=== PATIENT | female | born 1980 | race Caucasian/White ===

== ENCOUNTER 2018-04-09 10:09 | Emergency (ER) | payer MEDICAID, SELFPAY ==
[2018-04-09 10:15] VITALS: BP 126/82; PULSE 68; RESP 16; TEMP 36.7; O2SAT 100
--- NOTE | 2018-04-09 10:49 | ED.GENADUL ---
Disposition Clinical Impression: Poison bri dermatitis Disposition: HOME Condition: Stable Instructions: Poison Bri (ED) Additional Instructions: Return immediately if you began having fever chills, significant spreading of the rash after being on steroids for 3 days, any new or worsening symptoms. Prescriptions: Prednisone 10 mg PO DAILY #27 tablet Referrals: Primary Care Provider [Outside] - 1 week (As needed for reassessment or if not improving) Medical Decision Making - Medical Decision Making Patient presenting to the emergency department with chief complaint of rash. Physical exam reveals erythematous papular rash that is blanchable noted mostly on the exposed areas of the skin in the upper extremities and slight to the right supraclavicular area. Patient does state some rash on her legs but is wearing jeans and states that is same as this was not fully examined at this time. 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 Patient has no systemic illness type symptoms and be on rest physical exam is otherwise unremarkable. Given diffuse spread of rash on both upper extremities, lower extremity status, and mild to the superior trunk I do feel that patient would benefit from steroid use. Patient was placed on a 2-week prednisone taper and fully informed patient not to stop this immediately and to take as prescribed. Patient also recommended mcvr-sgr-mucdthk poison bri medication. Patient states that she does not have a primary care provider to follow-up with in the next week and she was offered to have care management assist with this and she declined this at this time. She was given care management's phone number to call if she changes her mind. Patient otherwise states she will return to the emergency department if she has any new or worsening symptoms or feels appropriate. After discussion of diagnosis and plan of care with patient patient agreed and stated no further needs, questions, or concerns at this time. History of Present Illness - General Chief complaint: RashLesion Stated complaint: RASH Time Seen by Provider: 04/09/18 10:49 Source: patient, RN notes reviewed Mode of arrival: ambulatory Limitations: no limitations - History of Present Illness Initial comments: Patient reports 2 days ago she noticed a rash on her arms. She has been having a flea issue in her home but is not been in the house for the past 3 days when she started noticing the rash. 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 Patient denies any fever chills, swelling of lips tongue his mouth, difficulty breathing or swallowing. Onset/Timin -: days(s) Location: upper extremity Severity scale (1-10): 2 Quality: burning (Itchy) Consistency: constant Improves with: none Worsens with: none Associated Symptoms: denies other symptoms Treatments Prior to Arrival: other (Benadryl cream) - Related Data Levonorgestrel [Mirena] 1 unit IU DIRECTED 07/02/13 Clonazepam 1 mg PO 1/2-1/D PRN #30 tab MDD 1mg 03/05/18 Prednisone 10 mg PO DAILY #27 tablet 04/09/18 Allergies Allergy/AdvReac Type Severity Reaction Status Date / Time No Known Drug Allergies Allergy Unverified 04/09/18 10:18 Review of Systems Constitutional: no symptoms reported. denies: chills, fever, malaise ENT: denies: throat pain Respiratory: denies: cough, shortness of breath, SOB at rest Musculoskeletal: denies: joint swelling Skin: rash Neurological: denies: headache Comment: All other systems reviewed and negative Past Medical History - Past Medical History pseudotumor cerebri Surgical history: other (Laparoscopy, Breast augmentation and removal) Psychiatric history: anxiety - Social History Smoking status: current everyday smoker Alcohol use: occasionally, heavy Drug use: none Living Situation: lives with family General Exam - General Limitations: no limitations General appearance: alert, in no apparent distress - ENT ENT exam: Present: normal exam, normal orophraynx, mucous membranes moist - Neck Neck exam: Present: normal inspection - Respiratory Respiratory exam: Present: normal lung sounds bilaterally. Absent: respiratory distress - Neurological Exam Neurological exam: Present: alert, oriented X3. Absent: altered - Psychiatric Psychiatric exam: Present: normal affect, normal mood - Skin Skin exam: Present: warm, dry, erythema (Patient has a erythematous diffuse non-patterned rash that is papular on the upper extremities and the right supraclavicular soft tissue. There is some linear markings to the rash and excoriation noted.). Absent: rash, cyanosis, vesicles, petechiae, pallor Course Vital Signs - 24 hr 04/09/18 10:15 Temperature 36.7 C Pulse 68 Respiratory 16 Rate Blood Pressure 126/82 Pulse Oximetry 100
== END 2018-04-09 11:04 | disposition home or self-care (01) ==
PROVIDERS: Emergency Provider Emergency Medicine
DX: L23.7 Allergic contact dermatitis due to plants, except food (principal)
CPT/HCPCS: 99283

== ENCOUNTER 2018-05-19 09:07 | Emergency (ER) | payer MEDICAID, SELFPAY ==
[2018-05-19 09:13] VITALS: BP 117/80; PULSE 70; RESP 16; TEMP 36.5; O2SAT 117
--- NOTE | 2018-05-19 09:30 | ED.GENADUL_ITS ---
Discharge Plan Discharge Details Chief Complaint: EarProblem Primary Care Provider: NONE,NONE ED Provider: Jefry Jose Home Meds and New Rx's Prescriptions: No Action clonazepam 1 MG tablet 1 mg PO 1/2-1/D MDD 1mg PRNQty: 30 RF: 0 levonorgestrel [Mirena] 1 EACH intrauterine device 1 unit IU DIRECTED RF: 0 Medical Decision Making 37-year-old female presents with left ear foreign object sensation. Her exam is notable only for mild cerumen. Ear was irrigated and reexamined without any evidence of persistent material. She is reassured and stable for discharge to home HPI General Mode of arrival: ambulatory . Date/Time Provider Initiated Documentation: 05/19/18 09:22 . Limitations to Documentation: no limitations . Information obtained by: patient . History of Present Illness 37 year old F presents to the emergency department with the chief complaint of Left ear, described as mild, Quality is described as other (Scratching), Patient started experiencing this hour(s) and it has been intermittent. No relieving factors improve symptom(s), No exacerbating factors reported . HPI Narrative: Left ear discomfort: Patient states she felt left ear foreign object/question of insect in her ear 2 weeks ago. The sensation occurred 2 days ago and again this morning. Is not particularly of pain sensation it is a sensation of scratching. She did use a Q-tip with some improvement. She has otherwise been well. She has had no swelling, fever, discharge. Related Data Home Medications Medication Instructions Recorded Confirmed levonorgestrel [Mirena] 1 unit IU DIRECTED 07/02/13 05/19/18 clonazepam 1 mg PO 1/2-1/D PRN #30 tab MDD 1mg 03/05/18 05/19/18 Allergies Allergy/AdvReac Type Severity Reaction Status Date / Time No Known Drug Allergies Allergy Unverified 05/19/18 09:17 General Stated Complaint: EarProblem NICKI: 3 Review of Systems Review of Systems 6 systems reviewed and otherwise neg PFSH Family History Mother Depression Father Essential hypertension Depression Hyperlipidemia Neoplasm Sister Depression Brother Depression Brother Depression Cerebrovascular accident Grandfather Diabetes Heart disease Hyperlipidemia Cerebrovascular accident Grandfather Heart disease Hyperlipidemia Cerebrovascular accident Grandmother Diabetes Grandmother Diabetes Neoplasm Social History Smoking/Tobacco Use Status: Current every day Exam Narrative Exam Narrative: GEN: awake, alert, oriented 3. Pleasant, well groomed, interactive. HEAD: Normocephalic, atraumatic ENT: Mucous membranes moist, oropharynx unremarkable, External ear exam unremarkable, bilateral tympanic membranes visualized, trace cerumen in left ear. No foreign object or insect appreciated EYES: PERRL, EOMI NECK: Full ROM, no NUBIA, no menigismus Neuro: Grossly normal neurologic exam, conversant, interactive. Psych: Speech fluent, thoughts congruent, affect normal Course Vital Signs Temperature 36.5 C 05/19/18 09:13 Pulse 70 05/19/18 09:13 Respiratory Rate 16 05/19/18 09:13 Blood Pressure 117/80 05/19/18 09:13 Pulse Oximetry 117 H 05/19/18 09:13 Temperature 36.5 C 05/19/18 09:13 Temperature Source Skin 05/19/18 09:13 Pulse 70 05/19/18 09:13 Respiratory Rate 16 05/19/18 09:13 Respiratory Effort Non-Labored 05/19/18 09:13 Blood Pressure 117/80 05/19/18 09:13 Pulse Oximetry 117 H 05/19/18 09:13 Oxygen Delivery Method Room Air 05/19/18 09:13 Oxygen Flow Rate 0 05/19/18 09:13 Pain Level 0 05/19/18 09:13
== END 2018-05-19 09:45 | disposition home or self-care (01) ==
PROVIDERS: Emergency Provider Emergency Medicine
DX: H61.22 Impacted cerumen, left ear (principal)
CPT/HCPCS: 69209; 99281

== ENCOUNTER 2019-03-26 12:57 | Outpatient (CLI) | payer SELFPAY ==
[2019-03-26 13:31] LABS: HCT 39.7 % (36.0-46.0); HGB 14.2 g/dL (12.0-15.5); Mean Corp. HGB Concentration 35.8 g/dL (32.0-36.0); Mean Corpuscular Hemoglobin 34.1 pg (27.0-33.0); Mean Corpuscular Volume 95.2 fL (80-95); Mean Platelet Volume 8.7 fL (8.0-11.0); Platelet Count 272 x1000/uL (130-400); RBC 4.17 m/cumm (4.00-5.20); RBC Distribution Width 11.6 % (11.7-14.6); White Blood Cell Count 6.19 k/cumm (4.4-10.8)
[2019-03-26 14:24] LABS: ALT 29 U/L (12-78); AST 15 U/L (15-37); Alkaline Phosphatase 55 U/L (46-116); Anion Gap 10.9 mmol/L (3-11); BUN 12 mg/dL (7-18); Bilirubin, Total 0.2 mg/dL (0.2-1.0); CO2 24.1 mmol/L (21.0-32.0); CREATININE 0.81 mg/dL (0.55-1.02); Calcium 9.1 mg/dL (8.5-10.1); Chloride 105 mmol/L (98-107); Glucose 104 mg/dL (70-100); Sodium 140 mmol/L (136-145); TSH (W/Ref FT4) 1.68 uIU/mL (0.36-3.74); Total Protein 7.2 g/dL (6.4-8.2)
[2019-03-26 15:55] LABS: Bilirubin Negative (Negative); Blood Negative (Negative); Clarity Clear (Clear); Glucose Negative (Negative); Ketones Negative (Negative); Leukocyte Esterase Negative (Negative); Nitrite Negative (Negative); Specific Gravity 1.015 (1.005-1.025); Urobilinogen 0.2 EU/dL (Up TO 0.2); pH 6.5 (5-8)
== END 2019-03-26 13:17 ==
PROVIDERS: PCP General Practice; Visit Provider General Practice
DX: R53.83 Other fatigue (principal); R10.9 Unspecified abdominal pain
CPT/HCPCS: 36415; 80053; 85027; 81003; 84443

== ENCOUNTER 2019-09-30 02:20 | Outpatient (CLI) | payer OTHER, SELFPAY ==
--- NOTE | 2019-09-30 13:47 | DI.MRI_ITS ---
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 COMPARISON: HEAD AND NECK WO AND W CONTRAS from 08/13/2017 FINDINGS: There is normal signal in the brain parenchyma. The ventricles are intact. The basilar cisterns are patent. There is a normal flow void in the [place]. The diffusion-weighted images are u nremarkable. No intracranial hemorrhage is present. Note is made of a partially empty sella which i s unchanged. The infundibulum and optic chiasm are unremarkable. The optic nerves are symmetric and unremarkable. The orbits and retro-orbital soft tissues are unremarkable. The visualized paranasal sinuses are c lear. Following contrast administration, no enhancing masses are seen. IMPRESSION: No acute abnormality. Unremarkable optic nerves, orbits and retro-orbital soft tissues.
[2019-09-30] MEDS: Normal Saline Flush 10 ML SYR IVP (14:42)
[2019-09-30] MEDS: Gadoterate meglumine 20 ML VIAL 14 ML IVP (14:43)
== END 2019-09-30 02:40 ==
PROVIDERS: PCP Student in an Organized Health Care Education/Training Program; Visit Provider Nurse Practitioner Adult Health
DX: R42 Dizziness and giddiness (principal); H53.2 Diplopia; H47.10 Unspecified papilledema
CPT/HCPCS: 70553; 70543

== ENCOUNTER 2019-11-04 10:36 | Outpatient (CLI) | payer OTHER, SELFPAY ==
[2019-11-08 16:39] LABS: COVID-19 RT-PCR Result QNS (NotDetected)
== END 2019-11-04 10:56 ==
PROVIDERS: PCP Student in an Organized Health Care Education/Training Program; Visit Provider Student in an Organized Health Care Education/Training Program
DX: Z20.828 Contact with and (suspected) exposure to other viral communicable diseases (principal); Z11.59 Encounter for screening for other viral diseases; R05 Cough
CPT/HCPCS: 87449; U0003

== ENCOUNTER 2019-11-09 08:04 | Outpatient (CLI) | payer OTHER, SELFPAY ==
[2019-11-10 16:02] LABS: COVID-19 RT-PCR Result Not Detected (NotDetected)
== END 2019-11-09 08:24 ==
PROVIDERS: PCP Student in an Organized Health Care Education/Training Program; Visit Provider Student in an Organized Health Care Education/Training Program
DX: Z20.828 Contact with and (suspected) exposure to other viral communicable diseases (principal)
CPT/HCPCS: U0003

== ENCOUNTER 2020-01-30 13:39 | Emergency (ER) | payer OTHER, SELFPAY ==
[2020-01-30 13:42] VITALS: BP 138/73; PULSE 94; RESP 16; TEMP 36.6; O2SAT 100
--- NOTE | 2020-01-30 14:00 | ED.GENADUL_ITS ---
Discharge Plan Disposition Patient Disposition: HOME Condition: Good Discharge Details Chief Complaint: Nk/Back Pain Clinical Impression: Acute coccygeal pain, Muscle spasm Primary Care Provider: Lisa Martin ED Provider: Arlene Fontenot Home Meds and New Rx's Prescriptions: New methocarbamol 750 mg tablet 750 mg PO TID PRN (Reason: muscle spasm) Qty: 7 RF: 0 Continued clonazepam 0.5 mg tablet 0.5 mg PO DAILY PRN (Reason: anxiety) Qty: 28 RF: 2 topiramate 100 mg tablet 100 mg PO BID Qty: 60 RF: 5 artificial tear(arnfo-lal-wje) 0.1-0.3-0.2 % drops 1 drp OP 4-8XD PRN (Reason: dry eye(s)) Qty: 30 RF: 1 Mirena 1 EACH intrauterine device 1 unit IU DIRECTED RF: 0 Discharge Instructions Instructions: Coccyx Injury (ED), Muscle Spasm (ED) Additional Instructions: Encourage hydration. May continue with Tylenol and/or ibuprofen as needed for discomfort. Please augment this with methocarbamol as prescribed for muscle spasm. Please take this medication only as prescribed do not drive will take this medication. May perform gentle stretching and ambulation. You may use Lidoderm patches to help with discomfort. Heat or ice. If you develop sensation changes, change in urinary or bowel habits, fever/chills, weakness or other new/worsening symptoms please seek care urgently once again. Otherwise, please follow-up with primary care if not improving in 1-2 weeks. Stand Alone Forms: Work Release Referrals: Lisa Martin DO [Primary Care Provider] - Discharge Data Discharge Date/Time-TO BE ENTERED AT DEPARTURE: 01/30/20 15:03 Medical Decision Making Patient is a pleasant 39-year-old female presents today with chief complaint of coccyx and sacrum discomfort. She reports that yesterday she was in [employer] with her daughter attempting to stand on a skateboard and skateboard went out from underneath her and she landed directly on her buttock. She describes midline discomfort. She reports that she had he has some sensation change in her bilateral lower extremities which she associates with her Topamax. States that this is unchanged and a fall yesterday. She denies any weakness in the lower extremities. No fevers or chills. Pain does not radiate. States the pain is worse when changing positions or bending forward. Denies any incontinence. No change in bowel or bladder habits. Denies other injury at the time of the incident. On exam, patient appears uncomfortable with movement. Most difficulty going from a sitting to standing position. Exam of her back shows no midline tenderness of the thoracic or lumbar spine. She has full range of motion without discomfort. Patient is maximally tender over the coccyx. She does have some discomfort in the sacrum but this does not seem to be as well-defined. She also has discomfort and tightness noted lateral to this over the glutes. She has no saddle paresthesias, 5 out of 5 strength bilaterally. Reflexes are equal bilaterally. No evidence of cauda equina. Patient is not had anything as of yet for discomfort. Will give Tylenol, ibuprofen and apply Lidoderm patch. Plan for plain film x-rays to evaluate for potential fracture. FINDINGS: Intrauterine device projecting over the pelvis. The bony structures are in anatomic alignment. No fracture is present. No radiopaque foreign body is identified. IMPRESSION: No evidence of acute bony abnormality Discussed these findings with the patient. She does report slight improvement in her discomfort. Work note will be given. 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 I am concerned that this may be exacerbating her discomfort today. She is given strict return precautions, in particular signs of neurologic deficit. I encouraged she continue with the Tylenol and ibuprofen. As she was tight over the gluteus, I did offer muscle relaxer which she declined while here. However, she reported that she did have difficulty sleeping last night and feels that this may be of benefit. Will prescribe methocarbamol to be used as needed. She was given strict usage instructions. We discussed activities that she should be avoiding. Advised not to drive will take this medication as it may cause drowsiness. She will follow-up with her primary care in the next 1 to 2 weeks if not improving. She will continue with the Tylenol and ibuprofen to help with discomfort as well as topical patches. All of her questions and concerns were addressed and she is in agreement this plan. HPI General Mode of arrival: ambulatory . Date/Time Provider Initiated Documentation: 01/30/20 14:00 . Limitations to Documentation: no limitations . Information obtained by: patient and RN notes reviewed . History of Present Illness 39 year old F presents to the emergency department with the chief complaint of Sacral and coccyx pain, described as moderate, with intensity rated at 5. Quality is described as aching, and is localized to the back and buttocks. Patient reports no radiation. Patient started experiencing this day(s) (1) and it has been constant. Immobilization improves symptom(s), Movement worsens symptoms . Patient notes no other symptoms.. Patient did receive the following treatments prior to arrival, none Related Data Home Medications Medication Instructions Recorded Confirmed Mirena 1 unit IU DIRECTED 07/02/13 01/30/20 topiramate 100 mg tablet 100 mg PO BID #60 tab 11/04/19 01/30/20 artificial 1 drp OP 4-8XD PRN #30 ml 11/25/19 01/30/20 tears(fmtnmzy-goxasusg-hsgfidt) 0.1 %-0.3 %-0.2 % eye drops clonazepam 0.5 mg tablet 0.5 mg PO DAILY PRN #28 tab 12/29/19 01/30/20 methocarbamol 750 mg PO TID PRN #7 tab 01/30/20 Previous Rx's Medication Instructions Recorded topiramate 100 mg tablet 100 mg PO BID #60 tab 11/04/19 artificial 1 drp OP 4-8XD PRN #30 ml 11/25/19 tears(tzwmzzd-bszvdprd-sdioipn) 0.1 %-0.3 %-0.2 % eye drops clonazepam 0.5 mg tablet 0.5 mg PO DAILY PRN #28 tab 12/29/19 methocarbamol 750 mg PO TID PRN #7 tab 01/30/20 Allergies Allergy/AdvReac Type Severity Reaction Status Date / Time sertraline [From Zoloft] Allergy Dysorgasmia Verified 01/30/20 13:47 General Stated Complaint: Nk/Back Pain NICKI: 4 Review of Systems Constitutional Constitutional: Reports as per HPI, Denies chills, Denies fatigue, Denies fever(s), Denies frequent falls and Denies headache(s) Eyes Eyes: Denies change in vision ENT Ears, Nose, Mouth, and Throat: Denies headache(s) Cardiovascular Cardiovascular: Denies chest pain, Denies dyspnea and Denies dyspnea on exertion Respiratory Respiratory: Denies cough, Denies dyspnea and Denies dyspnea on exertion Gastrointestinal Gastrointestinal: Denies abdominal pain, Denies change in bowel habits and Denies fecal incontinence Genitourinary Genitourinary: Reports as per HPI, Denies urinary incontinence and Denies urinary hesitancy Musculoskeletal Musculoskeletal: Reports as per HPI, Reports back pain, Denies muscle weakness, Denies numbness, Denies radiating pain into limb, Reports stiffness and Denies tingling Integumentary/Breasts Skin/Breast: Reports as per HPI and Denies rash Neurologic Neurologic: Reports as per HPI, Denies frequent falls, Denies headache(s), Denies localized weakness, Denies numbness, Denies radicular pain, Denies sensory deficit, Denies tingling and Denies paresthesias Endocrine Endocrine: Denies fatigue [facility] Social History Smoking/Tobacco Use Status: Current every day Alcohol Intake: former Drug use: Never Substance use type: does not use Adopted: No Caregiver/Support person: No Foster care: No Household members: children Housing: house Number of Children: 2 Do you need help understanding health information?: Never 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, [employer] Sexually active: Yes Do you think of yourself as: straight/heterosexual Current gender identity: female Seatbelt use: always Do you feel safe at home: Yes Do you feel safe in your relationship?: Yes Exam Const General: cooperative, healthy appearing, comfortable, no acute distress, well developed and well groomed Nutritional Appearance: average body habitus and well nourished Orientation: alert and awake Eyes General: appearance normal, both eyes and all related structures Neck Neck: normal visual inspection, full ROM, no lymphadenopathy and no meningeal signs Resp Effort & Inspection: normal respiratory effort and able to speak in complete sentences Auscultation: clear to auscultation bilaterally, no rales, no rhonchi and no wheezes Cardio Rate: regular rate Rhythm: regular rhythm Heart Sounds: S1 normal and S2 normal GI Inspection: normal to inspection Palpation: soft and nontender Back/Spine/Pelvis Back: no CVA tenderness Cervical Spine: normal cervical lordosis Thoracic/Lumbar Spine: thoracic and lumbar spine normal to inspection, straight leg raise negative bilaterally, No pain with thoraco-lumbar ROM, No paraspinal tenderness, No thoraco-lumbar ROM limited, No thoracic spinal tenderness, No lumbar spinal tenderness and No straight leg raise positive Pelvis: no pain with anterior-posterior compression, no pain with lateral compression, no buttock ecchymosis, buttock tenderness ( tender at the top of buttock with tense muscles in this area) and no buttock swelling Sacroiliac joints: bilaterally nontender Sacrum: no ecchymosis, no erythema, no swelling and tenderness midline Coccyx: tenderness on direct palpation Skin General skin exam: no rashes or lesions noted Neuro General: patient alert and patient awake Cognition: normal cognition Speech: speech normal Gait: normal gait Motor: muscle tone normal throughout, strength 5/5 throughout, no movement abnormalities noted and no fasciculations Sensory Exam: no sensory deficits noted (no saddle paresthesias) DTR's: Rt Patellar: 2+, Lt Patellar: 2+, Rt Ankle: 2+ and Lt Ankle: 2+ Extrem General: normal to inspection, full ROM, capillary refill normal, no joint e nlargement, no pedal edema, no calf tenderness and normal gait Psych Appearance: grossly normal and well kempt Mental Status: mental status grossly normal Speech and Movement: speech and movement normal Course Vital Signs Vital signs: Vital Signs Temperature 36.6 C 01/30/20 13:42 Pulse 94 H 01/30/20 13:42 Respiratory Rate 16 01/30/20 13:42 Blood Pressure 138/73 01/30/20 13:42 Pulse Oximetry 100 01/30/20 13:42 Temperature 36.6 C 01/30/20 13:42 Temperature Source Temporal Artery Scan 01/30/20 13:42 Pulse 94 H 01/30/20 13:42 Respiratory Rate 16 01/30/20 13:42 Respiratory Effort Non-Labored 01/30/20 13:45 Blood Pressure 138/73 01/30/20 13:42 Blood Pressure Position Standing 01/30/20 13:42 Pulse Oximetry 100 01/30/20 13:42 Oxygen Delivery Method Room Air 01/30/20 13:42 Oxygen Flow Rate 0 01/30/20 13:42 Pain Level 5 01/30/20 13:42
--- NOTE | 2020-01-30 14:00 | DI.RAD_ITS ---
EXAM: XR SACRUM COCCYX CLINICAL HISTORY: fell on buttock yesterday. TECHNIQUE: 2D digital imaging was performed. COMPARISON: No exams were available for comparison FINDINGS: BONES: No acute fracture is present. No bony destructive lesion is seen. JOINTS: SI joints and pubic symphysis appear intact. SOFT TISSUE: An IUD is noted. IMPRESSION: Unremarkable radiographs of the sacrum and coccyx. DATA REPOSITORY: RADIATION DOSE DELIVERED:
[2020-01-30] MEDS: Ibuprofen 600 MG TAB PO (14:37)
[2020-01-30] MEDS: Acetaminophen 500 MG TAB 1000 MG PO (14:37)
--- NOTE | 2020-01-30 14:41 | DI.VRAD_ITS ---
PROCEDURE INFORMATION: Exam: XR Sacrum and Coccyx, 2 or More Views Exam date and time: 01/30/2020 2:20 PM Age: 39 years old Clinical indication: Other: Fell on buttock yesterday TECHNIQUE: Imaging protocol: XR of the sacrum and coccyx, 2 or more views. COMPARISON: No relevant prior studies available. FINDINGS: Intrauterine device projecting over the pelvis. The bony structures are in anatomic alignment. No fracture is present. No radiopaque foreign body is identified. IMPRESSION: No evidence of acute bony abnormality. Dictated and Authenticated by: Alex Parisi MD. Ordering:MAI Jacobs MD
[2020-01-30 15:02] VITALS: BP 138/73; PULSE 88; RESP 16; TEMP 36.6; O2SAT 100
== END 2020-01-30 15:03 | disposition home or self-care (01) ==
PROVIDERS: Emergency Provider Physician Assistant; PCP Student in an Organized Health Care Education/Training Program
DX: M62.830 Muscle spasm of back (principal); M53.3 Sacrococcygeal disorders, not elsewhere classified; V00.131A Fall from skateboard, initial encounter
CPT/HCPCS: 99283; 72220

== ENCOUNTER 2020-06-14 16:42 | Outpatient (REF) | payer OTHER, SELFPAY ==
--- NOTE | 2020-06-14 15:45 | PAPFT_PTH ---
PATIENT: Olga Grey LOC: [facility] U#:[id number] AGE/SX: 39/F ROOM: RE06/14/[address]: Noemi Dela Cruz : 1980 BED: DIS: 06/14/2020 SPEC #: [id number] RECD: 06/14/20 18:17 STATUS: [facility]IZABETH REQ #: [id number] VINAY: 06/14/20 15:[address]: Noemi Dela Cruz DEPT: [facility] Cytology RECD BY: Haylie Torres ENTERED: 06/14/20 18:18 SP TYPE: PAPFT OTHR DR: Lisa Martin DO Tissues: 1 - CX/ENDOCX FOR PAP SMEARS Procedures: PAP THIN PREP/[facility] Screening HPV DNA PROBE Comments: [id number]([facility])
[2020-06-19 12:06] LABS: Chlamydia Result Negative (Negative)
[2020-06-19 12:07] LABS: GC Result Negative (Negative)
== END 2020-06-14 17:02 ==
LOC: LBN 16:42
PROVIDERS: PCP Student in an Organized Health Care Education/Training Program; Visit Provider Obstetrics & Gynecology Gynecology
DX: Z97.5 Presence of (intrauterine) contraceptive device (principal); Z12.4 Encounter for screening for malignant neoplasm of cervix; R87.610 Atypical squamous cells of undetermined significance on cytologic smear of cervix (ASC-US); Z11.51 Encounter for screening for human papillomavirus (HPV); Z11.3 Encounter for screening for infections with a predominantly sexual mode of transmission
CPT/HCPCS: 87491; 87591; 88142; 87624

== ENCOUNTER 2020-10-17 20:12 | Outpatient (REF) | payer OTHER, SELFPAY ==
[2020-10-18 14:04] LABS: Chlamydia Result Negative (Negative); GC Result Negative (Negative)
== END 2020-10-17 20:13 | disposition home or self-care (01) ==
LOC: LBN 20:12
PROVIDERS: PCP Student in an Organized Health Care Education/Training Program; Visit Provider Nurse Practitioner Family
DX: Z11.3 Encounter for screening for infections with a predominantly sexual mode of transmission (principal)
CPT/HCPCS: 87491; 87591

== ENCOUNTER 2020-12-22 13:10 | Outpatient (RCR) | payer OTHER, SELFPAY | END 2021-01-15 23:59 | disposition home or self-care (01) | LOC: INF 13:10 | PROVIDERS: PCP Student in an Organized Health Care Education/Training Program; Visit Provider Nurse Practitioner Family | DX: Z77.21 Contact with and (suspected) exposure to potentially hazardous body fluids (principal); Z77.111 Contact with and (suspected) exposure to water pollution; Z57.8 Occupational exposure to other risk factors | CPT/HCPCS: 96372; J1571 ==

== ENCOUNTER 2021-01-30 02:36 | Outpatient (CLI) | payer OTHER, SELFPAY ==
[2021-01-31 11:04] LABS: Lyme Ab w Rflx to Lyme Confirm Negative (Negative)
[2021-02-01 07:37] LABS: Anaplasma phagocytophilum Negative (Negative); B. miyamotoi PCR Negative (Negative); Babesia divergens/MO-1 Negative (Negative); Babesia duncani Negative (Negative); Babesia microti Negative (Negative); Ehrlichia chaffeensis Negative (Negative); Ehrlichia ewingii/canis Negative (Negative); Ehrlichia muris eauclairensis Negative (Negative)
== END 2021-01-30 02:37 | disposition home or self-care (01) ==
LOC: LBO 02:36
PROVIDERS: PCP Student in an Organized Health Care Education/Training Program; Visit Provider Student in an Organized Health Care Education/Training Program
DX: W57.XXXA Bitten or stung by nonvenomous insect and other nonvenomous arthropods, initial encounter (principal); T14.8XXA Other injury of unspecified body region, initial encounter; R21 Rash and other nonspecific skin eruption; M25.59 Pain in other specified joint
CPT/HCPCS: 36415; 80053; 80061; 87798; 83735; 86618

== ENCOUNTER 2021-07-23 14:50 | Outpatient (CLI) | payer OTHER, SELFPAY ==
--- NOTE | 2021-07-23 12:45 | DI.RAD_ITS ---
Exam(s) XR CHEST 2V PA LATERAL EXAM: XR CHEST 2V PA LATERAL CLINICAL HISTORY: r/o acute process; cough worsening, R05.9. TECHNIQUE: 2D digital imaging was performed. COMPARISON: CR CHEST 2 VIEWS PA,LAT from 02/25/2016 FINDINGS: Heart size is normal. The mediastinum is not widened. Lungs are clear. No infiltrates nor pleural effusions. IMPRESSION: No acute pulmonary findings.No significant change compared to February 2016 DATA REPOSITORY: RADIATION DOSE DELIVERED:
== END 2021-07-23 15:10 ==
PROVIDERS: PCP Student in an Organized Health Care Education/Training Program; Visit Provider Nurse Practitioner Adult Health
DX: R05.9 Cough, unspecified (principal)
CPT/HCPCS: 71046

== ENCOUNTER 2021-10-17 00:45 | Outpatient (CLI) | payer OTHER, SELFPAY ==
--- NOTE | 2021-10-17 12:55 | DI.MRI_ITS ---
Exam(s) MR THORACIC SPINE WO EXAM: MR THORACIC SPINE WO CLINICAL HISTORY: eval T4,5,6. Hx midline muscle tear,NECK PAIN,S29.9XXA. TECHNIQUE: Multiplanar multisequence MRI was performed. COMPARISON: No exams were available for comparison FINDINGS: MR examination of thoracic spine was performed according to the usual protocol. No significant bony signal abnormality is seen. The neural foramina appear well maintained throughout and the bony spina l canal appears fairly well maintained throughout as well. Spinal cord shows normal diameter and nor mal signal throughout the thoracic region. There is a small right paracentral disc herniation at T8-T9 level. No other disc herniation identifi ed. IMPRESSION: Small right paracentral disc herniation at T8-T9, no evidence of neural impingement. No other signif icant findings DATA REPOSITORY:
--- NOTE | 2021-10-17 13:35 | DI.MRI_ITS ---
Exam(s) MR CERVICAL SPINE WO EXAM: MR CERVICAL SPINE WO CLINICAL HISTORY: re-evaluate C5-C6 cord compression,NEW WORSENING NECK PAIN,M54.2,M50.20. TECHNIQUE: Multiplanar multisequence MRI was performed. COMPARISON: MR MRI - CERVICAL SPINE WO CONT from 05/25/2014 FINDINGS: MR examination of the cervical spine was performed according to the usual protocol. The examination is compared with prior study of May 2014. Previous examination showed left-sided disc herniation s at C5-6 and C6-7 with significant cord deformity and possible cord edema at C6-7 on the left. On today's examination there is loss of the cervical lordosis. There is prominence of the disc osteo phyte complex noted at C4-5, C5-6, and C6-7. No significant bony signal abnormality seen. No significant findings at C2-3 or C3-4. At C4-5 there is prominence of the disc osteophyte complex without a focal disc herniation. No centr al canal spinal stenosis or neural foraminal stenosis. At C5-6 there is prominence of the disc osteophyte complex. No disc herniation. There is borderline central canal spinal stenosis, unchanged from prior examination.. There is mild neural foraminal st enosis on the right and moderate neural foraminal stenosis on left. At C6-7, there is prominence of the disc osteophyte complex to the left. Previously described disc h erniation is no longer visible. No definite cord compression. No central canal spinal stenosis. Th ere does appear to be mild bilateral neural foraminal stenosis. No significant findings at C7-T1. The spinal cord shows normal diameter and normal signal throughout with no evidence of cord compressi on. IMPRESSION: No evidence of spinal cord compression at this time. Prominence of disc osteophyte complex noted at multiple levels, multilevel neural foraminal stenosis. Please see above discussion for findings at i ndividual levels. DATA REPOSITORY:
== END 2021-10-17 01:05 ==
PROVIDERS: PCP Student in an Organized Health Care Education/Training Program; Visit Provider Student in an Organized Health Care Education/Training Program
DX: M50.20 Other cervical disc displacement, unspecified cervical region (principal); M54.2 Cervicalgia; S29.9XXA Unspecified injury of thorax, initial encounter; R42 Dizziness and giddiness; M25.78 Osteophyte, vertebrae; M48.02 Spinal stenosis, cervical region; M51.24 Other intervertebral disc displacement, thoracic region
CPT/HCPCS: 72141; 72146

== ENCOUNTER 2021-12-11 14:37 | Outpatient (REF) | payer OTHER, SELFPAY ==
--- NOTE | 2021-12-11 14:15 | PAPFT_PTH ---
PATIENT: Olga Grey LOC: [facility] U#:[id number] AGE/SX: 41/F ROOM: RE12/11/[address]: NADIA Gallardo : 1980 BED: DIS: 12/11/2021 SPEC #: [id number] RECD: 12/11/21 17:39 STATUS: ELIZABETH REQ #: [id number] VINAY: 12/11/21 14:[address]: Haleigh Amaro DEPT: [facility] Cytology RECD BY: Haylie Torres ENTERED: 12/11/21 17:39 SP TYPE: PAPFT OTHR DR: Lisa Martin, Tissues: 1 - CX/ENDOCX FOR PAP SMEARS Procedures: PAP THIN PREP/[facility] Screening HPV DNA PROBE Comments: [id number]
[2021-12-13 14:47] LABS: Chlamydia Result Negative (Negative); GC Result Negative (Negative)
== END 2021-12-11 14:38 | disposition home or self-care (01) ==
LOC: LBN 14:37
PROVIDERS: PCP Student in an Organized Health Care Education/Training Program; Visit Provider Nurse Practitioner Family
DX: Z11.3 Encounter for screening for infections with a predominantly sexual mode of transmission (principal); Z12.4 Encounter for screening for malignant neoplasm of cervix; Z11.51 Encounter for screening for human papillomavirus (HPV); Z87.42 Personal history of other diseases of the female genital tract
CPT/HCPCS: 87491; 87591; 88142; 87624

== ENCOUNTER 2022-01-30 12:40 | Outpatient (CLI) | payer OTHER, SELFPAY ==
[2022-01-30 12:53] LABS: Hemoglobin A1C 5.3 % (<5.7)
[2022-01-30 13:56] LABS: TSH 0.98 uIU/mL (0.36-3.74); Vitamin B12 348 pg/mL (193-986)
[2022-01-31 13:41] LABS: Albumin 62.6 % (55.8-66.1); Albumin g/dL 4.5 g/dL (3.6-5.2); Total Protein 7.2 g/dL (6.3-8.2)
== END 2022-01-30 12:41 | disposition home or self-care (01) ==
LOC: LBO 12:46
PROVIDERS: PCP Student in an Organized Health Care Education/Training Program; Visit Provider Psychiatry & Neurology Neurology
DX: R20.0 Anesthesia of skin; G62.9 Polyneuropathy, unspecified; F41.8 Other specified anxiety disorders
CPT/HCPCS: 36415; 82607; 83036; 84165; 84443

== ENCOUNTER → 2022-03-20 01:32 | Outpatient (CLI) | payer OTHER, SELFPAY ==
--- NOTE | 2022-03-20 07:00 | DI.MRI_ITS ---
Exam(s) MR BRAIN WO/W EXAM: MR BRAIN WO/W CLINICAL HISTORY: evaluate for lesion OR MS, DIPLOPIA,DIZZINESS,BILAT HAND NUMBNESS,PERIPHERA. TECHNIQUE: Multiplanar multisequence MRI of the brain was performed. CONTRAST MATERIAL: IV Contrast: 13 ML of Dotarem contrast administered. COMPARISON: MR MR BRAIN ORBIT FACE NECK WO/W from 09/30/2019 FINDINGS: VENTRICLES AND EXTRA AXIAL SPACES: Normal in size and morphology for the patient's age. HEMORRHAGE: None. CEREBRAL PARENCHYMA: No focus of restricted diffusion to suggest acute infarct. No space-occupying le favio identified. No abnormal high signal lesions in the white matter. MIDLINE SHIFT: None. BRAINSTEM/CEREBELLUM: Normal. CALVARIUM: Normal. ENHANCEMENT: No suspicious enhancement identified. VISUALIZED PARANASAL SINUSES/MASTOIDS: Minimal mucous retention floor of left maxillary sinus. OTHER FINDINGS: Partially empty sella, unchanged. The orbits are unremarkable. The extraocular musc les are normal in thickness and symmetric. Optic nerves show normal thickness and signal. IMPRESSION: Unremarkable MRI of the brain. DATA REPOSITORY:
[2022-03-20] MEDS: Normal Saline Flush 10 ML SYR IVP (08:06)
== END ==
PROVIDERS: PCP Student in an Organized Health Care Education/Training Program; Visit Provider Student in an Organized Health Care Education/Training Program
DX: G62.9 Polyneuropathy, unspecified (principal); H53.2 Diplopia; R20.0 Anesthesia of skin; R42 Dizziness and giddiness
CPT/HCPCS: 70553

== ENCOUNTER → 2022-07-17 08:40 | Outpatient (CLI) | payer OTHER, SELFPAY ==
--- NOTE | 2022-07-17 08:30 | DI.MRI_ITS ---
Exam(s) MR CERVICAL SPINE WO EXAM: MR CERVICAL SPINE WO CLINICAL HISTORY: evaluate disc herniation M54.2 CERVICALGIA TECHNIQUE: Multiplanar multisequence MRI of the cervical spine was performed without intravenous con trast. COMPARISON: MR MR CERVICAL SPINE WO from 10/17/2021 FINDINGS: CERVICOMEDULLARY JUNCTION: Intact with no evidence of cerebellar tonsillar ectopia. No obvious abnor mality of the odontoid process. No evidence of Chiari 1 malformation. CERVICAL SPINAL CORD: There is no abnormal signal in the cervical spinal cord and no evidence of foca l cord atrophy nor focal cord swelling. OSSEOUS:There are no cervical fractures evident. No significant osseous lesions in the cervical vert ebrae. Benign intraosseous hemangiomas again noted in the right-side of C6 cervical vertebra. Again noted is straightening of the cervical spine which is unchanged and most probably related to muscle spasm. INDIVIDUAL LEVELS: C2-3: No disc herniation nor central canal stenosis. No foraminal stenosis. No facet arthropathy. C3-4: No disc herniation nor central canal stenosis.No facet arthropathy. No foraminal stenosis. C4-5: No disc herniation nor central canal stenosis.No facet arthropathy. No foraminal stenosis C5-6: This level again exhibits 2 minimal disc space narrowing. There are bilateral Luschka joint os teophytes again evident at this level. These disc-osteophyte complexes appear unchanged and associat ed with mild bilateral foraminal stenosis but unchanged from the October 2021 study. There is no new d isc herniation at this level. No central canal stenosis. No abnormal cord signal.. No facet joint degenerative changes. No facet malalignment. C6-7: This level again exhibits mild disc space narrowing and left-sided osteophyte-Luschka joint com plex again noted there is, however, no new disc herniation at this level. Central canal dimensions a re lower normal. No foraminal stenosis on the right side and no facet arthropathy on the right side. Moderate facet joint degenerative changes evident on the left side and there is mild-moderate left- sided foraminal stenosis at this level again noted due to the disc-left Luschka joint osteophyte comp everton.. C7-T1: No disc herniation nor central canal stenosis. Moderate facet degenerative changes, and change .No significant foraminal stenosis. IMPRESSION: 1. Findings at C5-6 and C6-7 levels as described above but is centrally unchanged from the prior MRI scan of 10/17/2021. There Luschka joint osteophytes evident at these levels, most prominent on the l eft side at C6-7 level, but unchanged. 2. There are no new disc herniations. No central spinal canal stenosis. No abnormal fluid collectio ns. 3. Stable benign-appearing bone lesion in the right-side of C6 vertebral body which has signal charac teristics of a benign intraosseous hemangioma, unchanged from prior study. DATA REPOSITORY:
== END ==
PROVIDERS: PCP Student in an Organized Health Care Education/Training Program; Visit Provider Nurse Practitioner Family
DX: M54.2 Cervicalgia (principal); M50.322 Other cervical disc degeneration at C5-C6 level; M50.323 Other cervical disc degeneration at C6-C7 level; M85.88 Other specified disorders of bone density and structure, other site
CPT/HCPCS: 72141

== ENCOUNTER 2022-09-19 15:52 | Outpatient (CLI) | payer OTHER, SELFPAY ==
[2022-09-19 17:24] LABS: Folate 15.7 ng/mL (8.6-20.0)
[2022-09-19 17:51] LABS: Vitamin B12 357 pg/mL (193-986)
== END 2022-09-19 15:53 | disposition home or self-care (01) ==
LOC: LBO 15:52
PROVIDERS: Nurse Practitioner Adult Health; PCP Student in an Organized Health Care Education/Training Program; Visit Provider Student in an Organized Health Care Education/Training Program
DX: R42 Dizziness and giddiness (principal); R53.83 Other fatigue; G62.9 Polyneuropathy, unspecified
CPT/HCPCS: 36415; 82607; 82746

== ENCOUNTER 2023-01-13 12:04 | Emergency (ER) | payer OTHER, SELFPAY ==
[2023-01-13 12:10] VITALS: PULSE 93; RESP 19; TEMP 37.1; O2SAT 98
[2023-01-13 12:11] VITALS: BP 134/86
--- NOTE | 2023-01-13 13:15 | DI.RAD_ITS ---
Exam(s) XR CHEST 2V PA LATERAL EXAM: XR CHEST 2V PA LATERAL CLINICAL HISTORY: Right-sided chest pain status post fall. TECHNIQUE: 2D digital imaging was performed. COMPARISON: CR XR CHEST 2V PA LATERAL from 07/23/2021 FINDINGS: 2 views: Heart size is normal. The mediastinum is not widened. Lungs are clear. No infiltrates nor pleural effusions. IMPRESSION: No acute pulmonary findings. DATA REPOSITORY: RADIATION DOSE DELIVERED:
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
[2023-01-13] MEDS: Lidocaine 5% Patch 1 PATCH TP (13:44)
[2023-01-13] MEDS: Acetaminophen 500 MG TAB 1000 MG PO (13:44)
[2023-01-13] MEDS: oxyCODONE 5 MG TAB PO (13:44)
--- NOTE | 2023-01-13 15:03 | DI.VRAD_ITS ---
PROCEDURE INFORMATION: Exam: XR Chest Exam date and time: 01/13/2023 2:41 PM Age: 42 years old Clinical indication: Pain; Chest pressure TECHNIQUE: Imaging protocol: Radiologic exam of the chest. Views: 2 views. COMPARISON: CR XR CHEST 2V PA LATERAL 07/23/2021 2:59 PM FINDINGS: Lungs: Unremarkable. No consolidation. Pleural spaces: Unremarkable. No pleural effusion. No pneumothorax. Heart/Mediastinum: Unremarkable. No cardiomegaly. Bones/joints: Unremarkable. IMPRESSION: No evidence for acute abnormality in the chest. Dictated and Authenticated by: Damaris Tomlinson MD. Ordering:EDEL Swift MD
== END 2023-01-13 15:22 | disposition home or self-care (01) ==
PROVIDERS: Emergency Provider Emergency Medicine; PCP Student in an Organized Health Care Education/Training Program
DX: S30.1XXA Contusion of abdominal wall, initial encounter (principal); W10.9XXA Fall (on) (from) unspecified stairs and steps, initial encounter
CPT/HCPCS: 99283; 71046

== ENCOUNTER 2023-01-17 00:32 | Outpatient (CLI) | payer OTHER, SELFPAY ==
--- NOTE | 2023-01-17 08:00 | DI.RAD_ITS ---
Exam(s) XR RIBS RT W PA LAT CHEST CLINICAL HISTORY: worsening pain and new SOB,contusion of rib, acute dyspnea,r06.00,s20.211a. COMPARISON: No exams were available for comparison TECHNIQUE:: PA and lateral views of the chest and 3 views of the right ribs were performed. FINDINGS: LUNGS:Clear. No pleural abnormality seen. HEART: Normal. MEDIASTINUM: Normal. BONES: Nondisplaced fractures are noted of the lateral right 6th through 9th ribs. No bony destructi ve lesion is seen. IMPRESSION: 1. Nondisplaced fractures of the right 6th through 9th ribs. 2. No acute pulmonary findings.
== END 2023-01-17 00:52 ==
LOC: DI 00:32
PROVIDERS: PCP Student in an Organized Health Care Education/Training Program; Visit Provider Student in an Organized Health Care Education/Training Program
DX: R06.00 Dyspnea, unspecified (principal); S20.211A Contusion of right front wall of thorax, initial encounter; S22.31XA Fracture of one rib, right side, initial encounter for closed fracture; X58.XXXA Exposure to other specified factors, initial encounter
CPT/HCPCS: 71046; 71100

== ENCOUNTER 2023-02-07 13:15 | Outpatient (REF) | payer OTHER, SELFPAY | END 2023-02-07 13:16 | disposition home or self-care (01) | LOC: LBN 13:15 | PROVIDERS: PCP Student in an Organized Health Care Education/Training Program; Visit Provider Student in an Organized Health Care Education/Training Program | DX: R30.0 Dysuria (principal); R39.9 Unspecified symptoms and signs involving the genitourinary system | CPT/HCPCS: 87086 ==

== ENCOUNTER 2023-02-25 00:56 | Outpatient (CLI) | payer OTHER, SELFPAY ==
--- NOTE | 2023-02-25 07:45 | DI.RAD_ITS ---
Exam(s) XR RIBS RT W PA LAT CHEST EXAM: XR RIBS RT W PA LAT CHEST CLINICAL HISTORY: re-evaluate (note: CT ID some displacement),MULT RIB FRACTURES,S22.49XA TECHNIQUE: 2D digital imaging was performed. COMPARISON: No exams were available for comparison FINDINGS: RIBS FIVE VIEWS-RIGHT Fractures of the 6, 7th, 8th, 9th ribs are noted. Minimal callus formation. CXR- 2 VIEWS: No lung contusion or pneumothorax. There is no pleural effusion evident. Heart size is normal and there is no significant mediastinal widening. IMPRESSION: 1. Multiple left-sided rib fractures again noted. No obvious callus formation. 2. No ipsilateral lung nor pleural abnormality evident. No pneumothorax. DATA REPOSITORY: RADIATION DOSE DELIVERED:
== END 2023-02-25 01:16 ==
LOC: DI 00:57
PROVIDERS: PCP Student in an Organized Health Care Education/Training Program; Visit Provider Student in an Organized Health Care Education/Training Program
DX: R09.1 Pleurisy (principal); S22.41XD Multiple fractures of ribs, right side, subsequent encounter for fracture with routine healing; X58.XXXD Exposure to other specified factors, subsequent encounter
CPT/HCPCS: 71046; 71100

== ENCOUNTER 2023-05-26 15:00 | Outpatient (REF) | payer OTHER, SELFPAY ==
[2023-05-28 13:33] LABS: Chlamydia Result Negative (Negative); GC Result Negative (Negative)
== END 2023-05-26 15:01 | disposition home or self-care (01) ==
LOC: LBN 15:00
PROVIDERS: PCP Student in an Organized Health Care Education/Training Program; Visit Provider Advanced Practice Midwife
DX: Z01.419 Encounter for gynecological examination (general) (routine) without abnormal findings (principal); Z11.3 Encounter for screening for infections with a predominantly sexual mode of transmission
CPT/HCPCS: 87491; 87591

== ENCOUNTER 2023-06-09 13:51 | Outpatient (CLI) | payer OTHER, SELFPAY ==
[2023-06-09 10:59] LABS: Abs Immature Grans 0.01 10^3/uL (0.0-0.06); Absolute Basophil Count 0.03 10^3/uL (0.0-0.2); Absolute Eosinophil Count 0.21 10^3/uL (0.0-0.7); Absolute Lymphocyte Count 1.53 10^3/uL (1.2-3.4); Absolute Monocyte Count 0.45 10^3/uL (0.1-0.8); Absolute Neutrophil Count 3.46 10^3/uL (1.2-6.7); Basophils % 0.5; Eosinophils % 3.7; HCT 40.6 % (36.0-46.0); HGB 14.4 g/dL (11.2-15.7); Immature Grans % 0.2; Lymphocytes % 26.9; MCH 34.4 pg (27.0-33.0); MCHC 35.5 % (32.0-36.0); MCV 97 fL (80-95); MPV 8.3 fL (8.0-11.0); Monocytes % 7.9; Neutrophils % 60.8; Platelet Count 313 10^3/uL (130-400); RBC 4.18 10^6/uL (3.93-5.22); RDW 11.4 % (11.7-14.6); RDW-SD 40.6 fL; WBC 5.69 10^3/uL (4.4-10.8)
[2023-06-09 11:44] LABS: Anion Gap 9.8 mmol/L (3-11); BUN 14 mg/dL (7-18); CO2 26.2 mmol/L (21.0-32.0); CREATININE 0.9 mg/dL (0.55-1.02); Calcium 9.7 mg/dL (8.5-10.1); Chloride 103 mmol/L (98-107); Estimated GFR 81.86 (mL/min/1.73m2); Glucose 112 mg/dL (74-106); Magnesium 2.1 mg/dL (1.8-2.4); Potassium 4.3 mmol/L (3.5-5.1); Sodium 139 mmol/L (136-145); TSH (W/Ref FT4) 1.55 uIU/mL (0.36-3.74)
[2023-06-09 12:00] LABS: Vitamin D 25 Total 22.8 ng/mL (30-100)
== END 2023-06-09 13:52 | disposition home or self-care (01) ==
LOC: LBO 13:51
PROVIDERS: PCP Student in an Organized Health Care Education/Training Program; Visit Provider Student in an Organized Health Care Education/Training Program
DX: R19.7 Diarrhea, unspecified (principal); M54.9 Dorsalgia, unspecified; R06.00 Dyspnea, unspecified; R09.1 Pleurisy; E86.0 Dehydration; R79.89 Other specified abnormal findings of blood chemistry
CPT/HCPCS: 36415; 80048; 82306; 83735; 84443; 85025

== ENCOUNTER → 2023-06-11 00:52 | Outpatient (CLI) | payer OTHER, SELFPAY ==
--- NOTE | 2023-06-11 08:30 | DI.MAMMO_ITS ---
Exam(s) MAMMO SCREENING EXAM: MAMMO SCREENING CLINICAL HISTORY: screening.z12.39. TECHNIQUE: Bilateral full field digital CC and MLO mammographic images were obtained with 3D tomosyn thesis and utilizing computer aided detection (CAD). COMPARISON: Prior outside gram of April 2022 was reviewed FINDINGS: There has been no significant change in the appearance and distribution of the fibroglandular tissue. No CAD designations. There are no new spiculated masses nor malignant appearing microcalcification groups. Small asymmetric left breast density to slightly medial of center is unchanged from prior study. There is no significant architectural distortion nor skin thickening-retraction. IMPRESSION: No radiographic evidence of malignancy. BI-RADS Category 1 - Negative Breast Density - Category B - Scattered areas of fibroglandular density Breast density Category C or D implies that the patient has dense breast tissue. Dense breast tissue can make it harder to find cancer on a mammogram. Dense breast tissue is also associated with an incr eased risk of breast cancer. This information about the result of the mammogram report was provided to the patient to raise their awareness. Use this report when you speak with the patient about their risks for breast cancer, which includes their family history. At that time, you may recommend additional screening tests (Ultrasoun d or MRI) as these tests may add significant information. A negative radiographic report should not delay biopsy if a dominant or clinically suspicious mass is present. Up to ten percent of cancers are not identified on mammography. A negative report may reinforce clinical impression. Adenosis and dense breasts may obscure an underlying neoplasm. False positive reports average 6 to 10%. Patient will receive a letter notifying them of these results.
== END ==
PROVIDERS: PCP Student in an Organized Health Care Education/Training Program; Visit Provider Advanced Practice Midwife
DX: Z12.31 Encounter for screening mammogram for malignant neoplasm of breast (principal)
CPT/HCPCS: 77063; 77067

== ENCOUNTER 2023-10-24 14:18 | Outpatient (CLI) | payer OTHER, SELFPAY ==
[2023-10-24 17:30] LABS: Iron 100 ug/dL (50-170); Total Iron Binding Capacity 319 ug/dL (250-450); Transferrin Sat 31 % (15-50)
== END 2023-10-24 14:19 | disposition home or self-care (01) ==
LOC: LBO 14:18
PROVIDERS: PCP Student in an Organized Health Care Education/Training Program; Visit Provider Student in an Organized Health Care Education/Training Program
DX: D75.89 Other specified diseases of blood and blood-forming organs (principal); K52.9 Noninfective gastroenteritis and colitis, unspecified
CPT/HCPCS: 36415; 83540; 83550

== ENCOUNTER 2023-11-21 18:22 | Outpatient (REF) | payer OTHER, SELFPAY ==
[2023-11-21 19:27] LABS: Bacteria Few HPF (Negative); C & S Indicated? No; Casts Negative LPF (Negative); Crystals Many Amorphous HPF (Negative); Epithelial Cells Rare HPF (Negative); Mucus Negative (Negative); RBC Negative HPF (0-2); WBC 0-2 HPF (0-5)
== END 2023-11-21 18:23 | disposition home or self-care (01) ==
LOC: LBN 18:22
PROVIDERS: PCP Student in an Organized Health Care Education/Training Program; Visit Provider Student in an Organized Health Care Education/Training Program
DX: R30.0 Dysuria (principal); E86.0 Dehydration
CPT/HCPCS: 81015

== ENCOUNTER 2023-11-22 12:21 | Outpatient (REF) | payer OTHER, SELFPAY | END 2023-11-22 12:22 | disposition home or self-care (01) | LOC: LBO 12:21 | PROVIDERS: PCP Student in an Organized Health Care Education/Training Program; Visit Provider Student in an Organized Health Care Education/Training Program | DX: N94.9 Unspecified condition associated with female genital organs and menstrual cycle (principal); N76.0 Acute vaginitis; B96.89 Other specified bacterial agents as the cause of diseases classified elsewhere | CPT/HCPCS: 87480; 87510; 87660 ==

== ENCOUNTER 2023-12-31 09:18 | Emergency (ER) | payer OTHER, SELFPAY ==
[2023-12-31] VITALS (8 sets, daily range): BP systolic 116–153; BP diastolic 75–114; PULSE 63–90; RESP 15–16; TEMP 37.2; O2SAT 99–100
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
--- NOTE | 2023-12-31 09:30 | RT.EKG_ITS ---
APPROVED REPORT Exam: Resting ECG Reason for Exam: dizziness Patient Location: E HR:91 bpm ECG Measurements Heart Rate 91 AXIS IN 146 P 81 QRSd 99 QRS 28 QT 358 T 32 QTc 439 Conclusion Sinus rhythm...normal P axis, V-rate 60- 99 Nonspecific T abnormalities, anterior leads...T <-0.10mV, V2-V4 sinus rhtyhm, normal axis, normal intervals, consider partial RBBB
[2023-12-31] MEDS: LORazepam 2 MG/ML VIAL 1 MG IVP (10:01)
[2023-12-31 10:12] LABS: Abs Immature Grans 0.02 10^3/uL (0.0-0.06); Absolute Basophil Count 0.03 10^3/uL (0.0-0.2); Absolute Eosinophil Count 0.11 10^3/uL (0.0-0.7); Absolute Lymphocyte Count 0.97 10^3/uL (1.2-3.4); Absolute Monocyte Count 0.28 10^3/uL (0.1-0.8); Absolute Neutrophil Count 2.82 10^3/uL (1.2-6.7); Basophils % 0.7 %; Eosinophils % 2.6 %; HCT 41.6 % (36.0-46.0); HGB 14.3 g/dL (11.2-15.7); Immature Grans % 0.5 %; Lymphocytes % 22.9 %; MCH 34.8 pg (27.0-33.0); MCHC 34.4 % (32.0-36.0); MCV 101 fL (80-95); MPV 8.4 fL (8.0-11.0); Monocytes % 6.6 %; Neutrophils % 66.7 %; Platelet Count 269 10^3/uL (130-400); RBC 4.11 10^6/uL (3.93-5.22); RDW 11.6 % (11.7-14.6); RDW-SD 43.1 fL; WBC 4.23 10^3/uL (4.4-10.8)
[2023-12-31 10:33] LABS: ALT 39 U/L (14-59); AST 21 U/L (15-37); Albumin 4.1 g/dL (3.4-5.0); Alkaline Phosphatase 73 U/L (46-116); Anion Gap 9.2 mmol/L (3-11); BUN 12 mg/dL (7-18); Bilirubin, Total 0.3 mg/dL (0.2-1.0); CO2 26.8 mmol/L (21.0-32.0); CREATININE 0.8 mg/dL (0.55-1.02); Calcium 9.5 mg/dL (8.5-10.1); Chloride 105 mmol/L (98-107); Glucose 93 mg/dL (74-106); Magnesium 1.9 mg/dL (1.8-2.4); Sodium 141 mmol/L (136-145); TSH (W/Ref FT4) 1.55 uIU/mL (0.36-3.74); Total Protein 7.7 g/dL (6.4-8.2); Troponin I < 50 ng/L (< or =60)
[2023-12-31 10:34] LABS: HCG Qual (Serum) Negative
--- NOTE | 2023-12-31 13:18 | NUR.NOTE ---
Referral faxed to PCP for anxiety, panic attacks, in 1 week. Nursing Note:
--- NOTE | 2023-12-31 13:39 | PDOC.MHCN ---
Date of service: 12/31/23 Time of Service: 11:33 PHQ-9 Over the last 2 weeks, how often have you been bothered by any of the following problems? 1. Little interest or pleasure in doing things: not at all 2. Feeling down, depressed, or hopeless: several days 3. Trouble falling or staying asleep, or sleeping too much: several days 4. Feeling tired or having little energy: several days 5. Poor appetite or overeating: not at all 6. Feeling bad about yourself - or that you are a failure or have let yourself and your family down: not at all 7. Trouble concentrating on things, such as reading the newspaper or watching television: several days 8. Moving or speaking so slowly that other people could have noticed? - Or the opposite - being so fidgety or restless that you have been moving around a lot more than usual: not at all 9. Thoughts that you would be better off or of hurting yourself in some way: not at all Total score: 4 Source: Developed by Drs. Paras Soto, Ale Arguelles, Fabrice Guthrie and colleagues, with an educational jessie from [employer]. Suicide Severity Rate CSSRS Have you wished you were or wished you could go to sleep and not wake up?: No Have you actually had any thoughts of killing yourself?: No CSSRS2 Have you been thinking about how you might do this?: No Have you had these thoughts and had some intention of acting on them?: No Have you started to work out or worked out the details of how to kill yourself? Do you intend to carry out this plan?: No CSSRS3 Have you ever done anything, started to do anything or prepared to do anything to end your life?: No Screening Score Total Score: 0 Screening: Negative Mental Health Emergency Note Release [facility] release signed:: No Reason for Visit High Anxiety In the last 2 weeks has the pt presented for ES prior to today?: No Client Information Client is: New Well Housed: Yes Non Suicidal Self Injury Current: No History: No Safety Risk/Harm to Self or Others Current Ideation to Harm Self or Others: No Risk: Does risk to harm exist?: No Risk: N/A Duty to warn indicated: No Asssessment/Mental Status Appearance: Other Attitude: Cooperative Behavior: Unremarkable Speech: Normal Affect: Cogruent with mood Mood: Sad, Stressed and Anxious Thought process: Unremarkable Hallucinations: No Delusions: No Attention: Unremarkable Perception: Not impaired Orientation: Fully orientated Memory: Intact Insight: Fair Judgement: Fair Neurovegetative Symptoms Sleep: No change Appetitie: No change Interests: Decrease Energy: Decrease Libido: Not applicable Substance Use: ETOH dependence Drug Issues: Other Do you use nicotine?: Yes Have you used substances in the last 7 days?: yes, as soon as possible Additional Issues: Assaultive/Threatening Behavior: No Medical Concerns: No Client engaged in active self harm w/weapon: No Threatening to run away: No Child reported abuse/neglect: No Voluntarily presenting for services: Yes Domestic violence is a concern: No Extreme Psychosis or extreme behavior is present: No Impression Client will persue psychotropic medication from her current PCP for anxiety aswell as therapy through [facility] Internal medicine Resources Reosurces reviewed and given:: [id number] Plan/Disposition Recommended Disposition: PCP/Office visit and Therapy. Plan: Check in calls for next 4 days, pcp appointment, possible medication change, and therapy Reports/communication Outcome discussed with: ED/Personnel
== END 2023-12-31 13:17 | disposition home or self-care (01) ==
PROVIDERS: Emergency Provider Physician Assistant; PCP Student in an Organized Health Care Education/Training Program
DX: R20.2 Paresthesia of skin (principal); R00.2 Palpitations; R42 Dizziness and giddiness
CPT/HCPCS: 00123; 80053; 93005; 96127; 96374; 99284; 83735; 84443; 84484; 84703; 85025; 93010; 99283; J2060

== ENCOUNTER 2024-02-09 19:57 | Outpatient (CLI) | payer OTHER, SELFPAY ==
[2024-02-09 17:56] LABS: Vitamin D 25 Total 20.5 ng/mL (30-100)
== END 2024-02-09 19:58 | disposition home or self-care (01) ==
LOC: LBO 19:59
PROVIDERS: PCP Student in an Organized Health Care Education/Training Program; Visit Provider Student in an Organized Health Care Education/Training Program
DX: F32.9 Major depressive disorder, single episode, unspecified (principal); R10.9 Unspecified abdominal pain; D75.89 Other specified diseases of blood and blood-forming organs; E55.9 Vitamin D deficiency, unspecified
CPT/HCPCS: 36415; 82306

== ENCOUNTER 2024-03-29 09:35 | Emergency (ER) | payer OTHER, SELFPAY ==
[2024-03-29 09:37] VITALS: BP 146/94; PULSE 70; RESP 18; TEMP 36.2; O2SAT 100
--- OUTSIDE RECORDS SUMMARY | 2024-03-29 09:45 | XMS_ITS | Encounter Summary ---
[place] [address] Care Team Providers Care Facilities Supervisor Name Role Phone TerellCamilla yang Sheri DANIELS Primary Care Provider [phone] Reason for Visit * Auth/Cert Specialty Diagnoses / Procedures Referred By Jones nogueira Referred To Contact Diagnoses Capsular contracture of breast implant, initial encounter Bilateral capsular contracture Procedures PRO REMOVAL OF BREAST IMPLANT REMOVAL OF INTACT MAMMARY IMPLANT-SHERRY (WRVU 6.48) Referral ID Status Reason Start Date Expiration Date Visits Re quested Visits Authorized [id number] 1 1 Encounter Details Date Type Department Care Team (Latest Contact Info) Description 11/18/2016 7:13 AM EDT - 11/18/2016 10:37 AM EDT Hospital Encounter [facility] [place] [address] Nas Tabor MD [facility] [place] [address] Discharge Disposition: Home Social History Tobacco Use Types Packs/Day Years Used Date Smoking Tobacco: Every Day Cigarettes Alcohol Use Standard Drinks/Week Comments Yes 42 (1 standard drink = 0.6 oz pu re alcohol) 6 beers a day Sex and Gender Information Value Date Recorded Sex Assigned at Not on file Gender Identity Not on file Sexual Orientation Not on file documented as of this encounter Last Filed Vital Signs Vital Sign Reading Time Taken Comments Blood Pressure 124/90 11/18/2016 9:16 AM EDT Pulse 76 11/18/2016 9:16 AM EDT Temperature 36.2 ??C (97.2 ??F) 11/18/2016 9:16 AM ED T Respiratory Rate 18 11/18/2016 9:16 AM EDT Oxygen Saturation 99% 11/18/2016 9:23 AM EDT Inhaled Oxygen Concentration - - Weight 68 kg (150 lb) 11/18/2016 7:25 AM EDT Height 170.2 cm (5' 7) 11/18/2016 7:25 AM EDT Body Mass Index 23.49 11/18/2016 7:25 AM EDT documented in this encounter Discharge Instructions * Discharge Instructions* Rose Lora RN - 11/18/2016 9:48 AM EDT Images from the original note were not included. General Anesthesia Discharge Instructions Go home and rest. You may be sleepy for several hours. Take it easy as sudden position changes may cause nausea and/or dizziness. Use caution on stairs. Do not smoke if you are alone. Follow a light to regular diet as tolerated today. If nausea occurs, start with clear liquids, and progress slowly to a regular diet. Do not drive, operate machinery, drink alcoholic beverages or make any legal decisions after havinggeneral anesthesia. The medications given change your reaction time and alter your judgement. IV site -- slight redness is normal, you can use warm compresses. If tenderness and redness increases or foul drainage occurs, please contact your M.D. Patients who have had endotracheal tubes/LMA (tubes used by the anesthesia staff to ensure a safe airway during your operation) may have a sore throat. This is normal and cold liquids or soothing lozengers will help ease this discomfort. Narcotic pain medications can cause constipation, please ask the surgeons office what they recommend for prevention of this. Some non-pharmaceutical means of constipation prevention include increasing intake of fluids, eating more fruits and vegetables as well as fruit juices. If you are uncomfortable and/or unable to urinate within 8 hours of discharge and it is before 5 pm, call your physician. If it is after 5pm go to the closest emergency room or call the hospital binitrotoluene operator at [phone] and ask for physician environmental aid covering for your physician. Questions or problems after 5pm or on a weekend: Call the [facility] binitrotoluene operator at and ask for the physician environmental aid covering for your doctor. SAME DAY SURGERY ZULMA DRAIN CARE INSTRUCTIONS Drains help to keep fluid from collecting by removing the extra blood and fluid from under the skin. A drain is temporary. It stays in place until the drainage has slowed down or stopped. Your doctor or nurse will decide when each drain should be removed: This is usually after each drain has 30cc or less in 24 hours for 2 days in a row. When this happens, you should call the [facility]astic Surgery Clinic to schedule an appointment with the nurses to have it/them removed. This is usually not painful and only takes a few seconds. How do I care for the drains at home? Pin your drains to your clothing by using a safety pin through the plastic loop on the top of the bulb. If the drain is not attached to your clothing, it may pull out from under your skin. Also, a drain usually feels more comfortable when it???s attached. To care for the drain at home, you will have to empty the drain, ???strip?? the drain tubing, and changethe dressing if applicable. * See the following pages for instructions on how to do this. What problems may I have with my drain? The bulb is not compressed- The bulb may not be squeezed tightly enough, the plug may not be closed securely, or the tube has slipped out a bit and is leaking. Follow the instructions on how to empty the drain. If the bulb remains expanded, then notify your doctor or nurse during business hours. ??? No drainage or sudden decrease in amount of drainage- This is usually due to clots in the drain. Follow the instructions on how to strip the drain tubing. ??? The tube accidentally falls out- If this happens, place a dry gauze dressing over the drain site and notify your doctor or nurse during business hours. ??? Increased redness, swelling, or heat around the tube insertion site- This may be a sign of infection. Take your temperature: if it is higher than 101F or 38.8C, call your doctor or nurse immediately. Otherwise, notify your doctor or nurse during business hours and keep the dressing clean and dry. Post-Surgical Drain Care After surgery, you will have one or two drains, called a Candelario-Currie (ZULMA) drain, placed near the incision. This device collects fluid, under suction, from your surgical area. The drain promotes healing and recovery, and reduces the chance of infection. The drain will be in place until the drainage slows enough for your body to reabsorb fluid on its own. While you are hospitalized the nursing staff will care for the drain and teach you to continue to do so at home. How to Empty Your ZULMA Drain Note: Wash your hands thoroughly before emptying your drain(s). 1. Have the plastic measuring cup from the hospital ready to collect and measure the drainage. Please measure the output at the same two times every 24 hours and record the amount. 2. Unpin the drain from your clothing. 3. Open the top of the drain. Turn the drain upside down and squeeze the contents of the bulb into the measuring cup. Be sure to empty the bulb as completely as possible. Flush the contents in the toilet. 4. Use the drain output log chart to record the amount of drainage twice a day or any time the bulbis full. Record the total for 24 hours for each drain you have. 5. If you have more than one drain, remember to record the drainage from each drain separately. 6. To prevent infection, do not let the stopper or top of the bottle touch the measuring cup or anyother surface. 7. Use one hand to squeeze all of the air from the drain. With the drain still squeezed, use your other hand to replace the top. This creates the suction necessary to remove the fluids from your body. 8. Pin the drain back on your clothing to avoid pulling it out accidently. 9. Wash your hands again. Remember to wash your hands before and after the procedure to reduce the risk of infection. Stripping the Tube Often products of healing will not flow out of the narrow tube and prevent proper draining. If you do not have drainage, then: ??? Hold the tube near where it is inserted in to the skin with your one hand. ??? Use the other hand to hold a pencil and gently squeeze the tubing with the pencil while moving it down toward the drain away from your skin. This forces the more sold material into the bulb for better drainage. ??? Repeat as necessary to start the draining again. Removal of the Tube ??? The tube may be removed once a single tube output is less than 30cc (1 oz.) in 24 hours. ??? Please call the office if the output becomes thicker or has a bad odor. Candelario-Currie Drainage Record NAME: Date of Surgery: Date: Time: If more than one drain, which one: Drainage Amount (per drain) Total Amount (per drain; in 24 hours) * Patient Instructions* John Sulma Vlad, PRODUCT DIRECTOR - 11/18/2016 7:50 AM EDT Post-Op Instructions The healing process after breast surgery varies with each person. Here are some pointes to keep in mind. ??? With surgery, there is some discomfort or pain. We will prescribe pain medication. You should take it as directed. Take Tylenol as needed. Oxycodone as needed for breakthrough pain. Add Ibuprofen 2 days after surgery. ??? During the first 1 to 3 weeks expect to feel tired from the anesthesia and the healing process. ??? You may notice a feeling of tightness and pressure. Your breast will be swollen. The incisions will usually be checked in 1 week after surgery. ??? Expect some drainage from the incisions for the first few days. Monitor your drain output. Call our office to schedule removal when output has been less than 30 mlper day x 2 days. Do: ??? Leave all dressings and bra in place for 2 days. ??? After 2 days OK to remove all dressings and shower. After shower, replace bra only. ??? Wear your bra around the clock until your follow-up appointment. ??? Limit arm motion for 48 hours. ??? Walk as much as you want. At least around the house several times per day. Walking improves circulation, respiratory function and healing. Do Not: ??? Do not use ice or heat on your surgical site. ??? Do not use eeph-llm-morlusm lotions, solutions, or herbal preparations on your incisions unlessdirected by your physician. ??? Do not sleep on your side or stomach for 2 weeks. Sleep on your back. ??? Do not drive a motor vehicle until you are off all prescription pain medicines and can handle the steering wheel without any discomfort, usually 1-[address] a small pillow between your chest and the seatbelt. ??? Do not use your arms or elbows to push yourself off the bed, out of a chair etc. for two weeks. ??? Do not engage in strenuous exercise or activity for at least 4 weeks. You may begin to do leg and lower body exercises by the end of the 3rd week, but do noting using the upper body or torso for at least 4 weeks. ??? Avoid bending down below the waist or lifting heavy objects. Do not lift anything over 10 pounds for the first 4 weeks. You can then increase to 25 pounds for 4 to 6 weeks post-op. If it hurts, don???t do it. ??? Do not wear an under-wire bra for 3 months. ??? No tanning on incision line for at least 6 months. Call our office if: ??? Your incision opens up ??? One breast is hard and is much larger than the other ??? You have signs of infection o A temperature over 100.4 F. o Redness of the incision lines that is beginning to spread away from the incision. o Yellow pus-like or foul smelling drainage larger than a dime size from the incision or drain site. o Increase pain/discomfort that is not relieved by your pain medication. o Swelling in one breast more than the other. ??? Spitting sutures: occasionally an area of redness and tenderness develops where a dissolving stitch becomes irritated and pushes to the surface. This stitch is clear or white and looks like fishing line. If this occurs, it is not an emergency. You may clip the stitch or call the clinic for an appointment with the nurse. To make an appointment or for questions about scheduling, please contact our administrative officesat [phone] For clinical questions, please call our nurses at [phone] Both offices are open Friday thru Friday 8a - 5p. With emergencies after hours, call the hospital binitrotoluene operator at [phone] and ask for the Plastic Surgery Resident environmental aid. documented in this encounter Medications at Time of Discharge Medication Sig Dispensed Refills Start Date End Date levonorgestrel (MIRENA) 20 mcg/24 hr (5 years) IUD 1 each by Intrauterine route once. clonAZEpam (KLONOPIN) 0.5 mg tablet 0.25MG - 0.5MG, PO, Once daily,PRN 08/28/2006 oxyCODONE (ROXICODONE) 5 mg Tablet Take 1 tablet by mouth every 4 hours as needed for Pain. 10 tablet 11/18/2016 09/18/2017 documented as of this encounter Progress Notes * Rose Lora RN - 11/18/2016 10:23 AM EDT Discharge instructions and medications reviewed with patient and escort. All questions answered andwritten copy sent home with patient. documented in this encounter H&P Notes * Sulma Lopez APRN - 11/18/2016 7:39 AM EDT Patient Name: Olga Grey Patient Age: 36 y.o. Birthdate: 1980 Admit date: 11/18/2016 Attending Physician: Nas Tabor MD No changes in health since visit with PCP last week. Bilateral breasts with implants in place. Well healed scars. Asymmetry due to capsular contracture. A/P: S/P breast augmentation with asymmetry due to capsular contracture. To OR for removal of breast implants. documented in this encounter Miscellaneous Notes * Op Note - Nas Tabor MD - 11/18/2016 9:32 AM EDT [facility] Operative Note Patient Name: Olga Grey : [id number] MR#: [id number] Case Date: 11/18/2016 Surgeon: Surgeon(s) and Role: * Nas Tabor MD - Primary * Sulma Lopez APRN Preoperative diagnosis: Bilateral capsular contracture / Mastodynia Postoperative diagnosis: Bilateral capsular contracture/ Mastodynia PREOPERATIVE DIAGNOSIS: Bilateral capsular contracture breast with mastodynia. POSTOPERATIVE DIAGNOSIS: Same. PROCEDURE: Removal of bilateral implants and bilateral periprosthetic partial capsulectomy. Procedure(s) (LRB): REMOVAL OF INTACT MAMMARY IMPLANT-SHERRY (WRVU 6.48) (Bilateral) BREAST, PERIPROSTHETIC CAPSULECTOMY, SHERRY (WRVU 10.62) (Bilateral) Anesthesia: General Estimated Blood Loss: Disposition: awakened from anesthesia, extubated and taken to the recovery room in a stable condition, having suffered no apparent untoward event. Condition: doing well without problems HPI/Surgical Indications: DATE OF SURGERY: 11/18/16 ATTENDING: Dr. Nas Tabor VETERINARY TECHNOLOGY INSTRUCTOR: Sulma Lopez INDICATION FOR SURGERY: The patient had a prior breast augmentation. She presented with grade 3 Cheung grade capsular contracture on the left and grade 2 on the right. She had persistent pain and discomfort and requested excision. Risks, benefits, and complications of surgery including potential for infection, bleeding, scarring, hematoma, seroma, infection, poor aesthetic result, and loss of volume which was guaranteed and potential need for further aesthetic management were discussed, need for drains, and complications of associated surgery and anesthesia were discussed. She understood and wished to proceed. She will receive the same previous inframammary incisions as before. PROCEDURE: Following adequate induction of general endotracheal anesthesia the patient prepped in the usual sterile fashion. Prior incisions along the inframammary fold were identified. This was a 4-cm incision on both the left and right inframammary fold. These incisions were opened bilaterally. The capsules were identified and then the capsulotomy was performed and on the left and right side the implants removed. These were 330 mL Silimed implants. These were textured. No fluid was identified on entering the capsules. The capsule was tighter and more scarred on the left. Partial excisional capsulectomies were performed on left and right side medially and laterally to release the tension and the scarring, and then hemostasis was achieved. Rex drains were placed, brought out through lateral stab incision. These were round Rex drains. The incisions were closed in 3 layers using a combination of 4-0 Vicryl, 4-0 Monocryl, followed by 5-0 fast absorb . The patient tolerated the procedure well. There were no problems or complications. The anesthesia was reversed. She was taken to recovery in stable condition. Attestation: Case Date: 11/18/2016 I performed this procedure without the involvement of a resident. NAS TABOR MD 11/18/2016 * Brief Op Note - Sulma Lopez APRN - 11/18/2016 9:17 AM EDT Brief Operative Note Patient Name: Olga Grey : [id number] MR#: [id number] Case Date: 11/18/2016 Surgeon: Surgeon(s) and Role: * Nas Tabor MD - Primary * Sulma Lopez APRN Preoperative diagnosis: Bilateral capsular contracture Postoperative diagnosis: Bilateral capsular contracture Procedure(s) (LRB): REMOVAL OF INTACT MAMMARY IMPLANT-SHERRY (WRVU 6.48) (Bilateral) BREAST, PERIPROSTHETIC CAPSULECTOMY, SHERRY (WRVU 10.62) (Bilateral) Anesthesia: General Findings: bilateral intact silicone gel implants, capsule thicker on left side. Complications: none Estimated Blood Loss: 5 ml Fluids: 1 L LR PRBCs: none (See Anesthesia Record/Report for Other Blood Products) Urine Output: (no blood products) Drains: one each breast Disposition: awakened from anesthesia, extubated and taken to the recovery room in a stable condition, having suffered no apparent untoward event. Condition: doing well without problems (Please see the Surgical Encounter Summary for any Implant and Specimen details pertinent to this patient.) Infection Bundle used? No Post-Op Plan: - Follow up in: 1-2 weeks - Wound Check - Suture removal: None - Dressings: remove dressings - Remove drain when output is less than 30 ml per day x 2 dasy - Fit to maricarmen comfort bra - Provide the patient a copy of the Pathology report documented in this encounter Plan of Treatment Not on file documented as of this encounter Procedures Procedure Name Priority Date/Time Associated Diagnosis Comments BREAST, PERIPROSTHETIC CAPSULECTOMY, SHERRY Routine 11/18/2016 9:06 AM EDT SURGICAL PATHOLOGY REPORT Routine 11/18/2016 8:35 AM EDT SPECIMEN TO PATHOLOGY Routine 11/18/2016 8:35 AM EDT SPECIMEN TO PATHOLOGY Routine 11/18/2016 8:35 AM EDT BREAST, PERIPROSTHETIC CAPSULECTOMY, SHERRY (WRVU 9.98) 11/18/2016 8:02 AM EDT Bilateral capsular contracture REMOVAL OF INTACT MAMMARY IMPLANT-SHERRY (WRVU 7.44) 11/18/2016 8:02 AM EDT Bilateral capsular contracture documented in this encounter Results * Surgical Pathology Report (11/18/2016 8:35 AM EDT) Final Diagnosis [id number] ?Location: [facility] The signing pathologist has (i) examined the relevant preparation(s) for the specimen(s) and (ii) rendered or confirmed the diagnosis(es). . ?Surgical Pathology DIAGNOSIS A - Right breast capsule, excision: - Fibrous pseudocapsule showing synovial-like lining. B - Left breast capsule, excision: - Fibrous pseudocapsule showing synovial-like lining. Electronically signed by: ??Leti Travis DO Verified: ??11/20/2016 ?Pathologist CLINICAL INFORMATION Specimen Submitted: A - Right breast capsule B - Left breast capsule Clinical History: Bilateral capsular contracture Clinical Diagnosis: Same SPECIMEN PROCESSING A - ??Labeled/Fixativ e: Right breast capsule, formalin. Quantity/Size: Multiple, 4.5 x 2.5 x 1.3 cm. Tissue Description: Rubbery, pink membranous tissues. Sections/Processi ng: ??(R1) B - ??Labeled/Fixativ e: Left breast capsule, formalin. Quantity/Size: Multiple, 3.5 x 3.0 x 1.5 cm. Tissue Description: Rubbery, pink membranous tissues. Sections/Processi ng: ??(R1) ??sns 11/20/2016 12:54 PM EDT [facility] BREAST STRUCTURE / Unknown 11/18/2016 8:35 AM EDT 11/18/2016 8:35 AM EDT BREAST STRUCTURE / Unknown 11/18/2016 8:35 AM EDT 11/18/2016 8:35 AM EDT Narrative Authorizing Provider Result Eddy Tabor MD PATHOLOGY/CYTOLOGY [facility] [place] Performing Organization Address [facility] [place] [address] * Specimen to Pathology (surgical or derm) (11/18/2016 8:35 AM EDT) AP Specimen 11/18/2016 8:35 AM EDT 11/18/2016 8:35 AM EDT Narrative [facility] - 11/18/2016 8:35 AM EDT Specimen requisition ordered. ??Separate Pathology report to follow Nas Tabor MD PATHOLOGY/CYTOLOGY [facility] [place] Performing Organization Address [facility] [place] [address] * Specimen to Pathology (surgical or derm) (11/18/2016 8:35 AM EDT) AP Specimen 11/18/2016 8:35 AM EDT 11/18/2016 8:35 AM EDT Narrative [facility] - 11/18/2016 8:35 AM EDT Specimen requisition ordered. ??Separate Pathology report to follow Authorizing Provider Result Eddy Tabor MD PATHOLOGY/CYTOLOGY [facility] [place] Performing Organization Address [facility] [place] [address] documented in this encounter Visit Diagnoses Not on filedocumented in this encounter Administered Medications Inactive Administered Medications - up to 3 most recent administrations Medication Order MAR Action Action Date Dose Rate Site lactated ringers infusion 1,000 mL 1,000 mL, at 100 mL/hr, Intravenous, CONTINUOUS, Starting on Fri11/18/16 at 0745, Until Fri11/18/16 at 1242, Day of Surgery (Day of Procedure) New Bag 11/18/2016 9:02 AM EDT New Bag 11/18/2016 7:46 AM EDT 1,000 mLs 100 mL/hr lidocaine (XYLOCAINE) 10 mg/mL (1 %) injection 3 mg 3 mg (0.3 mL), Subcutaneous, ONCE PRN, 1 dose, Starting on Fri11/18/16 at 0720, Until Fri11/18/16 at 1242, for discomfort with PIV insertion, Day of Surgery (Day of Procedure), Routine oxyCODONE (ROXICODONE) immediate release tablet 5 mg 5 mg, Oral, EVERY 4 HOURS PRN, Starting on Fri11/18/16 at 0753, Until Fri11/18/16 at 1242, Pain, Routine Given 11/18/2016 9:31 AM EDT 5 mg sodium chloride 0.9 % flush 5-20 mL 5-20 mL, Intravenous, EVERY 1 MIN PRN, Starting on Fri11/18/16 at 0720, Until Fri11/18/16 at 1242, flush, Flush pertains to all indwelling lines. Flush per protocol found in the job aid using the link provided on this medication record., Day of Surgery (Day of Procedure), Routine documented in this encounter Active and Recently Administered Medications Times are shown in EDT. Scheduled Medication Order 11/16/2016 11/17/2016 11/18/2016 ceFAZolin (ANCEF) 2,000 mg in sodium chloride 0.9% 56.06 mL 2,000 mg (2 g), Intravenous, ONCE, 1 dose, On Fri11/18/16 at 0815, Administer over 30 Minutes, Day of Surgery (Day of Procedure), Indication for (Active or Suspected): Prophylaxis 0815 (Due) Continuous Medication Order 11/16/2016 11/17/2016 11/18/2016 lactated ringers infusion 1,000 mL 1,000 mL, at 100 mL/hr, Intravenous, CONTINUOUS, Starting on Fri11/18/16 at 0745, Until Fri11/18/16 at 1242, Day of Surgery (Day of Procedure) 0746 (New Bag - Prov ider: Joanie Barnett RN)0851 (Anesthesia Volume Adjustment - Provider: Damaris Castellanos CRNA)0902 (New Bag - Provider: Damaris Castellanos CRNA) PRN Medication Order 11/16/2016 11/17/2016 11/18/2016 lidocaine (XYLOCAINE) 10 mg/mL (1 %) injection 3 mg 3 mg (0.3 mL), Subcutaneous, ONCE PRN, 1 dose, Starting on Fri11/18/16 at 0720, Until Fri11/18/16 at 1242, for discomfort with PIV insertion, Day of Surgery (Day of Procedure), Routine lidocaine-EPINEPHrine 1 %-1:200,000 injection (CANCELED) ONCE PRN, Starting on Fri11/18/16 at 0837, Until Fri11/18/16 at 1242, Intra-Operative (Intra-Procedure), Routine 0837 (Given - Provid er: Nas Tabor MD - Comment: Injected as local) oxyCODONE (ROXICODONE) immediate release tablet 5 mg 5 mg, Oral, EVERY 4 HOURS PRN, Starting on Fri11/18/16 at 0753, Until Fri11/18/16 at 1242, Pain, Routine 0931 (Given - Provid er: Rose Lora RN) sodium chloride 0.9 % flush 5-20 mL 5-20 mL, Intravenous, EVERY 1 MIN PRN, Starting on Fri11/18/16 at 0720, Until Fri11/18/16 at 1242, flush, Flush pertains to all indwelling lines. Flush per protocol found in the job aid using the link provided on this medication record., Day of Surgery (Day of Procedure), Routine documented in this encounter Care Teams Facilities Supervisor Relationship Specialty Start Date End Date Camilla Peres APRN [address] [place] [address] PCP - General Family Medicine 10/02/16 07/18/21 documented as of this encounter
--- OUTSIDE RECORDS SUMMARY | 2024-03-29 09:45 | XMS_ITS | Encounter Summary ---
[place] [address] Care Team Providers Care Docent Coordinator Name Role Phone TerellCamilla yang Sheri DANIELS Primary Care Provider [phone] Reason for Visit * Auth/Cert Specialty Diagnoses / Procedures Referred By Jones nogueira Referred To Contact Diagnoses Capsular contracture of breast implant, initial encounter Bilateral capsular contracture Procedures PRO REMOVAL OF BREAST IMPLANT REMOVAL OF INTACT MAMMARY IMPLANT-SHERRY (WRVU 6.48) Referral ID Status Reason Start Date Expiration Date Visits Re quested Visits Authorized [id number] 1 1 Encounter Details Date Type Department Care Team (Late st Contact Info) Description 11/18/2016 7:58 AM EDT Anesthesia Event [facility] [place] [address] Tra Mathews [facility] [place] [address] Anesthesia Record Procedure Summary Procedure Name Responsible Anesthesiologist Anesthesia Start Time Anesthesia Stop Time REMOVAL OF INTACT MAMMARY IMPLANT-SHERRY (WRVU 7.44) (Bilateral: Breast) Tra Mathews DO 11/18/16 0758 11/18/16 0916 Events Date Time Event Comment 11/18/2016 0743 0758 Start 0801 AN Verify 0804 An Start Data 0805 An Induction 0807 An Intubation 0808 Anesthesia Ready 0908 Extubation/LMA Out 0909 an stop data 0916 Recovery or ICU Handoff Monica ent care was transferred to the destination unit staff after review of the patient's medical history, current anesthetic/surgical status and plan, according to the Provider Handoff Checklist. 0916 Stop Meds Name Total Midazolam 2 mg fentaNYL 110 mcg IV Lidocaine 50 mg Propofol 220 mg Propofol INF 231.2 mg Dexmedetomidine 12 mcg Dexamethasone 8 mg Ondansetron 8 mg ceFAZolin 2 g ePHEDrine 10 mg lactated ringers infusion 1,000 mL 1,000 mL * Agents Name O2 Air N2O Sevoflurane (et) * Blood No blood administrations on file. Lines, Drains, and Airways Type Details Placement Removal Drain/Device Site 11/18/16; Right; collapsible closed device (lupe) 11/18/16 0000 by Rose Lora RN (RETIRED) Peripheral IV Line - Single Lumen 05/05/13; 1920; 12/01/17 (Auto removal via utility); 0921 (Auto removal via utility) 05/05/13 1920 by Bret Adkins Jr. 12/01/17 0921 by Epic, User Incision 11/18/16; breast; 04/15/22 (LDA cleanup utility RA#[id number]); 1715 (LDA cleanup utility RA#[id number]) 11/18/16 0000 by Haleigh Payan RN 04/15/22 1715 by Lamberto Capellan Incision 11/18/16; breast; 04/15/22 (LDA cleanup utility RA#[id number]); 1715 (LDA cleanup utility RA#[id number]) 11/18/16 0000 by Haleigh Payan RN 04/15/22 1715 by Lamberto Capellan (RETIRED) Peripheral IV Line - Single Lumen 11/18/16; 0745; median cubital vein (antecubital fossa), right; [id number] catheter system; 20 gauge, 1 in length; Bozena barnett RN; intradermal injection, distraction, tolerated well, appears comfortable; 0; 11/18/16; 1010 11/18/16 0745 by Joanie Barnett RN 11/18/16 1010 by Rose Lora RN Supraglottic Mask Ventilation: No t Attempted (0); LMA Type: iGel; LMA Size: 3; Inserted by: Emanuel KURTZ; Removal Date: 11/18/16; Removal Time: 90711/18/16 08 by Damaris Castellanos CRNA 11/18/16 0908 by Damaris Castellanos CRNA documented in this encounter Social History Tobacco Use Types Packs/Day Years Used Date Smoking Tobacco: Every Day Cigarettes Alcohol Use Standard Drinks/Week Comments Yes 42 (1 standard drink = 0.6 oz pu re alcohol) 6 beers a day Sex and Gender Information Value Date Recorded Sex Assigned at Not on file Gender Identity Not on file Sexual Orientation Not on file documented as of this encounter OR Notes * Anesthesia Postprocedure Evaluation - Tra Mathews DO - 11/18/2016 12:53 PM EDT [facility] Department of Anesthesiology Post-procedure Note Patient: Olga Grey Procedure Summary Date Anesthesia Start Anesthesia Stop Room / Location 11/18/16 0758 0916 [facility] [address] [place] [address] [facility] Procedure Diagnosis Surgeon Responsible Provider REMOVAL OF INTACT MAMMARY IMPLANT-SHERRY (WRVU 6.48) (Bilateral Breast); BREAST, PERIPROSTHETIC CAPSULECTOMY, SHERRY (WRVU 10.62) (Bilateral Breast) (Bilateral capsular contracture) Nas Tabor MD Walker, Tacee E, DO All Anesthesia Providers: Anesthesiologist: Tra Mathews DO GREASE REFINING SUPERVISOR: Damaris Castellanos CRNA Last (1hr) Vitals: BP Temp Pulse Resp SpO2 Patient Location: PACU/[facility] Level of Consciousness: Awake and Alert Pain Management: Satisfactory Analgesia PONV: None Cardiovascular Status: At Baseline and Hemodynamically Stable Respiratory Status: At Baseline and Room Air Postoperative Fluid Status: Intravascular EUvolemia Possible Anesthetic Complications: NONE apparent at time of evaluation Final Primary Anesthesia Type: General (The anesthetic type performed was the same as planned.) Comments: Tra Mathews DO * Anesthesia Preprocedure Evaluation - Tra Mathews DO - 11/18/2016 7:41 AM EDT Pre-Anesthesia Evaluation for: Olga Grey a 36 y.o. female. Procedure(s): REMOVAL OF INTACT MAMMARY IMPLANT-SHERRY (WRVU 6.48) Patient Active Problem List Diagnosis ??? Breast implant capsular contracture ??? Herniation of cervical intervertebral disc with radiculopathy C6-7 left Past Medical History: Diagnosis Date ??? Herniation of cervical intervertebral disc with radiculopathy 05/26/2014 C6-7 left No past surgical history on file. Social History Substance Use Topics ??? Smoking status: Current Every Day Smoker Packs/day: 1.00 ??? Smokeless tobacco: Not on file ??? Alcohol use 25.2 oz/week 42 Cans of beer per week Comment: 6 beers a day History Drug Use No No Known Allergies Medications: MAR and/or home medications have been reviewed. Physical Exam: Vitals: 11/18/16 0725 BP: 110/86 Pulse: 75 Resp: 18 Temp: 37.4 ??C (99.3 ??F) Body mass index is 23.49 kg/(m^2). Height: 170.2 cm (5' 7) Weight - Scale: 68 kg (150 lb) Anesthesia Physical Exam Anesthesia Plan: ASA 2 general, with a(n) intravenous induction 36 y/o female for Removal of Br Implants No hx of difficulty w anesthesia Pt denies CP/SOB/Orthopnea/Active RAMU ss/Acute illness Appears and feels well today Plan GA/LMA/TERESA/VA and IV maint/p op pacu care and IV pain control w antiemetics IC discussed and obtained Region - Other Informed Consent: Anesthetic plan and risks discussed with patient. Plan discussed with GREASE REFINING SUPERVISOR. PAT Staff Note documented in this encounter Plan of Treatment Not on file documented as of this encounter Visit Diagnoses Not on filedocumented in this encounter Administered Medications Inactive Administered Medications - up to 3 most recent administrations Medication Order MAR Action Action Date Dose Rate Site ceFAZolin (ANCEF) 1g in dextrose 5% 50mL PRN, Starting on Fri11/18/16 at 0811, Until Fri11/18/16 at 0937, Administer over 30 Minutes, Anesthesia Intra-op Given 11/18/2016 8:11 AM EDT 2 g dexamethasone (DECADRON) injection PRN, Starting on Fri11/18/16 at 0806, Until Fri11/18/16 at 0937, Anesthesia Intra-op, Routine Given 11/18/2016 8:06 AM EDT 8 mg dexmedetomidine (PRECEDEX) injection PRN, Starting on Fri11/18/16 at 0805, Until Fri11/18/16 at 0937, Anesthesia Intra-op, Routine Given 11/18/2016 8:17 AM EDT 4 mcg Given 11/18/2016 8:12 AM EDT 4 mcg Given 11/18/2016 8:05 AM EDT 4 mcg ePHEDrine 5 mg/mL multi-dose injection PRN, Starting on Fri11/18/16 at 0833, Until Fri11/18/16 at 0937, Anesthesia Intra-op, Routine Given 11/18/2016 8:33 AM EDT 10 mg fentaNYL 50 mcg/mL multi-dose injection PRN, Starting on Fri11/18/16 at 0800, Until Fri11/18/16 at 0937, Pain, Anesthesia Intra-op, Routine Given 11/18/2016 8:50 AM EDT 10 mcg Given 11/18/2016 8:22 AM EDT 25 mcg Given 11/18/2016 8:15 AM EDT 25 mcg lactated ringers infusion 1,000 mL 1,000 mL, at 100 mL/hr, Intravenous, CONTINUOUS, Starting on Fri11/18/16 at 0745, Until Fri11/18/16 at 1242, Day of Surgery (Day of Procedure) New Bag 11/18/2016 9:02 AM EDT New Bag 11/18/2016 7:46 AM EDT 1,000 mLs 100 mL/hr lidocaine (PF) (XYLOCAINE) 100 mg/5 mL (2 %) injection PRN, Starting on Fri11/18/16 at 0805, Until Fri11/18/16 at 0937, Anesthesia Intra-op, Routine Given 11/18/2016 8:05 AM EDT 50 mg midazolam (PF) (VERSED) 1 mg/mL multi-dose injection PRN, Starting on Fri11/18/16 at 0758, Until Fri11/18/16 at 0937, Sleep, Anesthesia Intra-op, Routine Given 11/18/2016 7:58 AM EDT 2 mg ondansetron (ZOFRAN) injection PRN, Starting on Fri11/18/16 at 0822, Until Fri11/18/16 at 0937, Nausea, Anesthesia Intra-op, Routine Given 11/18/2016 8:22 AM EDT 8 mg propofol (DIPRIVAN) 10 mg/mL bolus injection (Anesthesia) PRN, Starting on Fri11/18/16 at 0805, Until Fri11/18/16 at 0937, Anesthesia Intra-op Given 11/18/2016 8:21 AM EDT 20 mg Given 11/18/2016 8:05 AM EDT 200 mg propofol (DIPRIVAN) infusion CONTINUOUS PRN, Starting on Fri11/18/16 at 0810, Until Fri11/18/16 at 0937, Anesthesia Intra-op, Routine Rate/Dose Change 11/18/2016 8:54 AM EDT 50 mcg/kg/min 20.4 mL/hr Rate/Dose Change 11/18/2016 8:51 AM EDT 100 mcg/kg/min 40. 8 mL/hr Rate/Dose Change 11/18/2016 8:23 AM EDT 50 mcg/kg/min 20.4 mL/hr documented in this encounter Care Teams Docent Coordinator Relationship Specialty Start Date End Date Camilla Peres, [employer] [address] [place] [address] [address] [place] [address] PCP - General Family Medicine 10/02/16 07/18/21 documented as of this encounter
--- OUTSIDE RECORDS SUMMARY | 2024-03-29 09:45 | XMS_ITS | Encounter Summary ---
Author Organization [facility]ly [facility] [place] [address] Care Team Providers Care Laundry Helper Name Role Phone Lisa Martin DO Primary Care Provider [phone] Reason for Visit * Reason Comments Neck Pain Back Pain Neck pain/ upper jesu k and Left arm * Consultation (Routine) - Closed Specialty Diagnoses / Procedures Referred By Jones t Referred To Contact [facility] Diagnoses Anesthesia of skin Cervicalgia Other cervical disc displacement, unspecified cervical region Spine- Neck pain radiates down L arm w/ n&t/ MRI 07/17/22 in [facility]/ EMG 01/2022 @[facility]/ no relief w/PT Lisa Martin, DO [address] [place] [address] [facility] [place] [address] Referral ID Status Reason Start Date Expiration Date V isits Requested Visits Authorized [id number] Closed Consult, Test & Treat PCP Updated and/or Approved 07/23/2022 07/23/2023 6 6 Encounter Details Date Type Department Care Team (Latest Contact Info) Description 07/30/2022 8:00 AM EST Office Visit [facility] [place] [address] Mckenna Jolley APRN [facility] [place] [address] Neck pain; Left cervical radiculopathy Social History Tobacco Use Types Packs/Day Years Used Date Smoking Tobacco: Every Day Cigarettes Smokeless Tobacco: Never Tobacco Cessation:Ready to Q uit: Not Asked; Counseling Given: Not Answered Comments:in process of quitting Alcohol Use Standard Drinks/Week Comments Yes 42 (1 standard drink = 0.6 oz pu re alcohol) 6 beers a day Sex and Gender Information Value Date Recorded Sex Assigned at Not on file Gender Identity Not on file Sexual Orientation Not on file documented as of this encounter Last Filed Vital Signs Vital Sign Reading Time Taken Comments Blood Pressure - - Pulse - - Temperature - - Respiratory Rate - - Oxygen Saturation - - Inhaled Oxygen Concentration - - Weight 66.7 kg (147 lb) 07/30/2022 7:58 AM EST Height 170.2 cm (5' 7) 07/30/2022 7:58 AM EST Body Mass Index 23.02 07/30/2022 7:58 AM EST documented in this encounter Progress Notes * Mckenna Jolley, SCHOOL [employer]ILDC[employer] ATTENDANT - 07/30/2022 8:00 AM EST [facility] Medical Decision Making: Olga Grey is a Pleasant 41 y.o. female seen today for a chief complaint of acute on chronic neck pain with a more acute and new radicular pain to the left upper extremity that has been presentsince mid June 2022. Fortunately, her symptoms have improved with her neck pain returning to its baseline chronic level and per her report, virtual resolution of her left upper extremity symptomsoutside of a vague tingling sensation. Today, I discussed with the patient that her options at thispoint if there were a recurrence of symptoms would be a cervical epidural steroid injection to target the upper extremity symptoms. She could also reasonably consider medial branch blocks with progres favio to radiofrequency ablation of the cervical facets to target her chronic neck pain. She is understandably frustrated as she has had some level of chronic issues with her neck for several years and given the flare of radicular symptoms left upper extremity, she was somewhat helpful for a solution to the issue. I discussed with the patient that surgical intervention was generally used for a radicular pattern that was refractory to conservative treatment. Fortunately, the symptoms have virtually resolved and my recommendation would be watchful monitoring and if symptoms recurred, she can certainly reach out and we can discuss her status and options for treatment at that point. The patient v erbalized understanding and she will reach out to me should symptoms recur and we can discuss her options at that point. It should also be noted that her EMG was done prior to the development of a meant of her left upper extremity symptoms and therefore, I likely would not take the results of this particular EMG as a diagnostic tool for her newer left upper extremity symptoms. Diagnosis: ICD-10-CM 1. Neck pain M54.2 2. Left cervical radiculopathy M54.12 Plan 1. Follow-up with me as needed depending on symptoms HPI: Olga Grey is a 41 y.o. female seen in referral today upon the request of Lisa Martin for evaluation of a chief complaint of neck pain and left upper extremity radicular pain with intermittent numbness and tingling. The patient has a lengthy history of neck pain that was exacerbated more recently prompting the ordering of an updated MRI. She has been working with a chiropractor with little relief. She has trialed physical therapy several times in the past with no improvement. She has been evaluated by [facility] neurosurgery who did not find enough nerve impingement on her MRI to warrant surgical intervention but did recommend a nerve conduction study. Her EMG was negative for a cervical radiculopathy. The clinical question associated with her referral is whether or not herremote compression deformity could explain her symptoms and is potentially not currently demonstrating an active issue on her imaging studies. Today, The patient reports that while she has had a lengthy history of chronic neck pain, her left upper extremity symptoms began after waking up 1 morning with a flare of neck discomfort that progressed to global left upper extremity radiculopathy in mid June 2022. It should be noted that her nerve conduction study was performed approximately 1 month or so prior to this development. The patient reports that the Friday before , she noted global pain with associated numbness and tingling to the left upper extremity that progressed to the point that she was missing work. She saw her primary care provider who referred her to the radiology department for an updated MRI given t he acute change in her symptoms. The patient does indicate that the left upper extremity is the newsymptom that is not associated with past symptoms of neck pain that has been chronic in nature. Thepatient reports that never in the past that she experienced these left upper extremity symptoms andshe does verbalize significant fear and worry about recurrent symptoms. It is noted that today, she reports that she is virtually back to baseline and has had almost resolution of left upper extremity symptoms and at this point, just has a vague sense of tingling on the left. 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 reports that she has been smoking. She has never used smokeless tobacco. Conservative Treatment: Physical Therapy: None Home Exercise Program: Independent as tolerated Medications: Ibuprofen, Biofreeze, Huntington balm Other: Chiropractic manipulation Injections: 1. None Physical Examination: Wt Readings from Last 1 Encounters: 10/02/17 60.3 kg (133 lb) BMI Readings from Last 1 Encounters: 10/02/17 20.83 kg/m?? Pain: 1 (Best /worst pain is random, no spacific activities related to increase or decrease of pain) General: Pleasant, cooperative, Mood and affect are appropriate Posture: Upright Gait: Nonantalgic Palpation: There are no masses, lesions, or deformities. Skin: Intact with no stigmata of underlying disease. ROM: Full Sensation: Grossly intact throughout all dermatomes of the upper extremities with the exception of some slight altered sensation in a predominant C6 distribution and to a lesser extent, C7 Neuro: Strength: 5/5 throughout all muscle groups of the upper extremities Reflexes: 2+ at the bicep, tricep, brachioradialis bilaterally Provocative Maneuvers: Spurlings: Modified. Negative Imaging and Test Review: On the day of this encounter, I independently reviewed an MRI of the cervical spine completed on 07/17/2022 demonstrating a disc protrusion at C4-5 causing mild bilateral foraminal stenosis. At C5-6,there is a left foraminal disc protrusion likely contributing to moderate left foraminal stenosis. C6-7. There is again a left foraminal disc protrusion contributing to moderate left foraminal stenosis. It should be noted that there are no oblique views of the cervical spine on this MR to further evaluate the degree of foraminal stenosis. CC: Lisa Martin DO Referring Provider: Lisa Jolley APRN 07/30/2022 [facility] documented in this encounter Plan of Treatment Not on file documented as of this encounter Visit Diagnoses Diagnosis Neck pain Cervicalgia Left cervical radiculopathy Brachial neuritis or radiculitis nos documented in this encounter Care Teams Laundry Helper Relationship Specialty Start Date End Date Lisa Martin DO [address] [place] [address] PCP - General Family Medicine 07/19/21 documented as of this encounter
--- OUTSIDE RECORDS SUMMARY | 2024-03-29 09:45 | XMS_ITS | Encounter Summary ---
Author Organization Formerly [facility], [facility] Address [facility] [place] [address] Care Team Providers Care Communications Equipment Operator Name Role Phone Camilla Peres FRANCES Primary Care Provider [phone] Encounter Details Date Type Department Care Team (Late st Contact Info) Description 09/26/2017 12:51 PM EST - 09/26/2017 3:50 PM EST [place] [address] Nas Herrera MD [facility] [place] [address] EXC.PAROTID TUMOR OR GLAND, LATERAL LOBE, W DISSECTION & PRESERVATION FACIAL NERVE (WRVU 17.16) Social History Tobacco Use Types Packs/Day Years Used Date Smoking Tobacco: Every Day Cigarettes Smokeless Tobacco: Never Comments:in process of quitt ing Alcohol Use Standard Drinks/Week Comments Yes 42 (1 standard drink = 0.6 oz pu re alcohol) 6 beers a day Sex and Gender Information Value Date Recorded Sex Assigned at Not on file Gender Identity Not on file Sexual Orientation Not on file documented as of this encounter Last Filed Vital Signs Vital Sign Reading Time Taken Comments Blood Pressure 128/85 09/26/2017 2:45 PM EST Pulse 80 09/26/2017 11:20 AM EST Temperature 37 ??C (98.6 ??F) 09/26/2017 2:15 PM EST Respiratory Rate 16 09/26/2017 2:45 PM EST Oxygen Saturation 100% 09/26/2017 2:45 PM EST Inhaled Oxygen Concentration - - Weight 60.3 kg (133 lb) 09/26/2017 11:20 AM EST Height 170.2 cm (5' 7) 09/26/2017 11:20 AM EST Body Mass Index 20.83 09/26/2017 11:20 AM EST documented in this encounter Discharge Instructions * Patient Instructions* Lito Loyd Jr., MD - 09/26/2017 2:27 PM EST Instructions for Patient at Discharge: What to expect: You will have soreness which will improve over the next several days. The area around the incision may be numb. This should recover over the next few months. Medications: Pain Control - use acetaminophen (Tylenol) and/or ibuprofen (Motrin, Advil) as needed. For more severe pain, take the prescribed pain medication. If the prescribed pain medication contains acetaminophen, do not take additional acetaminophen (Tylenol) as this can cause liver damage. Do not exceed 4g acetaminophen per day. As your pain improves, wean yourself off of the prescribed painmedication. Do not drive or operate machinery while taking the prescribed pain medication. Incision Care: Your incision was closed with sutures/rony. These will need to be removed in about 7-14 days, which will usually occur at your follow up appointment. Use diluted peroxide to clean the incision andapply antibiotic ointment twice daily. Keep the incision dry for the next two days. After that you may get the area wet and pat dry (it is okay to shower). Do not submerge the incision for at least 2 weeks. Activity: A good rule of thumb is if it hurts don't do it. Keep your head elevated when lying flat. No heavy lifting or straining for the next week. No smoking, this is important for wound healing. Diet: Resume baseline diet You should call your doctor if you develop: -Increasing pain and redness -Increasing drainage from the wound -Fever > 38.5Celsius or 101 Fahrenheit -Bleeding Contact: -You can reach the ENT clinic at [phone] for appointment questions. -The ENT triage nurse is available at [phone] -For urgent issues during evenings and weekends the ENT resident stationary engineer refrigeration can be reached through [facility] gettering operator at [phone] Follow Up: You will need to follow up with Dr. Herrera's clinic in 1 week. This appointment has been requested. You will be notified once it is scheduled, if you do not already see it below. If you do not hear from us in a timely manner, please call to receive your date and time. documented in this encounter Medications at Time of Discharge Medication Sig Dispensed Refills Start Date End Date levonorgestrel (MIRENA) 20 mcg/24 hr (5 years) IUD 1 each by Intrauterine route once. clonAZEpam (KLONOPIN) 0.5 mg tablet 0.25MG - 0.5MG, PO, Once daily,PRN 08/28/2006 oxyCODONE (ROXICODONE) 5 mg Tablet Take 1 tablet by mouth every 4 hours as needed for Pain. 5 tablet 09/26/2017 07/30/2022 nicotine (NICODERM CQ) 21 mg/[address] 1 patch onto the skin daily. 28 patch 09/18/2017 07/30/2022 documented as of this encounter Progress Notes * Frieda Palmer RN - 09/26/2017 3:15 PM EST AVS reviewed with pt and friends. Pt acknowledged understanding of d/c instructions. Pt d/c'd to home with all belongings, AVS, and prescription. * Rochelle Quesada RN - 09/26/2017 11:57 AM EST Spoke to Augustine Manuel regarding Olga's body piercing's that are unable to be removed. documented in this encounter H&P Notes * Nas Herrera MD - 09/26/2017 11:53 AM EST Patient Name: Olga Grey Patient Age: 37 y.o. Birthdate: 1980 Admit date: 09/26/2017 Attending Physician: Nas Herrera MD Olga Grey is an 37 y.o. female. This is a 37 y.o. female with a right parotid gland mass. She initially noticed the mass approximately one year ago and states that she has noticed that it has enlarged. She reports some pain and tenderness to the area if she presses firmly on it but otherwise denies any pain without manipulation of the mass. MRI demonstrates a mass along the anterior border of the parotid gland. Past Medical History: Diagnosis Date ??? Herniation of cervical intervertebral disc with radiculopathy 05/26/2014 C6-7 left Allergies: No Known Allergies Active Problems: * No active hospital problems. * Blood pressure 129/90, pulse 80, temperature 37.1 ??C (98.8 ??F), temperature source Temporal, resp. rate 14, height 170.2 cm (5' 7), weight 60.3 kg (133 lb), SpO2 99 %. HEENT - right parotid mass CV - RRR Lungs - CTAb Assessment: Right parotid mass Plan: Parotid mass excision, right side NAS HERRERA MD 09/26/2017 documented in this encounter Miscellaneous Notes * Op Note - Nas Herrera MD - 09/26/2017 2:00 PM EST [facility] Operative Note Patient Name: Olga Grey : [id number] MR#: [id number] Case Date: 09/26/2017 Surgeon: Surgeon(s) and Role: * Nas Herrera MD - Primary * Lito Loyd Jr., MD - Resident-Surgeon Chu Preoperative diagnosis: parotid mass Postoperative diagnosis: parotid mass Procedure(s) (LRB): EXC.PAROTID TUMOR OR GLAND, LATERAL LOBE (WRVU 17.16) (Right) FACIAL NERVE MONITORING, SETUP PERIPHERAL (WRVU 0.54) (N/A) Findings: small benign-appearing tumor at the anterior border of her right parotid gland, buccal branch just deep to the mass. Mass was not involving the duct. Anesthesia: General Estimated Blood Loss: * No values recorded between 09/26/2017 1:09 PM and 09/26/2017 1:57 PM * Specimens removed during surgery: Order Name Source Comment Collection Info Order Time SPECIMEN TO PATHOLOGY OR#2 Ex:[id number]. parotid mass RIGHT parotid mass Excision 09/26/2017 1:35 PM Time removed from patient: 1:32 PM Drains: none Surgical Closure: Primary Closure - closure of ALL tissue levels during the original surgery regardless of wires, wickes, drains, or other devices extruding through the incision Disposition: awakened from anesthesia, extubated and taken to the recovery room in a stable condition, having suffered no apparent untoward event. Condition: doing well without problems (Please see the Surgical Encounter Summary for any Implant and Specimen details pertinent to this patient.) HPI/Surgical Indications: 37yo with slowly enlarging right parotid mass here forexcision Procedure Description: The patient was taken to the operating room, placed in the supine position, and general endotracheal anesthesia was achieved without complication. A timeout was performed and an incision was planned in an abbreviated modified Tunde fashion. The incision was injected with 1% xylocaine [id number] epinephrine and the made with a 15 blade down to the SMAS and a supra-SMAS flap was dissected using the same blade. Bipolar cautery was used for hemostasis throughout the case, monopolar cautery was not used. The mass was identified, findings above, and was dissected free using bipolar cautery and scissors. The buccal branch of the facial nerve was preserved and stimulated at the end of the case. A single 4.0 vicryl stitch was placed to approximate the SMAS and thrombin and gelfoam was placed in the wound. The incision was closed with dep 4.0 Vicryl and superficially with 6.0 Proline. The patient was then returned to anesthesia, allowed to awaken, and taken out of the operating room in good condition. The patient tolerated the procedure well without complication. Infection Bundle used? No Attestation: Case Date: 09/26/2017 I was present and I participated during the entire procedure (does not need to include opening and closing). NAS HERRERA MD 09/26/2017 documented in this encounter Plan of Treatment Not on file documented as of this encounter Procedures Procedure Name Priority Date/Time Associated Diagnosis Comments SPECIMEN TO PATHOLOGY Routine 09/26/2017 1:35 PM EST SURGICAL PATHOLOGY REPORT Routine 09/26/2017 1:32 PM EST FACIAL NERVE MONITORING, SETUP Routine 09/26/2017 1:17 PM EST Parotid mass FACIAL NERVE MONITORING, SETUP PERIPHERAL (WRVU 0.54) 09/26/2017 12:27 PM EST Parotid mass EXC.PAROTID TUMOR OR GLAND, LATERAL LOBE, W DISSECTION & PRESERVATION FACIAL NERVE (WRVU 17.16) 09/26/2017 12:27 PM EST Parotid mass documented in this encounter Results * Specimen to Pathology (09/26/2017 1:35 PM EST) AP Specimen 09/26/2017 1:35 PM EST 09/26/2017 2:15 PM EST Narrative [facility] - 09/26/2017 2:15 PM EST Specimen requisition ordered. ??Separate Pathology report to follow Resulting Agency Comment Spec In Lab Nas Herrera MD PATHOLOGY/CYTOLOGY ORDERABLES Performing Organization Address City/State/[facility] Co de Phone Number [facility] [place] [address] * Surgical Pathology Report (09/26/2017 1:32 PM EST) Final Diagnosis [id number] ? Location: [facility]; [facility]; The signing pathologist has (i) examined the relevant preparation(s) for the specimen(s) and (ii) rendered or confirmed the diagnosis(es). . 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 Electronically signed by: ??Leti Travis DO Verified: ??10/01/2017 ?Pathologist Performed at: ??-[facility] Dept. of Pathology, [place], [place] CLINICAL INFORMATION Specimen Submitted: A - Right parotid mass Clinical History: Parotid mass Clinical Diagnosis: Parotid mass SPECIMEN PROCESSING A - Labeled/Fixativ e: Right parotid mass, fresh. Quantity/Size: Single, 1.0 x 0.7 x 0.6 cm. Tissue Description: Ovoid, buckley-white cystic structure, on section with pale white fluid. Sections/Proces sing: Inked and trisected. (T1) ??pps 10/01/2017 10:10 AM EST [facility] PAROTID GLAND STRUCTURE / Unknown 09/26/2017 1:32 PM EST 09/26/2017 1:32 PM EST Nas Herrera MD PATHOLOGY/CYTOLOGY ORDERABLES [facility] [place] [place] [address] documented in this encounter Visit Diagnoses Diagnosis Parotid mass Swelling, mass, or lump in head and neck Parotid mass Swelling, mass, or lump in head and neck documented in this encounter Administered Medications Inactive Administered Medications - up to 3 most recent administrations Medication Order MAR Action Action Date Dose Rate Site gelatin adsorbable (GELFOAM) sponge ONCE PRN, Starting on Fri09/26/17 at 1336, Until Fri09/26/17 at 1744, Intra-Operative (Intra-Procedure) Given 09/26/2017 1:36 PM EST 2 each 19- Surgical Site lidocaine-EPINEPHrine 1.5 %-1:200,000 injection ONCE PRN, Starting on Fri09/26/17 at 1259, Until Fri09/26/17 at 1744, Intra-Operative (Intra-Procedure), Routine Given 09/26/2017 12:59 PM EST 4.5 mLs 19- Surgical Site pantothenic Ac-Min Oil-Pet,Hyd (AQUAPHOR) 41 % ointment ONCE PRN, Starting on Fri09/26/17 at 1400, Until Fri09/26/17 at 1744, Intra-Operative (Intra-Procedure) Given 09/26/2017 2:00 PM EST 5 mLs 19- Surgical Site povidone-iodine 5 % ophthalmic solution ONCE PRN, Starting on Fri09/26/17 at 1305, Until Fri09/26/17 at 1744, Intra-Operative (Intra-Procedure), Routine Given 09/26/2017 1:05 PM EST 30 mLs thrombin (bovine) (THROMBIN-JMI) solution ONCE PRN, Starting on Fri09/26/17 at 1336, Until Fri09/26/17 at 1744, Intra-Operative (Intra-Procedure) Given 09/26/2017 1:36 PM EST 5,000 Units 19- Surgical Site documented in this encounter Active and Recently Administered Medications Times are shown in EST. Scheduled Medication Order 09/24/2017 09/25/2017 09/26/2017 ampicillin-sulbactam (UNASYN) 3 g vial attach to sodium chloride 0.9% 100 mL Mini-Bag Plus (COMPLETED) 3 g, Intravenous, ONCE, 1 dose, On Fri09/26/17 at 1215, Administer over 30 Minutes, Warning Vesicant/Irritant Medication , Indication for (Active or Suspected): Prophylaxis 1236 (New Bag - Prov ider: Blanche Gilbert CRNA) PRN Medication Order 09/24/2017 09/25/2017 09/26/2017 gelatin adsorbable (GELFOAM) sponge (CANCELED) ONCE PRN, Starting on Fri09/26/17 at 1336, Until Fri09/26/17 at 1744, Intra-Operative (Intra-Procedure) 1336 (Given - Provid er: Lito Loyd Jr., MD) lidocaine-EPINEPHrine 1.5 %-1:200,000 injection (CANCELED) ONCE PRN, Starting on Fri09/26/17 at 1259, Until Fri09/26/17 at 1744, Intra-Operative (Intra-Procedure), Routine 1259 (Given - Provid er: Lito Loyd Jr., MD) pantothenic Ac-Min Oil-Pet,Hyd (AQUAPHOR) 41 % ointment (CANCELED) ONCE PRN, Starting on Fri09/26/17 at 1400, Until Fri09/26/17 at 1744, Intra-Operative (Intra-Procedure) 1400 (Given - Provid er: Lito Loyd Jr., MD) povidone-iodine 5 % ophthalmic solution (CANCELED) ONCE PRN, Starting on 09/26/17 at 1305, Until Fri09/26/17 at 1744, Intra-Operative (Intra-Procedure), Routine 1305 (Given - Provid er: Nas Herrera MD) thrombin (bovine) (THROMBIN-JMI) solution (CANCELED) ONCE PRN, Starting on Fri09/26/17 at 1336, Until Fri09/26/17 at 1744, Intra-Operative (Intra-Procedure) 1336 (Given - Provid er: Lito Loyd Jr., MD) documented in this encounter Care Teams Communications Equipment Operator Relationship Specialty Start Date End Date Camilla Peres, CANCER CENTER DIRECTOR [address] [place] [address] [address] [place] [address] PCP - General Family Medicine 10/02/16 07/18/21 documented as of this encounter
--- OUTSIDE RECORDS SUMMARY | 2024-03-29 09:45 | XMS_ITS | Encounter Summary ---
Author Organization [facility] Address [facility] [place] [address] Care Team Providers Care Cutter First Name Role Phone Camilla Peres FRANCES Primary Care Provider [phone] Encounter Details Date Type Department Care Team (Late st Contact Info) Description 10/02/2017 9:00 AM EST Office [place] [address] Sergio Banegas PA [facility] [place] [address] Parotid mass Social History Tobacco Use Types Packs/Day Years [...] - Inhaled Oxygen Concentration - - Weight 60.3 kg (133 lb) 10/02/2017 8:58 AM EST Height 170.2 cm (5' 7) 10/02/2017 8:58 AM EST Body Mass Index 20.83 10/02/2017 8:58 AM EST documented in this encounter Patient Instructions * Patient Instructions* Sergio Banegas PA - 10/02/2017 9:00 AM EST Continue incision care as described. Return to clinic in 1-[address] Herrera. Patient should call if her symptoms worsen or fail to improve, if new concerning symptoms arise, orif she has any question or concerns regarding their treatment. Incision care recommendations: - Continue applying Aquaphor (or Bacitracin) to incision twice a day for a total of one month from surgery. - You can begin to massage the incision from 4 weeks after surgery. Use a circular motion, and apply only enough pressure to lisa the skin (turn it white)--so very lightly. Use a light, non-irritating cream/oil, and massage for a few minutes 2 times per day, for 1-2 months. This will help encourage healing, and may reduce incision discomfort. - Beginning at one month from surgery, consider using sun block (SPF 35 at least) or covering the incision from sunlight over the next year. Incisions are more prone to sun damage, and this can causea more noticeable scar. documented in this encounter Progress Notes * Sergio Banegas PA - 10/02/2017 9:00 AM EST [facility] Otolaryngology - Head and Neck Surgery Sergio Banegas PA-C 10/02/17 [place] [address] Office Patient Name: Olga Grey Date of : 1980 PCP: Camilla Peres APRN Olga Grey is a 37 y.o. year old female with a history of an enlarging 1cm x 1cm right parotid gland mass who underwent excisional biopsy, details as follows: Case Date: 09/26/2017 Surgeon: Surgeon(s) and Role: * Nas Herrera MD - Primary * Lito Loyd Jr., MD - Resident-Surgeon Chu Preoperative diagnosis: parotid mass Postoperative diagnosis: parotid mass Procedure(s) (LRB): EXC.PAROTID TUMOR OR GLAND, LATERAL LOBE (WRVU 17.16) (Right) FACIAL NERVE MONITORING, SETUP PERIPHERAL (WRVU 0.54) (N Findings: small benign-appearing tumor at the anterior border of her right parotid gland, buccal branch just deep to the mass. Mass was not involving the duct. New concerns since last visit: A lot of pain initially at the incision site, improved. Had a small fever Friday, otherwise no constitutional symptoms. Denies bleeding or drainage from the site. Was a little swollen, improving. Throat was sore initially, now resolved. Denies weakness in facial muscles. Denies difficulty breathing, swallowing. ROS: 10 point Review of Systems was normal except for pertinent positives and negatives included in the History of Present Illness. Physical Examination: VITALS - Height 170.2 cm (5' 7), weight 60.3 kg (133 lb). GENERAL - Well dressed and well nourished. - Breathing comfortably without stridor. - No acute distress. FACE - Full and symmetric facial movement. - No dysmorphic facial features. EYES - Periocular structures and conjunctiva healthy without lesions. - Pupils are equal, round, and reactive to light. - Extraocular movement is full and intact. - No evidence of nystagmus. EARS Left: - Auricle normal exam. Right: - Auricle normal exam. NOSE - Patent anteriorly with adequate airflow, healthy pink mucosa. - Septum is midline without significant deviation. - Inferior turbinates normal exam. MOUTH - Lips and gingiva pink, moist, without lesions. - Gums/dentition healthy. - Tongue soft without lesions or masses. - Hard palate without lesions. SALIVARY - Right preauricular incision, extending to right neck, clean, dry, flat, and intact, with no evidence of infection; prolene sutures in place. PHARYNX - Soft palate without lesions. - Uvula is midline. - Oropharynx symmetric. NECK - Soft, supple, without significant lymphadenopathy. - Thyroid gland without masses or asymmetry. - Trachea midline without deviation. NEURO - Cranial nerves II-XII intact and symmetric. - Responds appropriately to questions. PSYCHE - Normal mood and affect. Procedure: Suture removal The pre-auricular/neck incision prolene sutures were removed without difficulty. Steri-strips were applied. The patient tolerated the procedure well. ASSESSMENT Olga Grey is a 37 y.o. year old female with a history of an enlarging 1cm x 1cm right parotid gland mass who underwent excisional biopsy on 09/26/17. Doing well since surgery, with no significant complications. Discussed pathology results of Oncocytic Cyst, and its benign nature. Discussed incision care goingforward. Discussed symptoms to call for, such as increased pain, swelling, redness, but stressed that she should call for any concerning symptom. Discussed returning to clinic in 1-2 months for follow up with Dr. Herrera. The patient expressed understanding of these points and agreement with the plan, and all questions that were asked were answered to the patient's satisfaction. RECOMMENDATIONS: Continue incision care as described. Return to clinic in 1-[address] Herrera. Patient should call if her symptoms worsen or fail to improve, if new concerning symptoms arise, orif she has any question or concerns regarding their treatment. Sergio Banegas PA-C 10/02/2017 [place], [place] [address] Office documented in this encounter Plan of Treatment Not on file documented as of this encounter Visit Diagnoses Diagnosis Parotid mass Swelling, mass, or lump in head and neck documented in this encounter Care Teams Cutter First Relationship Specialty Start Date End Date Camilla Peres APRN [address] [place] [address] PCP - General Family Medicine 10/02/16 07/18/21 documented as of this encounter
--- OUTSIDE RECORDS SUMMARY | 2024-03-29 09:45 | XMS_ITS | Encounter Summary ---
[place] [address] Care Team Providers Care Cartography Technician Name Role Phone Lisa Martin DO Primary Care Provider [phone] Encounter Details Date Type Department Care Team (Late st Contact Info) Description 07/17/2022 Ancillary Procedure [place] [address] Lisa Martin, DO [address], [place] [id number] Social History Tobacco Use Types Packs/Day Years [...] on file documented as of this encounter Plan of Treatment Not on file documented as of this encounter Procedures Procedure Name Priority Date/Time Associated Diagnosis Comments FILM LIBRARY STORAGE ONLY MR SPINE Routine 07/17/2022 12:00 AM EST documented in this encounter Results * Film Library- Storage Only MR Spine (07/17/2022 12:00 AM EST) Narrative [facility] - 07/25/2022 11:33 AM EST This exam is auto-finalizing. It's purpose is for storage only. Lisa Martin DO IMG FILM LIBRARY O RDERABLES [place], [place] documented in this encounter Visit Diagnoses Not on filedocumented in this encounter Care Teams Cartography Technician Relationship Specialty Start Date End Date Lisa Martin DO [address] [place] [address] PCP - General Family Medicine 07/19/21 documented as of this encounter
--- OUTSIDE RECORDS SUMMARY | 2024-03-29 09:45 | XMS_ITS | Encounter Summary ---
[place] [address] Care Team Providers Care Cad Draftsman Name Role Phone TerellCamilla yang Sheri DANIELS Primary Care Provider [phone] Reason for Visit * Auth/Cert Specialty Diagnoses / Procedures Referred By Jones nogueira Referred To Contact Diagnoses Capsular contracture of breast implant, initial encounter Bilateral capsular contracture Procedures PRO REMOVAL OF BREAST IMPLANT REMOVAL OF INTACT MAMMARY IMPLANT-SHERRY (WRVU 6.48) Referral ID Status Reason Start Date Expiration Date Visits Re quested Visits Authorized [id number] 1 1 Encounter Details Date Type Department Care Team (Late st Contact Info) Description 11/18/2016 8:15 AM EDT - 11/18/2016 9:30 AM EDT Surgery [facility] [place] [address] Nas Tabor MD [facility] [place] [address] REMOVAL OF INTACT MAMMARY IMPLANT-SHERRY (WRVU 7.44) Social History Tobacco Use Types Packs/Day Years [...] closest emergency room or call the hospital press operator automatic at [phone] and ask for physician national account executive covering for your physician. Questions or problems after 5pm or on a weekend: Call the [facility] press operator automatic at and ask for the physician national account executive covering for your doctor. SAME DAY SURGERY [...] drain; in 24 hours) * Patient Instructions* Sulma Lopez, HEALTH INSURANCE ADJUSTER - 11/18/2016 7:50 AM EDT Post-Op Instructions [...] your surgical site. ??? Do not use [id number] lotions, solutions, or herbal preparations on your [...] about scheduling, please contact our administrative officesat [phone] For clinical questions, please call our nurses at [phone] Both offices are open Friday thru Friday 8a - 5p. With emergencies after hours, call the hospital press operator automatic at [phone] and ask for the Plastic Surgery Resident national account executive. documented in this encounter Medications at Time [...] Tabor MD - 11/18/2016 9:32 AM EDT [facility] [place] Note Patient Name: Olga Grey : [id number] MR#: [id number] Case Date: 11/18/2016 Surgeon: Surgeon(s) and Role: * Nsa Tabor MD - Primary * Sulma Lopez [...] OF SURGERY: 11/18/16 ATTENDING: Dr. Nas Tabor WELT SOLE LAYER: Sulma Lopez INDICATION FOR SURGERY: The patient [...] Operative Note Patient Name: Olga Grey : [id number] MR#: [id number] Case Date: 11/18/2016 Surgeon: Surgeon(s) and Role: [...] Report (11/18/2016 8:35 AM EDT) Final Diagnosis [id number] ?Location: [facility] The signing pathologist has (i) [...] ng: ??(R1) ??sns 11/20/2016 12:54 PM EDT [facility] BREAST STRUCTURE / Unknown 11/18/2016 8:35 AM EDT 11/18/2016 8:35 AM EDT BREAST STRUCTURE / Unknown 11/18/2016 8:35 AM EDT 11/18/2016 8:35 AM EDT Nas Tabor MD PATHOLOGY/CYTOLOGY [place] Performing Organization Address [facility] [place] [address] * Specimen to Pathology (surgical or derm) (11/18/2016 8:35 AM EDT) AP Specimen 11/18/2016 8:35 AM EDT 11/18/2016 8:35 AM EDT Narrative [facility] - 11/18/2016 8:35 AM EDT Specimen requisition ordered. ??Separate Pathology report to follow Nas Tabor MD PATHOLOGY/CYTOLOGY [place] Performing Organization Address [facility] [place] [address] * Specimen to Pathology (surgical or derm) (11/18/2016 8:35 AM EDT) AP Specimen 11/18/2016 8:35 AM EDT 11/18/2016 8:35 AM EDT Narrative [facility] - 11/18/2016 8:35 AM EDT Specimen requisition ordered. ??Separate Pathology report to follow Authorizing Provider Result Eddy Tabor MD PATHOLOGY/CYTOLOGY [place] Performing Organization Address [facility] [place] [address] documented in this encounter Visit Diagnoses Not [...] of Procedure), Routine lidocaine-EPINEPHrine 1 %-1:200,000 injection ONCE PRN, Starting on Fri11/18/16 at 0837, Until Fri11/18/16 at 1242, Intra-Operative (Intra-Procedure), Routine Given 11/18/2016 8:37 AM EDT 6 mLs 19- Surgical Site oxyCODONE (ROXICODONE) immediate release tablet 5 mg [...] (New Bag - Prov ider: Joanie Barnett [id number] (Anesthesia Volume Adjustment - Provider: Damaris Castellanos [...] Routine documented in this encounter Care Teams Cad Draftsman Relationship Specialty Start Date End Date Camilla Peres APRN [address] [place] [address] [address] [place] [address] PCP - General Family Medicine 10/02/16 07/18/21 documented as of this encounter
--- OUTSIDE RECORDS SUMMARY | 2024-03-29 09:45 | XMS_ITS | Encounter Summary ---
[place] [address] Care Team Providers Care Business Project Analyst Name Role Phone Lisa Martin Primary Care Provider [phone] Encounter Details Date Type Department Care Team (Late st Contact Info) Description 04/19/2022 10:00 AM EDT - 04/19/2022 11:59 PM EDT Hospital [place] [address] Diana Ordñoez, AMUSEMENT PARK WORKER [address] [place] [address] Mastodynia Discharge Disposition: Home Social History Tobacco Use [...] on file documented as of this encounter Medications at Time of Discharge [...] 09/18/2017 07/30/2022 documented as of this encounter Plan of Treatment Not on file documented as of this encounter Procedures Procedure Name Priority Date/Time Associated Diagnosis Comments MAMMO DIAGNOSTIC CAD AND WILLIAN BILATERAL Routine 04/19/2022 10:38 AM EDT Mastodynia documented in this encounter Results * Mammo Diagnostic CAD and Willian Bilateral (04/19/2022 10:38 AM EDT) Anatomical Region Laterality Modality Breast Bilateral Mammography Narrative 04/19/2022 11:38 AM EDT DIAGNOSTIC MAMMOGRAPHY OF THE BREAST CLINICAL HISTORY: BILAT BREAST PAIN; MASTODYNIA. ?? Nonlocalized bilateral breast pain. TECHNIQUE AND VIEWS OBTAINED: Images acquired with direct digital capture CC, MLO, exaggerated CC views. ??Tomographic imaging was performed The exam was evaluated by CAD version 8.3.17. COMPARISONS: None BREAST DENSITY: The breasts are heterogeneously dense, which may obscure small masses FINDINGS: There are no suspicious masses, suspicious microcalcifications, or areas of architectural distortion. No targetable area of ultrasound. INTERPRETATION: BI-RADS 1. Normal RECOMMENDATION: Please follow-up with primary care provider if pain persists. Continue regular screening mammograms. I have personally reviewed the image(s) and the resident's interpretation and agree with the findings, Michelle Birmingham MD at 04/19/2022 11:38 AM Thank you for letting us participate in the care of this patient. ??If you are a health care provider and have any questions regarding this report, please contact the number below. ??For patients who have questions please contact the health primary care provider that requested your imaging first. ? Diana Ordoñez APRN IMG MAMMO ORDERAB LES documented in this encounter Visit Diagnoses Diagnosis Mastodynia documented in this encounter Care Teams Business Project Analyst Relationship Specialty Start Date End Date Lisa Martin DO [address] [place] [address] PCP - General Family Medicine 07/19/21 documented as of this encounter
--- OUTSIDE RECORDS SUMMARY | 2024-03-29 09:45 | XMS_ITS | Encounter Summary ---
Author Organization [facility] Address [facility] [address] Care Team Providers Care President Of The [place] Name Role Phone Kong Pereseen Sheri DANIELS Primary Care Provider [phone] Reason for Visit * Consultation (Routine) - Closed Specialty Diagnoses / Procedures Referred By Jones nogueira Referred To Contact Otolaryngology Diagnoses mass of parotid gland Benoit Hyde, DO [address] [place] [address] Nas Herrera MD [facility] [place] [address] Referral ID Status Reason Start Date Expiration Date Visits Re quested Visits Authorized [id number] Closed 09/17/2017 09/17/2018 1 1 Encounter Details Date Type Department Care Team (Late st Contact Info) Description 09/18/2017 10:00 AM EST Office Visit [place] [address] Nas Herrera MD [facility] [place] [address] Parotid mass; Cigarette smoker Social History Tobacco Use Types Packs/Day Years Used Date Smoking Tobacco: Every Day Cigarettes Smokeless Tobacco: Never Comments:not thinking of zenaida tting at this time Alcohol Use Standard Drinks/Week Comments Yes 42 [...] - Inhaled Oxygen Concentration - - Weight 62.7 kg (138 lb 3.2 oz) 09/18/2017 10:15 AM EST Height - - Body Mass Index 21.65 11/18/2016 7:25 AM EDT documented in this encounter Progress Notes * Nas Herrera MD - 09/18/2017 10:00 AM EST [facility] [place] NEW PATIENT CONSULTATION I was asked to see Olga Grey in consultation by Benoit Hyde for a right parotid mass. History was obtained through review of the relevant records, discussion with referring physician and/or patient interview. This is a 37 y.o. female with a right parotid gland mass. She initially noticed the mass approximately one year ago and states that she has noticed that it has enlarged. She reports some pain and tenderness to the area if she presses firmly on it but otherwise denies any pain without manipulation of the mass. Of note, she also reports some associated numbness and facial weakness on the right side that is intermittent in nature. She denies any foul taste in mouth, denies any dry mouth or difficulty swallowing. She denies any ear pain or pressure. She reports that lately she has felt fatigued and anxious and reports a roughly 20 lb unintentional weight loss over the past 6 months. Her appetite, however,has remained unchanged and she denies any other constitutional symptoms. She denies any prior head and neck surgeries and denies any prior history of skin cancer Tobacco use: Smoke daily 1 pack 22 years Alcohol use: 3 or 4 per day PROBLEM LIST Patient Active Problem List Diagnosis Code ??? Herniation of cervical intervertebral disc with radiculopathy M50.10 ??? Breast implant capsular contracture T85.44XA PAST MEDICAL HISTORY Past Medical History: Diagnosis Date ??? Herniation of cervical intervertebral disc with radiculopathy 05/26/2014 C6-7 left SOCIAL HISTORY Social History Substance Use Topics ??? Smoking status: Current Every Day Smoker Packs/day: 1.00 ??? Smokeless tobacco: Never Used Comment: not thinking of quitting at this time ??? Alcohol use 25.2 oz/week 42 Cans of beer per week Comment: 6 beers a day MEDICATIONS Current Outpatient Prescriptions on File Prior to Visit Medication Sig Dispense Refill ??? levonorgestrel (MIRENA) 20 mcg/24 hr (5 years) IUD 1 each by Intrauterine route once. ??? clonAZEpam (KLONOPIN) 0.5 mg tablet 0.25MG - 0.5MG, PO, Once daily,PRN No current facility-administered medications on file prior to visit. ALLERGIES No Known Allergies ROS Pertinent positive findings discussed above. No other findings on review of constitutional visual, cardiovascular, respiratory, gastrointestinal, genitourinary, musculoskeletal, dermatologic, neurological, psychiatric, endocrine, hematologic or immunologic systems. PHYSICAL EXAMINATION Vitals: Weight 62.7 kg (138 lb 3.2 oz). General: No acute distress Face: Normocephalic and atraumatic Eyes: Extraocular movement is full and intact. No dysconjugate gaze. No evidence of nystagmus. Periocularstructures and conjunctiva healthy without lesions. Ears: Normal exam of the external ear, canal and tympanic membrane. Nose: Normal external exam. Normal exam of the septum and turbinates. Mouth: Lips and gingiva pink, moist, without lesions. Gums/dentition healthy, dentition in good repair. Tongue and floor of mouth without lesions or masses. Hard palate without lesions. Pharynx: Normal exam of the tonsils, tonsillar fossa, soft palate, lateral pharyngeal wall, and posterior pharynx. Salivary: Normal exam of submandibular glands. On the right there is a firm, round, approximately 1 cm x 1 cmmass on the anterior aspect of the parotid gland that is nontender to palpation. On the left normalparotid gland Neck: Soft supple without significant lymphadenopathy. Thyroid gland without masses or asymmetry. Tracheamidline without deviation. Resp: Breathing comfortably without stridor or retractions. CTAB CV: RRR MSK: Normal neck range of motion, no trismus. Skin: Skin survey of the head and neck is without concerning lesion. Neurologic: Cranial nerves II-XII intact and symmetric. AxOx3, responds appropriately to questions. Psych: Normal mood and affect. PROCEDURES None REVIEW OF IMAGES/STUDIES MRI 08/26/17 Benign appearing, non-enhancing lesion in the anterior right parotid gland ASSESSMENT/RECOMMENDATIONS I saw this patient in conjunction with Dr. Herrera. This is a 37 y.o with an approximately 1 cm x1 cm firm, round mass of anterior right parotid gland. We dicussed the management of this mass withthe patient and discussed the likelihood that this is a benign mass versus as malignant mass. We discussed excision of the mass including the risks and benefits of the procedure. We dicussed the importance of cessation of smoking prior to the procedure to optimize healing and she was prescribed a nicotine patch. The patient was in agreement with the plan to excise the lesion. I appreciate the opportunity to be involved in Ms. Grey's care. INDIA Garcia 09/18/2017 Attending note: Patient seen with the physician topographical field assistant. In summary, this patient presents with a one-year history of a mass in her right parotid region. She feels that has been progressively enlarging. She has nopain or substantial facial weakness. She does report some possible numbness in the right side of her face. She has had a MRI which I personally reviewed which demonstrates a mass just anterior to theanterior edge of the parotid gland. Her physical exam is significant for a 1/2 cm mobile mass alongthe anterior border of the parotid gland with normal overlying skin. Facial nerve function is entirely intact. No palpable adenopathy is identified. I recommended parotid tumor excision. This would be achieved via a modified Tunde incision and dissection over the parotid gland to identify the mass along the anterior edge. We would likely identifythe buccal branch of the facial nerve and the parotid duct and then remove the mass with the structures in view. Risk of temporary or permanent nerve injury were reviewed with the patient as was bleeding, infection, numbness, need for additional surgery or other treatment. The patient is anxious tohave this done and we will make arrangements accordingly. I did emphasize to her the importance of quitting smoking for at least 2 weeks prior to surgery if not longer to maximize her chance of healthy recovery and minimize any risk of wound infection or other wound complication. The patient expressed an understanding of this and she was also offered a nicotine patch prescription. 3 minutes was spent on this conversation. documented in this encounter Plan of Treatment Not on file documented as of this encounter Procedures Procedure Name Priority Date/Time Associated Diagnosis Comments EXC.PAROTID TUMOR OR GLAND, LATERAL LOBE, W DISSECTION & PRESERVATION FACIAL NERVE Routine 09/18/2017 10:50 AM EST Parotid mass documented in this encounter Visit Diagnoses Diagnosis Parotid mass Swelling, mass, or lump in head and neck Cigarette smoker Tobacco use disorder documented in this encounter Care Teams President Of The [place] Relationship Specialty Start Date End Date Camilla Peres APRN [address] [place] [address] PCP - General Family Medicine 10/02/16 07/18/21 documented as of this encounter
--- OUTSIDE RECORDS SUMMARY | 2024-03-29 09:45 | XMS_ITS | Encounter Summary ---
Author Organization [facility] [place] [address] Care Team Providers Care Firmware Architect Name Role Phone Camilla Peres FRANCES Primary Care Provider [phone] Encounter Details Date Type Department Care Team (Late st Contact Info) Description 09/29/2017 Telephone [place] [id number] Savi Camejo RN Social History Tobacco Use Types Packs/Day Years [...] on file documented as of this encounter Miscellaneous Notes * Telephone Encounter - Savi Camejo RN - 09/29/2017 12:13 PM EST Patient called for RN to review symptoms. Patient states she is having irritation, itching, and extreme swelling in the vaginal area; patient denies discharge and says that she has not had sexual intercourse for over 3 weeks. She was not discharged on antibiotics, but was given antibiotics in the OR during parotid mass excision on 09/26/17; patient did not have a Cunha catheter placed in the OR. Patient also states she is experiencing neck stiffness, alternating cold chills and hot flashes, alfredo sore throat. Patient can easily flex neck forward toward chest, but it is difficult to extend head to drink from a glass. She had a fever of 101F on Friday morning, but it quickly resolved. The right side of her face is black and blue and swollen. I explained that the vaginal symptoms are not likely due to the short course of antibiotics given in the OR, but a yeast infection or bacterial vaginitis should be ruled out by her PCP or garbage truck dispatcher. I also explained that any neck stiffness related to OR positioning and sore throat related to intubation would likely be resolving this far out after surgery. I recommended that the patient go see her PCP to evaluate these symptoms further. Patient verbalized understanding of my recommendations. documented in this encounter Plan of Treatment Not on file documented as of this encounter Visit Diagnoses Not on filedocumented in this encounter Care Teams Firmware Architect Relationship Specialty Start Date End Date Camilla Peres APRN [address] [place] [address] PCP - General Family Medicine 10/02/16 07/18/21 documented as of this encounter
--- OUTSIDE RECORDS SUMMARY | 2024-03-29 09:45 | XMS_ITS | Encounter Summary ---
Author Organization [facility] Address [facility] [place] [address] Care Team Providers Care Gas Refrigerator Servicer Name Role Phone Lisa Martin DO Primary Care Provider [phone] Encounter Details Date Type Department Care Team (Latest Contact Info) Description 07/30/2022 Travel Social History Tobacco Use Types Packs/Day Years [...] on filedocumented in this encounter Care Teams Gas Refrigerator Servicer Relationship Specialty Start Date End Date Lisa Martin DO [address] [place] [address] PCP - General Family Medicine 07/19/21 documented as of this encounter
--- OUTSIDE RECORDS SUMMARY | 2024-03-29 09:45 | XMS_ITS | Encounter Summary ---
[place] [address] Care Team Providers Care Green Building Architect Name Role Phone Camilla Peres FRANCES Primary Care Provider [phone] Encounter Details Date Type Department Care Team (Late st Contact Info) Description 09/26/2017 12:24 PM EST Anesthesia [place] [address] Augustine Manuel MD [facility] [place] [address] Blanche Gilbert CRNA [facility] [place] [address] Anesthesia Record Procedure Summary Procedure Name Responsible Anesthesiologist Anesthesia Start Time Anesthesia Stop Time EXC.PAROTID TUMOR OR GLAND, LATERAL LOBE, W DISSECTION & PRESERVATION FACIAL NERVE (WRVU 17.16) (Right: Face) Augustine Manuel MD 09/26/17 1224 09/26/17 1407 Events Date Time Event Comment 09/26/2017 1156 1224 AN Verify 1224 Start 1228 An Start Data 1232 An Induction 1235 An Intubation 1236 Anesthesia Ready 1307 Procedure Start Time out com plete 1403 Extubation/LMA Out 1405 an stop data 1407 Recovery or ICU Handoff Monica ent care was transferred to the destination unit staff after review of the patient's medical history, current anesthetic/surgical status and plan, according to the Provider Handoff Checklist. 1407 Stop Meds Name Total Midazolam 2 mg fentaNYL 100 mcg IV Lidocaine 60 mg Propofol 200 mg ePHEDrine 10 mg Ondansetron 8 mg Dexamethasone 8 mg ampicillin-sulbactam (UNASYN ) 3 g vial attach to sodium chloride 0.9% 100 mL Mini-Bag Plus 3 g Succinylcholine 80 mg Propofol INF 280.4 mg Lactated Ringers 400 mL * Agents Name O2 Air N2O Sevoflurane (et) * Blood No blood administrations on file. Lines, Drains, and Airways Type Details Placement Removal Drain/Device Site 11/18/16; Right; collapsible closed device (lupe) 11/18/16 0000 by Rose Lora RN Drain/Device Site 11/18/16; 1024; Left ; collapsible closed device (lupe) 11/18/16 1024 by Rose Lora RN (RETIRED) Peripheral IV [...] (RETIRED) Peripheral IV Line - Single Lumen 09/26/17; 1214; median cubital vein (antecubital fossa), right; 20 gauge; Rochelle Quesada; distraction, intradermal injection; Location1: (select this item first), cephalic vein (lateral side of arm), right; 09/26/17; 1516 09/26/17 1214 by Rochelle Quesada RN 09/26/17 1516 by Frieda Palmer RN ETT Mask Ventilation: Ea sy (1); ETT Type: Cuffed, Oral; ETT Size: 7 mm; Mac Blade: 3; Notes: Asleep, Pre-O2, Cricoid Pressure, Stylette; Attempts: 1; Laryngoscopy Grade: 2; ETT Placement Verified By: Capnometry, Auscultation, Visual; Secured at Teeth: 22 cm; Inserted by: Vladimir KURTZ; Removal Date: 09/26/17; Removal Time: 1403 09/26/17 1235 by Blanche Gilbert, CHRONIC SPECIALIST 09/26/17 1403 by Blanche Gilbert CRNA Incision 09/26/17; 1309; face ; 04/15/22 (LDA cleanup utility RA#[id number]); 1715 (LDA cleanup utility RA#[id number]) 09/26/17 1309 by Honey Nazario RN 04/15/22 1715 by Lamberto Capellan documented in this encounter Social History Tobacco [...] of this encounter OR Notes * Anesthesia Preprocedure Evaluation - Augustine Manuel MD - 09/26/2017 11:56 AM EST Pre-Anesthesia Evaluation for: Olga crow 37 y.o. female. Procedure(s): EXC.PAROTID TUMOR OR GLAND, LATERAL LOBE (WRVU 17.16) Patient Active Problem List Diagnosis ??? Breast implant capsular contracture ??? Herniation of cervical intervertebral disc with radiculopathy C6-7 left Past Medical History: Diagnosis Date ??? Herniation of cervical intervertebral disc with radiculopathy 05/26/2014 C6-7 left Past Surgical History: Procedure Laterality Date ??? PRO REMOVAL OF BREAST CAPSULE Bilateral 11/18/2016 BREAST, PERIPROSTHETIC CAPSULECTOMY, SHERRY (WRVU 10.62) performed by Nas Tabor MD at [facility] ??? PRO REMOVAL OF BREAST IMPLANT Bilateral 11/18/2016 REMOVAL OF INTACT MAMMARY IMPLANT-SHERRY (WRVU 6.48) performed by Nas Tabor MD at [facility] Social History Substance Use Topics ??? Smoking status: Current Every Day Smoker Packs/day: 0.00 ??? Smokeless tobacco: Never Used Comment: in process of quitting ??? Alcohol use 25.2 oz/week 42 Cans of beer per week Comment: 6 beers a day History Drug Use No No Known Allergies Medications: MAR and/or home medications have been reviewed. Physical Exam: Most Recent Vitals: 09/26/17 1120 BP: 129/90 Pulse: 80 Resp: 14 Temp: 37.1 ??C (98.8 ??F) SpO2: 99% Body mass index is 20.83 kg/(m^2). Height: 170.2 cm (5' 7) Weight: 60.3 kg (133 lb) Airway Assessment: Mallampati: II TM distance: >3 FB Neck ROM: full Cardiovascular Assessment: Pulmonary Assessment: Dental Assessment: Misc Assessment: Anesthesia Plan: ASA 2 general, Informed Consent: PAT Staff Note documented in this encounter Plan of Treatment Not on file documented as of this encounter Visit Diagnoses Not on filedocumented in this encounter Administered Medications Inactive Administered Medications - up to 3 most recent administrations Medication Order MAR Action Action Date Dose Rate Site ampicillin-sulbactam (UNASYN) 3 g vial attach to sodium chloride 0.9% 100 mL Mini-Bag Plus 3 g, Intravenous, ONCE, 1 dose, On Fri09/26/17 at 1215, Administer over 30 Minutes, Warning Vesicant/Irritant Medication , Indication for (Active or Suspected): Prophylaxis New Bag 09/26/2017 12:36 PM EST 3 g dexamethasone (DECADRON) injection PRN, Starting on Fri09/26/17 at 1246, Until Fri09/26/17 at 1452, Anesthesia Intra-op, Routine Given 09/26/2017 12:46 PM EST 8 mg ePHEDrine 5 mg/mL multi-dose injection PRN, Starting on Fri09/26/17 at 1328, Until Fri09/26/17 at 1452, Anesthesia Intra-op, Routine Given 09/26/2017 1:28 PM EST 10 mg fentaNYL 50 mcg/mL multi-dose injection PRN, Starting on Fri09/26/17 at 1240, Until Fri09/26/17 at 1452, Pain, Anesthesia Intra-op, Routine Given 09/26/2017 12:53 PM EST 50 mcg Given 09/26/2017 12:40 PM EST 50 mcg lactated Ringers infusion CONTINUOUS PRN, Starting on Fri09/26/17 at 1154, Until Fri09/26/17 at 1452, Anesthesia Intra-op New Bag 09/26/2017 11:54 AM EST lidocaine (PF) (XYLOCAINE) 100 mg/5 mL (2 %) injection PRN, Starting on Fri09/26/17 at 1231, Until Fri09/26/17 at 1452, Anesthesia Intra-op, Routine Given 09/26/2017 12:31 PM EST 60 mg midazolam (PF) (VERSED) 1 mg/mL multi-dose injection PRN, Starting on Fri09/26/17 at 1224, Until Fri09/26/17 at 1452, Sleep, Anesthesia Intra-op, Routine Given 09/26/2017 12:24 PM EST 2 mg ondansetron (ZOFRAN) injection PRN, Starting on Fri09/26/17 at 1350, Until Fri09/26/17 at 1452, Nausea, Anesthesia Intra-op, Routine Given 09/26/2017 1:50 PM EST 8 mg propofol (DIPRIVAN) 10 mg/mL bolus injection (Anesthesia) PRN, Starting on Fri09/26/17 at 1232, Until Fri09/26/17 at 1452, Anesthesia Intra-op Given 09/26/2017 12:38 PM EST 50 mg Given 09/26/2017 12:32 PM EST 150 mg propofol (DIPRIVAN) infusion CONTINUOUS PRN, Starting on Fri09/26/17 at 1238, Until Fri09/26/17 at 1452, Anesthesia Intra-op, Routine Rate/Dose Change 09/26/2017 1:07 PM EST 50 mcg/kg/min 18.1 mL/hr Rate/Dose Change 09/26/2017 12:53 PM EST 150 mcg/kg/min 54 .3 mL/hr New Bag 09/26/2017 12:38 PM EST 50 mcg/kg/min 18.1 mL/h r succinylcholine (ANECTINE) injection PRN, Starting on Fri09/26/17 at 1232, Until Fri09/26/17 at 1452, Anesthesia Intra-op, Routine Given 09/26/2017 12:32 PM EST 80 mg documented in this encounter Care Teams Green Building Architect Relationship Specialty Start Date End Date Camilla Peres, HELP DESK ASSISTANT [address] [place] [address] [address] [place] [address] PCP - General Family Medicine 10/02/16 07/18/21 documented as of this encounter
--- OUTSIDE RECORDS SUMMARY | 2024-03-29 09:45 | XMS_ITS | Encounter Summary ---
[place] [address] Care Team Providers Care Pipe Washer Name Role Phone Camilla Peres FRANCES Primary Care Provider [phone] Reason for Visit * Reason Comments Follow Up Surgery drain removal Encounter Details Date Type Department Care Team (Latest Contact Info) Description 11/22/2016 9:00 AM EDT Clinical [place] [address] Surgery follow-up Social History Tobacco Use Types Packs/Day Years Used Date Smoking Tobacco: Every Day Cigarettes Alcohol Use Standard Drinks/Week Comments Yes 42 (1 standard drink = 0.6 oz pu re alcohol) 6 beers a day Sex and Gender Information Value Date Recorded Sex Assigned at Not on file Gender Identity Not on file Sexual Orientation Not on file documented as of this encounter Patient Instructions * Patient Instructions* Jamilah Youngblood RN - 11/22/2016 9:00 AM EDT Signs of Infection : A temperature over 100.4 F or 38 C. Redness at the incision line that is beginning to spread away from the incision after the first 48 hours. Yellow pus-like or foul smelling drainage larger than a dime size from the incision or drain sites. Increased pain / discomfort that is not relieved by your pain medicine. For any of these symptoms please call our nurse's line at [phone] M - F 8 - 5 documented in this encounter Progress Notes * Jamilah Youngblood RN - 11/22/2016 9:00 AM EDT Reason for Visit: Postoperative Evaluation s/p Case Date: 11/18/2016 ??Surgeon: Surgeon(s) and Role: * Nas Tabor MD - Primary * Sulma Lopez APRN ??Preoperative diagnosis: Bilateral capsular contracture ??Postoperative diagnosis: Bilateral capsular contracture ??Procedure(s) (LRB): REMOVAL OF INTACT MAMMARY IMPLANT-SHERRY (WRVU 6.48) (Bilateral) BREAST, PERIPROSTHETIC CAPSULECTOMY, SHERRY (WRVU 10.62) (Bilateral) ?? Pt is here for an incision check, and drain removal. Subjective: for discomfort, she states she has had good relief from her oxycodone and is alsousing extra strength tylenol with good relief. Objective: Mild swelling bilateral breasts, no Bruising. Absorable sutures and steri-strips intact.Olga was fitted into a compressive bra today.Both drains were removed today, they meet criteria for removal. Complications: none Assessment: No signs of delayed healing,erythema ,or fluid collection.Incisions CDI Plan: We reviewed post op incision instructions including: leave steri strips in place until they fall off.We reviewed signs and symptoms of infection and correct phone numbers to call us for concerns. We reviewed instructions on drain site and incisional care, showering, pain control, and activityrestrictions as outlined in our post op brochure. We reviewed parameters for normal post operative swelling and bruising as stated in our post op brochures. Olga agrees with plan of care,and was instructed to call with any concerns. Follow up in [address] Tabor documented in this encounter Plan of Treatment Not on file documented as of this encounter Visit Diagnoses Diagnosis Surgery follow-up Follow-up examination, following unspecified surgery documented in this encounter Care Teams Pipe Washer Relationship Specialty Start Date End Date Camilla Peres APRN [address] [place] [address] PCP - General Family Medicine 10/02/16 07/18/21 documented as of this encounter
--- OUTSIDE RECORDS SUMMARY | 2024-03-29 09:45 | XMS_ITS | Encounter Summary ---
[place] [address] Care Team Providers Care Die Cast Supervisor Name Role Phone Lisa Martin DO Primary Care Provider [phone] Reason for Referral * Consultation (Routine) - Closed Specialty Diagnoses / Procedures Referred By Contac t Referred To Contact [facility] Diagnoses Anesthesia of skin Cervicalgia Other cervical disc displacement, unspecified cervical region Spine- Neck pain radiates down L arm w/ n&t/ MRI 07/17/22 in [facility]/ EMG 01/2022 @[facility]/ no relief w/PT Lisa Martin DO [address] [place] [address] [facility] [place] [address] Referral ID Status Reason Start Date Expiration Date V isits Requested Visits Authorized [id number] Closed Consult, Test & Treat PCP Updated and/or Approved 07/23/2022 07/23/2023 6 6 Encounter Details Date Type Department Care Team (Latest Contact Info) Description 07/23/2022 Transcribe Orders eDH Incoming Referrals [phone] Lisa Martin DO [address] [place], [place] [address] Anesthesia of skin; Cervicalgia; Other cervical disc displacement, unspecified cervical region Social History Tobacco Use Types Packs/Day Years [...] as of this encounter Plan of Treatment Scheduled Referrals Name Type Priority Associated Diagnoses Orde r Schedule Referral to Spine Center Outpatient Referral Routine Anesthesia of skin Cervicalgia Other cervical disc displacement, unspecified cervical region Ordered: 07/23/2022 documented as of this encounter Visit Diagnoses Diagnosis Anesthesia of skin Disturbance of skin sensation Cervicalgia Other cervical disc displacement, unspecified cervical region documented in this encounter Care Teams Die Cast Supervisor Relationship Specialty Start Date End Date Lisa Martin DO [address] [place] [address] PCP - General Family Medicine 07/19/21 documented as of this encounter
--- OUTSIDE RECORDS SUMMARY | 2024-03-29 09:45 | XMS_ITS | Encounter Summary ---
[place] [address] Care Team Providers Care Resident Manager Name Role Phone Camilla Peres APRN Primary Care Provider [phone] Encounter Details Date Type Department Care Team (Late st Contact Info) Description 09/15/2017 Telephone [place] [id number] Raya Santiago Social History Tobacco Use Types Packs/Day Years [...] encounter Miscellaneous Notes * Telephone Encounter - Raya Santiago - 09/15/2017 4:01 PM EST Patient called to see if her ENT sent over a referral from last Friday09/10/17. 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 Looking for a second opinion aldo. Advised her to call her ENT provider back and ask to have that referral resent so that we may proceed forward. documented in this encounter Plan of Treatment Not on file documented as of this encounter Visit Diagnoses Not on filedocumented in this encounter Care Teams Resident Manager Relationship Specialty Start Date End Date Camilla Peres APRN [address] [place] [address] PCP - General Family Medicine 10/02/16 07/18/21 documented as of this encounter
--- OUTSIDE RECORDS SUMMARY | 2024-03-29 09:45 | XMS_ITS | Encounter Summary ---
Author Organization [facility] Address [facility] [place] [address] Care Team Providers Care Single Needle Operator Name Role Phone Camilla Peres FRANCES Primary Care Provider [phone] Encounter Details Date Type Department Care Team (Latest Contact Info) Description 08/13/2017 - 08/13/2017 11:59 PM EST Hospital Encounter [place] [address] Nas Herrera MD [facility] [place] [address] Discharge Disposition: Home Social History Tobacco Use [...] 11/18/2016 09/18/2017 documented as of this encounter Plan of Treatment Not on file documented as of this encounter Procedures Procedure Name Priority Date/Time Associated Diagnosis Comments FILM LIBRARY STORAGE ONLY CT HEAD AND SPINE Routine 08/13/2017 12:00 AM EST documented in this encounter Results * Film Library- Storage Only CT Head And Spine (08/13/2017 12:00 AM EST) Narrative CRISTINA - 09/16/2017 11:44 AM EST This exam is for storage only and is auto-finalizing. Nas Herrera MD IMG FILM LIBRARY O RDERABLES Performing Organization Address City/State/[facility] Co de Phone Number [place], [place] documented in this encounter Visit Diagnoses Not on filedocumented in this encounter Care Teams Single Needle Operator Relationship Specialty Start Date End Date Camilla Peres, CUTTING ROOM SUPERVISOR [address] [place] [address] PCP - General Family Medicine 10/02/16 07/18/21 documented as of this encounter
--- OUTSIDE RECORDS SUMMARY | 2024-03-29 09:45 | XMS_ITS | Encounter Summary ---
Author Organization [facility] Address [facility] [place] [address] Care Team Providers Care Coin Machine Supervisor Name Role Phone Camilla Peres FRANCES Primary Care Provider [phone] Encounter Details Date Type Department Care Team (Latest Contact Info) Description 08/25/2017 - 08/25/2017 11:59 PM EST Hospital Encounter [place] [address] Nas Herrera MD [facility] [place] [address] Discharge Disposition: Home Social History Tobacco Use [...] Diagnosis Comments FILM LIBRARY STORAGE ONLY MR HEAD Routine 08/25/2017 12:00 AM EST documented in this encounter Results * Film Library- Storage Only MR Head (08/25/2017 12:00 AM EST) Narrative CRISTINA - 09/16/2017 11:41 AM EST This exam is for storage only and is auto-finalizing. Nas Herrera MD IMG FILM LIBRARY O RDERABLES Performing Organization Address City/State/[facility] Co de Phone Number [place], [place] documented in this encounter Visit Diagnoses Not on filedocumented in this encounter Care Teams Coin Machine Supervisor Relationship Specialty Start Date End Date Camilla Peres APRN [address] [place] [address] PCP - General Family Medicine 10/02/16 07/18/21 documented as of this encounter
--- OUTSIDE RECORDS SUMMARY | 2024-03-29 09:45 | XMS_ITS | Encounter Summary ---
Author Organization [facility] [place] [address] Care Team Providers Care Pot Fisher Name Role Phone Camilla Peres FRANCES Primary Care Provider [phone] Encounter Details Date Type Department Care Team (Latest Contact Info) Description 09/26/2017 10:45 AM EST - 09/26/2017 3:15 PM EST Hospital Encounter [place] [address] Nas Herrera MD [facility] [place] [address] Parotid mass Discharge Disposition: Home Social History Tobacco Use [...] -You can reach the ENT clinic at [phone] for appointment questions. -The ENT triage nurse is available at [phone] -For urgent issues during evenings and weekends the ENT resident gas controller can be reached through [facility] at [phone] Follow Up: You will need to follow [...] Herrera MD - 09/26/2017 2:00 PM EST [facility] Operative Note Patient Name: Olga Grey : [id number] MR#: [id number] Case Date: 09/26/2017 Surgeon: Surgeon(s) and Role: [...] Info Order Time SPECIMEN TO PATHOLOGY OR#2 [id number]. parotid mass RIGHT parotid mass Excision 09/26/2017 [...] The incision was injected with 1% xylocaine 1:[id number] epinephrine and the made with a 15 [...] PM EST 09/26/2017 2:15 PM EST Narrative [facility] - 09/26/2017 2:15 PM EST Specimen requisition ordered. ??Separate Pathology report to follow Resulting Agency Comment Spec In Lab Nas Herrera MD PATHOLOGY/CYTOLOGY ORDERABLES [facility] [place] [place] [address] * Surgical Pathology Report (09/26/2017 1:32 PM EST) Final Diagnosis [id number] ? Location: [facility]; [facility]; The signing pathologist has (i) examined the relevant preparation(s) for the specimen(s) and (ii) rendered or confirmed the diagnosis(es). . 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 Electronically signed by: ??Leti Travis DO Verified: ??10/01/2017 ?Pathologist Performed at: ??[facility], [place], [place] CLINICAL INFORMATION Specimen Submitted: A - Right parotid mass Clinical History: Parotid mass Clinical Diagnosis: Parotid mass SPECIMEN PROCESSING A - Labeled/Fixativ e: Right parotid mass, fresh. Quantity/Size: Single, 1.0 x 0.7 x 0.6 cm. Tissue Description: Ovoid, buckley-white cystic structure, on section with pale white fluid. Sections/Proces sing: Inked and trisected. (T1) ??pps 10/01/2017 10:10 AM EST [facility] PAROTID GLAND STRUCTURE / Unknown 09/26/2017 1:32 PM EST 09/26/2017 1:32 PM EST Nas Herrera MD PATHOLOGY/CYTOLOGY ORDERABLES [facility] [place] [address] documented in this encounter Visit Diagnoses Diagnosis Parotid mass Swelling, mass, or lump in head and neck documented in this encounter Active and Recently [...] ophthalmic solution (CANCELED) ONCE PRN, Starting on Fri09/26/17 at 1305, Until Fri09/26/17 at 1744, Intra-Operative (Intra-Procedure), Routine 1305 (Given - Provid er: Nas Herrera MD) thrombin (bovine) (THROMBIN-JMI) solution (CANCELED) ONCE PRN, Starting on Fri09/26/17 at 1336, Until Fri09/26/17 at 1744, Intra-Operative (Intra-Procedure) 1336 (Given - Provid er: Lito Loyd Jr., MD) documented in this encounter Care Teams Pot Fisher Relationship Specialty Start Date End Date Camilla Peres APRN [address] [place] [address] PCP - General Family Medicine 10/02/16 07/18/21 documented as of this encounter
--- OUTSIDE RECORDS SUMMARY | 2024-03-29 09:45 | XMS_ITS | Clinical Summary ---
Author Organization [facility] Address [address] [facility] [place] [address] Care Team Providers Care Comic Artist Name Role Phone Lisa Martin Primary Care Provider [phone] Allergies No known active allergies Medications Medication Sig Dispensed Refills Start Date End Date Status clonAZEpam (KLONOPIN) 0.5 mg tablet 0.25MG - 0.5MG, PO, Once daily,PRN 08/28/2006 Active levonorgestrel (MIRENA) 20 mcg/24 hr (5 years) IUD 1 each by Intrauterine route once. Active topiramate (Topamax) 25 mg Tablet 07/29/2022 Active buPROPion XL (Wellbutrin XL) 150 mg Tablet Extended Release 24 hr Take 150 mg by mouth every morning. 07/25/2022 Active ibuprofen (Advil) 600 mg Tablet 07/23/2022 Active gabapentin (Neurontin) 100 mg Capsule 07/24/2022 Active Active Problems Problem Noted Date Diagnosed Date Breast implant capsular contracture 10/02/2016 Herniation of cervical inter vertebral disc with radiculopathy 05/26/2014 Overview (05/26/2014): C6-7 left Family History Medical History Relation Comments Breast Cancer Paternal Grandmother Relation Status Comments Paternal Grandmother Social History Tobacco Use Types Packs/Day Years [...] on file Sexual Orientation Not on file Last Filed Vital Signs Vital Sign Reading Time Taken Comments Blood Pressure 128/85 09/26/2017 2:45 PM EST Pulse 80 09/26/2017 11:20 AM EST Temperature 37 ??C (98.6 ??F) 09/26/2017 2:15 PM EST Respiratory Rate 16 09/26/2017 2:45 PM EST Oxygen Saturation 100% 09/26/2017 2:45 PM EST Inhaled Oxygen Concentration - - Weight 66.7 kg (147 lb) 07/30/2022 7:58 AM EST Height 170.2 cm (5' 7) 07/30/2022 7:58 AM EST Body Mass Index 23.02 07/30/2022 7:58 AM EST Plan of Treatment Health Maintenance Due Date Last Done Comments Pneumococcal Vaccine: At-Risk 5-64yrs (1 of 2 - PCV) 1 10/12/1985 HIV screen 1998 Hepatitis C Screening 1998 Lipid Screening 1998 Hepatitis B vaccine (0-59 yrs) (1) 1999 Tdap adult 1999 Tetanus vaccine 1999 HPV test 2010 PAP Smear 2010 Breast Cancer Share Decision Needed 2020 Covid-19 Vaccine (1 - season) 2023 Influenza (Flu) vaccine (1 o f 1 - Influenza standard series) 04/18/2024 Breast Cancer screening 04/19/2024 04/19/2022 Procedures Procedure Name Priority Date/Time Associated Diagnosis Comments MAMMO DIAGNOSTIC CAD AND WILLIAN BILATERAL Routine 04/19/2022 10:38 AM EDT Mastodynia from Last 3 Months or Most Recently Relevant to Health Maintenance Results * Mammo Diagnostic CAD and Willian [...] who have questions please contact the health health care assistant that requested your imaging first. ? Electronically signed by: Michelle Birmingham MD, [facility] ([phone]), at 04/19/2022 11:38 AM Diana Ordoñez APRN IMG MAMMO ORDERAB LES from Last 3 Months or Most Recently Relevant to Health Maintenance Advance Directives * Full Code (Latest Code Status on File) Date Activated Date Inactivated Comments 09/26/2017 11:55 AM 09/26/2017 5:44 PM Question Answer Comments Does patient have capacity to make decision: Yes * Full Code Date Activated Date Inactivated Comments 11/18/2016 7:41 AM 11/18/2016 12:43 PM Question Answer Comments Does patient have capacity to make decision: Yes Care Teams Comic Artist Relationship Specialty Start Date End Date Lisa Martin DO [address] [facility] [place] [address] PCP - General Family Medicine 07/19/21
--- OUTSIDE RECORDS SUMMARY | 2024-03-29 09:45 | XMS_ITS | Encounter Summary ---
[place] [address] Care Team Providers Care General Store Manager Name Role Phone Lisa Martin DO Primary Care Provider [phone] Encounter Details Date Type Department Care Team (Late st Contact Info) Description 10/17/2021 Ancillary Procedure [place] [address] Lisa Martin, DO [address] [place], [place] [id number] Social History Tobacco Use Types Packs/Day Years [...] FILM LIBRARY STORAGE ONLY MR SPINE Routine 10/17/2021 12:00 AM EST documented in this encounter Results * Film Library- Storage Only MR Spine (10/17/2021 12:00 AM EST) Narrative [facility] - 11/01/2021 11:41 AM EDT This exam is auto-finalizing. It's purpose is for storage only. Lisa Martin DO IMG FILM LIBRARY O RDERABLES [facility] [place], [place] documented in this encounter Visit Diagnoses Not on filedocumented in this encounter Care Teams General Store Manager Relationship Specialty Start Date End Date Lisa Martin DO [address] [place] [address] PCP - General Family Medicine 07/19/21 documented as of this encounter
--- OUTSIDE RECORDS SUMMARY | 2024-03-29 09:46 | XMS_ITS | Encounter Summary ---
Author Organization [facility] Address [address] [place] [address] Care Team Providers Care Manager Life Sciences Name Role Phone Unknown, Provider Primary Care Provider Encounter Details Date Type Department Care Team (Late st Contact Info) Description 07/12/2020 Lab Requisition [facility] Pathology & Laboratory Medicine - [facility] [address] [place] [address] Outr Resulting Lab, Provider Social History Tobacco Use Types Packs/Day Years Used Date Smoking Tobacco: Never Assessed Sex and Gender Information Value Date Recorded Sex Assigned at Not on file Gender Identity Not on file Sexual Orientation Not on file documented as of this encounter Plan of Treatment Not on file documented as of this encounter Procedures Procedure Name Priority Date/Time Associated Diagnosis Comments CHLAMYDIA/N. GONORRHOEAE AMPLIFIED NUCLEIC ACID After X-Ray 06/14/2020 15:40 EDT documented in this encounter Results * CHLAMYDIA/N. GONORRHOEAE AMPLIFIED RNA (06/14/2020 15:40 EDT) Neisseria gonorrhoeae Result Negative Negative 08/03/2020 15:02 EST [facility] Chlamydia trachomatis Result Negative Negative 08/03/2020 15:02 EST [facility] Swab ENTIRE WALL OF CERVIX / Unknown 06/14/2020 15:40 EDT 08/02/2020 8:22 EST Provider Outr Resulting Lab MICROBIOLOGY - GENERAL ORDERABLES [facility] [address] [place] [address] documented in this encounter Visit Diagnoses Not on filedocumented in this encounter Care Teams Manager Life Sciences Relationship Specialty Start Date End Date Unknown, Provider, PCP - General 07/01/15 documented as of this encounter
--- OUTSIDE RECORDS SUMMARY | 2024-03-29 09:46 | XMS_ITS | Encounter Summary ---
Author Organization [facility] Address [address] [place] [address] Care Team Providers Care Bar Finish Operator Name Role Phone Unknown, Provider Primary Care Provider [phone] Encounter Details Date Type Department Care Team (Late st Contact Info) Description 11/05/2019 Lab Requisition [facility] Pathology & Laboratory Medicine - [facility] [address] [place] [address] Beto Mendez MD [address] [place] [id number] Encounter for other general examination Social History Tobacco Use Types Packs/Day Years Used Date Smoking Tobacco: Never Assessed Sex and Gender Information Value Date Recorded Sex Assigned at Not on file Gender Identity Not on file Sexual Orientation Not on file documented as of this encounter Plan of Treatment Not on file documented as of this encounter Visit Diagnoses Diagnosis Encounter for other general examination documented in this encounter Care Teams Bar Finish Operator Relationship Specialty Start Date End Date Unknown, Provider, PCP - General 07/01/15 documented as of this encounter
--- OUTSIDE RECORDS SUMMARY | 2024-03-29 09:46 | XMS_ITS | Clinical Summary ---
Author Organization [facility] Address [address] [place] [address] Care Team Providers Care Skidder Name Role Phone Unknown, Provider Primary Care Provider [phone] Social History Tobacco Use Types Packs/Day Years Used Date Smoking Tobacco: Never Assessed Sex and Gender Information Value Date Recorded Sex Assigned at Not on file Gender Identity Not on file Sexual Orientation Not on file Plan of Treatment Health Maintenance Due Date Last Done Comments Hepatitis C Screen 1980 Hepatitis B Vaccine (1 of 3 - 19+ 3-dose series) 08/11 COVID-19 Vaccine ( season) 2023 Care Teams Skidder Relationship Specialty Start Date End Date Unknown, Provider, PCP - General 07/01/15
--- OUTSIDE RECORDS SUMMARY | 2024-03-29 09:46 | XMS_ITS | Encounter Summary ---
Author Organization [facility] Address [address] [place] [address] Care Team Providers Care Night Shift Manager Name Role Phone Unknown, Provider Primary Care Provider Encounter Details Date Type Department Care Team (Late st Contact Info) Description 09/13/2021 Lab Requisition [facility] Pathology & Laboratory Medicine - [facility] [address] [place] [address] Outr Resulting Lab, Provider Social History Tobacco [...] Procedure Name Priority Date/Time Associated Diagnosis Comments ZZCOVID-19 TEST [facility] PCR Today 09/12/2021 11:00 EST COVID-19 TESTING Routine 09/12/2021 11:0 0 EST documented in this encounter Results * COVID-19 TEST [facility] PCR (09/12/2021 11:00 EST) Swab 09/12/2021 11:0 0 EST 09/13/2021 16:25 EST Provider Outr Resulting Lab MICROBIOLOGY - GENERAL ORDERABLES [facility] [address] [place] [address] * COVID-19 TESTING (09/12/2021 11:00 EST) COVID-19 rt-PCR Result Negative Negative 09/13/2021 19:16 EST [facility] Comment: This test has not been FDA cleared or approved. This test has been authorized by FDA under an EUA for use by authorized laboratories. This test has been authorized only for detection of nucleic acid from 2019-nCoV, not for any other viruses or pathogens. This test is only authorized for the duration of the declaration that circumstances exist justifying the authorization of emergency use of in vitro diagnostic tests for detection and/or diagnosis of 2019-nCoV under section 564(b)(1) of Act, 21 U.S.C ?? 360bbb-3(b) (1), unless the authorization is terminated or revoked sooner. Negative results do not preclude 2019-nCoV infection and should not be used as the sole basis for treatment or other patient management decisions. Negative results must be combined with clinical observations, patient history, and epidemiological information. Performed on the [employer] Fusion instrument Performing Lab [facility] 09/13/2021 19:16 EST [facility] Swab 09/12/2021 11:0 0 EST 09/13/2021 16:25 EST Provider Outr Resulting Lab MICROBIOLOGY - GENERAL ORDERABLES [facility] [address] [place] [address] documented in this encounter Visit Diagnoses Not on filedocumented in this encounter Care Teams Night Shift Manager Relationship Specialty Start Date End Date Unknown, Provider, PCP - General 07/01/15 documented as of this encounter
--- OUTSIDE RECORDS SUMMARY | 2024-03-29 09:46 | XMS_ITS | Encounter Summary ---
Author Organization [facility] [place] [address] Care Team Providers Care Clinical Resource Director Name Role Phone None Primary Care Provider Unavailabl e Reason for Visit * Reason Comments Dizziness Encounter Details Date Type Department Care Team (Late st Contact Info) Description 05/05/2013 2:14 PM EDT - 05/05/2013 9:34 PM EDT [place] [address] Bere Lynch MD [facility] [place] [address] Yamile Reina MD [facility] [place] [address] Chronic headache; Dizziness; Weight loss; Ptosis; RUQ pain Discharge Disposition: Home Social History Tobacco Use Types Packs/Day Years Used Date Smoking Tobacco: Never Assessed Sex and Gender Information Value Date Recorded Sex Assigned at Not on file Gender Identity Not on file Sexual Orientation Not on file documented as of this encounter Last Filed Vital Signs Vital Sign Reading Time Taken Comments Blood Pressure 131/84 05/05/2013 6:32 PM EDT Pulse 97 05/05/2013 6:32 PM EDT Temperature 36.8 ??C (98.2 ??F) 05/05/2013 2:22 PM ED T Respiratory Rate 13 05/05/2013 6:32 PM EDT Oxygen Saturation 100% 05/05/2013 6:32 PM EDT Inhaled Oxygen Concentration - - Weight 53.1 kg (117 lb) 05/05/2013 2:22 PM EDT Height - - Body Mass Index - - documented in this encounter Discharge Instructions * Discharge Instructions* Jamison Grewal Jr., MD - 05/05/2013 9:27 PM EDT * We have found no obvious cause for your chronic health issues * Please see your neurologist in the next 5-7 days in follow up to this visit * You will need to find a dedicated primary care physician, preferably an leadership program internship, to help you find the cause of your issues * If you develop concerning symptoms please contact your local doctor or ER for reevaluation * You are always welcome to return if you feel your symptoms to be life- threatening or you cannot seem to find help elsewhere documented in this encounter Medications at Time of Discharge Medication Sig Dispensed Refills Start Date End Date clonAZEpam (KLONOPIN) 0.5 mg tablet 0.25MG - 0.5MG, PO, Once daily,PRN 08/28/2006 venlafaxine (EFFEXOR XR) 75 mg 24 hr capsule 10/30/2006 05/26/20 14 Norgestimate-Ethinyl Estradiol (ORTHO TRI-CYCLEN LO) 0.18/0.215/0.25 mg-25 mcg Tab 1 Tablet(s), PO, Once daily 09/17/2006 05/26/2014 documented as of this encounter ED Notes * Emma Cavazos RN - 05/05/2013 7:40 PM EDT To MRI * Ada Beyer RN - 05/05/2013 6:33 PM EDT Patient watching shows on computer, no pain, awaiting MRI. * Ada Beyer RN - 05/05/2013 5:39 PM EDT Patient is awaiting MRI probably around 1900. * Ada Beyer RN - 05/05/2013 4:30 PM EDT Patient has been seen by MD and resident and is resting, no complaints offered. * Yamile Reina MD - 05/05/2013 4:16 PM EDT C/C: Ms. Olga Grey is a 32 y/o W with a PMHx of pseudotumor cerebri in '08 who presents today for evaluation of dizziness, DECKER, blurry and double vision and rapid weight loss. HPI Pt states a months-long history of various complaints, including dizziness and fatigue. More recentdevelopments include headache, double/blurry vision, and, most recently rapid weight loss (17# overthe last 2 weeks). Her care is primarily delivered at [place], where she sees a neurologist, Dr. Woo. Relevant to her present complaint was an ER ER note from [facility] dated 03/12/13 reveals a CCof dizziness, also accompanied by fatigue/exhaustion. Neuro exam notable for positive Romberg. CT head negative. BMP, TSH, CBC and urine normal. Dx was BPPV, scripted with meclizine. Over the past few weeks she feels her current debility to be accelerating. Two days prior to her presentation here she was seen by her primary neurologist on 05/03/13. His primary concern was for recurrent pseudotumor, for which an urgent ophthalmologic referral was given. An ophthalmologic exam including OTC performed 1d ago/05/04/13 indicated stable benign intracranial hypertension, very similar to an OTC exam performed in 2009. Report also mentioned interval development of left lit ptosis. MRIwas suggested. On interview today Ms. Grey states she feels frustrated with her progressive disability, now near inability to work, and the impact this is having on her family - she is a single parent. She states she is largely here today seeking an MRI, which she hopes will provide her with some clarity as to the cause of her issues. Her vision concerns are mostly worsening blurry vision and double vision with lateral gaze. Denies photophobia. Her headache is described as occipital, with skin tinging, and a 6/10 intensity. No neck or back pain, although does relate recent incidence of this. Denies chest pain or palpitations. No shortness of breath or COLMENARES. Describes chronic nausea and dry heaves, otherwise no vomiting. Denies abdominal pain, does admit to chronic loose stools, no blood or melena. Denies arthralgias or myalgias. Has had an issue with a spotty rash on her arms and chest for at least a year. No seizures, tingling or paraesthesias. OSH Labs (05/03/13, [facility]) CBC WBC 5.3, Hb 16.1, Plt 255, MCV 100.0 BMP Na 138, K 3.9, Cl 1010, CO2 31, BUN 6, Cr 0.83, Ca 9.5 LFTs ALT 81, AST 123 Serum Osm 273 ESR 10 TSH 1.42 T4 0.83 B-12 323 Folate 8.08 Meds: No current facility-administered medications on file prior to encounter. Current Outpatient Prescriptions on File Prior to Encounter Medication Status Sig Dispense Refill ??? venlafaxine (EFFEXOR XR) 75 mg 24 hr capsule Active ??? Norgestimate-Ethinyl Estradiol (ORTHO TRI-CYCLEN LO) 0.18/0.215/0.25 mg-25 mcg Tab Active 1 Tablet(s), PO, Once daily ??? clonAZEpam (KLONOPIN) 0.5 mg tablet Active 0.25MG - 0.5MG, PO, Once daily,PRN Allergies: No Known Allergies Review of Systems Please see 10-point review of systems in HPI Physical Exam Gen: Thin, anxious appearing, conversant W in NAD V/S: BP 131/84 Pulse 97 Temp 36.8 ??C (98.2 ??F) (Oral) Resp 13 Wt 53.071 kg (117 lb) SpO2 100% Skin: Skin warm, pink, non-diaphoretic. Scattered faint telangiectasias on chest, few on arms. HEENT: Left lid ptosis present. Pupils mildly unequal, L>R. Sclera non-icteric. Reactive to direct and accomodation. EOMI. Normal fundoscopy. No visual field deficits detected. Symmetric red reflex. OP clear w/out erythema or exudates. Neck supple, non-tender. Thyroid not palpable, no bruit. Lymph: No cervical, supraclavicular or axillary LAD. Chest: No incr. WOB. No audible wheeze or cough. LS clear bilaterally. C/V: HRR, Nml S1/S2, no M/R/G. No JVD. Abd: Soft, scaphoid abdomen. Mild RUQ tenderness. Liver span 8cm by percussion. No masses, guardingor rigidity. G/U: Omitted M/S: Extremities thin but well developed. Warm, without clubbing or cyanosis. 5/5 strength in all extremities tested. Neuro: Pt alert and oriented to self, time and place. Normal, fluid speech. Mood euthymic. integration lead II-XII fully tested, see ENT exam for ophthalmic integration lead, otherwise no deficits 2+ and symmetric DTRs. Scattered sensory differences, largely left lower extremity. Abnormal Romberg, difficulty with tandem gait. FTN and rapid alternating movements intact. Otherwise normal gait. Labs: Recent Results (from the past 24 hour(s)) POCT URINE Component Value Range POC Urine HCG Negative Negative - Negative POC Control Internal Controls Acceptable POCT URINE DIPSTICK Component Value Range POC Sp [place] 1.020 1.002 - 1.030 POC pH, UA 5 5.0 - 8.5 POC Leuk, UA pos Negative - Negative POC Nitrite, UA Negative - Negative POC Protein, UA pos Negative - Negative mg/dL POC Glucose, UA Normal - Normal mg/dL POC Ketone, UA pos Negative - Negative POC Urobil, UA 0.2 - 1.0 mg/dL POC Bili, UA Negative - Negative POC Blood, UA Negative - Negative gopal/uL Imaging: MRI Brain w & w/o Contrast Findings No masses, mass effect or extra-axial collections. No diffusion weighted abnormalities. The ventricles are slit-like and the sella is empty. The optic nerve sheaths do not appear dilated, but are not optimally evaluated on this study. No abnormal enhancement. No orbital abnormalities identified. The proximal intracranial flow voids appear normal. The paranasal sinuses are clear. A single focus of signal alteration is present within the right frontal subcortical white matter. This is entirely nonspecific. Impression Findings are suggestive of idiopathic intracranial hypertension, otherwise no significant abnormalities detected. Procedures * History and Physical * Past medical records * MRI Brain with and without contrast MDM Mahamed is a 32 y/o W with a PMHx of idiopathic intracranial hypertension as well as a months-long history of dizziness, weakness, fatigue and more recently headaches, visual changes, weight loss and ptosis seen this evening for same. Recent visits to both her neurologist and her automobile dealer, the latter feeling this was not an IIH flare and that she may benefit from [employer]IOR [employer]EC[employer] imaging. Exam reveals positive Romberg (present in February), anisocoria, and ptosis, as well as telangiectasias and RUQ tenderness. Labs from 2 days ago/[facility] remarkable for high MCV and transaminitis. MRI reveals evidence of IIH, thought to be stable by OCT performed yesterday. No additional pathology was identified. The cause for this patient's constellation of symptoms remains unclear. Broadly speaking, systemic etiologies (infection, neoplasm, autoimmune) remain plausible given the diversity of organ systems involved. One neurologically focused possibility is atypical migraine, although weight loss and her transaminitis are not fitting with this. Given her macrocytosis and AST:ALT ratio, surreptitious alcohol use may also play a role. Hepatic workup (U/S, hepatitis panel, hemochromatosis, potentially other testing) seem reasonable at this time by her primary care provider, with additional workups (lymphoma, autoimmune) as indicated. Pt is understandably frightened about what appears to be a progressive medical illness and the lackof a diagnosis so far. We discussed her options for further management and the overriding importance of establishing care with a primary care doctor, preferably an leadership program internship, to take over management of her care. Currently she will follow with her neurologist to review the results of her MRI and indications for further neurologic workup and treatment. That said, Ms. Grey will be seeking new primary care in her area concomitant with this. -Jamison Grewal, Resident Dept of Internal Medicine Pgr [phone] This case supervised by Dr. Yamile Reina, [facility] Jamison Grewal Jr., MD Resident 05/05/13 8848 ED ATTENDING ADDENDUM: The patient was seen in conjunction with Dr. Grewal, the resident physician. I have independently performed the christine portions of the history and physical exam. I have reviewed all diagnostic studies personally including labs, imaging studies and EKG's. I have discussed the details of the case with the resident and agree with the assessment and plan as described in the resident note above unlessnoted otherwise below. Yamile Reina MD 05/05/13 2208 documented in this encounter Miscellaneous Notes * Miscellaneous - Provider, Scanning - 05/05/2013 10:12 PM EDT * ED Triage - Lucrecia Delgado RN - 05/05/2013 2:23 PM EDT Pt. Here with multiple complaints that she has been seen by a neurologist and eye physician (out [facility]). Was told this week that she needs an MRI. +dizziness, +DECKER, +blurry vision,+back of head tingling and burning, +tiredness , decreased concentration and recent weight loss of 17 pounds in the past 2 weeks. Was diagnosed with pseudotumor cerebri in 2007 but was told this week by the eye doctor that it is not a fluid problem. documented in this encounter Plan of Treatment Not on file documented as of this encounter Procedures Procedure Name Priority Date/Time Associated Diagnosis Comments MRI BRAIN WWO CONTRAST (GENERIC) STAT 05/05/2013 8:03 PM EDT POCT URINE DIPSTICK STAT 05/05/2013 2 :42 PM EDT POCT URINE STAT 05/05/2013 2:41 PM EDT documented in this encounter Results * MRI brain with/WO contrast (05/05/2013 8:03 PM EDT) Anatomical Region Laterality Modality Head Magnetic Resonan ce 05/05/2013 8:03 PM EDT Narrative 05/05/2013 8:21 PM EDT Examination MR BRAIN W/WO CONTRAST Clinical History New onset left ptosis, neuro positive for double vision w/lateral gaze, rapid weight loss, persistent dizziness w/positive Romberg, new & persistent DECKER. C/f intracranial process. BUN 6/Cr 0.83 on 05/03/13 [facility] [place] With and without gadolinium contrast if at all possible. Comparison None. Technique Multiplanar multi sequence MRI of the brain was done without intravenous contrast. ??11 mL Magnevist was intravenous administered without complication. Findings No masses, mass effect or extra-axial collections. ??No diffusion weighted abnormalities. ??The ventricles are slit-like and the sella is empty. The optic nerve sheaths do not appear dilated, but are not optimally evaluated on this study. No abnormal enhancement. ??No orbital abnormalities identified. The proximal intracranial flow voids appear normal. ??The paranasal sinuses are clear. A single focus of signal alteration is present within the right frontal subcortical white matter. This is entirely nonspecific. ?? Impression Findings are suggestive of idiopathic intracranial hypertension, otherwise no significant abnormalities detected. Film and interpretation reviewed by the attending Procedure Note Vladislav Maki MD - 05/05/2013 Examination MR BRAIN W/WO CONTRAST Clinical History New onset left ptosis, neuro positive for double vision w/lateral gaze,rapid weight loss, persistent dizziness w/positive Romberg, new & persistent DECKER.C/f intracranial process. BUN 6/Cr 0.83 on 05/03/13 [facility] [place]., With andwithout gadolinium contrast if at all possible. Comparison None. Technique Multiplanar multi sequence MRI of the brain was done without intravenous contrast. 11 mL Magnevist was intravenous administered withoutcomplication. Findings No masses, mass effect or extra-axial collections. No diffusion weighted abnormalities. The ventricles are slit-like and the sella is empty. Theoptic nerve sheaths do not appear dilated, but are not optimally evaluated onthis study. No abnormal enhancement. No orbital abnormalities identified. The proximal intracranial flow voids appear normal. The paranasal sinuses are clear. A single focus of signal alteration is present within the rightfrontal subcortical white matter. This is entirely nonspecific. Impression Findings are suggestive of idiopathic intracranial hypertension, otherwiseno significant abnormalities detected. Film and interpretation reviewed by the attending Yamile Reina MD IMG MRI ORDERABLES * POCT urine dipstick (05/05/2013 2:42 PM EDT) POC Sp [place] 1.020 1.002 - 1.030 POC pH, UA 5 5.0 - 8.5 POC Leuk, UA pos Negative - Negative POC Nitrite, UA Negative - Negative POC Protein, UA pos Negative - Negative mg/dL POC Glucose, UA Normal - Normal mg/dL POC Ketone, UA pos Negative - Negative POC Urobil, UA 0.2 - 1.0 mg/dL POC Bili, UA Negative - Negative POC Blood, UA Negative - Negative gopal/uL Duglas Mcconnell MD POINT OF CARE TEST O RDERABLES * POCT urine (05/05/2013 2:41 PM EDT) POC Urine HCG Negative Negative - Negative POC Control Internal Controls Acceptable Duglas Mcconnell MD POINT OF CARE TEST O RDERABLES documented in this encounter Visit Diagnoses Diagnosis Chronic headache Headache Dizziness Dizziness and giddiness Weight loss Loss of weight Ptosis Unspecified ptosis of eyelid RUQ pain Abdominal pain, right upper quadrant documented in this encounter Administered Medications Inactive Administered Medications - up to 3 most recent administrations Medication Order MAR Action Action Date Dose Rate Site gadopentetate dimeglumine (MAGNEVIST) 10 mmol/20 mL (469.01 mg/mL) injection 10.62 mL 10.62 mL (0.2 mL/kg/dose ? 53.1 kg), Intravenous, ONCE PRN, 1 dose, Starting on Fri05/05/13 at 1948, Until Fri05/05/13 at 1949, Per Protocol, Routine Given 05/05/2013 7:49 PM EDT 11 mLs documented in this encounter Active and Recently Administered Medications Times are shown in EDT. PRN Medication Order 05/03/2013 05/04/2013 05/05/2013 gadopentetate dimeglumine (MAGNEVIST) 10 mmol/20 mL (469.01 mg/mL) injection 10.62 mL (COMPLETED) 10.62 mL (0.2 mL/kg/dose ? 53.1 kg), Intravenous, ONCE PRN, 1 dose, Starting on Fri05/05/13 at 1948, Until Fri05/05/13 at 194, Per Protocol, Routine 1948 (Given - Provid er: Bret Adkins Jr.) documented in this encounter Care Teams Clinical Resource Director Relationship Specialty Start Date End Date None None PCP - General 05/05/13 10/01/16 documented as of this encounter
--- OUTSIDE RECORDS SUMMARY | 2024-03-29 09:46 | XMS_ITS | Encounter Summary ---
Author Organization [facility] Address [address] [place] [address] Care Team Providers Care Sprigger Name Role Phone Unavailable Primary Care Provider Unavailabl e Encounter Details Date Type Department Care Team (Late st Contact Info) Description 01/18/2000 Results Only [facility] [address] [place] [address] Wesley Randhawa MD [address] [place], [place] [id number] Social History Tobacco Use Types Packs/Day Years Used Date Smoking Tobacco: Never Assessed Sex and Gender Information Value Date Recorded Sex Assigned at Not on file Gender Identity Not on file Sexual Orientation Not on file documented as of this encounter Plan of Treatment Not on file documented as of this encounter Procedures Procedure Name Priority Date/Time Associated Diagnosis Comments SURGICAL PATHOLOGY Routine 01/18/2000 0:00 EDT documented in this encounter Results * SURGICAL PATHOLOGY (01/18/2000 0:00 EDT) Pathology Report: SURGICAL PATHOLOGY REPORT Reports generated via electronic interface contain original data; however they are lacking the format of the original report. Caution should be taken when reading/interpreti ng unformatted reports. Name: ? LUCY GREY ? Accession #: ? [id number] ? : ? 1980 (Age: 19) ??F ? Collect Date: ? 01/18/2000 ? Location: ? [facility] ? Receive Date: ? 01/22/2000 ? Provider: WESLEY RANDHAWA MD Copy to: BINA HART MD ? Final Pathologic Diagnosis: ? Endometrium, curettage: 1. ?Late secretory-phase endometrial tissue with focal stromal condensation and glandular stromal breakdown. ?? 2. ?Features suggestive of chronic endometritis. ??See comment. 3. ?Benign endocervical tissue. Comment: ? Few scattered plasma cells are seen in the endometrial tissue, suggesting chronic endometritis. ??(Dr. Goncalves)/[facility] Document reviewed and electronically signed by: Genesis Goncalves MD Report ??Date: 01/23/2000 16:01 By the signature above, the attending physician certifies that he/she has personally conducted a gross and/or microscopic examination of the described specimens and rendered or confirmed the above diagnosis. Specimen(s) Received: ? [facility] Clinical History: ? Pelvic pain Gross Description: ? Received in formalin labelled [facility] and #1 [facility] are multiple red-brown irregular soft tissue fragments aggregating 5.0 x 5.0 x 1.0 cm. ??The specimen is entirely submitted as (A1) through (A6). ??(Sourav Harris/loly End of Report TONY SANABRIA 01/18/2000 01/22/2000 9:3 2 EDT Wesley Randhawa MD PATHOLOGY ORDERABLES TONY SANABRIA [address] [place] [address] documented in this encounter Visit Diagnoses Not on filedocumented in this encounter
--- OUTSIDE RECORDS SUMMARY | 2024-03-29 09:46 | XMS_ITS | Encounter Summary ---
Author Organization [facility] Address [address] [place] [address] Care Team Providers Care Independent Film Maker Name Role Phone Unknown, Provider Primary Care Provider Encounter Details Date Type Department Care Team (Late st Contact Info) Description 10/17/2020 Lab Requisition [facility] Pathology & Laboratory Medicine - [facility] [address] [place] [address] Outr Resulting Lab, Provider Social History Tobacco [...] Diagnosis Comments CHLAMYDIA/N. GONORRHOEAE AMPLIFIED NUCLEIC ACID Routine 10/17/2020 10:15 EST documented in this encounter Results * CHLAMYDIA/N. GONORRHOEAE AMPLIFIED RNA (10/17/2020 10:15 EST) Neisseria gonorrhoeae Result Negative Negative 10/18/2020 13:59 EST [facility] Chlamydia trachomatis Result Negative Negative 10/18/2020 13:59 EST [facility] Swab ENTIRE ENDOCERVIX / Unknown 10/17/2020 10:15 EST 10/17/2020 17:17 EST Provider Outr Resulting Lab MICROBIOLOGY - GENERAL ORDERABLES [facility] [address] [place] [address] documented in this encounter Visit Diagnoses Not on filedocumented in this encounter Care Teams Independent Film Maker Relationship Specialty Start Date End Date Unknown, Provider, PCP - General 07/01/15 documented as of this encounter
--- OUTSIDE RECORDS SUMMARY | 2024-03-29 09:46 | XMS_ITS | Encounter Summary ---
Author Organization [facility] Address [address] [place] [address] Care Team Providers Care Supervisor Putty And Caluking Name Role Phone Unknown, Provider Primary Care Provider Encounter Details Date Type Department Care Team (Late st Contact Info) Description 11/09/2019 Lab Requisition [facility] Pathology & Laboratory Medicine - [facility] [address], [place] [id number] Beto Mendez MD [address] [place] [id number] Encounter for other general examination Social [...] Procedure Name Priority Date/Time Associated Diagnosis Comments COVID-19 TESTING Today 11/09/2019 11:0 6 EDT Encounter for other general examination documented in this encounter Results * COVID-19 TEST STATE LAB (11/09/2019 11:06 EDT) COVID-19 Result 0 8:33 EDT [facility] Comment:Specimen quantity no t sufficient for analysis. Testing not performed. Swab ENTIRE NASOPHARYNX / Unknown Not Given / Unknown 11/09/2019 11:06 EDT 11/09/2019 15:56 EDT Beto Mendez MD MICROBIOLOGY - [facility] ORDERABLES [facility] [address] [place] [address] documented in this encounter Visit Diagnoses Diagnosis Encounter for other general examination documented in this encounter Care Teams Supervisor Putty And Caluking Relationship Specialty Start Date End Date Unknown, Provider, PCP - General 07/01/15 documented as of this encounter
--- OUTSIDE RECORDS SUMMARY | 2024-03-29 09:46 | XMS_ITS | Encounter Summary ---
Author Organization [facility] Address [address] [place] [address] Care Team Providers Care Customer Development Manager Name Role Phone Unavailable Primary Care Provider Unavailabl e Encounter Details Date Type Department Care Team (Late st Contact Info) Description 09/17/2012 Results Only [facility] [phone] Bry Posada MD [address] [facility] [place] [phone] Social History Tobacco Use Types Packs/Day Years Used Date Smoking Tobacco: Never Assessed Sex and Gender Information Value Date Recorded Sex Assigned at Not on file Gender Identity Not on file Sexual Orientation Not on file documented as of this encounter Plan of Treatment Not on file documented as of this encounter Procedures Procedure Name Priority Date/Time Associated Diagnosis Comments PAP TEST- RESULT ONLY Routine 09/17/2012 0:00 EST documented in this encounter Results * PAP TEST- RESULT ONLY (09/17/2012 0:00 EST) Pathology Report: CYTOPATHOLOGY REPORT Reports generated via electronic interface contain original data; however they are lacking the format of the original report. Caution should be taken when reading/interpreti ng unformatted reports. Name: ? LUCY GREY ? Accession #: ? [id number] ? : ? 1980 (Age: 32) ??F ?Collect Date: ? 09/17/2012 ? Location: ? [facility] ? Receive Date: ? 09/21/2012 ? Provider: BRY POSADA MD Copy to: ? Final Report SPECIMEN ADEQUACY ? Satisfactory for Evaluation - transformation zone component absent GENERAL CATEGORIZATION ? Negative for Intraepithelial Lesion or Malignancy ?? Last Menstrual Period: 08/24/2012 Other: Additional clinical information: Endometrosis Specimen/Source: ??Pap Test, Cervix/Endocervix, ThinPrep Imaging System with manual evaluation Document reviewed and electronically signed by: ? NAPOLEON Gardner(ASCP) ? Report ??Date: 09/28/2012 13:23 HPV with Pap Test ? Date Ordered: ? 09/28/2012 ? Status: ?? Signed Out ?Date Complete: ? 09/30/2012 ? By: ??System Interface ? Date Reported: ? 09/30/2012 ? Interpretation RESULT: Negative for HPV. No E6 or E7 mRNA is detected from HPV types 16,18,31,33,35, 39,45,51,52,56,58, 59,66, and 68 by hogshead weigher mediated amplification. Comments Document reviewed and electronically signed by: ? System Interface ? Report date: 09/30/2012 By the signature above, the attending physician certifies that he/she has personally conducted a gross and/or microscopic examination of the described specimens and rendered or confirmed the above diagnosis. End of Report [facility] 09/17/2012 09/21/2012 Bry Posada MD PATHOLOGY ORDERABLES [facility] [address] [place] [address] documented in this encounter Visit Diagnoses Not on filedocumented in this encounter
--- OUTSIDE RECORDS SUMMARY | 2024-03-29 09:46 | XMS_ITS | Encounter Summary ---
Author Organization [facility] Address [address] [place] [address] Care Team Providers Care Stage Driver Name Role Phone Unknown, Provider Primary Care Provider [phone] Encounter Details Date Type Department Care Team (Late st Contact Info) Description 12/11/2021 Lab Requisition [facility] Pathology & Laboratory Medicine - [facility] [address] [place] [address] Outr Resulting Lab, Provider Social History Tobacco [...] Comments CHLAMYDIA/N. GONORRHOEAE AMPLIFIED NUCLEIC ACID Routine 12/11/2021 14:15 EDT documented in this encounter Results * CHLAMYDIA/N. GONORRHOEAE AMPLIFIED RNA (12/11/2021 14:15 EDT) Neisseria gonorrhoeae Result Negative Negative 12/13/2021 14:42 EDT [facility] Chlamydia trachomatis Result Negative Negative 12/13/2021 14:42 EDT [facility] Swab ENTIRE ENDOCERVIX / Unknown 12/11/2021 14:15 EDT 12/12/2021 16:59 EDT Provider Outr Resulting Lab MICROBIOLOGY - GENERAL ORDERABLES [facility] [address] [place] [address] documented in this encounter Visit Diagnoses Not on filedocumented in this encounter Care Teams Stage Driver Relationship Specialty Start Date End Date Unknown, Provider, PCP - General 07/01/15 documented as of this encounter
--- OUTSIDE RECORDS SUMMARY | 2024-03-29 09:46 | XMS_ITS | Encounter Summary ---
Author Organization [facility] Address [address] [place] [address] Care Team Providers Care Surgical First Assistant Name Role Phone Unavailable Primary Care Provider Unavailabl e Encounter Details Date Type Department Care Team (Late st Contact Info) Description 04/23/2013 Results Only [facility] Laboratory Services - [facility] ([facility] [address], [place] [id number] Karishma Cummins MD [address] [place] [address] [place] [address] Social History Tobacco Use Types Packs/Day Years [...] Diagnosis Comments PAP TEST- RESULT ONLY Routine 04/23/2013 0:00 EDT documented in this encounter Results * PAP TEST- RESULT ONLY (04/23/2013 0:00 EDT) Pathology Report: CYTOPATHOLOGY REPORT Reports generated via electronic interface contain original data; however they are lacking the format of the original report. Caution should be taken when reading/interpreti ng unformatted reports. Name: ? RENZOLUCY COTTER ? Accession #: ? [id number] ? : ? 1980 (Age: 32) ??F ?Collect Date: ? 04/23/2013 ? Location: ? [facility] ? Receive Date: ? 04/27/2013 ? Provider: KARISHMA CUMMINS MD Copy to: DL DÍAZ MD ? Final Report SPECIMEN ADEQUACY ? Satisfactory for Evaluation - transformation zone component present GENERAL CATEGORIZATION ? Negative for Intraepithelial Lesion or Malignancy ?? Last Menstrual Period: unsure Hormonal/Contracep tive status: Intrauterine device: mirena Specimen/Source: ??Pap Test, Cervix/Endocervix, ThinPrep Imaging System with manual evaluation Document reviewed and electronically signed by: ? Radha Hurt, CT(ASCP) ? Report ??Date: 04/28/2013 13:49 HPV with Pap Test ? Date Ordered: ? 04/28/2013 ? Status: ?? Signed Out ?Date Complete: ? 04/30/2013 ? By: ??System Interface ? Date Reported: ? 04/30/2013 ? Interpretation RESULT: Negative for HPV. No E6 or E7 mRNA is detected from HPV types 16,18,31,33,35, 39,45,51,52,56,58, 59,66, and 68 by capsule filler mediated amplification. Comments Document reviewed and electronically signed by: ? System Interface ? Report date: 04/30/2013 By the signature above, the attending physician certifies that he/she has personally conducted a gross and/or microscopic examination of the described specimens and rendered or confirmed the above diagnosis. End of Report [facility] 04/23/2013 04/27/2013 Karishma Cummins MD PATHOLOGY ORDERABLES Performing Organization Address City/State/[facility] Co de Phone Number [facility] [address] [phone] documented in this encounter Visit Diagnoses Not on filedocumented in this encounter
--- OUTSIDE RECORDS SUMMARY | 2024-03-29 09:46 | XMS_ITS | Encounter Summary ---
[place] [address] Care Team Providers Care Hairspring Staker Name Role Phone None Primary Care Provider Unavailabl e Encounter Details Date Type Department Care Team (Late st Contact Info) Description 05/25/2014 Orders [place] [address] Wesley Cortes MD [facility] [place] [address] Social History Tobacco Use Types Packs/Day Years [...] FILM LIBRARY STORAGE ONLY MR SPINE Routine 05/25/2014 5:48 PM EDT documented in this encounter Results * Film Library- Storage only MR Spine (05/25/2014 5:48 PM EDT) Anatomical Region Laterality Modality Other 05/25/2014 5:48 PM EDT Narrative 05/25/2014 5:53 PM EDT This is a Non-reportable exam Procedure Note 05/25/2014 This is a Non-reportable exam Wesley Cortes MD [facility] FILM LIBRARY ORD ERABLES documented in this encounter Visit Diagnoses Not on filedocumented in this encounter Care Teams Hairspring Staker Relationship Specialty Start Date End Date None None PCP - General 05/05/13 10/01/16 documented as of this encounter
--- OUTSIDE RECORDS SUMMARY | 2024-03-29 09:46 | XMS_ITS | Encounter Summary ---
Author Organization [facility] Address [facility] [place] [address] Care Team Providers Care Animal Control Officer Name Role Phone Camilla Peres FRANCES Primary Care Provider [phone] Reason for Visit * Reason Comments Advice Only implant removal cons ult, ? leaking, pain Encounter Details Date Type Department Care Team (Late st Contact Info) Description 10/02/2016 4:00 PM EST Office [place] [address] Nas Tabor MD [facility] [place] [address] Breast implant capsular contracture Social History Tobacco Use Types Packs/Day Years Used Date Smoking Tobacco: Former Cigarettes Sex and Gender Information Value Date Recorded Sex Assigned at Not on file Gender Identity Not on file Sexual Orientation Not on file documented as of this encounter Last Filed Vital Signs Vital Sign Reading Time Taken Comments Blood Pressure - - Pulse - - Temperature - - Respiratory Rate - - Oxygen Saturation - - Inhaled Oxygen Concentration - - Weight 72.2 kg (159 lb 3.2 oz) 10/02/2016 4:13 P M EST Height 170.2 cm (5' 7) 10/02/2016 4:13 PM EST p er pt Body Mass Index 24.93 10/02/2016 4:13 PM EST documented in this encounter Patient Instructions * Patient Instructions* Nas Tabor MD - 10/02/2016 4:00 PM EST 1. Surgical scheduling for implant removal 2. Pricing information provided today documented in this encounter Progress Notes * Nas Tabor MD - 10/02/2016 4:00 PM EST Plastic Surgery Consultation Note Nas Tabor MD. PCP: Camilla Peres APRN CC: Complication of breast implants HPI: Olga Grey is a 36 y.o. woman seen in our office today for evaluation of her breast implants. Her PCP is Camilla Peres APRN. She is accompanied for today's visit. She had a breast augmentation [address] Currie. He placed silicone implants bilaterally. She reports that her implants are painful. She states that this has been the case ever since she got them. 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 She takes medication for anxiety. She is an active smoker, approximately 1.5 packs per day. She is interested in removing the implants without replacement. She has a family history of breast cancer. I have reviewed her meds, allergies, problem list, medical hx, surgical hx, as well as her initial intake breast questionnaire. Pertinent findings to emphasize are: No flowsheet data found. ROS: System Constitutional neg Eye neg ENT neg CV neg Resp neg GI neg neg Skin neg Allergy neg Endocrine neg Neurologic neg Musculoskeletal neg Lymph neg Psych neg Y N All other systems reviewed and negative. x Examination: Ht 170.2 cm (5' 7) Comment: per pt Wt 72.2 kg (159 lb 3.2 oz) BMI 24.93 kg/m2 Bra Size: C Healthy looking woman in no acute distress who asked appropriate questions throughout the consultation. Right nipple is lower than the left by 1 cm Grade II-III capsular contracture Breast Measurements Right Left SN-N (cm) 21 21 Areolar diameter (cm) 3.5 3.5 Surgical Scars IMF IMF Impression: Bilateral breast implants, 2 years old, with asymmetry secondary to capsular contracture. Recommendations: Ms. Grey and I spent the majority of this visit discussing her concerns and her options. We talked about decision making with regards to leaving the implants in place, removing them, as well as replacing them. She is feeling uncomfortable enough that she wants to consider removal. I explained that we remove her current implants and replace them with a smaller saline implant if she wishes to have replacement. We talked about the risks of surgery including infection, bleeding, need for drains, seroma, delayed healing, implant failure, and interference with mammography. She would like to plan for surgery so we will get her pricing information and provide her with documentation on the [place] silicone gel implant study. At this point in time she is leaning towards bilateral implant removal. I support this decision and assured her she may have implants placed in the future if she wishes. She will consider our discussion and let me know if she wishes to proceed. Plan: 1. Surgical scheduling for implant removal 2. Pricing information provided today Surgeon: Leander Duration: 1 hour Timeframe: elective Procedure: Bilateral implant removal CPT: 79959, 45424 Surgical site: breasts Side: bilateral Anesthesia: General Follow up: 7-10 days NSO when JS in clinic PAT: Allie I, Amaya Rmoo, am acting as scribe for Dr. Tabor. All work documented was performed by Dr. Tabor. ???I performed the above scribed service and agree with the accuracy of the note?? NAS TABOR MD. documented in this encounter Plan of Treatment Not on file documented as of this encounter Procedures Procedure Name Priority Date/Time Associated Diagnosis Comments REMOVAL OF INTACT MAMMARY IMPLANT, BILATERAL Routine 10/02/2016 4:43 PM EST documented in this encounter Visit Diagnoses Diagnosis Breast implant capsular contracture Capsular contracture of breast implant documented in this encounter Care Teams Animal Control Officer Relationship Specialty Start Date End Date Camilla Peres APRN [address] [place] [address] PCP - General Family Medicine 10/02/16 07/18/21 documented as of this encounter
--- OUTSIDE RECORDS SUMMARY | 2024-03-29 09:46 | XMS_ITS | Encounter Summary ---
Author Organization [facility] Address [address] [place] [address] Care Team Providers Care Fnps Name Role Phone Unavailable Primary Care Provider Unavailabl e Encounter Details Date Type Department Care Team (Late st Contact Info) Description 01/28/2002 Results Only [facility] [address] [place] [address] Iglesia Knox [address] [place], [place] [id number] Social History Tobacco Use Types Packs/Day Years Used Date Smoking Tobacco: Never Assessed Sex and Gender Information Value Date Recorded Sex Assigned at Not on file Gender Identity Not on file Sexual Orientation Not on file documented as of this encounter Plan of Treatment Not on file documented as of this encounter Procedures Procedure Name Priority Date/Time Associated Diagnosis Comments CYTOPATHOLOGY Routine 01/28/2002 0:00 EDT documented in this encounter Results * CYTOPATHOLOGY (01/28/2002 0:00 EDT) Pathology Report: CYTOPATHOLOGY REPORT Reports generated via electronic interface contain original data; however they are lacking the format of the original report. Caution should be taken when reading/interpreti ng unformatted reports. Name: ? RENZOLUCY COTTER ? Accession #: ? [id number] : ? 1980 (Age: 21) ??F ?Collect Date: ? 01/28/2002 Location: ? [facility] ? Receive Date: ? 02/01/2002 Provider: ?IGLESIA KNOX CNM Copy to: ? Specimen/Source: ?ThinPrep Pap Test, Cervix/Endocervix Last Menstrual Period: ? 11/30/01 Menstrual/Pregnanc y Status: ? SPECIMEN ADEQUACY ? Satisfactory for Evaluation - transformation zone component present GENERAL CATEGORIZATION ? Negative for Intraepithelial Lesion or Malignancy ? Document reviewed and electronically signed by: ? Brown [place], CT(ASCP) ? Report Date: ??02/04/2002 11:15 End of Report [facility] 01/28/2002 02/01/2002 Iglesia Knox CNM PATHOLOGY ORDERABLES [facility] [address] [place] [address] documented in this encounter Visit Diagnoses Not on filedocumented in this encounter
--- OUTSIDE RECORDS SUMMARY | 2024-03-29 09:46 | XMS_ITS | Encounter Summary ---
Author Organization [facility] Address [address] [place] [address] Care Team Providers Care Cable Coverer Name Role Phone Unknown, Provider Primary Care Provider [phone] Encounter Details Date Type Department Care Team (Late st Contact Info) Description 03/31/2017 Results Only [facility] [phone] Haleigh Amaro, [facility] [address] [place] [address] [place] [address] Social History Tobacco Use Types Packs/Day Years [...] Diagnosis Comments PAP TEST- RESULT ONLY Routine 03/31/2017 0:00 EDT documented in this encounter Results * PAP TEST- RESULT ONLY (03/31/2017 0:00 EDT) Pathology Report: CYTOPATHOLOGY REPORT Reports generated via electronic interface contain original data; however they are lacking the format of the original report. Caution should be taken when reading/interpreti ng unformatted reports. Name: ? LUCY GREY ? Accession #: ? [id number] ? : ? 1980 (Age: 36) ??F ?Collect Date: ? 03/31/2017 ? Location: ? [facility] ? Receive Date: ? 04/01/2017 ? Provider: HALEIGH AMARO PRODUCT DESIGN MANAGER Copy to: DL DÍAZ MD ? Final Report SPECIMEN ADEQUACY ? Satisfactory for Evaluation - transformation zone component present GENERAL CATEGORIZATION ? Negative for Intraepithelial Lesion or Malignancy ?? Hormonal/Contracep tive status: Intrauterine device Specimen/Source: ??Pap Test, Cervix, ThinPrep Imaging System with manual evaluation Document reviewed and electronically signed by: ? Radha Hurt, CT(ASCP) ? Report ??Date: 04/08/2017 12:15 HPV with Pap Test ? Date Ordered: ? 04/08/2017 ? Status: ?? Signed Out ?Date Complete: ? 04/09/2017 ? By: ??System Interface ? Date Reported: ? 04/09/2017 ? Interpretation RESULT: Negative for HPV. No E6 or E7 mRNA is detected from HPV types 16,18,31,33,35, 39,45,51,52,56,58, 59,66, and 68 by deckhand tuna boat mediated amplification. Comments Document reviewed and electronically signed by: ? System Interface ? Report date: 04/09/2017 By the signature above, the attending physician certifies that he/she has personally conducted a gross and/or microscopic examination of the described specimens and rendered or confirmed the above diagnosis. End of Report [facility] 03/31/2017 04/01/2017 Haleigh Amaro PRODUCT DESIGN MANAGER PATHOLOGY ORDERABLES [facility] [address] [place] [address] documented in this encounter Visit Diagnoses Not on filedocumented in this encounter Care Teams Cable Coverer Relationship Specialty Start Date End Date Unknown, Provider, PCP - General 07/01/15 documented as of this encounter
--- OUTSIDE RECORDS SUMMARY | 2024-03-29 09:46 | XMS_ITS | Encounter Summary ---
[place] [address] Care Team Providers Care Fan Installer Name Role Phone None Primary Care Provider Unavailabl e Reason for Visit * Reason Comments Neck Pain Encounter Details Date Type Department Care Team (Latest Contact Info) Description 05/26/2014 8:15 AM EDT Office [place] [id number] Wesley Cortes MD [facility] [place] [address] Herniation of cervical intervertebral disc with radiculopathy (Primary Dx) Discharge Disposition: Home Social History Tobacco Use Types Packs/Day Years Used Date Smoking Tobacco: Every Day Cigarettes Sex and Gender Information Value Date Recorded Sex Assigned at Not on file Gender Identity Not on file Sexual Orientation Not on file documented as of this encounter Last Filed Vital Signs Vital Sign Reading Time Taken Comments Blood Pressure - - Pulse - - Temperature - - Respiratory Rate - - Oxygen Saturation - - Inhaled Oxygen Concentration - - Weight 59 kg (130 lb) 05/26/2014 8:47 AM EDT Height 170.2 cm (5' 7) 05/26/2014 8:47 AM EDT Body Mass Index 20.36 05/26/2014 8:47 AM EDT documented in this encounter Patient Instructions * Patient Instructions* Rose Reina LPN - 05/26/2014 8:51 AM EDT I would like you to sign up for [facility], which will give you secure online access to your electronic medical record at [facility] and the ability to communicate with your health care team whenand where it???s most convenient for you. With [facility] you will be able to: - look at parts of your medical record including test results and office notes - send and receive messages to/from me and your other providers - renew prescriptions - schedule appointments. To sign up, go to [email or web address] and click I have an activation code and follow the instructions. Here is your activation code: [email or web address] Expires: 07/10/2014 8:51 AM Remember, [facility] is NOT for urgent needs! Always dial 911 for medical emergencies. documented in this encounter Progress Notes * Wesley Cortes MD - 05/26/2014 9:31 AM EDT Ms. Grey is a 33-year-old right hand woman seen today in the spine center consultation from Dr. John Flores. The patient is seen and evaluated for about a month history of a left arm pain. Symptoms begin with a spontaneous onset and without specific known etiology. The pain begins in her neck, radiates to her left shoulder all the way down her left arm to all fingers of the left hand with global associated numbness in the left hand and arm. She also has a sense of weakness. Right arm and legs are asymptomatic. Review of systems is negative for GI, , or constitutional symptoms other than occasional chills at night. Nothing has made her symptoms better including career technical education teacher, oral steroids, or gabapentin. She has had some pain relief on oxycodone. Any head activity or use of the left upper extremity exacerbate her symptoms. Past history is notable for pseudotumor cerebri. She smokes a pack of cigarettes per day and has done so since age 15. Height is 5 feet 7 inches, weight 130 pounds. SHE HAS NO MEDICATION ALLERGIES. 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 Family history includes hypertension, diabetes, and also includes spine disease. PHYSICAL EXAMINATION: This is a healthy-appearing pleasant woman. She has full, but painful range of motion of her cervical spine. She has minimal cervical flexion as this exacerbates her symptoms. Extension is normal, but creates left arm and shoulder pain. Her upper extremity motor examination is normal. Her sensory function is diminished to light touch globally in the left hand and all fingers. Reflexes are normal in the upper extremities. Negative Maria Alejandra reflexes. Positive Spurling maneuver. DIAGNOSTIC DATA: MRI dated 05/25/2014 from [facility] demonstrates cervical spondylosis at C5-C6, cervical disk herniation left C6-C7. The C6-C7 level are consistent with her symptoms. I reviewed all these findings with the patient and subsequently with her friend who accompanied her today. I reviewed the natural history of cervical disk herniation. Given the normalcy of her exam and the short duration of her symptoms, I have recommended continued medical management over the next two to three weeks with the hopes that she can stop her cigarette smoking in that time frame. If her symptoms do not improve, I am happy to see her back. We will schedule that appointment with lateral cervical flexion and extension x-rays to discuss surgical options for an anterior cervical diskectomy and fusion at C6-C7. I reviewed the technical aspects of surgery. I reviewed the goals, recovery, and rehabilitation issues, and the potential risks and complications all of which we reviewed today from minor such as sore throat to major including stroke and and nonunion, and repeat operations as examples. I think she is a bit frustrated, we can make it all go away. I think this is a reasonable approach to her problem. Her past medical history in addition to the above includes anxiety, depression, vertigo, and panic attacks. documented in this encounter Plan of Treatment Not on file documented as of this encounter Results * XR Cervical Spine 2 or 3 views (06/16/2014 9:24 AM EDT) Anatomical Region Laterality Modality C-spine N/A Radiographic Shey ging 06/16/2014 9:24 AM EDT Narrative 06/16/2014 11:04 AM EDT Examination Cervical Spine 2 or 3 Views Clinical History lateral cervical flexion-extension views only for stability Comparison MRI cervical spine 05/25/2014. Technique Flexion-extension views cervical spine. Findings C1-T1 vertebrae are well visualized. ??No fixed or dynamic subluxation is identified. ??No fracture prevertebral soft tissue swelling is seen. ??The atlanto dens interval is maintained. ??Disc space heights appear maintained. Impression No fixed or dynamic subluxation. Preservation of disc space heights. Procedure Note Richi Clayton MD - 06/16/2014 Examination Cervical Spine 2 or 3 Views Clinical History lateral cervical flexion-extension views only for stability Comparison MRI cervical spine 05/25/2014. Technique Flexion-extension views cervical spine. Findings C1-T1 vertebrae are well visualized. No fixed or dynamic subluxation is identified. No fracture prevertebral soft tissue swelling is seen. The atlanto dens interval is maintained. Disc space heights appearmaintained. Impression No fixed or dynamic subluxation. Preservation of disc space heights. Wesley Cortes MD IMG DX ORDERABLES documented in this encounter Visit Diagnoses Diagnosis Herniation of cervical intervertebral disc with radiculopathy- Primary Displacement of cervical intervertebral disc without myelopathy Herniation of cervical intervertebral disc with radiculopathy Displacement of cervical intervertebral disc without myelopathy documented in this encounter Care Teams Fan Installer Relationship Specialty Start Date End Date None None PCP - General 05/05/13 10/01/16 documented as of this encounter
--- OUTSIDE RECORDS SUMMARY | 2024-03-29 09:46 | XMS_ITS | Encounter Summary ---
Author Organization [facility] Address [address] [place] [address] Care Team Providers Care Specialty Plant Supervisor Name Role Phone Unknown, Provider Primary Care Provider Encounter Details Date Type Department Care Team (Late st Contact Info) Description 01/08/2021 Lab Requisition [facility] Pathology & Laboratory Medicine - [facility] [address] [place] [address] Outr Resulting Lab, Provider Social History Tobacco [...] Comments ZZCOVID-19 TEST [facility] PCR Today 01/08/2021 11:25 EDT COVID-19 TESTING Routine 01/08/2021 11:2 5 EDT documented in this encounter Results * COVID-19 TEST [facility] PCR (01/08/2021 11:25 EDT) Swab ENTIRE NASOPHARYNX / Unknown 01/08/2021 11:25 EDT 01/08/2021 16:13 EDT Provider Outr Resulting Lab MICROBIOLOGY - GENERAL ORDERABLES [facility] [address] [place] [address] * COVID-19 TESTING (01/08/2021 11:25 EDT) COVID-19 rt-PCR Result Negative Negative 01/09/2021 1:28 EDT [facility] Comment: This test has not [...] history, and epidemiological information. Performed on the [employer] Fusion instrument Performing Lab [place] [facility] 01/09/2021 1:28 EDT [facility] Swab 01/08/2021 11:2 5 EDT 01/08/2021 16:13 EDT Provider Outr Resulting Lab MICROBIOLOGY - GENERAL ORDERABLES [facility] [address] [place] [address] documented in this encounter Visit Diagnoses Not on filedocumented in this encounter Care Teams Specialty Plant Supervisor Relationship Specialty Start Date End Date Unknown, Provider, PCP - General 07/01/15 documented as of this encounter
--- OUTSIDE RECORDS SUMMARY | 2024-03-29 09:46 | XMS_ITS | Referral Summary ---
Author Organization [facility] Address [address] [place] [address] Care Team Providers Care Foster Care Therapist Name Role Phone Unknown, Provider Primary Care Provider [phone] Social History Tobacco Use Types Packs/Day Years Used Date Smoking Tobacco: Never Assessed Sex and Gender Information Value Date Recorded Sex Assigned at Not on file Gender Identity Not on file Sexual Orientation Not on file Plan of Treatment Not on file Care Teams Foster Care Therapist Relationship Specialty Start Date End Date Unknown, Provider, PCP - General 07/01/15
--- OUTSIDE RECORDS SUMMARY | 2024-03-29 09:46 | XMS_ITS | Encounter Summary ---
Author Organization [facility] Address [address] [place] [address] Care Team Providers Care Respiratory Assistant Name Role Phone Unavailable Primary Care Provider Unavailabl e Encounter Details Date Type Department Care Team (Late st Contact Info) Description 01/30/2009 Orders Only [facility] Laboratory Services - [facility] ([facility] [address], [place] [id number] Ana Patel PA Social History Tobacco Use Types Packs/Day Years Used Date Smoking Tobacco: Never Assessed Sex and Gender Information Value Date Recorded Sex Assigned at Not on file Gender Identity Not on file Sexual Orientation Not on file documented as of this encounter Plan of Treatment Not on file documented as of this encounter Procedures Procedure Name Priority Date/Time Associated Diagnosis Comments CYTOPATHOLOGY Routine 01/30/2009 0:00 EDT documented in this encounter Results * CYTOPATHOLOGY (01/30/2009 0:00 EDT) Pathology Report: CYTOPATHOLOGY REPORT ? Reports generated via electronic interface contain original data; ? however they are lacking the format of the original report. ? Caution should be taken when reading/interpreti ng unformatted reports. ? Name: ? SOPHIA LUCY ? Accession #: ? [id number] ? : ? 1980 (Age: 28) ??F ?Collect Date: ? 01/30/2009 ? Location: ? [facility] ? Receive Date: ? 02/01/2009 ? Provider: ?ANA TAMIKO PA ? Copy to: ? Specimen/Source: ?Pap Test, Cervix/Endocervix, ThinPrep Imaging System ? with manual evaluation ? Last Menstrual Period: ? 5/15/09 ? Other: ? HPVA - HPV testing requested if ASC-US on the current ThinPrep Pap test. ? SPECIMEN ADEQUACY ? Satisfactory for Evaluation ? - transformation zone component present ? GENERAL CATEGORIZATION ? Negative for Intraepithelial Lesion or Malignancy ? Document reviewed and electronically signed by: ? [place], [place](ASCP) ? Report Date: ??02/06/2009 10:32 ? End of Report ? TONY SANABRIA 01/30/2009 02/01/2009 Ana OSBORNE PATHOLOGY ORDERABLES Performing Organization Address City/State/[facility] Co de Phone Number TONY SANABRIA [address] [place] [address] documented in this encounter Visit Diagnoses Not on filedocumented in this encounter
--- OUTSIDE RECORDS SUMMARY | 2024-03-29 09:46 | XMS_ITS | Encounter Summary ---
Author Organization [facility] Address [address] [place] [address] Care Team Providers Care Hand Coper Name Role Phone Unknown, Provider Primary Care Provider [phone] Encounter Details Date Type Department Care Team (Late st Contact Info) Description 01/30/2021 Lab Requisition [facility] Pathology & Laboratory Medicine - [facility] [address] [place] [address] Outr Resulting Lab, Provider Social History Tobacco [...] Procedure Name Priority Date/Time Associated Diagnosis Comments LYME AB Routine 01/30/2021 12:06 EDT documented in this encounter Results * LYME AB (01/30/2021 12:06 EDT) Lyme Ab Negative Negative 01/31/2021 11:00 EDT [facility] Comment:New 3rd generation a ssay in use 01/26/2020 Blood VENOUS BLOOD / Unknown 01/30/2021 12:06 EDT 01/30/2021 16:12 EDT Provider Outr Resulting Lab IMMUNOLOGY A ND SEROLOGY ORDERABLES [facility] [address] [place] [address] documented in this encounter Visit Diagnoses Not on filedocumented in this encounter Care Teams Hand Coper Relationship Specialty Start Date End Date Unknown, Provider, PCP - General 07/01/15 documented as of this encounter
--- OUTSIDE RECORDS SUMMARY | 2024-03-29 09:46 | XMS_ITS | Encounter Summary ---
Author Organization [facility] Address [address] [place] [address] Care Team Providers Care Ice Cream Vault Worker Name Role Phone Unknown, Provider Primary Care Provider Encounter Details Date Type Department Care Team (Late st Contact Info) Description 05/27/2023 Lab Requisition [facility] Pathology & Laboratory Medicine - [facility] [address] [place] [address] Outr Resulting Lab, Provider Social History Tobacco [...] Comments CHLAMYDIA/N. GONORRHOEAE AMPLIFIED NUCLEIC ACID Routine 05/26/2023 13:40 EDT documented in this encounter Results * CHLAMYDIA/N. GONORRHOEAE AMPLIFIED RNA (05/26/2023 13:40 EDT) Neisseria gonorrhoeae Result Negative Negative 05/28/2023 13:27 EDT [facility] Chlamydia trachomatis Result Negative Negative 05/28/2023 13:27 EDT [facility] Swab VAGINAL STRUCTURE / Unknown 05/26/2023 13:40 EDT 05/27/2023 18:07 EDT Provider Outr Resulting Lab MICROBIOLOGY - GENERAL ORDERABLES [facility] [address] [place] [address] documented in this encounter Visit Diagnoses Not on filedocumented in this encounter Care Teams Ice Cream Vault Worker Relationship Specialty Start Date End Date Unknown, Provider, PCP - General 07/01/15 documented as of this encounter
--- OUTSIDE RECORDS SUMMARY | 2024-03-29 09:46 | XMS_ITS | Encounter Summary ---
Author Organization [facility] Address [address] [place] [address] Care Team Providers Care Identifier Horse Name Role Phone Unknown, Provider Primary Care Provider [phone] Encounter Details Date Type Department Care Team (Late st Contact Info) Description 12/12/2021 Lab Requisition [facility] Pathology & Laboratory Medicine - [facility] [address] [place] [address] Haleigh Amaro, [address] [place] [address] Encounter for other general examination Social History [...] Name Priority Date/Time Associated Diagnosis Comments PAP TEST Today 12/11/2021 14:15 EDT Encounter for other general examination HPV DNA DETECTION WITH GENOTYPING, PCR Today 12/11/2021 14:15 EDT Encounter for other general examination documented in this encounter Results * HUMAN PAPILLOMAVIRUS (HPV) DETECTION-HIGH RISK TYPES (12/11/2021 14:15 EDT) HPV other High Risk types, PCR Negative Negative 12/14/2021 22:39 EDT [facility] Comment:No E6 or E7 mRNA is detected from HPV types 16,18,31,33,35,39,45,51,52,56,58,59,66, and 68 by sales representative aircraft mediated amplification. Papanicolaou smear specimen (specimen) CERVIX UTERI STRUCTURE / Unknown 12/11/2021 14:15 EDT 12/14/2021 10:39 EDT Haleigh Amaro SPACE OPERATIONS OFFICER MICROBIOLOGY - GENER AL ORDERABLES [facility] [address] [place] [address] * PAP TEST (12/11/2021 14:15 EDT) Specimens A. Cervix and/or Endocervix , ThinPrep Imaging System with Manual Evaluation 12/14/2021 22:40 EDT [facility] Specimen Adequacy Satisfactory for Evaluation - transformation zone component present 12/14/2021 22:40 EDT [facility] General Categorization Negative for intraepithelial lesion or malignancy 12/14/2021 22:40 T [facility] Attestation . 12/14/2021 22:40 T [facility] at 2239 Clinical History See below 12/15/19 22:40 T [facility] HPV The result for the Human Papillomavirus (HPV) Detection-High Risk Types is Negative. No E6 or E7 mRNA is detected from HPV types 16,18,31,33,35,39 ,45,51,52,56,58,5 9,66, and 68 by sales representative aircraft mediated amplification.Kyara ting was performed on specimen [id number] and was resulted on 12/14/2021 2235 EDT by ABE, LAB INSTRUMENT RESULTS IN 12/14/2021 22:40 EDT [facility] Performing Lab [facility] 12/14/2021 22:40 EDT [facility] Scanned Images 12/14/2021 22:40 EDT [facility] Papanicolaou smear specimen (specimen) CERVIX UTERI STRUCTURE / Unknown 12/11/2021 14:15 EDT 12/12/2021 8:59 EDT Haleigh Amaro SPACE OPERATIONS OFFICER PATHOLOGY ORDERABLES [facility] [address] [place] [address] documented in this encounter Visit Diagnoses Diagnosis Encounter for other general examination documented in this encounter Care Teams Identifier Horse Relationship Specialty Start Date End Date Unknown, Provider, PCP - General 07/01/15 documented as of this encounter
--- OUTSIDE RECORDS SUMMARY | 2024-03-29 09:46 | XMS_ITS | Encounter Summary ---
Author Organization [facility] Address [address] [place] [address] Care Team Providers Care Circulating Nurse Name Role Phone Unavailable Primary Care Provider Unavailabl e Encounter Details Date Type Department Care Team (Late st Contact Info) Description 02/25/2003 Results Only [facility] [address] [place] [address] Iglesia Knox [address] [place], [place] [id number] Social History Tobacco Use Types Packs/Day Years Used Date Smoking Tobacco: Never Assessed Sex and Gender Information Value Date Recorded Sex Assigned at Not on file Gender Identity Not on file Sexual Orientation Not on file documented as of this encounter Plan of Treatment Not on file documented as of this encounter Procedures Procedure Name Priority Date/Time Associated Diagnosis Comments CYTOPATHOLOGY Routine 02/25/2003 0:00 EDT documented in this encounter Results * CYTOPATHOLOGY (02/25/2003 0:00 EDT) Pathology Report: CYTOPATHOLOGY REPORT Reports generated via electronic interface contain original data; however they are lacking the format of the original report. Caution should be taken when reading/interpreti ng unformatted reports. Name: ? RENZOLUCY COTTER ? Accession #: ? [id number] : ? 1980 (Age: 22) ??F ?Collect Date: ? 02/25/2003 Location: ? [facility] ? Receive Date: ? 03/01/2003 Provider: ?IGLESIA KNOX CNM Copy to: ? Specimen/Source: ?ThinPrep Pap Test, Cervix/Endocervix Last Menstrual Period: ? 5/?/03 Menstrual/Pregnanc y Status: ? SPECIMEN ADEQUACY ? Satisfactory for Evaluation - transformation zone component present GENERAL CATEGORIZATION ? Negative for Intraepithelial Lesion or Malignancy ? Document reviewed and electronically signed by: ? Severino Mathews, CT(ASCP) ? Report Date: ??03/02/2003 15:43 End of Report TONY SANABRIA 02/25/2003 03/01/2003 Iglesia Knox CNM PATHOLOGY ORDERABLES TONY SANABRIA [address] [place] [address] documented in this encounter Visit Diagnoses Not on filedocumented in this encounter
--- OUTSIDE RECORDS SUMMARY | 2024-03-29 09:46 | XMS_ITS | Encounter Summary ---
[place] [address] Care Team Providers Care Supervisor Frame Sample And Pattern Name Role Phone None Primary Care Provider Unavailabl e Reason for Visit * Reason Comments Neck And Shoulder Pain numbness all the way to fingers LeFT side Encounter Details Date Type Department Care Team (Latest Contact Info) Description 06/16/2014 9:20 AM EDT Office [place] [address] Wesley Cortes MD [facility] [place] [address] Herniation of cervical intervertebral disc with radiculopathy (Primary Dx) Discharge Disposition: Home Social History Tobacco Use Types Packs/Day Years Used Date Smoking Tobacco: Former Cigarettes Q uit: 06/02/2014 Comments:smoking cigarette Sex and Gender Information Value Date Recorded [...] - - Weight 59 kg (130 lb) 06/16/2014 9:31 AM EDT Height 170.2 cm (5' 7) 06/16/2014 9:31 AM EDT Body Mass Index 20.36 06/16/2014 9:31 AM EDT documented in this encounter Progress Notes * Wesley Cortes MD - 06/16/2014 10:12 AM EDT Ms. Grey is seen today in followup to her original appointment of 05/26/2014. She still has some numbness and tingling in the left arm to all digits of the left hand, but she has had improvement in her neck pain, shoulder pain, and arm pain. Today, her Spurling's maneuver is mildly positive with tingling to the left hand. Her upper extremity motor exam is normal. Her sensory function is diminished to light touch in all digits of the left hand. Maria Alejandra reflexes are negative. Flexion and extension x-rays today demonstrate no instability. Cervical MRI is reviewed demonstrating spondylosis mildly at C5-C6, herniated disk left C6-C7. All this was reviewed with the patient. Given that she has had some improvement in her normal neurologic exam, I recommended continued medical management. We did discuss the cervical epidural steroid injections as an option, she will consider this and if her pain worsen, she will call and have that scheduled here in our pain clinic. Fortunately, she has essentially stopped smoking with an occasional cigarette here and there and using the e-cigarettes, but in general she has really cut down from her high level of two packs of cigarettes per day down to nearly nothing, I encouraged her to continue in this effort. I will see at her request and make the referral to the pain clinic at her request as noted. documented in this encounter Plan of Treatment Not on file documented as of this encounter Visit Diagnoses Diagnosis Herniation of cervical intervertebral disc with radiculopathy- Primary Displacement of cervical intervertebral disc without myelopathy documented in this encounter Care Teams Supervisor Frame Sample And Pattern Relationship Specialty Start Date End Date None None PCP - General 05/05/13 10/01/16 documented as of this encounter
--- OUTSIDE RECORDS SUMMARY | 2024-03-29 09:46 | XMS_ITS | Encounter Summary ---
Author Organization [facility] Address [address] [place] [address] Care Team Providers Care Vat Tender Name Role Phone Unknown, Provider Primary Care Provider Encounter Details Date Type Department Care Team (Late st Contact Info) Description 01/30/2022 Lab Requisition [facility] Pathology & Laboratory Medicine - [facility] [address], [place] [address] Outr Resulting Lab, Provider Social History Tobacco [...] Procedure Name Priority Date/Time Associated Diagnosis Comments SPEP, INCLUDES QUANTITATION OF MONOCLONAL SPIKE PERFORMABLE Today 01/30/2022 12:30 EDT SPEP, INCLUDES QUANTITATION OF MONOCLONAL SPIKE Routine 01/30/2022 12:30 EDT PROTEIN, TOTAL Today 01/30/2022 12:30 EDT documented in this encounter Results * SPEP, INCLUDES QUANTITATION OF MONOCLONAL SPIKE PERFORMABLE (01/30/2022 12:30 EDT) Albumin % 62.6 55.8 - 66.1 % 01/31/2022 13:36 EDT [facility] Albumin g/dL 4.5 3.6 - 5.2 g/dL 01/31/2022 13:36 EDT [facility] Alpha-1 % 3.6 2.9 - 4.9 % 01/31/2022 13:36 [facility] Alpha-1 g/dL 0.30 0.15 - 0.40 g/dL 01/31/2022 13:36 [facility] Alpha-2 % 8.5 7.1 - 11.8 % 01/31/2022 13:36 [facility] Alpha-2 g/dL 0.60 0.50 - 1.00 g/dL 01/31/2022 13:36 [facility] Beta % 11.5 8.4 - 13.1 % 01/31/2022 13:36 [facility] Beta g/dL 0.80 0.60 - 1.20 g/dL 01/31/2022 13:36 [facility] Gamma % 13.8 11.1 - 18.8 % 01/31/2022 13:36 [facility] Gamma g/dL 1.00 0.60 - 1.60 g/dL 01/31/2022 13:36 [facility] SPEP Comment No apparent monoclonal protein seen on serum electrophoresis 01/31/2022 13:36 [facility] Comment:See scanned/suppleme ntary report. Total Protein 7.2 6.3 - 8.2 g/dL 01/31/2022 13:36 [facility] Blood VENOUS BLOOD / Unknown 01/30/2022 12:30 EDT 01/30/2022 22:16 EDT Provider Outr Resulting Lab CHEMISTRY & BLOOD GAS ORDERABLES [facility] [address] [place] [address] * PROTEIN, TOTAL (01/30/2022 12:30 EDT) Blood VENOUS BLOOD / Unknown 01/30/2022 12:30 EDT 01/30/2022 22:16 EDT Provider Outr Resulting Lab CHEMISTRY & BLOOD GAS ORDERABLES [facility] [address] [place] [address] documented in this encounter Visit Diagnoses Not on filedocumented in this encounter Care Teams Vat Tender Relationship Specialty Start Date End Date Unknown, Provider, PCP - General 07/01/15 documented as of this encounter
--- OUTSIDE RECORDS SUMMARY | 2024-03-29 09:46 | XMS_ITS | Encounter Summary ---
Author Organization [facility] Address [address] [place] [address] Care Team Providers Care Nut Packer Name Role Phone Unknown, Provider Primary Care Provider Encounter Details Date Type Department Care Team (Late st Contact Info) Description 11/10/2019 Lab Requisition [facility] Pathology & Laboratory Medicine - [facility] [address] [place] [address], [place] [id number] Beto Mendez MD [address] [place] [id number] Encounter for other general examination Social [...] Date/Time Associated Diagnosis Comments COVID-19 TESTING Today 11/04/2019 11:1 8 EDT Encounter for other general examination documented in this encounter Results * COVID-19 TEST [facility] (11/04/2019 11:18 EDT) COVID-19 Result Not Detected Not Detected 11/15/2019 7:59 EDT [facility] Comment:Assayed by Yabbedoos Swab ENTIRE NASOPHARYNX / Unknown 11/04/2019 11:18 EDT 11/10/2019 10:45 EDT Beto Mendez MD MICROBIOLOGY - GENE [facility] ORDERABLES [facility] [address] [place] [address] documented in this encounter Visit Diagnoses Diagnosis Encounter for other general examination documented in this encounter Care Teams Nut Packer Relationship Specialty Start Date End Date Unknown, Provider, PCP - General 07/01/15 documented as of this encounter
--- OUTSIDE RECORDS SUMMARY | 2024-03-29 09:46 | XMS_ITS | Encounter Summary ---
Author Organization [facility] Address [facility] [place] [address] Care Team Providers Care Melt Helper Name Role Phone None Primary Care Provider Unavailabl e Encounter Details Date Type Department Care Team (Latest Contact Info) Description 06/16/2014 9:13 AM EDT - 06/16/2014 11:59 PM EDT Hospital Encounter XRay at [address] [place] [phone] Herniation of cervical intervertebral disc with radiculopathy Social History Tobacco Use Types Packs/Day [...] 0.25MG - 0.5MG, PO, Once daily,PRN 08/28/2006 documented as of this encounter Plan of Treatment Not on file documented as of this encounter Procedures Procedure Name Priority Date/Time Associated Diagnosis Comments XR CERVICAL SPINE 2 OR 3 VIEWS Routine 06/16/2014 9:24 AM EDT Herniation of cervical intervertebral disc with radiculopathy documented in this encounter Results * XR Cervical Spine [...] Diagnosis Herniation of cervical intervertebral disc with radiculopathy Displacement of cervical intervertebral disc without myelopathy documented in this encounter Care Teams Melt Helper Relationship Specialty Start Date End Date None None PCP - General 05/05/13 10/01/16 documented as of this encounter
--- OUTSIDE RECORDS SUMMARY | 2024-03-29 09:46 | XMS_ITS | Encounter Summary ---
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 Name Role Phone Unavailable Primary Care Provider Unavailabl e Encounter Details Date Type Department Care Team (Late st Contact Info) Description 08/27/2007 Results Only [facility] [address] [place] [address] Ana Patel PA Social History Tobacco Use [...] Priority Date/Time Associated Diagnosis Comments CYTOPATHOLOGY Routine 08/27/2007 0:00 EST documented in this encounter Results * CYTOPATHOLOGY (08/27/2007 0:00 EST) Pathology Report: CYTOPATHOLOGY REPORT Reports generated via electronic interface contain original data; however they are lacking the format of the original report. Caution should be taken when reading/interpreti ng unformatted reports. Name: ? LUCY GREY ? Accession #: ? [id number] : ? 1980 (Age: 27) ??F ?Collect Date: ? 08/27/2007 Location: ? [facility] ? Receive Date: ? 08/28/2007 Provider: ?ANA OSBORNE Copy to: ? Specimen/Source: ?ThinPrep Pap Test, Endocervix, processed on [employer] ThinPrep Imaging System, with manual evaluation Last Menstrual Period: ? 07/20/07 ? Treatment History: ? Miscellaneous treatment: S/p Lap 1998 for endometriosis Other: ? Additional clinical information: H/o endometriosis. HPVA - HPV testing requested if ASC-US on the current ThinPrep Pap test. ? SPECIMEN ADEQUACY ? Satisfactory for Evaluation - transformation zone component present GENERAL CATEGORIZATION ? Negative for Intraepithelial Lesion or Malignancy ? Document reviewed and electronically signed by: ? Brown Chase, NAPOLEON(ASCP) ? Report Date: ??09/02/2007 08:09 End of Report TONY SANABRIA 08/27/2007 08/28/2007 Ana OSBORNE PATHOLOGY ORDERABLES TONY SANABRIA [address] [place] [address] documented in this encounter Visit Diagnoses Not on filedocumented in this encounter
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
[2024-03-29] MEDS: Cephalexin 500 MG CAP PO (09:59)
[2024-03-29] MEDS: Ciprofloxacin 500 MG TAB PO (10:03)
--- NOTE | 2024-03-29 10:23 | DI.RAD_ITS ---
Exam(s) XR FOOT RT COMPLETE EXAM: XR FOOT RT COMPLETE CLINICAL HISTORY: Puncture wound 4th toe. TECHNIQUE: 2D digital imaging was performed of the right foot. Three images were obtained. AP, obl ique and lateral views were obtained. COMPARISON: No priors for comparison. FINDINGS: BONES: No acute fracture is present. No bony destructive lesion is seen. JOINTS: No dislocation present. The joint spaces are well maintained. SOFT TISSUE: Normal. No radiopaque foreign bodies are seen. No soft tissue gas is appreciated. IMPRESSION: No acute fracture or dislocation. No soft tissue gas or radiopaque foreign body. DATA REPOSITORY: RADIATION DOSE DELIVERED:
[2024-03-29 11:30] VITALS: PULSE 66; RESP 18; O2SAT 131
== END 2024-03-29 11:30 | disposition home or self-care (01) ==
PROVIDERS: Emergency Provider Registered Nurse Emergency; PCP Student in an Organized Health Care Education/Training Program
DX: S91.331A Puncture wound without foreign body, right foot, initial encounter (principal); L03.115 Cellulitis of right lower limb; Z23 Encounter for immunization; W22.8XXA Striking against or struck by other objects, initial encounter
CPT/HCPCS: 90471; 90715; 99284; 73630; 99283

== ENCOUNTER 2024-05-01 13:19 | Emergency (ER) | payer OTHER, SELFPAY ==
[2024-05-01 13:20] VITALS: BP 140/92; PULSE 104; RESP 15; TEMP 37.1; O2SAT 98
--- NOTE | 2024-05-01 13:30 | DI.CT_ITS ---
Exam(s) CT ABDOMEN PELVIS W EXAM: CT ABDOMEN PELVIS W CLINICAL HISTORY: b/l lower abd pain. TECHNIQUE: Imaging Protocol: Axial computed tomography images with coronal and sagittal reformatted images were created and reviewed CONTRAST MATERIAL: Intravenous: Omnipaque 350 Contrast volume:85 ml Oral: yes / no COMPARISON: No exams were available for comparison FINDINGS: ABDOMEN and PELVIS: Lung Bases: No acute findings. Liver: Normal density. No suspicious mass. Gallbladder and biliary tract: No radiodense calculus. No biliary dilation. Pancreas: Normal density. No abnormal calcifications or inflammatory process. No evidence of mass. Spleen: Normal. Kidneys: Normal size, contour and axis. No radiodense stones. No obstructive uropathy. No suspicious masses seen. Adrenal glands: No masses seen. Vasculature: Abdominal aorta non-dilated. Soft tissues: Unremarkable. No soft tissue hematomas. Musculature appears intact. Bladder: No gross wall thickening. No calculi.No focal mass. Bowel: No obstruction. No bowel wall thickening. Appendix normal. Peritoneal cavity: No ascites. No focal collection. There is mild stranding in the fat around the l ower descending colon. Findings could represent contusion versus inflammation/epiploic appendagitis. Clinical correlation recommended. Bones: Unremarkable for age. No evidence of spine or pelvic fracture. No lower rib fractures identi fied. Reproductive organs: IUD in position. Small right ovarian cyst/dominant follicle. Lymph nodes: No pathologically enlarged lymph nodes. IMPRESSION:: Focal area of increased density in the fat surrounding the lower descending colon which could represent focal contusion versus inflammation or epiploic appendagitis. RADIATION DOSE DELIVERED: Total DLP DATA REPOSITORY: All CT scans at this facility are submitted to the National Radiology Data Registry (NRDR) Dose Index Registry (DIR) with the [employer] (ACR). RADIATION OPTIMIZATION: All CT scans at this facility use at least one of these dose optimization te chniques: automated exposure control; mA and/or kV adjustment per patient size (includes targeted exa ms where dose is matched to clinical indication); or iterative reconstruction.
[2024-05-01 13:31] VITALS: BP 140/92; PULSE 104; RESP 15; TEMP 37.1; O2SAT 98
[2024-05-01 13:41] LABS: Bilirubin Negative (Negative); Blood Negative (Negative); Clarity Clear (Clear); Glucose Negative (Negative); Ketones Negative (Negative); Leukocyte Esterase Negative (Negative); Nitrite Negative (Negative); Specific Gravity <= 1.005 (1.005-1.025); Urobilinogen 0.2 mg/dL (Up to 0.2)
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
[2024-05-01 13:55] LABS: Abs Immature Grans 0.02 10^3/uL (0.0-0.06); Absolute Basophil Count 0.03 10^3/uL (0.0-0.2); Absolute Lymphocyte Count 1.81 10^3/uL (1.2-3.4); Absolute Monocyte Count 0.48 10^3/uL (0.1-0.8); Absolute Neutrophil Count 5.06 10^3/uL (1.2-6.7); Basophils % 0.4 %; Eosinophils % 2.6 %; HCT 39.2 % (36.0-46.0); HGB 13.7 g/dL (11.2-15.7); Immature Grans % 0.3 %; Lymphocytes % 23.8 %; MCH 34.8 pg (27.0-33.0); MCHC 34.9 % (32.0-36.0); MCV 100 fL (80-95); MPV 8.7 fL (8.0-11.0); Monocytes % 6.3 %; Neutrophils % 66.6 %; Platelet Count 275 10^3/uL (130-400); RBC 3.94 10^6/uL (3.93-5.22); RDW 11.4 % (11.7-14.6); RDW-SD 41.7 fL
[2024-05-01] MEDS: Ketorolac 15 MG/ML VIAL IVP (13:55)
--- OUTSIDE RECORDS SUMMARY | 2024-05-01 13:57 | XMS_ITS | Encounter Summary ---
Author Organization [facility] Address [address] [place] [address] Care Team Providers Care Physical Chemist Name Role Phone Unknown, Provider Primary Care Provider [phone] Encounter Details Date Type Department Care Team (Late st Contact Info) Description 03/31/[address] [facility] [phone] Haleigh Amaro, [facility] [address] [place] [address] [place] [address] Social History Tobacco Use Types [...] ? LUCY GREY ? Accession #: ? [id number] ? : ? 1980 (Age: 36) ??F ?Collect Date: ? 03/31/2017 ? Location: ? [facility] ? Receive Date: ? 04/01/2017 ? Provider: HALEIGH AMARO BANK MESSENGER Copy to: DL DÍAZ MD ? Final [...] types 16,18,31,33,35, 39,45,51,52,56,58, 59,66, and 68 by crisis clinician mediated amplification. Comments Document reviewed and electronically signed by: ? System Interface ? Report date: 04/09/2017 By the signature above, the attending physician certifies that he/she has personally conducted a gross and/or microscopic examination of the described specimens and rendered or confirmed the above diagnosis. End of Report [facility] 03/31/2017 04/01/2017 Haleigh Amaro BANK MESSENGER PATHOLOGY ORDERABLES [facility] [address] [place] [address] documented in this encounter Visit Diagnoses Not on filedocumented in this encounter Care Teams Physical Chemist Relationship Specialty Start Date End Date Unknown, Provider, PCP - General 07/01/15 documented as of this encounter
--- OUTSIDE RECORDS SUMMARY | 2024-05-01 13:57 | XMS_ITS | Clinical Summary ---
Author Organization [facility] Address [address] [place] [address] Care Team Providers Care Window Glazier Name Role Phone Unknown, Provider Primary Care Provider [phone] Social History Tobacco Use Types Packs/Day Years [...] COVID-19 Vaccine ( season) 2023 Care Teams Window Glazier Relationship Specialty Start Date End Date Unknown, Provider, PCP - General 07/01/15
--- OUTSIDE RECORDS SUMMARY | 2024-05-01 13:57 | XMS_ITS | Encounter Summary ---
Author Organization [facility] Address [facility] [place] [address] Care Team Providers Care Shoemaker Apprentice Name Role Phone Camilla Peres FRANCES Primary Care Provider [phone] Encounter Details Date Type Department Care Team (Latest Contact Info) Description 08/25/2017 - 08/25/2017 11:59 PM EST Hospital Encounter Radiology Library at [facility] [place] [phone] Nas Herrera MD [facility] [place] [address] Discharge Disposition: Home Social History Tobacco Use [...] Herrera MD IMG FILM LIBRARY O RDERABLES [place], [place] documented in this encounter Visit Diagnoses Not on filedocumented in this encounter Care Teams Shoemaker Apprentice Relationship Specialty Start Date End Date Camilla Peres APRN [address] [place] [address] PCP - General Family Medicine 10/02/16 07/18/21 documented as of this encounter
--- OUTSIDE RECORDS SUMMARY | 2024-05-01 13:57 | XMS_ITS | Encounter Summary ---
Author Organization [facility] [place] [address] Care Team Providers Care Platform Power Technician Name Role Phone Lisa Martin DO Primary Care Provider [phone] Reason for Visit * Reason Comments Neck [...] n&t/ MRI 07/17/22 in [facility]/ EMG 01/2022 [facility]/ no relief w/PT Lisa Martin, DO [address] [place] [address] [facility] [place] [address] Referral ID Status Reason Start Date Expiration Date V isits Requested Visits Authorized [id number] Closed Consult, Test & Treat PCP Updated and/or Approved 07/23/2022 07/23/2023 6 6 Encounter Details Date Type Department Care Team (Latest Contact Info) Description 07/30/2022 8:00 AM EST Office Visit [place] [address] [facility] [place] [address] Neck pain; Left cervical radiculopathy Social History [...] this encounter Progress Notes * Mckenna Jolley, VERIFY REP - 07/30/2022 8:00 AM EST Center for [...] no improvement. She has been evaluated by [facility] neurosurgery who did not find enough nerve [...] left. 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 reports that she has been smoking. She has never used smokeless tobacco. Conservative Treatment: Physical Therapy: None Home Exercise Program: Independent as tolerated Medications: Ibuprofen, Biofreeze, Fruita balm Other: Chiropractic manipulation Injections: 1. None [...] DO Referring Provider: Lisa Jolley APRN 07/30/2022 [facility] documented in this encounter Plan of Treatment Not on file documented as of this encounter Visit Diagnoses Diagnosis Neck pain Cervicalgia Left cervical radiculopathy Brachial neuritis or radiculitis nos documented in this encounter Care Teams Platform Power Technician Relationship Specialty Start Date End Date Lisa Martin DO [address] [place] [address] PCP - General Family Medicine 07/19/21 documented as of this encounter
--- OUTSIDE RECORDS SUMMARY | 2024-05-01 13:57 | XMS_ITS | Encounter Summary ---
Author Organization [facility] Address [address] [place] [address] Care Team Providers Care Marine Tower Operator Name Role Phone Unknown, Provider Primary Care Provider [phone] Encounter Details Date Type Department Care Team (Late st Contact Info) Description 12/11/2021 Lab Requisition [facility] Pathology & Laboratory Medicine - [facility] [address] [place] [address] Outr Resulting Lab, Provider Social History Tobacco [...] gonorrhoeae Result Negative Negative 12/13/2021 14:42 EDT [facility] Chlamydia trachomatis Result Negative Negative 12/13/2021 14:42 EDT [facility] Swab ENTIRE ENDOCERVIX / Unknown 12/11/2021 14:15 EDT 12/12/2021 16:59 EDT Provider Outr Resulting Lab MICROBIOLOGY - GENERAL ORDERABLES [facility] [address] [place] [address] documented in this encounter Visit Diagnoses Not on filedocumented in this encounter Care Teams Marine Tower Operator Relationship Specialty Start Date End Date Unknown, Provider, PCP - General 07/01/15 documented as of this encounter
--- OUTSIDE RECORDS SUMMARY | 2024-05-01 13:57 | XMS_ITS | Encounter Summary ---
Author Organization [facility] [place] [address] Care Team Providers Care Rangelands Conservation Laborer Name Role Phone Lisa Martin DO Primary Care Provider [phone] Encounter Details Date Type Department Care Team (Late st Contact Info) Description 10/17/2021 Ancillary Procedure Radiology Library at [facility] [place] [phone] Lisa Martin, DO [address] [place], [place] [id number] Social History Tobacco Use Types Packs/Day Years [...] MR Spine (10/17/2021 12:00 AM EST) Narrative [facility] - 11/01/2021 11:41 AM EDT This exam is auto-finalizing. It's purpose is for storage only. Lisa Martin DO [facility] FILM LIBRARY O RDERABLES [place], [place] documented in this encounter Visit Diagnoses Not on filedocumented in this encounter Care Teams Rangelands Conservation Laborer Relationship Specialty Start Date End Date Lisa Martin DO [address] [place] [address] PCP - General Family Medicine 07/19/21 documented as of this encounter
--- OUTSIDE RECORDS SUMMARY | 2024-05-01 13:57 | XMS_ITS | Encounter Summary ---
Author Organization [facility] Address [address] [place] [address] Care Team Providers Care Surgery Specialist Name Role Phone Unavailable Primary Care Provider Unavailabl e Encounter Details Date Type Department Care Team (Late st Contact Info) Description 04/23/2013 Results Only [facility] Laboratory Services - [facility] ([facility]) [address] [place], [place] [phone] Karishma Cummins MD [address] [place] [address] [place] [address] Social History Tobacco Use Types Packs/Day Years [...] ? RENZOLUCY COTTER ? Accession #: ? [id number] ? : ? 1980 (Age: 32) ??F [...] types 16,18,31,33,35, 39,45,51,52,56,58, 59,66, and 68 by driller helper mediated amplification. Comments Document reviewed and electronically signed by: ? System Interface ? Report date: 04/30/2013 By the signature above, the attending physician certifies that he/she has personally conducted a gross and/or microscopic examination of the described specimens and rendered or confirmed the above diagnosis. End of Report [facility] 04/23/2013 04/27/2013 Karishma Cummins MD PATHOLOGY ORDERABLES Performing Organization Address City/State/[facility] Co de Phone Number [facility] [address] [phone] documented in this encounter Visit Diagnoses Not on filedocumented in this encounter
--- OUTSIDE RECORDS SUMMARY | 2024-05-01 13:57 | XMS_ITS | Encounter Summary ---
Author Organization [facility] Address [address] [place] [address] Care Team Providers Care Viticulture Teacher Name Role Phone Unavailable Primary Care Provider Unavailabl e Encounter Details Date Type Department Care Team (Late st Contact Info) Description 01/30/2009 Orders Only [facility] Laboratory Services - [facility] [address] [place], [place] [id number] Ana Patel PA Social History Tobacco Use [...] ? SOPHIA LUCY ? Accession #: ? [id number] ? : ? 1980 (Age: 28) ??F [...] Ana OSBORNE PATHOLOGY ORDERABLES Performing Organization Address City/State/[facility] Co de Phone Number [facility] [address] [place] [address] documented in this encounter Visit Diagnoses Not on filedocumented in this encounter
--- OUTSIDE RECORDS SUMMARY | 2024-05-01 13:57 | XMS_ITS | Encounter Summary ---
Author Organization [facility] Address [facility] [place] [address] Care Team Providers Care Private Inquiry Agent Name Role Phone Camilla Peres FRANCES Primary Care Provider [phone] Reason for Visit * Reason Comments Advice Only implant removal cons ult, ? leaking, pain Encounter Details Date Type Department Care Team (Late st Contact Info) Description 10/02/2016 4:00 PM EST Office [place] [address] Nas Tabor MD [facility] [place] [address] Breast implant capsular contracture Social History Tobacco [...] she got them. 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 At this point [...] Timeframe: elective Procedure: Bilateral implant removal CPT: 67718, 98912 Surgical site: breasts Side: bilateral Anesthesia: General Follow up: 7-10 days NSO when JS in clinic PAT: Allie I, Amaya Romo, am acting as scribe for Dr. Tabor. [...] implant documented in this encounter Care Teams Private Inquiry Agent Relationship Specialty Start Date End Date Camilla Peres APRN [address] [place] [address] PCP - General Family Medicine 10/02/16 07/18/21 documented as of this encounter
--- OUTSIDE RECORDS SUMMARY | 2024-05-01 13:57 | XMS_ITS | Encounter Summary ---
[place] [address] Care Team Providers Care Machine Riveter Name Role Phone Camilla Peres APRN Primary Care Provider [phone] Encounter Details Date Type Department Care Team (Late st Contact Info) Description 09/15/2017 [place] [phone] Raya Santiago Social History Tobacco Use Types [...] on filedocumented in this encounter Care Teams Machine Riveter Relationship Specialty Start Date End Date Camilla Peres APRN [address] [place] [address] PCP - General Family Medicine 10/02/16 07/18/21 documented as of this encounter
--- OUTSIDE RECORDS SUMMARY | 2024-05-01 13:57 | XMS_ITS | Encounter Summary ---
Author Organization [facility] Address [address] [place] [address] Care Team Providers Care Recruitment Internship Name Role Phone Unknown, Provider Primary Care Provider Encounter Details Date Type Department Care Team (Late st Contact Info) Description 07/12/2020 Lab Requisition [facility] Pathology & Laboratory Medicine - [facility] [address] [place] [address] Outr Resulting Lab, Provider Social History Tobacco [...] gonorrhoeae Result Negative Negative 08/03/2020 15:02 EST [facility] Chlamydia trachomatis Result Negative Negative 08/03/2020 15:02 EST [facility] Swab ENTIRE WALL OF CERVIX / Unknown 06/14/2020 15:40 EDT 08/02/2020 8:22 EST Provider Outr Resulting Lab MICROBIOLOGY - GENERAL ORDERABLES [facility] [address] [place] [address] documented in this encounter Visit Diagnoses Not on filedocumented in this encounter Care Teams Recruitment Internship Relationship Specialty Start Date End Date Unknown, Provider, PCP - General 07/01/15 documented as of this encounter
--- OUTSIDE RECORDS SUMMARY | 2024-05-01 13:57 | XMS_ITS | Encounter Summary ---
Author Organization [facility] [place] [address] Care Team Providers Care General Office Worker Name Role Phone Lisa Martin DO Primary Care Provider [phone] Encounter Details Date Type Department Care Team (Late st Contact Info) Description 07/17/2022 Ancillary Procedure Radiology Library at [facility] [place] [phone] Lisa Martin, DO [address] [place], [place] [phone] Social History Tobacco Use Types Packs/Day Years [...] MR Spine (07/17/2022 12:00 AM EST) Narrative [facility] - 07/25/2022 11:33 AM EST This exam is auto-finalizing. It's purpose is for storage only. Lisa Martin DO [facility] FILM LIBRARY O RDERABLES DH [place], [place] documented in this encounter Visit Diagnoses Not on filedocumented in this encounter Care Teams General Office Worker Relationship Specialty Start Date End Date Lisa Martin DO [address] [facility] [place] [address] PCP - General Family Medicine 07/19/21 documented as of this encounter
--- OUTSIDE RECORDS SUMMARY | 2024-05-01 13:57 | XMS_ITS | Clinical Summary ---
Author Organization [facility] Address [facility] [place] [address] Care Team Providers Care Newspaper Editor Managing Name Role Phone Lisa Martin Primary Care Provider +1- [phone] Allergies No known active allergies Medications Medication [...] Needed 2020 Covid-19 Vaccine (1 - season) 2024 Influenza (Flu) vaccine (1 o f 1 [...] who have questions please contact the health healthcare facility administrator that requested your imaging first. ? Electronically signed by: Michelle Birmingham MD, [facility] ([phone]), at 04/19/2022 11:38 AM Diana Ordoñez APRN [...] capacity to make decision: Yes Care Teams Newspaper Editor Managing Relationship Specialty Start Date End Date Lisa Martin DO [address] [facility] [place] [address] PCP - General Family Medicine 07/19/21
--- OUTSIDE RECORDS SUMMARY | 2024-05-01 13:57 | XMS_ITS | Encounter Summary ---
[place] [address] Care Team Providers Care Filler Block Inserter Remover Name Role Phone None Primary Care Provider Unavailabl e Reason for Visit * Reason Comments Neck And Shoulder Pain numbness all the way to fingers LeFT side Encounter Details Date Type Department Care Team (Latest Contact Info) Description 06/16/2014 9:20 AM EDT Office [place] [address] Wesley Cortes MD [facility] [place] [address] Herniation of cervical intervertebral disc with radiculopathy [...] myelopathy documented in this encounter Care Teams Filler Block Inserter Remover Relationship Specialty Start Date End Date None None PCP - General 05/05/13 10/01/16 documented as of this encounter
--- OUTSIDE RECORDS SUMMARY | 2024-05-01 13:57 | XMS_ITS | Encounter Summary ---
Author Organization [facility] Address [address] [place] [address] Care Team Providers Care Can Cleaner Name Role Phone Unknown, Provider Primary Care Provider Encounter Details Date Type Department Care Team (Late st Contact Info) Description 12/12/2021 Lab Requisition [facility] Pathology & Laboratory Medicine - [facility] [address] [place] [address] Haleigh Amaro, [address] [place] [address] Encounter for other general examination [...] types, PCR Negative Negative 12/14/2021 22:[address] [facility] Comment:No E6 or E7 mRNA is detected from HPV types 16,18,31,33,35,39,45,51,52,56,58,59,66, and 68 by mat worker mediated amplification. Papanicolaou smear specimen (specimen) CERVIX UTERI STRUCTURE / Unknown 12/11/2021 14:15 EDT 12/14/2021 10:39 EDT Haleigh Amaro SH[facility]ER MICROBIOLOGY - GENER AL ORDERABLES [facility] [address] [place] [address] * PAP TEST (12/11/2021 14:15 EDT) Specimens A. Cervix and/or Endocervix , ThinPrep Imaging System with Manual Evaluation 12/14/2021 22:[address] [facility] Specimen Adequacy Satisfactory for Evaluation - transformation zone component present 12/14/2021 22:[address] [facility] General Categorization Negative for intraepithelial lesion or malignancy 12/14/2021 22:[address] [facility] Attestation . 12/14/2021 22:[address] [facility] at 2239 Clinical History See below 12/15/19 22:[address] [facility] HPV The result for the Human Papillomavirus (HPV) Detection-High Risk Types is Negative. No E6 or E7 mRNA is detected from HPV types 16,18,31,33,35,39 ,45,51,52,56,58,5 9,66, and 68 by mat worker mediated amplification.Kyara ting was performed on specimen [id number] and was resulted on 12/14/2021 2235 EDT by ABE, LAB INSTRUMENT RESULTS IN 12/14/2021 22:[address] [facility] Performing Lab [facility] 12/14/2021 22:[address] [facility] Scanned Images 12/14/2021 22:[address] [facility] Papanicolaou smear specimen (specimen) CERVIX UTERI STRUCTURE / Unknown 12/11/2021 14:15 EDT 12/12/2021 8:59 EDT Haleigh Amaro SHORER PATHOLOGY ORDERABLES [facility] [address] [place] [address] documented in this encounter Visit Diagnoses Diagnosis Encounter for other general examination documented in this encounter Care Teams Can Cleaner Relationship Specialty Start Date End Date Unknown, Provider, PCP - General 07/01/15 documented as of this encounter
--- OUTSIDE RECORDS SUMMARY | 2024-05-01 13:57 | XMS_ITS | Encounter Summary ---
Author Organization [facility] Address [address] [place] [address] Care Team Providers Care Auto Body Technician Name Role Phone Unknown, Provider Primary Care Provider Encounter Details Date Type Department Care Team (Late st Contact Info) Description 09/13/2021 Lab Requisition [facility] Pathology & Laboratory Medicine - [facility] [address] [place] [address] Outr Resulting Lab, Provider Social History Tobacco [...] Outr Resulting Lab MICROBIOLOGY - GENERAL ORDERABLES [facility] [address] [place] [address] * COVID-19 TESTING (09/12/2021 11:00 EST) COVID-19 rt-PCR Result Negative Negative 09/13/2021 19:16 EST [facility] Comment: This test has [...] history, and epidemiological information. Performed on the Mysterioher Fusion instrument Performing Lab [facility] 09/13/2021 19:16 EST [facility] Swab 09/12/2021 11:0 0 EST 09/13/2021 16:25 EST Provider Outr Resulting Lab MICROBIOLOGY - GENERAL ORDERABLES [facility] [address] [place] [address] documented in this encounter Visit Diagnoses Not on filedocumented in this encounter Care Teams Auto Body Technician Relationship Specialty Start Date End Date Unknown, Provider, PCP - General 07/01/15 documented as of this encounter
--- OUTSIDE RECORDS SUMMARY | 2024-05-01 13:57 | XMS_ITS | Encounter Summary ---
Author Organization [facility] [place] [address] Care Team Providers Care Interpersonal Communications Professor Name Role Phone Camilla Peres FRANCES Primary Care Provider [phone] Encounter Details Date Type Department Care Team (Latest Contact Info) Description 09/26/2017 10:45 AM EST - 09/26/2017 3:15 PM EST Hospital Encounter [place] [address] Nas Herrera MD [facility] [place] [address] Parotid mass Discharge Disposition: Home Social History [...] -You can reach the ENT clinic at [phone] for appointment questions. -The ENT triage nurse is available at [phone] -For urgent issues during evenings and weekends the ENT resident security system sales consultant can be reached through [facility] at [phone] Follow Up: You will need to follow [...] Herrera MD - 09/26/2017 2:00 PM EST [facility] Operative Note Patient Name: Olga Grey : [id number] MR#: [id number] Case Date: 09/26/2017 Surgeon: Surgeon(s) and Role: [...] Info Order Time SPECIMEN TO PATHOLOGY OR#2 Ex:[id number]. parotid mass RIGHT parotid mass Excision 09/26/2017 [...] The incision was injected with 1% xylocaine [id number] epinephrine and the made with a 15 [...] PM EST 09/26/2017 2:15 PM EST Narrative [facility] - 09/26/2017 2:15 PM EST Specimen requisition ordered. ??Separate Pathology report to follow Resulting Agency Comment Spec In Lab Nas Herrera MD PATHOLOGY/CYTOLOGY ORDERABLES [facility] [place] [address] * Surgical Pathology Report (09/26/2017 1:32 PM EST) Final Diagnosis [id number] ? Location: [facility]; The signing pathologist has (i) examined the relevant preparation(s) for the specimen(s) and (ii) rendered or confirmed the diagnosis(es). . 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 Electronically signed by: ??Leti Travis DO Verified: ??10/01/2017 ?Pathologist Performed at: ??-[facility] Dept. [place], [place], [place] CLINICAL INFORMATION Specimen Submitted: A - Right parotid mass Clinical History: Parotid mass Clinical Diagnosis: Parotid mass SPECIMEN PROCESSING A - Labeled/Fixativ e: Right parotid mass, fresh. Quantity/Size: Single, 1.0 x 0.7 x 0.6 cm. Tissue Description: Ovoid, buckley-white cystic structure, on section with pale white fluid. Sections/Proces sing: Inked and trisected. (T1) ??pps 10/01/2017 10:10 AM EST [facility] PAROTID GLAND STRUCTURE / Unknown 09/26/2017 1:32 PM EST 09/26/2017 1:32 PM EST Nas Herrera MD PATHOLOGY/CYTOLOGY ORDERABLES [facility] [place] [address] documented in this encounter Visit Diagnoses Diagnosis [...] MD) documented in this encounter Care Teams Interpersonal Communications Professor Relationship Specialty Start Date End Date Camilla Peres APRN [address] [place] [address] PCP - General Family Medicine 10/02/16 07/18/21 documented as of this encounter
--- OUTSIDE RECORDS SUMMARY | 2024-05-01 13:57 | XMS_ITS | Encounter Summary ---
Author Organization [facility] Address [address] [place] [address] Care Team Providers Care Butadiene Compressor Operator Name Role Phone Unknown, Provider Primary Care Provider [phone] Encounter Details Date Type Department Care Team (Late st Contact Info) Description 01/30/2021 Lab Requisition [facility] Pathology & Laboratory Medicine - [facility] [address] [place] [address] Outr Resulting Lab, Provider Social History Tobacco [...] Lyme Ab Negative Negative 01/31/2021 11:00 EDT [facility] Comment:New 3rd generation a ssay in use 01/26/2020 Blood VENOUS BLOOD / Unknown 01/30/2021 12:06 EDT 01/30/2021 16:12 EDT Provider Outr Resulting Lab IMMUNOLOGY A ND SEROLOGY ORDERABLES [facility] [address] [place] [address] documented in this encounter Visit Diagnoses Not on filedocumented in this encounter Care Teams Butadiene Compressor Operator Relationship Specialty Start Date End Date Unknown, Provider, PCP - General 07/01/15 documented as of this encounter
--- OUTSIDE RECORDS SUMMARY | 2024-05-01 13:57 | XMS_ITS | Encounter Summary ---
Author Organization [facility] Address [address] [place] [address] Care Team Providers Care Barrel Tester And Drainer Name Role Phone Unknown, Provider Primary Care Provider Encounter Details Date Type Department Care Team (Late st Contact Info) Description 10/17/2020 Lab Requisition [facility] Pathology & Laboratory Medicine - [facility] [address] [place] [address] Outr Resulting Lab, Provider Social History Tobacco [...] gonorrhoeae Result Negative Negative 10/18/2020 13:59 EST [facility] Chlamydia trachomatis Result Negative Negative 10/18/2020 13:59 EST [facility] Swab ENTIRE ENDOCERVIX / Unknown 10/17/2020 10:15 EST 10/17/2020 17:17 EST Provider Outr Resulting Lab MICROBIOLOGY - GENERAL ORDERABLES [facility] [address] [place] [address] documented in this encounter Visit Diagnoses Not on filedocumented in this encounter Care Teams Barrel Tester And Drainer Relationship Specialty Start Date End Date Unknown, Provider, PCP - General 07/01/15 documented as of this encounter
--- OUTSIDE RECORDS SUMMARY | 2024-05-01 13:57 | XMS_ITS | Encounter Summary ---
[place] [address] Care Team Providers Care Agency Sales Management Assistant Name Role Phone None Primary Care Provider Unavailabl e Encounter Details Date Type Department Care Team (Late st Contact Info) Description 05/25/2014 Orders [place] [address] Wesley Cortes MD [facility] [place] [place] [address] Social History Tobacco Use Types Packs/Day Years [...] is a Non-reportable exam Wesley Cortes MD [facility] FILM LIBRARY ORD ERABLES documented in this encounter Visit Diagnoses Not on filedocumented in this encounter Care Teams Agency Sales Management Assistant Relationship Specialty Start Date End Date None None PCP - General 05/05/13 10/01/16 documented as of this encounter
--- OUTSIDE RECORDS SUMMARY | 2024-05-01 13:57 | XMS_ITS | Encounter Summary ---
[place] [address] Care Team Providers Care Cut Off Worker Name Role Phone TerellCamilla yang Sheri DANIELS Primary Care Provider [phone] Reason for Visit * Auth/Cert Specialty Diagnoses / Procedures Referred By Jones nogueira Referred To Contact Diagnoses Capsular contracture of breast implant, initial encounter Bilateral capsular contracture Procedures PRO REMOVAL OF BREAST IMPLANT REMOVAL OF INTACT MAMMARY IMPLANT-SHERRY (WRVU 6.48) Referral ID Status Reason Start Date Expiration Date Visits Re quested Visits Authorized [id number] 1 1 Encounter Details Date Type Department Care Team (Late st Contact Info) Description 11/18/2016 8:15 AM EDT - 11/18/2016 9:30 AM EDT Surgery [facility] [place] [address] Nas Tabor MD [facility] [place] [address] REMOVAL OF INTACT MAMMARY IMPLANT-SHERRY (WRVU 7.44) [...] closest emergency room or call the hospital knife operator at [phone] and ask for physician non categorical preschool teacher covering for your physician. Questions or problems after 5pm or on a weekend: Call the [facility] knife operator at and ask for the physician non categorical preschool teacher covering for your doctor. SAME DAY SURGERY [...] 24 hours) * Patient Instructions* Sulma Lopez, PETROLEUM REFINING FIRER - 11/18/2016 7:50 AM EDT Post-Op Instructions [...] your surgical site. ??? Do not use qcpd-jav-yqfdyya lotions, solutions, or herbal preparations on your [...] about scheduling, please contact our administrative officesat [phone] For clinical questions, please call our nurses at [phone] Both offices are open Friday thru Friday 8a - 5p. With emergencies after hours, call the hospital knife operator at [phone] and ask for the Plastic Surgery Resident non categorical preschool teacher. documented in this encounter Medications at Time [...] Tabor MD - 11/18/2016 9:32 AM EDT [facility] Operative Note Patient Name: Olga Grey : [id number] MR#: [id number] Case Date: 11/18/2016 Surgeon: Surgeon(s) and Role: [...] OF SURGERY: 11/18/16 ATTENDING: Dr. Nas Tabor BEAM DEPARTMENT SUPERVISOR: Sulma Lopez INDICATION FOR SURGERY: The patient [...] Operative Note Patient Name: Olga Grey : [id number] MR#: [id number] Case Date: 11/18/2016 Surgeon: Surgeon(s) and Role: [...] Report (11/18/2016 8:35 AM EDT) Final Diagnosis [id number] ?Location: [facility] The signing pathologist has (i) [...] ng: ??(R1) ??sns 11/20/2016 12:54 PM EDT [facility] BREAST STRUCTURE / Unknown 11/18/2016 8:35 AM EDT 11/18/2016 8:35 AM EDT BREAST STRUCTURE / Unknown 11/18/2016 8:35 AM EDT 11/18/2016 8:35 AM EDT Nas Tabor MD PATHOLOGY/CYTOLOGY [place] Performing Organization Address [facility] [place] [address] * Specimen to Pathology (surgical or derm) (11/18/2016 8:35 AM EDT) AP Specimen 11/18/2016 8:35 AM EDT 11/18/2016 8:35 AM EDT Narrative [facility] - 11/18/2016 8:35 AM EDT Specimen requisition ordered. ??Separate Pathology report to follow Nas Tabor MD PATHOLOGY/CYTOLOGY [place] Performing Organization Address [facility] [place] [address] * Specimen to Pathology (surgical or derm) (11/18/2016 8:35 AM EDT) AP Specimen 11/18/2016 8:35 AM EDT 11/18/2016 8:35 AM EDT Narrative [facility] - 11/18/2016 8:35 AM EDT Specimen requisition ordered. ??Separate Pathology report to follow Authorizing Provider Result Eddy Tabor MD PATHOLOGY/CYTOLOGY [place] Performing Organization Address [facility] [place] [address] documented in this encounter Visit Diagnoses Not [...] (New Bag - Prov ider: Joanie Barnett [phone] (Anesthesia Volume Adjustment - Provider: Damaris Castellanos [...] Routine documented in this encounter Care Teams Cut Off Worker Relationship Specialty Start Date End Date Camilla Peres APRN [address] [place] [address] [address] [place] [address] PCP - General Family Medicine 10/02/16 07/18/21 documented as of this encounter
--- OUTSIDE RECORDS SUMMARY | 2024-05-01 13:57 | XMS_ITS | Encounter Summary ---
[place] [address] Care Team Providers Care Professor Of Environmental Science Name Role Phone Lisa Martin Primary Care Provider [phone] Encounter Details Date Type Department Care Team (Late st Contact Info) Description 04/19/2022 10:00 AM EDT - 04/19/2022 11:59 PM EDT Hospital [place] [address] Diana Ordoñez, VENUE MANAGER [address] [place] [address] Mastodynia Discharge Disposition: Home Social History Tobacco [...] who have questions please contact the health infant childcare provider that requested your imaging first. ? Diana Ordoñez APRN IMG MAMMO ORDERAB LES documented in this encounter Visit Diagnoses Diagnosis Mastodynia documented in this encounter Care Teams Professor Of Environmental Science Relationship Specialty Start Date End Date Lisa Martin DO [address] [place] [address] PCP - General Family Medicine 07/19/21 documented as of this encounter
--- OUTSIDE RECORDS SUMMARY | 2024-05-01 13:57 | XMS_ITS | Encounter Summary ---
[place] [address] Care Team Providers Care Bus Greaser Name Role Phone Lisa Martin DO Primary Care Provider [phone] Reason for Referral * Consultation (Routine) - Closed Specialty Diagnoses / Procedures Referred By Contac t Referred To Contact [facility] Diagnoses Anesthesia of skin Cervicalgia Other cervical disc displacement, unspecified cervical region Spine- Neck pain radiates down L arm w/ n&t/ MRI 07/17/22 in [facility]/ EMG 01/2022 @[facility]/ no relief w/PT Lisa Martin DO [address] [place] [address] [facility] [place] [address] Referral ID Status Reason Start Date Expiration Date V isits Requested Visits Authorized [id number] Closed Consult, Test & Treat PCP Updated and/or Approved 07/23/2022 07/23/2023 6 6 Encounter Details Date Type Department Care Team (Latest Contact Info) Description 07/23/2022 Transcribe Orders e[facility] Incoming Referrals [phone] Lisa Martin DO [address] [place], [place] [address] Anesthesia of skin; Cervicalgia; Other cervical disc [...] region documented in this encounter Care Teams Bus Greaser Relationship Specialty Start Date End Date Lisa Martin DO [address] [place] [address] PCP - General Family Medicine 07/19/21 documented as of this encounter
--- OUTSIDE RECORDS SUMMARY | 2024-05-01 13:57 | XMS_ITS | Encounter Summary ---
Author Organization [facility] Address [address] [place] [address] Care Team Providers Care Test Case Developer Name Role Phone Unavailable Primary Care Provider Unavailabl e Encounter Details Date Type Department Care Team (Late st Contact Info) Description 09/17/2012 Results Only [facility] [phone] Bry Posada MD [address] [facility] [place] [id number] Social History Tobacco Use Types Packs/Day Years [...] ? LUCY GREY ? Accession #: ? [id number] ? : ? 1980 (Age: 32) ??F [...] types 16,18,31,33,35, 39,45,51,52,56,58, 59,66, and 68 by cartographic drafter mediated amplification. Comments Document reviewed and electronically signed by: ? System Interface ? Report date: 09/30/2012 By the signature above, the attending physician certifies that he/she has personally conducted a gross and/or microscopic examination of the described specimens and rendered or confirmed the above diagnosis. End of Report [facility] 09/17/2012 09/21/2012 Bry Posada MD PATHOLOGY ORDERABLES [facility] [address] [place] [address] documented in this encounter Visit Diagnoses Not on filedocumented in this encounter
--- OUTSIDE RECORDS SUMMARY | 2024-05-01 13:57 | XMS_ITS | Encounter Summary ---
Author Organization [facility] Address [facility] [place] [address] Care Team Providers Care Production Administrator Name Role Phone None Primary Care Provider Unavailabl e Encounter Details Date Type Department Care Team (Latest Contact Info) Description 06/16/2014 9:13 AM EDT - 06/16/2014 11:59 PM EDT Hospital Encounter XRay at [address] [place] [address] Herniation of cervical intervertebral disc with radiculopathy [...] myelopathy documented in this encounter Care Teams Production Administrator Relationship Specialty Start Date End Date None None PCP - General 05/05/13 10/01/16 documented as of this encounter
--- OUTSIDE RECORDS SUMMARY | 2024-05-01 13:57 | XMS_ITS | Encounter Summary ---
Author Organization [facility] Address [facility] [place] [address] Care Team Providers Care Electrician Helper Name Role Phone Camilla Peres FRANCES Primary Care Provider [phone] Encounter Details Date Type Department Care Team (Latest Contact Info) Description 08/13/2017 - 08/13/2017 11:59 PM EST Hospital Encounter Radiology Library at [facility] [place] [address] Nas Herrera MD [facility] [address] Discharge Disposition: Home Social History Tobacco Use [...] Herrera MD IMG FILM LIBRARY O RDERABLES [place], [place] documented in this encounter Visit Diagnoses Not on filedocumented in this encounter Care Teams Electrician Helper Relationship Specialty Start Date End Date Camilla Peres APRN [address] [place] [address] PCP - General Family Medicine 10/02/16 07/18/21 documented as of this encounter
--- OUTSIDE RECORDS SUMMARY | 2024-05-01 13:57 | XMS_ITS | Encounter Summary ---
Author Organization [facility] Address [address] [place] [address] Care Team Providers Care Repairer Evaporator Name Role Phone Unavailable Primary Care Provider Unavailabl e Encounter Details Date Type Department Care Team (Late st Contact Info) Description 08/27/2007 Results Only [facility] [address] [place] [address] Ana Patel PA Social History Tobacco Use [...] ? LUCY GREY ? Accession #: ? [id number] : ? 1980 (Age: 27) ??F ?Collect Date: ? 08/27/2007 Location: ? [facility] ? Receive Date: ? 08/28/2007 Provider: ?ANA OSBORNE Copy to: ? Specimen/Source: ?ThinPrep Pap Test, Endocervix, processed on indeni ThinPrep Imaging System, with manual evaluation Last [...] Ana OSBORNE PATHOLOGY ORDERABLES [facility] [address] [place] [address] documented in this encounter Visit Diagnoses Not on filedocumented in this encounter
--- OUTSIDE RECORDS SUMMARY | 2024-05-01 13:57 | XMS_ITS | Encounter Summary ---
Author Organization [facility] Address [address] [place] [address] Care Team Providers Care Deskidding Machine Operator Name Role Phone Unknown, Provider Primary Care Provider [phone] Encounter Details Date Type Department Care Team (Late st Contact Info) Description 11/05/2019 Lab Requisition [facility] Pathology & Laboratory Medicine - [facility] [address] [place] [address] Beto Mendez MD [address] [place] [address] Encounter for other general examination Social [...] examination documented in this encounter Care Teams Deskidding Machine Operator Relationship Specialty Start Date End Date Unknown, Provider, PCP - General 07/01/15 documented as of this encounter
--- OUTSIDE RECORDS SUMMARY | 2024-05-01 13:57 | XMS_ITS | Encounter Summary ---
Author Organization [facility] [place] [address] Care Team Providers Care Loan Representative Name Role Phone None Primary Care Provider Unavailabl e Reason for Visit * Reason Comments Dizziness Encounter Details Date Type Department Care Team (Late st Contact Info) Description 05/05/2013 2:14 PM EDT - 05/05/2013 9:34 PM EDT Emergency [place] [address] Bere Lynch MD [facility] [place] [address] Yamile Reina MD [facility] [place] [address] Chronic headache; Dizziness; Weight loss; Ptosis; RUQ [...] a dedicated primary care physician, preferably an seismic computer, to help you find the cause of [...] weeks). Her care is primarily delivered at [facility], where she sees a neurologist, Dr. Woo. Relevant to her present complaint was an ER ER note from [facility] dated 03/12/13 reveals a CCof dizziness, also [...] seizures, tingling or paraesthesias. OSH Labs (05/03/13, [facility]) CBC WBC 5.3, Hb 16.1, Plt [...] and place. Normal, fluid speech. Mood euthymic. 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 Scattered sensory differences, largely left lower extremity. Abnormal Romberg, difficulty with tandem gait. FTN and rapid alternating movements intact. Otherwise normal gait. Labs: Recent Results (from the past 24 hour(s)) POCT URINE Component Value Range POC Urine HCG Negative Negative - Negative POC Control Internal Controls Acceptable POCT URINE DIPSTICK Component Value Range POC Sp Taberg 1.020 1.002 - 1.030 POC pH, UA [...] visits to both her neurologist and her business initiatives manager, the latter feeling this was not an IIH flare and that she may benefit from BOTTOM LIQUOR ATTENDANT imaging. Exam reveals positive Romberg (present in February), anisocoria, and ptosis, as well as telangiectasias and RUQ tenderness. Labs from 2 days ago/[facility] remarkable for high MCV and transaminitis. MRI [...] with a primary care doctor, preferably an seismic computer, to take over management of her care. Currently she will follow with her neurologist to review the results of her MRI and indications for further neurologic workup and treatment. That said, Ms. Grey will be seeking new primary care in her area concomitant with this. -Jamison Grewal, Resident Dept of Internal Medicine Pgr [phone] This case supervised by Dr. Yamile Reina, [facility] ED Jamison Grewal Jr., MD Resident 05/05/13 3196 ED ATTENDING ADDENDUM: The patient was seen [...] by a neurologist and eye physician [facility] Was told this week that she [...] process. BUN 6/Cr 0.83 on 05/03/13 [facility] With and without gadolinium contrast if at [...] process. BUN 6/Cr 0.83 on 05/03/13 [facility] With andwithout gadolinium contrast if at all [...] dipstick (05/05/2013 2:42 PM EDT) POC Sp Taberg 1.020 1.002 - 1.030 POC pH, UA [...] Jr.) documented in this encounter Care Teams Loan Representative Relationship Specialty Start Date End Date None None PCP - General 05/05/13 10/01/16 documented as of this encounter
--- OUTSIDE RECORDS SUMMARY | 2024-05-01 13:57 | XMS_ITS | Encounter Summary ---
[place] [address] Care Team Providers Care Retail Stocker Name Role Phone TerellCamilla yang Sheri DANIELS Primary Care Provider [phone] Reason for Visit * Auth/Cert Specialty Diagnoses / Procedures Referred By Jones nogueira Referred To Contact Diagnoses Capsular contracture of breast implant, initial encounter Bilateral capsular contracture Procedures PRO REMOVAL OF BREAST IMPLANT REMOVAL OF INTACT MAMMARY IMPLANT-SHERRY (WRVU 6.48) Referral ID Status Reason Start Date Expiration Date Visits Re quested Visits Authorized [id number] 1 1 Encounter Details Date Type Department Care Team (Late st Contact Info) Description 11/18/2016 7:58 AM EDT Anesthesia Event [facility] [place] [address] Tra Mathews [facility] [place] [address] Anesthesia Record Procedure Summary Procedure Name Responsible [...] 0745; median cubital vein (antecubital fossa), right; uwoy-fem-jflajp catheter system; 20 gauge, 1 in length; Bozena barnett RN; intradermal injection, distraction, tolerated well, appears comfortable; 0; 11/18/16; 1010 11/18/16 0745 by Joanie Barnett RN 11/18/16 1010 by Rose Lora RN Supraglottic Mask Ventilation: No t Attempted (0); LMA Type: iGel; LMA Size: 3; Inserted by: mEanuel KURTZ; Removal Date: 11/18/16; Removal Time: 90711/18/16 [...] Mathews DO - 11/18/2016 12:53 PM EDT [facility] Department of Anesthesiology Post-procedure Note Patient: Olga Grey Procedure Summary Date Anesthesia Start Anesthesia Stop Room / Location 11/18/16 0758 0916 [facility] OR [address] [place] [address] [facility] Procedure Diagnosis Surgeon Responsible Provider REMOVAL OF INTACT MAMMARY IMPLANT-SHERRY (WRVU 6.48) (Bilateral Breast); BREAST, PERIPROSTHETIC CAPSULECTOMY, SHERRY (WRVU 10.62) (Bilateral Breast) (Bilateral capsular contracture) Nas Tabor MD Walker, Tacee E, DO All Anesthesia Providers: Anesthesiologist: Tra Mathews DO GUEST LAUNDRY ATTENDANT: Damaris Castellanos CRNA Last (1hr) Vitals: BP Temp Pulse Resp SpO2 Patient Location: PACU/[facility] Level of Consciousness: Awake and Alert Pain [...] risks discussed with patient. Plan discussed with GUEST LAUNDRY ATTENDANT. PAT Staff Note documented in this encounter [...] mL/hr documented in this encounter Care Teams Retail Stocker Relationship Specialty Start Date End Date Camilla Peres, LOSS PREVENTION LEADER [address] [place] [address] [address] [place] [address] PCP - General Family Medicine 10/02/16 07/18/21 documented as of this encounter
--- OUTSIDE RECORDS SUMMARY | 2024-05-01 13:57 | XMS_ITS | Encounter Summary ---
Author Organization [facility] Address [address] [place] [address] Care Team Providers Care Bar Gauger And Lubricator Tender Name Role Phone Unknown, Provider Primary Care Provider Encounter Details Date Type Department Care Team (Late st Contact Info) Description 11/09/2019 Lab Requisition [facility] Pathology & Laboratory Medicine - [facility] [address] [place], [place] [address] Beto Mendez MD [address] [place] [phone] Encounter for other general examination Social [...] 11:06 EDT) COVID-19 Result 0 8:33 EDT [facility] Comment:Specimen quantity no t sufficient for analysis. Testing not performed. Swab ENTIRE NASOPHARYNX / Unknown Not Given / Unknown 11/09/2019 11:06 EDT 11/09/2019 15:56 EDT Beto Mendez MD MICROBIOLOGY - [facility] ORDERABLES [facility] [address] [place] [address] documented in this encounter Visit Diagnoses Diagnosis Encounter for other general examination documented in this encounter Care Teams Bar Gauger And Lubricator Tender Relationship Specialty Start Date End Date Unknown, Provider, PCP - General 07/01/15 documented as of this encounter
--- OUTSIDE RECORDS SUMMARY | 2024-05-01 13:57 | XMS_ITS | Encounter Summary ---
Author Organization [facility] Address [facility] [place] [address] Care Team Providers Care Endband Sizer Name Role Phone Camilla Peres FRANCES Primary Care Provider [phone] Encounter Details Date Type Department Care Team (Late st Contact Info) Description 10/02/2017 9:00 AM EST Office [place] [address] Sergio Banegas PA [facility] [place] [address] Parotid mass Social History Tobacco Use Types [...] Banegas PA - 10/02/2017 9:00 AM EST [facility] Otolaryngology - Head and Neck Surgery Sergio Banegas PA-C 10/02/17 [place] [address] Office Patient Name: Olga Grey Date of [...] regarding their treatment. Sergio Banegas PA-C 10/02/2017 [place], [place] [address] Office documented in this encounter Plan of Treatment Not on file documented as of this encounter Visit Diagnoses Diagnosis Parotid mass Swelling, mass, or lump in head and neck documented in this encounter Care Teams Endband Sizer Relationship Specialty Start Date End Date Camilla Peres APRN [address] [place] [address] PCP - General Family Medicine 10/02/16 07/18/21 documented as of this encounter
--- OUTSIDE RECORDS SUMMARY | 2024-05-01 13:57 | XMS_ITS | Encounter Summary ---
Author Organization [facility] Address [facility] [place] [address] Care Team Providers Care Forensic Document Examiner Name Role Phone Camilla Peres FRANCES Primary Care Provider [phone] Encounter Details Date Type Department Care Team (Late st Contact Info) Description 09/26/2017 12:51 PM EST - 09/26/2017 3:50 PM EST Surgery [place] [address] Nas Herrera MD [facility] [place] [address] EXC.PAROTID TUMOR OR GLAND, LATERAL LOBE, W [...] -You can reach the ENT clinic at [phone] for appointment questions. -The ENT triage nurse is available at [phone] -For urgent issues during evenings and weekends the ENT resident public relations analyst can be reached through [facility] cnc router operator at [phone] Follow Up: You will need to follow [...] Herrera MD - 09/26/2017 2:00 PM EST [facility] Operative Note Patient Name: Olga Grey : [id number] MR#: [id number] Case Date: 09/26/2017 Surgeon: Surgeon(s) and Role: [...] Info Order Time SPECIMEN TO PATHOLOGY OR#2 Ex:00011. parotid mass RIGHT parotid mass Excision 09/26/2017 [...] The incision was injected with 1% xylocaine [id number] epinephrine and the made with a 15 [...] PM EST 09/26/2017 2:15 PM EST Narrative [facility] - 09/26/2017 2:15 PM EST Specimen requisition ordered. ??Separate Pathology report to follow Resulting Agency Comment Spec In Lab Nas Herrera MD PATHOLOGY/CYTOLOGY ORDERABLES Performing Organization Address City/State/[facility] Co de Phone Number [facility] [place] [address] * Surgical Pathology Report (09/26/2017 1:32 PM EST) Final Diagnosis [id number] ? [facility]; The signing pathologist has (i) examined the relevant preparation(s) for the specimen(s) and (ii) rendered or confirmed the diagnosis(es). . 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 Electronically signed by: ??Leti Travis DO Verified: ??10/01/2017 ?Pathologist Performed at: ??-[facility] Dept. of Pathology, [place], [place] CLINICAL INFORMATION Specimen Submitted: A - Right parotid mass Clinical History: Parotid mass Clinical Diagnosis: Parotid mass SPECIMEN PROCESSING A - Labeled/Fixativ e: Right parotid mass, fresh. Quantity/Size: Single, 1.0 x 0.7 x 0.6 cm. Tissue Description: Ovoid, buckley-white cystic structure, on section with pale white fluid. Sections/Proces sing: Inked and trisected. (T1) ??pps 10/01/2017 10:10 AM EST [facility] PAROTID GLAND STRUCTURE / Unknown 09/26/2017 1:32 PM EST 09/26/2017 1:32 PM EST Nas Herrera MD PATHOLOGY/CYTOLOGY ORDERABLES [facility] [place] [address] documented in this encounter Visit Diagnoses Diagnosis [...] MD) documented in this encounter Care Teams Forensic Document Examiner Relationship Specialty Start Date End Date Camilla Peres, MEDICAL OFFICE ASSISTANT [address] [place] [address] [address] [place] [address] PCP - General Family Medicine 10/02/16 07/18/21 documented as of this encounter
--- OUTSIDE RECORDS SUMMARY | 2024-05-01 13:57 | XMS_ITS | Referral Summary ---
Author Organization [facility] Address [address] [place] [address] Care Team Providers Care Diesel Locomotive Firer/Fireman Name Role Phone Unknown, Provider Primary Care Provider Social History Tobacco Use Types Packs/Day Years Used Date Smoking Tobacco: Never Assessed Sex and Gender Information Value Date Recorded Sex Assigned at Not on file Gender Identity Not on file Sexual Orientation Not on file Plan of Treatment Not on file Care Teams Diesel Locomotive Firer/Fireman Relationship Specialty Start Date End Date Unknown, Provider, PCP - General 07/01/15
--- OUTSIDE RECORDS SUMMARY | 2024-05-01 13:57 | XMS_ITS | Encounter Summary ---
[place] [address] Care Team Providers Care Placement Director Name Role Phone None Primary Care Provider Unavailabl e Reason for Visit * Reason Comments Neck Pain Encounter Details Date Type Department Care Team (Latest Contact Info) Description 05/26/2014 8:15 AM EDT Office [place] [id number] Wesley Cortes MD [facility] [place] [address] Herniation of cervical intervertebral disc with radiculopathy [...] would like you to sign up for [facility], which will give you secure online access to your electronic medical record at [facility] and the ability to communicate with your [...] the instructions. Here is your activation code: [email or web address] Expires: 07/10/2014 8:51 AM Remember, [facility] is [...] has made her symptoms better including career development counselor, oral steroids, or gabapentin. She has had [...] MEDICATION ALLERGIES. 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 Family history includes hypertension, diabetes, and also [...] maneuver. DIAGNOSTIC DATA: MRI dated 05/25/2014 from [facility] demonstrates cervical spondylosis at C5-C6, cervical disk [...] myelopathy documented in this encounter Care Teams Placement Director Relationship Specialty Start Date End Date None None PCP - General 05/05/13 10/01/16 documented as of this encounter
--- OUTSIDE RECORDS SUMMARY | 2024-05-01 13:57 | XMS_ITS | Encounter Summary ---
Author Organization [facility] Address [facility] [place] [address] Care Team Providers Care Gore Inserter Name Role Phone Kong Pereseen Sheri DANIELS Primary Care Provider [phone] Reason for Visit * Consultation (Routine) - Closed Specialty Diagnoses / Procedures Referred By Joens nogueira Referred To Contact Otolaryngology Diagnoses mass of parotid gland Benoit Hyde, DO [address] [place] [address] Nas Herrera MD [facility] [place] [address] Referral ID Status Reason Start Date Expiration Date Visits Re quested Visits Authorized [id number] Closed 09/17/2017 09/17/2018 1 1 Encounter Details Date Type Department Care Team (Late st Contact Info) Description 09/18/2017 10:00 AM EST Office [place] [address] Nas Herrera MD [facility] [place] [address] Parotid mass; Cigarette smoker Social History Tobacco [...] Herrera MD - 09/18/2017 10:00 AM EST [facility] OTOLARYNGOLOGY HEAD [facility] NECK T[facility]OR CLINIC NEW [...] Attending note: Patient seen with the physician customer relations assistant. In summary, this patient presents with [...] disorder documented in this encounter Care Teams Gore Inserter Relationship Specialty Start Date End Date Camilla Peres APRN [address] [place] [address] PCP - General Family Medicine 10/02/16 07/18/21 documented as of this encounter
--- OUTSIDE RECORDS SUMMARY | 2024-05-01 13:57 | XMS_ITS | Encounter Summary ---
[place] [address] Care Team Providers Care Credit Representative Name Role Phone TerellCamilla yang Sheri DANIELS Primary Care Provider [phone] Reason for Visit * Auth/Cert Specialty Diagnoses / Procedures Referred By Jones nogueira Referred To Contact Diagnoses Capsular contracture of breast implant, initial encounter Bilateral capsular contracture Procedures PRO REMOVAL OF BREAST IMPLANT REMOVAL OF INTACT MAMMARY IMPLANT-SHERRY (WRVU 6.48) Referral ID Status Reason Start Date Expiration Date Visits Re quested Visits Authorized [id number] 1 1 Encounter Details Date Type Department Care Team (Latest Contact Info) Description 11/18/2016 7:13 AM EDT - 11/18/2016 10:37 AM EDT Hospital Encounter [place] [address] Nas Tabor MD [facility] [place] [address] Discharge Disposition: Home Social History Tobacco Use [...] closest emergency room or call the hospital dry house operator at [phone] and ask for physician occupational health professional covering for your physician. Questions or problems after 5pm or on a weekend: Call the [facility] dry house operator at and ask for the physician occupational health professional covering for your doctor. SAME DAY SURGERY [...] hours) * Patient Instructions* John Sulma Vlad, DEBUBBLIZER - 11/18/2016 7:50 AM EDT Post-Op Instructions [...] your surgical site. ??? Do not use uivy-qlf-eatgasf lotions, solutions, or herbal preparations on your [...] about scheduling, please contact our administrative officesat [phone] For clinical questions, please call our nurses at [phone] Both offices are open Friday thru Friday 8a - 5p. With emergencies after hours, call the hospital dry house operator at [phone] and ask for the Plastic Surgery Resident occupational health professional. documented in this encounter Medications at Time [...] Tabor MD - 11/18/2016 9:32 AM EDT [facility] Operative Note Patient Name: Olga Grey : [id number] MR#: [id number] Case Date: 11/18/2016 Surgeon: Surgeon(s) and Role: [...] OF SURGERY: 11/18/16 ATTENDING: Dr. Nas Tabor DIRECTOR NURSERY SCHOOL: Sul[employer] Lopez INDICATION FOR SURGERY: The patient [...] Operative Note Patient Name: Olga Grey : [id number] MR#: [id number] Case Date: 11/18/2016 Surgeon: Surgeon(s) and Role: [...] Report (11/18/2016 8:35 AM EDT) Final Diagnosis [id number] ?Location: [facility] The signing pathologist has (i) [...] ng: ??(R1) ??sns 11/20/2016 12:54 PM EDT [facility] BREAST STRUCTURE / Unknown 11/18/2016 8:35 AM EDT 11/18/2016 8:35 AM EDT BREAST STRUCTURE / Unknown 11/18/2016 8:35 AM EDT 11/18/2016 8:35 AM EDT Narrative Authorizing Provider Result Eddy Tabor MD PATHOLOGY/CYTOLOGY [place] Performing Organization Address [facility] [place] [address] * Specimen to Pathology (surgical or derm) (11/18/2016 8:35 AM EDT) AP Specimen 11/18/2016 8:35 AM EDT 11/18/2016 8:35 AM EDT Narrative [facility] - 11/18/2016 8:35 AM EDT Specimen requisition ordered. ??Separate Pathology report to follow Nas Tabor MD PATHOLOGY/CYTOLOGY [place] Performing Organization Address [facility] [place] [address] * Specimen to Pathology (surgical or derm) (11/18/2016 8:35 AM EDT) AP Specimen 11/18/2016 8:35 AM EDT 11/18/2016 8:35 AM EDT Narrative [facility] - 11/18/2016 8:35 AM EDT Specimen requisition ordered. ??Separate Pathology report to follow Authorizing Provider Result Eddy Tabor MD PATHOLOGY/CYTOLOGY [place] Performing Organization Address [facility] [place] [address] documented in this encounter Visit Diagnoses Not [...] Routine documented in this encounter Care Teams Credit Representative Relationship Specialty Start Date End Date Camilla Peres APRN [address] [place] [address] PCP - General Family Medicine 10/02/16 07/18/21 documented as of this encounter
--- OUTSIDE RECORDS SUMMARY | 2024-05-01 13:57 | XMS_ITS | Encounter Summary ---
Author Organization [facility] Address [facility] [place] [address] Care Team Providers Care Embedded Developer Name Role Phone Lisa Martin DO Primary Care Provider [phone] Encounter Details Date Type Department Care Team [...] on filedocumented in this encounter Care Teams Embedded Developer Relationship Specialty Start Date End Date Lisa Martin DO [address] [place] [address] PCP - General Family Medicine 07/19/21 documented as of this encounter
--- OUTSIDE RECORDS SUMMARY | 2024-05-01 13:57 | XMS_ITS | Encounter Summary ---
Author Organization [facility] Address [address] [place] [address] Care Team Providers Care 3D Designer Name Role Phone Unknown, Provider Primary Care Provider [phone] Encounter Details Date Type Department Care Team (Late st Contact Info) Description 05/27/2023 Lab Requisition [facility] Pathology & Laboratory Medicine - [facility] [address] [place] [address] Outr Resulting Lab, Provider Social History Tobacco [...] gonorrhoeae Result Negative Negative 05/28/2023 13:27 EDT [facility] Chlamydia trachomatis Result Negative Negative 05/28/2023 13:27 EDT [facility] Swab VAGINAL STRUCTURE / Unknown 05/26/2023 13:40 EDT 05/27/2023 18:07 EDT Provider Outr Resulting Lab MICROBIOLOGY - GENERAL ORDERABLES [facility] [address] [place] [address] documented in this encounter Visit Diagnoses Not on filedocumented in this encounter Care Teams 3D Designer Relationship Specialty Start Date End Date Unknown, Provider, PCP - General 07/01/15 documented as of this encounter
--- OUTSIDE RECORDS SUMMARY | 2024-05-01 13:57 | XMS_ITS | Encounter Summary ---
Author Organization [facility] Address [address] [place] [address] Care Team Providers Care Kit Assembler Name Role Phone Unknown, Provider Primary Care Provider Encounter Details Date Type Department Care Team (Late st Contact Info) Description 01/30/2022 Lab Requisition [facility] Pathology & Laboratory Medicine - [facility] [address] [place], [place] [address] Outr Resulting Lab, Provider Social History Tobacco [...] 55.8 - 66.1 % 01/31/2022 13:36 EDT [facility] Albumin g/dL 4.5 3.6 - 5.2 g/dL 01/31/2022 13:36 EDT [facility] Alpha-1 % 3.6 2.9 - 4.9 % 01/31/2022 13:36 [facility] Alpha-1 g/dL 0.30 0.15 - 0.40 g/dL 01/31/2022 13:36 [facility] Alpha-2 % 8.5 7.1 - 11.8 % 01/31/2022 13:36 [facility] Alpha-2 g/dL 0.60 0.50 - 1.00 g/dL 01/31/2022 13:36 [facility] Beta % 11.5 8.4 - 13.1 % 01/31/2022 13:36 [facility] Beta g/dL 0.80 0.60 - 1.20 g/dL 01/31/2022 13:36 [facility] Gamma % 13.8 11.1 - 18.8 % 01/31/2022 13:36 [facility] Gamma g/dL 1.00 0.60 - 1.60 g/dL 01/31/2022 13:36 [facility] SPEP Comment No apparent monoclonal protein seen on serum electrophoresis 01/31/2022 13:36 [facility] Comment:See scanned/suppleme ntary report. Total Protein 7.2 6.3 - 8.2 g/dL 01/31/2022 13:36 [facility] Blood VENOUS BLOOD / Unknown 01/30/2022 12:30 EDT 01/30/2022 22:16 EDT Provider Outr Resulting Lab CHEMISTRY & BLOOD GAS ORDERABLES [facility] [address] [place] [address] * PROTEIN, TOTAL (01/30/2022 12:30 EDT) Blood VENOUS BLOOD / Unknown 01/30/2022 12:30 EDT 01/30/2022 22:16 EDT Provider Outr Resulting Lab CHEMISTRY & BLOOD GAS ORDERABLES [facility] [address] [place] [address] documented in this encounter Visit Diagnoses Not on filedocumented in this encounter Care Teams Kit Assembler Relationship Specialty Start Date End Date Unknown, Provider, PCP - General 07/01/15 documented as of this encounter
--- OUTSIDE RECORDS SUMMARY | 2024-05-01 13:57 | XMS_ITS | Encounter Summary ---
[place] [address] Care Team Providers Care Petroleum Engineer Name Role Phone Camilla Peres FRANCES Primary Care Provider [phone] Encounter Details Date Type Department Care Team (Late st Contact Info) Description 09/26/2017 12:24 PM EST Anesthesia Event [place] [address] Augustine Manuel MD [facility] [place] [address] Blanche Gilbert CRNA [facility] DR [place] [address] Anesthesia Record Procedure Summary Procedure Name Responsible [...] Time: 1403 09/26/17 1235 by Blanche Gilbert, AUTO HAULER 09/26/17 1403 by Blanche Gilbert CRNA Incision [...] 10.62) performed by Nas Tabor MD at [facility] ??? PRO REMOVAL OF BREAST IMPLANT Bilateral 11/18/2016 REMOVAL OF INTACT MAMMARY IMPLANT-SHERRY (WRVU 6.48) performed by Nas Tabor MD at [facility] Social History Substance Use Topics ??? [...] mg documented in this encounter Care Teams Petroleum Engineer Relationship Specialty Start Date End Date Camilla Peres, SILK PRESSER [address] [place] [address] [address] [place] [address] PCP - General Family Medicine 10/02/16 07/18/21 documented as of this encounter
--- OUTSIDE RECORDS SUMMARY | 2024-05-01 13:57 | XMS_ITS | Encounter Summary ---
Author Organization [facility] Address [address] [place] [address] Care Team Providers Care Micrographics Services Supervisor Name Role Phone Unknown, Provider Primary Care Provider [phone] Encounter Details Date Type Department Care Team (Late st Contact Info) Description 01/08/2021 Lab Requisition [facility] Pathology & Laboratory Medicine - [facility] [address] [place] [address] Outr Resulting Lab, Provider Social History Tobacco [...] Outr Resulting Lab MICROBIOLOGY - GENERAL ORDERABLES [facility] [address] [place] [address] * COVID-19 TESTING (01/08/2021 11:25 EDT) COVID-19 rt-PCR Result Negative Negative 01/09/2021 1:28 EDT [facility] Comment: This test has [...] history, and epidemiological information. Performed on the [employer] Gaming[employer] Fusion instrument Performing Lab [place] 01/09/2021 1:28 EDT [facility] Swab 01/08/2021 11:2 5 EDT 01/08/2021 16:13 EDT Provider Outr Resulting Lab MICROBIOLOGY - GENERAL ORDERABLES [facility] [address] [place] [address] documented in this encounter Visit Diagnoses Not on filedocumented in this encounter Care Teams Micrographics Services Supervisor Relationship Specialty Start Date End Date Unknown, Provider, PCP - General 07/01/15 documented as of this encounter
--- OUTSIDE RECORDS SUMMARY | 2024-05-01 13:57 | XMS_ITS | Encounter Summary ---
Author Organization [facility] Address [address] [place] [address] Care Team Providers Care Industrial Relations Representative Name Role Phone Unknown, Provider Primary Care Provider Encounter Details Date Type Department Care Team (Late st Contact Info) Description 11/10/2019 Lab Requisition [facility] Pathology & Laboratory Medicine - [facility] [address] [place], [place] [address] Beto Mendez MD [address] [place] [address] Encounter for other general examination Social [...] Not Detected Not Detected 11/15/2019 7:59 EDT [facility] Comment:Assayed by [employer] Swab ENTIRE NASOPHARYNX / Unknown 11/04/2019 11:18 EDT 11/10/2019 10:45 EDT Beto Mendez MD MICROBIOLOGY - GENE [facility] GENERAL ORDERABLES [facility] [address] [place] [address] documented in this encounter Visit Diagnoses Diagnosis Encounter for other general examination documented in this encounter Care Teams Industrial Relations Representative Relationship Specialty Start Date End Date Unknown, Provider, PCP - General 07/01/15 documented as of this encounter
--- OUTSIDE RECORDS SUMMARY | 2024-05-01 13:57 | XMS_ITS | Encounter Summary ---
Author Organization [facility] [place] [address] Care Team Providers Care Acquisition Consultant Name Role Phone Camilla Peres FRANCES Primary Care Provider [phone] Encounter Details Date Type Department Care Team (Late st Contact Info) Description 09/29/2017 Telephone [place] [address] Savi Camejo RN Social History Tobacco Use [...] be ruled out by her PCP or data reduction technician. I also explained that any neck stiffness [...] on filedocumented in this encounter Care Teams Acquisition Consultant Relationship Specialty Start Date End Date Camilla Peres APRN [address] [place] [address] PCP - General Family Medicine 10/02/16 07/18/21 documented as of this encounter
--- OUTSIDE RECORDS SUMMARY | 2024-05-01 13:57 | XMS_ITS | Encounter Summary ---
[place] [address] Care Team Providers Care Radiology Nurse Name Role Phone Camilla Peres FRANCES Primary Care Provider [phone] Reason for Visit * Reason Comments Follow Up Surgery drain removal Encounter Details Date Type Department Care Team (Latest Contact Info) Description 11/22/2016 9:00 AM EDT Clinical Support [place] [address] Surgery follow-up Social History Tobacco Use Types [...] symptoms please call our nurse's line at [phone] M - F 8 - 5 documented [...] surgery documented in this encounter Care Teams Radiology Nurse Relationship Specialty Start Date End Date Camilla Peres APRN [address] [place] [address] PCP - General Family Medicine 10/02/16 07/18/21 documented as of this encounter
--- OUTSIDE RECORDS SUMMARY | 2024-05-01 13:58 | XMS_ITS | Encounter Summary ---
Author Organization [facility] Address [address] [place] [address] Care Team Providers Care Boomboat Operator Name Role Phone Unavailable Primary Care Provider Unavailabl e Encounter Details Date Type Department Care Team (Late st Contact Info) Description 01/28/2002 Results Only [facility] [address] [place] [address] Ig[address]ia Knox [address] [place] [id number] Social History Tobacco Use Types Packs/Day Years [...] ? RENZOLUCY COTTER ? Accession #: ? [id number] : ? 1980 (Age: 21) ??F ?Collect [...] Knox CNM PATHOLOGY ORDERABLES [facility]ON[facility] SANABRIA [address] [place] [address] documented in this encounter Visit Diagnoses Not on filedocumented in this encounter
--- OUTSIDE RECORDS SUMMARY | 2024-05-01 13:58 | XMS_ITS | Encounter Summary ---
Author Organization [facility] Address [address] [place] [address] Care Team Providers Care Roof Bolter Name Role Phone Unavailable Primary Care Provider Unavailabl e Encounter Details Date Type Department Care Team (Late st Contact Info) Description 01/18/2000 Results Only [facility] [place] [facility] [address] [place] [address] Wesley Randhawa MD [address] [place], [place] [id number] Social History Tobacco Use Types Packs/Day Years [...] ? LUCY GREY ? Accession #: ? [id number] ? : ? 1980 (Age: 19) ??F [...] the endometrial tissue, suggesting chronic endometritis. ??(Dr. Goncalves)/[facility] Document reviewed and electronically signed by: Genesis Goncalves MD Report ??Date: 01/23/2000 16:01 By the signature above, the attending physician certifies that he/she has personally conducted a gross and/or microscopic examination of the described specimens and rendered or confirmed the above diagnosis. Specimen(s) Received: ? [facility] Clinical History: ? Pelvic pain Gross Description: ? Received in formalin labelled [facility] and #1 [facility] are multiple red-brown irregular soft tissue fragments aggregating 5.0 x 5.0 x 1.0 cm. ??The specimen is entirely submitted as (A1) through (A6). ??(Sourav Harris/loly End of Report TONY SANABRIA 01/18/2000 01/22/2000 9:3 2 EDT Wesley Randhawa MD PATHOLOGY ORDERABLES [facility]ON[facility] SANAB[facility]A [address] [place] [address] documented in this encounter Visit Diagnoses Not on filedocumented in this encounter
--- OUTSIDE RECORDS SUMMARY | 2024-05-01 13:58 | XMS_ITS | Encounter Summary ---
Author Organization [facility] Address [address] [place] [address] Care Team Providers Care Director Of Surgery Name Role Phone Unavailable Primary Care Provider Unavailabl e Encounter Details Date Type Department Care Team (Late st Contact Info) Description 02/25/2003 Results Only [facility] [address] [place] [address] Iglesia Knox [address] [place] [id number] Social History Tobacco Use Types Packs/Day Years [...] ? RENZOLUCY COTTER ? Accession #: ? [id number] : ? 1980 (Age: 22) ??F ?Collect [...] Knox CNM PATHOLOGY ORDERABLES TONY SANABRIA [address] [place] [address] documented in this encounter Visit Diagnoses Not on filedocumented in this encounter
[2024-05-01 14:09] LABS: ALT 28 U/L (14-59); AST 18 U/L (15-37); Albumin 3.8 g/dL (3.4-5.0); Alkaline Phosphatase 57 U/L (46-116); Anion Gap 9.7 mmol/L (3-11); BUN 8 mg/dL (7-18); Bilirubin, Total 0.36 mg/dL (0.2-1.0); CO2 25.3 mmol/L (21.0-32.0); CREATININE 0.8 mg/dL (0.55-1.02); Calcium 9.4 mg/dL (8.5-10.1); Chloride 104 mmol/L (98-107); Glucose 113 mg/dL (74-106); Lipase 20 U/L (16-77); Magnesium 1.8 mg/dL (1.8-2.4); Potassium 3.4 mmol/L (3.5-5.1); Sodium 139 mmol/L (136-145); Total Protein 7.5 g/dL (6.4-8.2)
[2024-05-01] MEDS: Normal Saline - Diluent 50 ML VIAL IJ (14:20)
[2024-05-01] MEDS: Omnipaque 350 MG/ML 100 ML BTL 85 ML IJ (14:21)
[2024-05-01 14:51] VITALS: BP 107/60; PULSE 89; RESP 20; O2SAT 97
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
[2024-05-01 15:44] VITALS: BP 120/74; PULSE 84; RESP 18; O2SAT 97
== END 2024-05-01 15:47 | disposition home or self-care (01) ==
PROVIDERS: Emergency Provider Emergency Medicine; PCP Student in an Organized Health Care Education/Training Program
DX: R10.30 Lower abdominal pain, unspecified (principal); R10.2 Pelvic and perineal pain; N83.201 Unspecified ovarian cyst, right side; R63.5 Abnormal weight gain; Z97.5 Presence of (intrauterine) contraceptive device; F17.210 Nicotine dependence, cigarettes, uncomplicated
CPT/HCPCS: 36415; 80053; 81025; 83690; 96374; 99285; 74177; 81003; 83735; 85025; 99284; J1885; J3490

== ENCOUNTER 2024-05-17 15:23 | Outpatient (REF) | payer OTHER, SELFPAY ==
[2024-05-17 13:35] LABS: C Diff PCR Negative (Negative)
--- OUTSIDE RECORDS SUMMARY | 2024-05-17 15:35 | XMS_ITS | Clinical Summary ---
Author Organization [facility] Address [facility] [place] [address] Care Team Providers Care Slab Tripper Name Role Phone Lisa Martin Primary Care Provider [phone] Allergies No known active allergies Medications Medication [...] Hepatitis B vaccine (0-59 yrs) (1) 1999 Tetanus/Diphtheria/Pertussis Vaccines (1 - Tdap) 08/11 HPV test 2010 PAP Smear 2010 Breast [...] have questions please contact the health healthcare corporate account director that requested your imaging first. ? Electronically signed by: Michelle Birmingham MD, [facility] ([phone]), at 04/19/2022 11:38 AM Diana Ordoñez APRN [...] capacity to make decision: Yes Care Teams Slab Tripper Relationship Specialty Start Date End Date Lisa Martin DO [address] [place] [address] PCP - General Family Medicine 07/19/21
--- OUTSIDE RECORDS SUMMARY | 2024-05-17 15:35 | XMS_ITS | Encounter Summary ---
Author Organization [facility] Address [facility] [place] [address] Care Team Providers Care Hydrate Control Tender Name Role Phone Camilla Peres FRANCES Primary Care Provider [phone] Encounter Details Date Type Department Care Team (Late st Contact Info) Description 10/02/2017 9:00 AM EST Office Visit [place] [address] Sergio Banegas PA [facility] [place] [address] Parotid mass Social History Tobacco Use Types [...] Banegas PA - 10/02/2017 9:00 AM EST [facility] Otolaryngology - Head and Neck Surgery Sergio Banegas PA-C 10/02/17 [place] [address] Office Patient Name: Olga Grey Date of [...] regarding their treatment. Sergio Banegas PA-C 10/02/2017 [place], [place] [address] Office documented in this encounter Plan of Treatment Not on file documented as of this encounter Visit Diagnoses Diagnosis Parotid mass Swelling, mass, or lump in head and neck documented in this encounter Care Teams Hydrate Control Tender Relationship Specialty Start Date End Date Camilla Peres APRN [address] [place] [address] PCP - General Family Medicine 10/02/16 07/18/21 documented as of this encounter
--- OUTSIDE RECORDS SUMMARY | 2024-05-17 15:35 | XMS_ITS | Encounter Summary ---
[place] [address] Care Team Providers Care Loan Officer Name Role Phone Camilla Peres FRANCES Primary Care Provider [phone] Encounter Details Date Type Department Care Team (Late st Contact Info) Description 09/26/2017 12:24 PM EST Anesthesia Event [place] [address] Augustine Manuel MD [facility] [place] [address] Blanche Gilbert CRNA [facility] [place] [address] Anesthesia Record Procedure Summary Procedure Name Responsible [...] cubital vein (antecubital fossa), right; 20 gauge; Rcohelle Quesada; distraction, intradermal injection; Location1: (select this [...] Time: 1403 09/26/17 1235 by Blanche Gilbert, VACUUM DRIER TENDER 09/26/17 1403 by Blanche Gilbert CRNA Incision [...] 10.62) performed by Nas Tabor MD at [facility] ??? PRO REMOVAL OF BREAST IMPLANT Bilateral 11/18/2016 REMOVAL OF INTACT MAMMARY IMPLANT-SHERRY (WRVU 6.48) performed by Nas Tabor MD at [facility] Social History Substance Use Topics [...] mg documented in this encounter Care Teams Loan Officer Relationship Specialty Start Date End Date Camilla Peres, SENIOR TEST ANALYST [address] [place] [address] [address] [place] [address] PCP - General Family Medicine 10/02/16 07/18/21 documented as of this encounter
--- OUTSIDE RECORDS SUMMARY | 2024-05-17 15:35 | XMS_ITS | Encounter Summary ---
Author Organization [facility]ly [facility], 1928–[address] [place] [address] Care Team Providers Care Billet Header Name Role Phone Camilla Peres FRANCES Primary Care Provider [phone] Encounter Details Date Type Department Care Team (Late st Contact Info) Description 09/29/2017 Telephone [place] [phone] Savi Camejo RN Social History Tobacco Use [...] be ruled out by her PCP or continuous improvement facilitator. I also explained that any neck stiffness [...] on filedocumented in this encounter Care Teams Billet Header Relationship Specialty Start Date End Date Camilla Peres APRN [address] [place] [address] PCP - General Family Medicine 10/02/16 07/18/21 documented as of this encounter
--- OUTSIDE RECORDS SUMMARY | 2024-05-17 15:35 | XMS_ITS | Encounter Summary ---
Author Organization [facility] [place] [address] Care Team Providers Care Char Conveyor Tender Name Role Phone Lisa Martin DO Primary Care Provider [phone] Reason for Visit * Reason Comments Neck [...] n&t/ MRI 07/17/22 in eDH/ EMG 01/2022 @[facility]/ no relief w/PT Lisa Martin, DO [address] [place] [address] [facility] [place] [address] Referral ID Status Reason Start Date Expiration Date V isits Requested Visits Authorized [id number] Closed Consult, Test & Treat PCP Updated and/or Approved 07/23/2022 07/23/2023 6 6 Encounter Details Date Type Department Care Team (Latest Contact Info) Description 07/30/2022 8:00 AM EST Office Visit [place] [address] Mckenna Jolley APRN [facility] [place] [address] Neck pain; Left cervical radiculopathy Social History [...] this encounter Progress Notes * Mckenna Jolley, SOFTWARE CLIENT ARCHITECT - 07/30/2022 8:00 AM EST Center for [...] no improvement. She has been evaluated by [facility] neurosurgery who did not find enough nerve [...] left. 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 reports that she has been smoking. She has never used smokeless tobacco. Conservative Treatment: Physical Therapy: None Home Exercise Program: Independent as tolerated Medications: Ibuprofen, Biofreeze, [place] balm Other: Chiropractic manipulation Injections: 1. None [...] DO Referring Provider: Lisa Jolley APRN 07/30/2022 [facility] Center for Pain [facility] Spine documented in this encounter Plan of Treatment Not on file documented as of this encounter Visit Diagnoses Diagnosis Neck pain Cervicalgia Left cervical radiculopathy Brachial neuritis or radiculitis nos documented in this encounter Care Teams Char Conveyor Tender Relationship Specialty Start Date End Date Lisa Martin DO [address] [place] [address] PCP - General Family Medicine 07/19/21 documented as of this encounter
--- OUTSIDE RECORDS SUMMARY | 2024-05-17 15:35 | XMS_ITS | Encounter Summary ---
Author Organization [facility] [place] [address] Care Team Providers Care Bath Mix Operator Name Role Phone Lisa Martin DO Primary Care Provider [phone] Encounter Details Date Type Department Care Team (Late st Contact Info) Description 10/17/2021 Ancillary Procedure Radiology Library at [facility] [place] [id number] Lisa Martin, DO [address] [place], [place] [id number] Social History Tobacco Use Types Packs/Day Years [...] MR Spine (10/17/2021 12:00 AM EST) Narrative [facility] - 11/01/2021 11:41 AM EDT This exam is auto-finalizing. It's purpose is for storage only. Lisa Martin DO [facility] FILM LIBRARY O RDERABLES DH [place], [place] documented in this encounter Visit Diagnoses Not on filedocumented in this encounter Care Teams Bath Mix Operator Relationship Specialty Start Date End Date Lisa Martin DO [address] [place] [address] PCP - General Family Medicine 07/19/21 documented as of this encounter
--- OUTSIDE RECORDS SUMMARY | 2024-05-17 15:35 | XMS_ITS | Encounter Summary ---
[place] [address] Care Team Providers Care Coffee Taster Name Role Phone Lisa Martin Primary Care Provider [phone] Encounter Details Date Type Department Care Team (Late st Contact Info) Description 04/19/2022 10:00 AM EDT - 04/19/2022 11:59 PM EDT Hospital Encounter [place] [address] Diana Ordoñez, GULLET SLITTER [address] [place] [address] Mastodynia Discharge Disposition: Home Social History Tobacco [...] have questions please contact the health healthcare receptionist that requested your imaging first. ? Diana Ordoñez APRN IMG MAMMO ORDERAB LES documented in this encounter Visit Diagnoses Diagnosis Mastodynia documented in this encounter Care Teams Coffee Taster Relationship Specialty Start Date End Date Lisa Martin DO [address] [place] [address] PCP - General Family Medicine 07/19/21 documented as of this encounter
--- OUTSIDE RECORDS SUMMARY | 2024-05-17 15:35 | XMS_ITS | Encounter Summary ---
Author Organization [facility] Address [facility] [place] [address] Care Team Providers Care Outside Collector Name Role Phone Lisa Martin DO Primary Care Provider [phone]- [phone] Encounter Details Date Type Department Care Team [...] on filedocumented in this encounter Care Teams Outside Collector Relationship Specialty Start Date End Date Lisa Martin DO [address] [place] [address] PCP - General Family Medicine 07/19/21 documented as of this encounter
--- OUTSIDE RECORDS SUMMARY | 2024-05-17 15:35 | XMS_ITS | Encounter Summary ---
Author Organization [facility] [place] [address] Care Team Providers Care Veneer Measurer Name Role Phone Lisa Martin DO Primary Care Provider [phone] Encounter Details Date Type Department Care Team (Late st Contact Info) Description 07/17/2022 Ancillary Procedure Radiology Library at [facility] [place] [phone] Lisa Martin, DO [address] [place], [place] [id number] Social History Tobacco Use Types Packs/Day Years [...] is for storage only. Lisa Martin DO [facility] FILM LIBRARY O RDERABLES DH [place], [place] documented in this encounter Visit Diagnoses Not on filedocumented in this encounter Care Teams Veneer Measurer Relationship Specialty Start Date End Date Lisa Martin DO [address] [facility] [place] [address] PCP - General Family Medicine 07/19/21 documented as of this encounter
--- OUTSIDE RECORDS SUMMARY | 2024-05-17 15:35 | XMS_ITS | Encounter Summary ---
Author Organization [facility] Address [facility] [place] [address] Care Team Providers Care Director Engineering Name Role Phone Camilla Peres FRANCES Primary Care Provider [phone] Encounter Details Date Type Department Care Team (Late st Contact Info) Description 09/26/2017 12:51 PM EST - 09/26/2017 3:50 PM EST Surgery [place] [address] Nas Herrera MD [facility] [place] [address] EXC.PAROTID TUMOR OR GLAND, LATERAL LOBE, W [...] -You can reach the ENT clinic at [phone] for appointment questions. -The ENT triage nurse is available at [phone] -For urgent issues during evenings and weekends the ENT resident aerodynamic consultant can be reached through [facility] sheeter waxer operator at [phone] Follow Up: You will need to follow [...] Herrera MD - 09/26/2017 2:00 PM EST [facility] Operative Note Patient Name: Olga Grey : [id number] MR#: [id number] Case Date: 09/26/2017 Surgeon: Surgeon(s) and Role: [...] Info Order Time SPECIMEN TO PATHOLOGY OR#2 Ex:[id number]. parotid mass RIGHT parotid mass Excision 09/26/2017 [...] The incision was injected with 1% xylocaine 1:[id number] epinephrine and the made with a 15 [...] PM EST 09/26/2017 2:15 PM EST Narrative [facility] - 09/26/2017 2:15 PM EST Specimen requisition ordered. ??Separate Pathology report to follow Resulting Agency Comment Spec In Lab Nas Herrera MD PATHOLOGY/CYTOLOGY ORDERABLES Performing Organization Address City/State/[facility] Co de Phone Number [facility] [place] [address] * Surgical Pathology Report (09/26/2017 1:32 PM EST) Final Diagnosis [id number] ? Location: [facility]; The signing pathologist has (i) examined the relevant preparation(s) for the specimen(s) and (ii) rendered or confirmed the diagnosis(es). . 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 Electronically signed by: ??Leti Travis DO Verified: ??10/01/2017 ?Pathologist Performed at: ??-[facility] Dept. of Pathology, [place], [place] CLINICAL INFORMATION Specimen Submitted: A - Right parotid mass Clinical History: Parotid mass Clinical Diagnosis: Parotid mass SPECIMEN PROCESSING A - Labeled/Fixativ e: Right parotid mass, fresh. Quantity/Size: Single, 1.0 x 0.7 x 0.6 cm. Tissue Description: Ovoid, buckley-white cystic structure, on section with pale white fluid. Sections/Proces sing: Inked and trisected. (T1) ??pps 10/01/2017 10:10 AM EST [facility] PAROTID GLAND STRUCTURE / Unknown 09/26/2017 1:32 PM EST 09/26/2017 1:32 PM EST Nas Herrera MD PATHOLOGY/CYTOLOGY ORDERABLES [facility] [place] [address] documented in this encounter Visit Diagnoses Diagnosis [...] MD) documented in this encounter Care Teams Director Engineering Relationship Specialty Start Date End Date Camilla Peres, IN HOME AIDE [address] [place] [address] [address] [place] [address] PCP - General Family Medicine 10/02/16 07/18/21 documented as of this encounter
--- OUTSIDE RECORDS SUMMARY | 2024-05-17 15:35 | XMS_ITS | Encounter Summary ---
[place] [address] Care Team Providers Care Duster Tender Name Role Phone Lisa Martin DO Primary Care Provider [phone] Reason for Referral * Consultation (Routine) - Closed Specialty Diagnoses / Procedures Referred By Contac t Referred To Contact Pain and Spine Center Diagnoses Anesthesia of skin Cervicalgia Other cervical disc displacement, unspecified cervical region Spine- Neck pain radiates down L arm w/ n&t/ MRI 07/17/22 in eDH/ EMG 01/2022 @[facility]/ no relief w/PT Lisa Martin DO [address] [place] [address] [facility] [place] [address] Referral ID Status Reason Start Date Expiration Date V isits Requested Visits Authorized [id number] Closed Consult, Test & Treat PCP Updated and/or Approved 07/23/2022 07/23/2023 6 6 Encounter Details Date Type Department Care Team (Latest Contact Info) Description 07/23/2022 Transcribe Orders eDH Incoming Referrals [phone] Lisa Martin DO [address] [place], [place] [address] Anesthesia of skin; Cervicalgia; Other cervical disc [...] region documented in this encounter Care Teams Duster Tender Relationship Specialty Start Date End Date Lisa Martin DO [address] [place] [address] PCP - General Family Medicine 07/19/21 documented as of this encounter
--- OUTSIDE RECORDS SUMMARY | 2024-05-17 15:36 | XMS_ITS | Encounter Summary ---
[place] [address] Care Team Providers Care Food Specialist Name Role Phone Camilla Peres FRANCES Primary Care Provider [phone] Reason for Visit * Reason Comments Follow Up Surgery drain removal Encounter Details Date Type Department Care Team (Latest Contact Info) Description 11/22/2016 9:00 AM EDT Clinical Support [place] [address] Surgery follow-up Social History Tobacco Use Types [...] symptoms please call our nurse's line at [phone] M - F 8 - 5 documented [...] surgery documented in this encounter Care Teams Food Specialist Relationship Specialty Start Date End Date Camilla Peres APRN [address] [place] [address] PCP - General Family Medicine 10/02/16 07/18/21 documented as of this encounter
--- OUTSIDE RECORDS SUMMARY | 2024-05-17 15:36 | XMS_ITS | Encounter Summary ---
Author Organization [facility] Address [address] [place] [address] Care Team Providers Care Retoucher Photoengraving Name Role Phone Unavailable Primary Care Provider Unavailabl e Encounter Details Date Type Department Care Team (Late st Contact Info) Description 09/17/2012 Results Only [facility] [phone] Bry Posada MD [address] [facility] [place] [address] Social History Tobacco Use Types Packs/Day Years [...] ? LUCY GREY ? Accession #: ? [id number] ? : ? 1980 (Age: 32) ??F [...] types 16,18,31,33,35, 39,45,51,52,56,58, 59,66, and 68 by director of quality control mediated amplification. Comments Document reviewed and electronically signed by: ? System Interface ? Report date: 09/30/2012 By the signature above, the attending physician certifies that he/she has personally conducted a gross and/or microscopic examination of the described specimens and rendered or confirmed the above diagnosis. End of Report [facility] 09/17/2012 09/21/2012 Bry Posada MD PATHOLOGY ORDERABLES [facility] [address] [place] [address] documented in this encounter Visit Diagnoses Not on filedocumented in this encounter
--- OUTSIDE RECORDS SUMMARY | 2024-05-17 15:36 | XMS_ITS | Encounter Summary ---
[place] [address] Care Team Providers Care Acquisition Lead Name Role Phone None Primary Care Provider Unavailabl e Reason for Visit * Reason Comments Neck And Shoulder Pain numbness all the way to fingers LeFT side Encounter Details Date Type Department Care Team (Latest Contact Info) Description 06/16/2014 9:20 AM EDT [place] [address] Wesley Cortes MD [facility] [place] [address] Herniation of cervical intervertebral disc with radiculopathy [...] myelopathy documented in this encounter Care Teams Acquisition Lead Relationship Specialty Start Date End Date None None PCP - General 05/05/13 10/01/16 documented as of this encounter
--- OUTSIDE RECORDS SUMMARY | 2024-05-17 15:36 | XMS_ITS | Clinical Summary ---
Author Organization [facility] Address [address] [place] [address] Care Team Providers Care Jalousies Installer Name Role Phone Unknown, Provider Primary Care Provider [phone] Social History Tobacco Use Types Packs/Day Years [...] COVID-19 Vaccine ( season) 2023 Care Teams Jalousies Installer Relationship Specialty Start Date End Date Unknown, Provider, PCP - General 07/01/15
--- OUTSIDE RECORDS SUMMARY | 2024-05-17 15:36 | XMS_ITS | Encounter Summary ---
[place] [address] Care Team Providers Care Entry Level Chemist Name Role Phone TerellCamilla yang Sheri DANIELS Primary Care Provider [phone] Reason for Visit * Auth/Cert Specialty Diagnoses / Procedures Referred By Jones nogueira Referred To Contact Diagnoses Capsular contracture of breast implant, initial encounter Bilateral capsular contracture Procedures PRO REMOVAL OF BREAST IMPLANT REMOVAL OF INTACT MAMMARY IMPLANT-SHERRY (WRVU 6.48) Referral ID Status Reason Start Date Expiration Date Visits Re quested Visits Authorized [id number] 1 1 Encounter Details Date Type Department Care Team (Latest Contact Info) Description 11/18/2016 7:13 AM EDT - 11/18/2016 10:37 AM EDT Hospital Encounter [place] [address] Nas Tabor MD [facility] [place] [address] Discharge Disposition: Home Social History Tobacco Use [...] closest emergency room or call the hospital tag meter operator at [phone] and ask for physician fire control technician b covering for your physician. Questions or problems after 5pm or on a weekend: Call the [facility] tag meter operator at and ask for the physician fire control technician b covering for your doctor. SAME DAY SURGERY [...] hours) * Patient Instructions* John Sulma Vlad, CONSUMER LENDER - 11/18/2016 7:50 AM EDT Post-Op Instructions [...] your surgical site. ??? Do not use brkq-kxp-epcddpe lotions, solutions, or herbal preparations on your [...] about scheduling, please contact our administrative officesat [phone] For clinical questions, please call our nurses at [phone] Both offices are open Friday thru Friday 8a - 5p. With emergencies after hours, call the hospital tag meter operator at [phone] and ask for the Plastic Surgery Resident fire control technician b. documented in this encounter Medications at Time [...] Tabor MD - 11/18/2016 9:32 AM EDT [facility] Operative Note Patient Name: Olga Grey : [id number] MR#: [id number] Case Date: 11/18/2016 Surgeon: Surgeon(s) and Role: [...] OF SURGERY: 11/18/16 ATTENDING: Dr. Nas Tabor MOBILITY DEVELOPER: Sulma Lopez INDICATION FOR SURGERY: The patient [...] Operative Note Patient Name: Olga Grey : [id number] MR#: [id number] Case Date: 11/18/2016 Surgeon: Surgeon(s) and Role: [...] Report (11/18/2016 8:35 AM EDT) Final Diagnosis [id number] ?Location: [facility] The signing pathologist has (i) [...] MD PATHOLOGY/CYTOLOGY O [place] Performing Organization Address [facility] [place] [address] * Specimen to Pathology (surgical or derm) (11/18/2016 8:35 AM EDT) AP Specimen 11/18/2016 8:35 AM EDT 11/18/2016 8:35 AM EDT Narrative [facility] - 11/18/2016 8:35 AM EDT Specimen requisition ordered. ??Separate Pathology report to follow Nas Tabor MD PATHOLOGY/CYTOLOGY [place] Performing Organization Address [facility] [place] [address] * Specimen to Pathology (surgical or derm) (11/18/2016 8:35 AM EDT) AP Specimen 11/18/2016 8:35 AM EDT 11/18/2016 8:35 AM EDT Narrative [facility] - 11/18/2016 8:35 AM EDT Specimen requisition ordered. ??Separate Pathology report to follow Authorizing Provider Result Eddy Tabor MD PATHOLOGY/CYTOLOGY [place] Performing Organization Address [facility] [place] [address] documented in this encounter Visit Diagnoses Not [...] Routine documented in this encounter Care Teams Entry Level Chemist Relationship Specialty Start Date End Date Camilla Peres APRN [address] [place] [address] PCP - General Family Medicine 10/02/16 07/18/21 documented as of this encounter
--- OUTSIDE RECORDS SUMMARY | 2024-05-17 15:36 | XMS_ITS | Encounter Summary ---
Author Organization [facility] Address [address] [place] [address] Care Team Providers Care Teacher Citizenship Name Role Phone Unknown, Provider Primary Care Provider [phone] Encounter Details Date Type Department Care Team (Late st Contact Info) Description 12/12/2021 Lab Requisition [facility] Pathology & Laboratory Medicine - [facility] [address] [place] [address] Haleigh Amaro, [address] [place] [address] Encounter for other general examination [...] types, PCR Negative Negative 12/14/2021 22:39 EDT [facility] Comment:No E6 or E7 mRNA is detected from HPV types 16,18,31,33,35,39,45,51,52,56,58,59,66, and 68 by corridor redevelopment manager mediated amplification. Papanicolaou smear specimen (specimen) CERVIX UTERI STRUCTURE / Unknown 12/11/2021 14:15 EDT 12/14/2021 10:39 EDT Haleigh Amaro DIRECTOR BUSINESS TRAVEL MICROBIOLOGY - GENER AL ORDERABLES [facility] [address] [place] [address] * PAP TEST (12/11/2021 14:15 EDT) Specimens A. Cervix and/or Endocervix , ThinPrep Imaging System with Manual Evaluation 12/14/2021 22:40 EDT [facility] Specimen Adequacy Satisfactory for Evaluation - transformation zone component present 12/14/2021 22:40 EDT [facility] General Categorization Negative for intraepithelial lesion or malignancy 12/14/2021 22:40 T [facility] Attestation . 12/14/2021 22:40 T [facility] at 2239 Clinical History See below 12/15/19 22:40 T [facility] HPV The result for the Human Papillomavirus (HPV) Detection-High Risk Types is Negative. No E6 or E7 mRNA is detected from HPV types 16,18,31,33,35,39 ,45,51,52,56,58,5 9,66, and 68 by corridor redevelopment manager mediated amplification.Kyara ting was performed on specimen [id number] and was resulted on 12/14/2021 2235 EDT by ABE, LAB INSTRUMENT RESULTS IN 12/14/2021 22:40 EDT [facility] Performing Lab [facility] 12/14/2021 22:40 EDT [facility] Scanned Images 12/14/2021 22:40 EDT [facility] Papanicolaou smear specimen (specimen) CERVIX UTERI STRUCTURE / Unknown 12/11/2021 14:15 EDT 12/12/2021 8:59 EDT Haleigh Amaro DIRECTOR BUSINESS TRAVEL PATHOLOGY ORDERABLES [facility] [address] [place] [address] documented in this encounter Visit Diagnoses Diagnosis Encounter for other general examination documented in this encounter Care Teams Teacher Citizenship Relationship Specialty Start Date End Date Unknown, Provider, PCP - General 07/01/15 documented as of this encounter
--- OUTSIDE RECORDS SUMMARY | 2024-05-17 15:36 | XMS_ITS | Encounter Summary ---
Author Organization [facility] Address [address] [place] [address] Care Team Providers Care Die Cast Operator Name Role Phone Unknown, Provider Primary Care Provider [phone] Encounter Details Date Type Department Care Team (Late st Contact Info) Description 11/05/2019 Lab Requisition [facility] Pathology & Laboratory Medicine - [facility] [address] [place] [address] Beto Mendez MD [address] [place] [phone] Encounter for other general examination Social [...] examination documented in this encounter Care Teams Die Cast Operator Relationship Specialty Start Date End Date Unknown, Provider, PCP - General 07/01/15 documented as of this encounter
--- OUTSIDE RECORDS SUMMARY | 2024-05-17 15:36 | XMS_ITS | Encounter Summary ---
Author Organization [facility] Address [address] [place] [address] Care Team Providers Care Label Rewinder Name Role Phone Unknown, Provider Primary Care Provider [phone] Encounter Details Date Type Department Care Team (Late st Contact Info) Description 12/11/2021 Lab Requisition [facility] Pathology & Laboratory Medicine - [facility] [address] [place] [address] Outr Resulting Lab, Provider Social History Tobacco [...] gonorrhoeae Result Negative Negative 12/13/2021 14:42 EDT [facility] Chlamydia trachomatis Result Negative Negative 12/13/2021 14:42 EDT [facility] Swab ENTIRE ENDOCERVIX / Unknown 12/11/2021 14:15 EDT 12/12/2021 16:59 EDT Provider Outr Resulting Lab MICROBIOLOGY - GENERAL ORDERABLES [facility] [address] [place] [address] documented in this encounter Visit Diagnoses Not on filedocumented in this encounter Care Teams Label Rewinder Relationship Specialty Start Date End Date Unknown, Provider, PCP - General 07/01/15 documented as of this encounter
--- OUTSIDE RECORDS SUMMARY | 2024-05-17 15:36 | XMS_ITS | Encounter Summary ---
Author Organization [facility] Address [address] [place] [address] Care Team Providers Care Esthetics Instructor Name Role Phone Unknown, Provider Primary Care Provider [phone] Encounter Details Date Type Department Care Team (Late st Contact Info) Description 09/13/2021 Lab Requisition [facility] Pathology & Laboratory Medicine - [facility] [address] [place] [address] Outr Resulting Lab, Provider Social History Tobacco [...] Resulting Lab MICROBIOLOGY - GENERAL ORDERABLES [facility] [address] [place] [address] * COVID-19 TESTING (09/12/2021 11:00 EST) COVID-19 rt-PCR Result Negative Negative 09/13/2021 19:16 EST [facility] Comment: This test [...] history, and epidemiological information. Performed on the Data [employer]entry [employer]her Fusion instrument Performing Lab [facility] 09/13/2021 19:16 EST [facility] Swab 09/12/2021 11:0 0 EST 09/13/2021 16:25 EST Provider Outr Resulting Lab MICROBIOLOGY - GENERAL ORDERABLES [facility] [address] [place] [address] documented in this encounter Visit Diagnoses Not on filedocumented in this encounter Care Teams Esthetics Instructor Relationship Specialty Start Date End Date Unknown, Provider, PCP - General 07/01/15 documented as of this encounter
--- OUTSIDE RECORDS SUMMARY | 2024-05-17 15:36 | XMS_ITS | Encounter Summary ---
Author Organization [facility] Address [address] [place] [address] Care Team Providers Care Expediter Service Order Name Role Phone Unavailable Primary Care Provider Unavailabl e Encounter Details Date Type Department Care Team (Late st Contact Info) Description 01/30/2009 Orders Only [facility] Laboratory Services - [facility] [address] [place], [place] [id number] Ana Patel PA Social History Tobacco Use [...] ? SOPHIA LUCY ? Accession #: ? [id number] ? : ? 1980 (Age: 28) ??F [...] Ana OSBORNE PATHOLOGY ORDERABLES Performing Organization Address City/State/[facility] Co de Phone Number TONY SANABRIA [address] [place] [address] documented in this encounter Visit Diagnoses Not on filedocumented in this encounter
--- OUTSIDE RECORDS SUMMARY | 2024-05-17 15:36 | XMS_ITS | Encounter Summary ---
Author Organization [facility] Address [address] [place] [address] Care Team Providers Care Blue Leather Setter Name Role Phone Unavailable Primary Care Provider Unavailabl e Encounter Details Date Type Department Care Team (Late st Contact Info) Description 01/28/2002 Results Only [facility] [address] [place] [address] Iglesia Knox [address] [place], [place] [id number] Social History Tobacco Use Types Packs/Day Years [...] ? RENZOLUCY COTTER ? Accession #: ? [id number] : ? 1980 (Age: 21) ??F ?Collect [...] Knox CNM PATHOLOGY ORDERABLES TONY SANABRIA [address] [place] [address] documented in this encounter Visit Diagnoses Not on filedocumented in this encounter
--- OUTSIDE RECORDS SUMMARY | 2024-05-17 15:36 | XMS_ITS | Encounter Summary ---
Author Organization [facility] Address [address] [place] [address] Care Team Providers Care Tool Procurement Coordinator Name Role Phone Unavailable Primary Care Provider Unavailabl e Encounter Details Date Type Department Care Team (Late st Contact Info) Description 01/18/2000 Results Only [facility] [address] [place] [address] Wesley Randhawa MD [address] [place], [place] [id number] Social History Tobacco Use Types Packs/Day Years [...] ? LUCY GREY ? Accession #: ? [id number] ? : ? 1980 (Age: 19) ??F [...] the endometrial tissue, suggesting chronic endometritis. ??(Dr. Goncalves)/[facility] Document reviewed and electronically signed by: Genesis Goncalves MD Report ??Date: 01/23/2000 16:01 By the signature above, the attending physician certifies that he/she has personally conducted a gross and/or microscopic examination of the described specimens and rendered or confirmed the above diagnosis. Specimen(s) Received: ? [facility] Clinical History: ? Pelvic pain Gross Description: ? Received in formalin labelled [facility] and #1 [facility] are multiple red-brown irregular soft tissue fragments aggregating 5.0 x 5.0 x 1.0 cm. ??The specimen is entirely submitted as (A1) through (A6). ??(Sourav Harris/loly End of Report TONY SANABRIA 01/18/2000 01/22/2000 9:3 2 EDT Wesley Randhawa MD PATHOLOGY ORDERABLES TONY SANABRIA [address] [place] [address] documented in this encounter Visit Diagnoses Not on filedocumented in this encounter
--- OUTSIDE RECORDS SUMMARY | 2024-05-17 15:36 | XMS_ITS | Encounter Summary ---
Author Organization [facility] Address [facility] [place] [address] Care Team Providers Care Tunnel Miner Name Role Phone Camilla Peres FRANCES Primary Care Provider [phone] Encounter Details Date Type Department Care Team (Latest Contact Info) Description 08/13/2017 - 08/13/2017 11:59 PM EST Hospital Encounter Radiology Library at [facility] [place] [phone] Nas Herrera MD [facility] [place] [address] Discharge Disposition: Home Social History Tobacco Use [...] Herrera MD IMG FILM LIBRARY O RDERABLES [place], [place] documented in this encounter Visit Diagnoses Not on filedocumented in this encounter Care Teams Tunnel Miner Relationship Specialty Start Date End Date Camilla Peres APRN [address] [place] [address] PCP - General Family Medicine 10/02/16 07/18/21 documented as of this encounter
--- OUTSIDE RECORDS SUMMARY | 2024-05-17 15:36 | XMS_ITS | Encounter Summary ---
Author Organization [facility] [address] Care Team Providers Care Utility Worker Film Processing Name Role Phone Camilla Peres FRANCES Primary Care Provider [phone] Encounter Details Date Type Department Care Team (Latest Contact Info) Description 09/26/2017 10:45 AM EST - 09/26/2017 3:15 PM EST Hospital Encounter [place] [address] [facility] [place] [address] Parotid mass Discharge Disposition: Home Social History [...] -You can reach the ENT clinic at [phone] for appointment questions. -The ENT triage nurse is available at [phone] -For urgent issues during evenings and weekends the ENT resident inside solar sales consultant can be reached through [facility] at [phone] Follow Up: You will need to follow [...] Herrera MD - 09/26/2017 2:00 PM EST [facility] Operative Note Patient Name: Olga Grey : [id number] MR#: [id number] Case Date: 09/26/2017 Surgeon: Surgeon(s) and Role: [...] Info Order Time SPECIMEN TO PATHOLOGY OR#2 Ex:[id number]. parotid mass RIGHT parotid mass Excision 09/26/2017 [...] The incision was injected with 1% xylocaine 1:[id number] epinephrine and the made with a 15 [...] In Lab Nas Herrera MD PATHOLOGY/CYTOLOGY ORDERABLES [facility] [place] [address] * Surgical Pathology Report (09/26/2017 1:32 PM EST) Final Diagnosis [id number] ? Location: [facility]; The signing pathologist has (i) examined the relevant preparation(s) for the specimen(s) and (ii) rendered or confirmed the diagnosis(es). . 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 Electronically signed by: ??Leti Travis DO Verified: ??10/01/2017 ?Pathologist Performed at: ??-[facility] Dept. of Pathology, [place], [place] CLINICAL INFORMATION Specimen Submitted: A - [...] MD PATHOLOGY/CYTOLOGY ORDERABLES [facility] [place] [address] documented in this encounter Visit Diagnoses Diagnosis [...] MD) documented in this encounter Care Teams Utility Worker Film Processing Relationship Specialty Start Date End Date Camilla Peres APRN [address] [place] [address] PCP - General Family Medicine 10/02/16 07/18/21 documented as of this encounter
--- OUTSIDE RECORDS SUMMARY | 2024-05-17 15:36 | XMS_ITS | Encounter Summary ---
Author Organization [facility] Address [address] [place] [address] Care Team Providers Care Supervisory Examiner Name Role Phone Unknown, Provider Primary Care Provider [phone] Encounter Details Date Type Department Care Team (Late st Contact Info) Description 07/12/2020 Lab Requisition [facility] Pathology & Laboratory Medicine - [facility] [address] [place] [address] Outr Resulting Lab, Provider Social History Tobacco [...] gonorrhoeae Result Negative Negative 08/03/2020 15:02 EST [facility] Chlamydia trachomatis Result Negative Negative 08/03/2020 15:02 EST [facility] Swab ENTIRE WALL OF CERVIX / Unknown 06/14/2020 15:40 EDT 08/02/2020 8:22 EST Provider Outr Resulting Lab MICROBIOLOGY - GENERAL ORDERABLES [facility] [address] [place] [address] documented in this encounter Visit Diagnoses Not on filedocumented in this encounter Care Teams Supervisory Examiner Relationship Specialty Start Date End Date Unknown, Provider, PCP - General 07/01/15 documented as of this encounter
--- OUTSIDE RECORDS SUMMARY | 2024-05-17 15:36 | XMS_ITS | Encounter Summary ---
Author Organization [facility] Address [address] [place] [address] Care Team Providers Care Prop Setter Name Role Phone Unknown, Provider Primary Care Provider [phone] Encounter Details Date Type Department Care Team (Late st Contact Info) Description 01/08/2021 Lab Requisition [facility] Pathology & Laboratory Medicine - [facility] [address] [place] [address] Outr Resulting Lab, Provider Social History Tobacco [...] Outr Resulting Lab MICROBIOLOGY - GENERAL ORDERABLES [facility] [address] [place] [address] * COVID-19 TESTING (01/08/2021 11:25 EDT) COVID-19 rt-PCR Result Negative Negative 01/09/2021 1:28 EDT [facility] Comment: This test has [...] history, and epidemiological information. Performed on the [employer] Fusion instrument Performing Lab [place] [facility] Lab 01/09/2021 1:28 EDT [facility] Swab 01/08/2021 11:2 5 EDT 01/08/2021 16:13 EDT Provider Outr Resulting Lab MICROBIOLOGY - GENERAL ORDERABLES [facility] [address] [place] [address] documented in this encounter Visit Diagnoses Not on filedocumented in this encounter Care Teams Prop Setter Relationship Specialty Start Date End Date Unknown, Provider, PCP - General 07/01/15 documented as of this encounter
--- OUTSIDE RECORDS SUMMARY | 2024-05-17 15:36 | XMS_ITS | Encounter Summary ---
[place] [address] Care Team Providers Care Custodial Manager Name Role Phone None Primary Care Provider Unavailabl e Reason for Visit * Reason Comments Neck Pain Encounter Details Date Type Department Care Team (Latest Contact Info) Description 05/26/2014 8:15 AM EDT Office [place] [phone] Wesley Cortes MD [facility] [place] [address] Herniation of cervical intervertebral disc with radiculopathy [...] would like you to sign up for [facility], which will give you secure online access to your electronic medical record at [facility] and the ability to communicate with your [...] the instructions. Here is your activation code: [email or web address] Expires: 07/10/2014 8:51 AM Remember, myD-H is [...] Nothing has made her symptoms better including skin care consultant, oral steroids, or gabapentin. She has had [...] MEDICATION ALLERGIES. 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 Family history includes hypertension, diabetes, and also [...] maneuver. DIAGNOSTIC DATA: MRI dated 05/25/[address] [facility] demonstrates cervical spondylosis at C5-C6, cervical [...] myelopathy documented in this encounter Care Teams Custodial Manager Relationship Specialty Start Date End Date None None PCP - General 05/05/13 10/01/16 documented as of this encounter
--- OUTSIDE RECORDS SUMMARY | 2024-05-17 15:36 | XMS_ITS | Encounter Summary ---
Author Organization [facility] Address [address] [place] [address] Care Team Providers Care Boring Machine Operator Helper Name Role Phone Unknown, Provider Primary Care Provider Encounter Details Date Type Department Care Team (Late st Contact Info) Description 05/27/2023 Lab Requisition [facility] Pathology & Laboratory Medicine - [facility] [address] [place] [address] Outr Resulting Lab, Provider Social History Tobacco [...] gonorrhoeae Result Negative Negative 05/28/2023 13:27 EDT [facility] Chlamydia trachomatis Result Negative Negative 05/28/2023 13:27 EDT [facility] Swab VAGINAL STRUCTURE / Unknown 05/26/2023 13:40 EDT 05/27/2023 18:07 EDT Provider Outr Resulting Lab MICROBIOLOGY - GENERAL ORDERABLES [facility] [address] [place] [address] documented in this encounter Visit Diagnoses Not on filedocumented in this encounter Care Teams Boring Machine Operator Helper Relationship Specialty Start Date End Date Unknown, Provider, PCP - General 07/01/15 documented as of this encounter
--- OUTSIDE RECORDS SUMMARY | 2024-05-17 15:36 | XMS_ITS | Encounter Summary ---
[place] [address] Care Team Providers Care Skin Drier Name Role Phone Camilla Peres APRN Primary Care Provider [phone] Encounter Details Date Type Department Care Team (Late st Contact Info) Description 09/15/2017 [place] [phone] Raya Santiago Social History Tobacco Use Types [...] on filedocumented in this encounter Care Teams Skin Drier Relationship Specialty Start Date End Date Camilla Peres APRN [address] [place] [address] PCP - General Family Medicine 10/02/16 07/18/21 documented as of this encounter
--- OUTSIDE RECORDS SUMMARY | 2024-05-17 15:36 | XMS_ITS | Encounter Summary ---
Author Organization [facility] Address [address] [place] [address] Care Team Providers Care Retail Office Manager Name Role Phone Unavailable Primary Care Provider Unavailabl e Encounter Details Date Type Department Care Team (Late st Contact Info) Description 08/27/2007 Results Only [facility] conversion [address] [place] [address] Ana Patel PA Social History Tobacco Use [...] ? LUCY GREY ? Accession #: ? [id number] : ? 1980 (Age: 27) ??F ?Collect Date: ? 08/27/2007 Location: ? [facility] ? Receive Date: ? 08/28/2007 Provider: ?ANA OSBORNE Copy to: ? Specimen/Source: ?ThinPrep Pap Test, Endocervix, processed on [employer] ThinPrep Imaging System, with manual evaluation Last [...] Ana OSBORNE PATHOLOGY ORDERABLES TONY SANABRIA [address] [place] [address] documented in this encounter Visit Diagnoses Not on filedocumented in this encounter
--- OUTSIDE RECORDS SUMMARY | 2024-05-17 15:36 | XMS_ITS | Encounter Summary ---
Author Organization [facility] Address [address] [place] [address] Care Team Providers Care Police Detective Name Role Phone Unknown, Provider Primary Care Provider [phone] Encounter Details Date Type Department Care Team (Late st Contact Info) Description 11/10/2019 Lab Requisition [facility] Pathology & Laboratory Medicine - [facility] [address] [place], [place] [address] Beto Mendez MD [address] [place] [phone] Encounter for other general examination Social [...] Not Detected Not Detected 11/15/2019 7:59 EDT [facility] Comment:Assayed by [employer] Swab ENTIRE NASOPHARYNX / Unknown 11/04/2019 11:18 EDT 11/10/2019 10:45 EDT Beto Mendez MD MICROBIOLOGY - [facility] ORDERABLES [facility] [address] [place] [address] documented in this encounter Visit Diagnoses Diagnosis Encounter for other general examination documented in this encounter Care Teams Police Detective Relationship Specialty Start Date End Date Unknown, Provider, PCP - General 07/01/15 documented as of this encounter
--- OUTSIDE RECORDS SUMMARY | 2024-05-17 15:36 | XMS_ITS | Encounter Summary ---
Author Organization [facility] Address [address] [place] [address] Care Team Providers Care Cold Strip Roller Name Role Phone Unknown, Provider Primary Care Provider [phone] Encounter Details Date Type Department Care Team (Late st Contact Info) Description 11/09/2019 Lab Requisition [facility] Pathology & Laboratory Medicine - [facility] [address] [place], [place] [address] Beto Mendez MD [address] [place] [phone] Encounter for other general examination Social [...] 11:06 EDT) COVID-19 Result 0 8:33 EDT [facility] Comment:Specimen quantity no t sufficient for analysis. Testing not performed. Swab ENTIRE NASOPHARYNX / Unknown Not Given / Unknown 11/09/2019 11:06 EDT 11/09/2019 15:56 EDT Beto Mendez MD MICROBIOLOGY - [facility] ORDERABLES [facility] [address] [place] [address] documented in this encounter Visit Diagnoses Diagnosis Encounter for other general examination documented in this encounter Care Teams Cold Strip Roller Relationship Specialty Start Date End Date Unknown, Provider, PCP - General 07/01/15 documented as of this encounter
--- OUTSIDE RECORDS SUMMARY | 2024-05-17 15:36 | XMS_ITS | Encounter Summary ---
Author Organization [facility] Address [address] [place] [address] Care Team Providers Care Smash Piecer Name Role Phone Unknown, Provider Primary Care Provider Encounter Details Date Type Department Care Team (Late st Contact Info) Description 10/17/2020 Lab Requisition [facility] Pathology & Laboratory Medicine - [facility] [address] [place] [address] Outr Resulting Lab, Provider Social History Tobacco [...] gonorrhoeae Result Negative Negative 10/18/2020 13:59 EST [facility] Chlamydia trachomatis Result Negative Negative 10/18/2020 13:59 EST [facility] Swab ENTIRE ENDOCERVIX / Unknown 10/17/2020 10:15 EST 10/17/2020 17:17 EST Provider Outr Resulting Lab MICROBIOLOGY - GENERAL ORDERABLES [facility] [address] [place] [address] documented in this encounter Visit Diagnoses Not on filedocumented in this encounter Care Teams Smash Piecer Relationship Specialty Start Date End Date Unknown, Provider, PCP - General 07/01/15 documented as of this encounter
--- OUTSIDE RECORDS SUMMARY | 2024-05-17 15:36 | XMS_ITS | Encounter Summary ---
[place] [address] Care Team Providers Care Gallery Or Museum Guide Name Role Phone TerellCamilla yang Sheri DANIELS Primary Care Provider [phone] Reason for Visit * Auth/Cert Specialty Diagnoses / Procedures Referred By Jones nogueira Referred To Contact Diagnoses Capsular contracture of breast implant, initial encounter Bilateral capsular contracture Procedures PRO REMOVAL OF BREAST IMPLANT REMOVAL OF INTACT MAMMARY IMPLANT-SHERRY (WRVU 6.48) Referral ID Status Reason Start Date Expiration Date Visits Re quested Visits Authorized [id number] 1 1 Encounter Details Date Type Department Care Team (Late st Contact Info) Description 11/18/2016 7:58 AM EDT Anesthesia Event [place] [address] [facility] [place] [address] Anesthesia Record Procedure Summary Procedure Name Responsible [...] 0745; median cubital vein (antecubital fossa), right; [id number]-[id number] catheter system; 20 gauge, 1 in length; [...] Mathews DO - 11/18/2016 12:53 PM EDT [facility] Department of Anesthesiology Post-procedure Note Patient: Olga Grey Procedure Summary Date Anesthesia Start Anesthesia Stop Room / Location 11/18/16 0758 0916 [facility] OR [address] [place] [address] [facility] Procedure Diagnosis Surgeon Responsible Provider REMOVAL OF INTACT MAMMARY IMPLANT-SHERRY (WRVU 6.48) (Bilateral Breast); BREAST, PERIPROSTHETIC CAPSULECTOMY, SHERRY (WRVU 10.62) (Bilateral Breast) (Bilateral capsular contracture) Nas Tabor MD Walker, Tacee E, DO All Anesthesia Providers: Anesthesiologist: Tra Mathews DO IS/IT PROJECT MANAGER: Damaris Castellanos CRNA Last (1hr) Vitals: BP Temp Pulse Resp SpO2 Patient Location: PACU/[facility] Level of Consciousness: Awake and Alert Pain [...] risks discussed with patient. Plan discussed with IS/IT PROJECT MANAGER. PAT Staff Note documented in this encounter [...] mL/hr documented in this encounter Care Teams Gallery Or Museum Guide Relationship Specialty Start Date End Date Camilla Peres, MIXOLOGIST [address] [place] [address] [address] [place] [address] PCP - General Family Medicine 10/02/16 07/18/21 documented as of this encounter
--- OUTSIDE RECORDS SUMMARY | 2024-05-17 15:36 | XMS_ITS | Encounter Summary ---
Author Organization [facility] Address [facility] [place] [address] Care Team Providers Care File Clerk Data Entry Name Role Phone None Primary Care Provider Unavailabl e Encounter Details Date Type Department Care Team (Latest Contact Info) Description 06/16/2014 9:13 AM EDT - 06/16/2014 11:59 PM EDT Hospital Encounter XRay at [address] [place] [address] Herniation of cervical intervertebral disc with radiculopathy [...] myelopathy documented in this encounter Care Teams File Clerk Data Entry Relationship Specialty Start Date End Date None None PCP - General 05/05/13 10/01/16 documented as of this encounter
--- OUTSIDE RECORDS SUMMARY | 2024-05-17 15:36 | XMS_ITS | Encounter Summary ---
Author Organization [facility] [place] [address] Care Team Providers Care Stratigrapher Name Role Phone None Primary Care Provider Unavailabl e Reason for Visit * Reason Comments Dizziness Encounter Details Date Type Department Care Team (Late st Contact Info) Description 05/05/2013 2:14 PM EDT - 05/05/2013 9:34 PM EDT [place] [address] Bere Lynch MD [facility] [address] [place] [address] Yamile Reina MD [facility] [address] [place] [address] Chronic headache; Dizziness; Weight loss; Ptosis; RUQ [...] a dedicated primary care physician, preferably an hot mill worker, to help you find the cause of [...] is awaiting MRI probably around 1900. * Aad Beyer RN - 05/05/2013 4:30 PM EDT [...] weeks). Her care is primarily delivered at [facility], where she sees a neurologist, Dr. Woo. Relevant to her present complaint was an ER ER note from [facility] dated 03/12/13 reveals a CCof dizziness, also [...] seizures, tingling or paraesthesias. OSH Labs (05/03/13, [facility]) CBC WBC 5.3, Hb 16.1, [...] and place. Normal, fluid speech. Mood euthymic. coat baster II-XII fully tested, see ENT exam for ophthalmic coat baster, otherwise no deficits 2+ and symmetric DTRs. Scattered sensory differences, largely left lower extremity. Abnormal Romberg, difficulty with tandem gait. FTN and rapid alternating movements intact. Otherwise normal gait. Labs: Recent Results (from the past 24 hour(s)) POCT URINE Component Value Range POC Urine HCG Negative Negative - Negative POC Control Internal Controls Acceptable POCT URINE DIPSTICK Component Value Range POC Sp [place] 1.020 1.002 - 1.030 POC pH, UA [...] visits to both her neurologist and her edge kitter, the latter feeling this was not an IIH flare and that she may benefit from PRODUCE MANAGER imaging. Exam reveals positive Romberg (present in February), anisocoria, and ptosis, as well as telangiectasias and RUQ tenderness. Labs from 2 days ago/[facility] remarkable for high MCV and transaminitis. MRI [...] with a primary care doctor, preferably an hot mill worker, to take over management of her care. Currently she will follow with her neurologist to review the results of her MRI and indications for further neurologic workup and treatment. That said, Ms. Grey will be seeking new primary care in her area concomitant with this. -Jamison Grewal, Resident Dept of Internal Medicine Pgr [phone] This case supervised by Dr. Yamile Reina, [facility] ED Jamison Grewal Jr., MD Resident 05/05/13 4197 ED ATTENDING ADDENDUM: The patient was seen [...] by a neurologist and eye physician (out [facility]). Was told this week that she needs [...] process. BUN 6/Cr 0.83 on 05/03/13 [facility] With and without gadolinium contrast if at [...] process. BUN 6/Cr 0.83 on 05/03/13 [facility] With andwithout gadolinium contrast if at all [...] dipstick (05/05/2013 2:42 PM EDT) POC Sp [place] 1.020 1.002 - 1.030 POC pH, UA [...] Jr.) documented in this encounter Care Teams Stratigrapher Relationship Specialty Start Date End Date None None PCP - General 05/05/13 10/01/16 documented as of this encounter
--- OUTSIDE RECORDS SUMMARY | 2024-05-17 15:36 | XMS_ITS | Encounter Summary ---
Author Organization [facility] Address [address] [place] [address] Care Team Providers Care Mailroom Personnel Name Role Phone Unknown, Provider Primary Care Provider [phone] Encounter Details Date Type Department Care Team (Late st Contact Info) Description 01/30/2022 Lab Requisition [facility] Pathology & Laboratory Medicine - [facility] [address] [place], [place] [address] Outr Resulting Lab, Provider Social History Tobacco [...] 55.8 - 66.1 % 01/31/2022 13:36 EDT [facility] Albumin g/dL 4.5 3.6 - 5.2 g/dL 01/31/2022 13:36 EDT [facility] Alpha-1 % 3.6 2.9 - 4.9 % 01/31/2022 13:36 [facility] Alpha-1 g/dL 0.30 0.15 - 0.40 g/dL 01/31/2022 13:36 [facility] Alpha-2 % 8.5 7.1 - 11.8 % 01/31/2022 13:36 [facility] Alpha-2 g/dL 0.60 0.50 - 1.00 g/dL 01/31/2022 13:36 [facility] Beta % 11.5 8.4 - 13.1 % 01/31/2022 13:36 [facility] Beta g/dL 0.80 0.60 - 1.20 g/dL 01/31/2022 13:36 [facility] Gamma % 13.8 11.1 - 18.8 % 01/31/2022 13:36 [facility] Gamma g/dL 1.00 0.60 - 1.60 g/dL 01/31/2022 13:36 [facility] SPEP Comment No apparent monoclonal protein seen on serum electrophoresis 01/31/2022 13:36 [facility] Comment:See scanned/suppleme ntary report. Total Protein 7.2 6.3 - 8.2 g/dL 01/31/2022 13:36 [facility] Blood VENOUS BLOOD / Unknown 01/30/2022 12:30 EDT 01/30/2022 22:16 EDT Provider Outr Resulting Lab CHEMISTRY & BLOOD GAS ORDERABLES [facility] [address] [place] [address] * PROTEIN, TOTAL (01/30/2022 12:30 EDT) Blood VENOUS BLOOD / Unknown 01/30/2022 12:30 EDT 01/30/2022 22:16 EDT Provider Outr Resulting Lab CHEMISTRY & BLOOD GAS ORDERABLES [facility] [address] [place] [address] documented in this encounter Visit Diagnoses Not on filedocumented in this encounter Care Teams Mailroom Personnel Relationship Specialty Start Date End Date Unknown, Provider, PCP - General 07/01/15 documented as of this encounter
--- OUTSIDE RECORDS SUMMARY | 2024-05-17 15:36 | XMS_ITS | Referral Summary ---
Author Organization [facility] Address [address] [place] [address] Care Team Providers Care Mailing Clerk Name Role Phone Unknown, Provider Primary Care Provider Social History Tobacco Use Types Packs/Day Years Used Date Smoking Tobacco: Never Assessed Sex and Gender Information Value Date Recorded Sex Assigned at Not on file Gender Identity Not on file Sexual Orientation Not on file Plan of Treatment Not on file Care Teams Mailing Clerk Relationship Specialty Start Date End Date Unknown, Provider, PCP - General 07/01/15
--- OUTSIDE RECORDS SUMMARY | 2024-05-17 15:36 | XMS_ITS | Encounter Summary ---
Author Organization [facility] Address [address] [place] [address] Care Team Providers Care Jammer Operator Name Role Phone Unavailable Primary Care Provider Unavailabl e Encounter Details Date Type Department Care Team (Late st Contact Info) Description 04/23/2013 Results Only [facility] Laboratory Services - [facility] ([facility]) [address] [place], [place] [id number] Karishma Cummins MD [address] [place] [address] [place] [address] Social History Tobacco Use Types Packs/Day Years [...] ? RENZOLUCY COTTER ? Accession #: ? [id number] ? : ? 1980 (Age: 32) ??F [...] types 16,18,31,33,35, 39,45,51,52,56,58, 59,66, and 68 by web development director mediated amplification. Comments Document reviewed and electronically signed by: ? System Interface ? Report date: 04/30/2013 By the signature above, the attending physician certifies that he/she has personally conducted a gross and/or microscopic examination of the described specimens and rendered or confirmed the above diagnosis. End of Report [facility] 04/23/2013 04/27/2013 Karishma Cummins MD PATHOLOGY ORDERABLES Performing Organization Address City/State/[facility] Co de Phone Number [facility] [address] [place] [phone] documented in this encounter Visit Diagnoses Not on filedocumented in this encounter
--- OUTSIDE RECORDS SUMMARY | 2024-05-17 15:36 | XMS_ITS | Encounter Summary ---
Author Organization [facility] Address [address] [place] [address] Care Team Providers Care Apprentice Embalmer Name Role Phone Unknown, Provider Primary Care Provider [phone] Encounter Details Date Type Department Care Team (Late st Contact Info) Description 03/31/2017 Results Only [facility] [phone] Haleigh Amaro, [facility] [address] [place] [address] [place] [address] Social History Tobacco Use Types [...] ? LUCY GREY ? Accession #: ? [id number] ? : ? 1980 (Age: 36) ??F ?Collect Date: ? 03/31/2017 ? Location: ? [facility] ? Receive Date: ? 04/01/2017 ? Provider: HALEIGH AMARO BACK OFFICE MEDICAL ASSISTANT Copy to: DL DÍAZ MD ? Final [...] types 16,18,31,33,35, 39,45,51,52,56,58, 59,66, and 68 by box person mediated amplification. Comments Document reviewed and electronically signed by: ? System Interface ? Report date: 04/09/2017 By the signature above, the attending physician certifies that he/she has personally conducted a gross and/or microscopic examination of the described specimens and rendered or confirmed the above diagnosis. End of Report [facility] 03/31/2017 04/01/2017 Haleigh Amaro BACK OFFICE MEDICAL ASSISTANT PATHOLOGY ORDERABLES [facility] [address] [place] [address] documented in this encounter Visit Diagnoses Not on filedocumented in this encounter Care Teams Apprentice Embalmer Relationship Specialty Start Date End Date Unknown, Provider, PCP - General 07/01/15 documented as of this encounter
--- OUTSIDE RECORDS SUMMARY | 2024-05-17 15:36 | XMS_ITS | Encounter Summary ---
Author Organization [facility] Address [address] [place] [address] Care Team Providers Care Public Policy Professor Name Role Phone Unknown, Provider Primary Care Provider [phone] Encounter Details Date Type Department Care Team (Late st Contact Info) Description 01/30/2021 Lab Requisition [facility] Pathology & Laboratory Medicine - [facility] [address] [place] [address] Outr Resulting Lab, Provider Social History Tobacco [...] Lyme Ab Negative Negative 01/31/2021 11:00 EDT [facility] Comment:New 3rd generation a ssay in use 01/26/2020 Blood VENOUS BLOOD / Unknown 01/30/2021 12:06 EDT 01/30/2021 16:12 EDT Provider Outr Resulting Lab IMMUNOLOGY A ND SEROLOGY ORDERABLES [facility] [address] [place] [address] documented in this encounter Visit Diagnoses Not on filedocumented in this encounter Care Teams Public Policy Professor Relationship Specialty Start Date End Date Unknown, Provider, PCP - General 07/01/15 documented as of this encounter
--- OUTSIDE RECORDS SUMMARY | 2024-05-17 15:36 | XMS_ITS | Encounter Summary ---
Author Organization Pending Sale To [facility] Address [facility] [facility] [place] [address] Care Team Providers Care E Commerce Director Name Role Phone Camilla Peres FRANCES Primary Care Provider [phone] Reason for Visit * Reason Comments Advice Only implant removal cons ult, ? leaking, pain Encounter Details Date Type Department Care Team (Late st Contact Info) Description 10/02/2016 4:00 PM EST Office [place] [address] Nas Tabor MD [facility] [place] [address] Breast implant capsular contracture Social History Tobacco [...] she got them. 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 At this point [...] Timeframe: elective Procedure: Bilateral implant removal CPT: 22266, 73223 Surgical site: breasts Side: bilateral Anesthesia: General [...] implant documented in this encounter Care Teams E Commerce Director Relationship Specialty Start Date End Date Camilla Peres APRN [address] [place] [address] PCP - General Family Medicine 10/02/16 07/18/21 documented as of this encounter
--- OUTSIDE RECORDS SUMMARY | 2024-05-17 15:36 | XMS_ITS | Encounter Summary ---
[place] [address] Care Team Providers Care Broadcast Journalist Name Role Phone TerellCamilla yang Sheri DANIELS Primary Care Provider [phone] Reason for Visit * Auth/Cert Specialty Diagnoses / Procedures Referred By Jones nogueira Referred To Contact Diagnoses Capsular contracture of breast implant, initial encounter Bilateral capsular contracture Procedures PRO REMOVAL OF BREAST IMPLANT REMOVAL OF INTACT MAMMARY IMPLANT-SHERRY (WRVU 6.48) Referral ID Status Reason Start Date Expiration Date Visits Re quested Visits Authorized [id number] 1 1 Encounter Details Date Type Department Care Team (Late st Contact Info) Description 11/18/2016 8:15 AM EDT - 11/18/2016 9:30 AM EDT Surgery Outpatient [place] [address] Nas Tabor MD [facility] [place] [address] REMOVAL OF INTACT MAMMARY IMPLANT-SHERRY (WRVU 7.44) [...] closest emergency room or call the hospital sewage screen operator at [phone] and ask for physician promotions coordinator covering for your physician. Questions or problems after 5pm or on a weekend: Call the [facility] sewage screen operator at and ask for the physician promotions coordinator covering for your doctor. SAME DAY SURGERY [...] 24 hours) * Patient Instructions* Sulma Lopez, BURN CREW MEMBER - 11/18/2016 7:50 AM EDT Post-Op Instructions [...] your surgical site. ??? Do not use mcmj-rjq-dhmkvmb lotions, solutions, or herbal preparations on your [...] about scheduling, please contact our administrative officesat [phone] For clinical questions, please call our nurses at [phone] Both offices are open Friday thru Friday 8a - 5p. With emergencies after hours, call the hospital sewage screen operator at [phone] and ask for the Plastic Surgery Resident promotions coordinator. documented in this encounter Medications at Time [...] Tabor MD - 11/18/2016 9:32 AM EDT [facility] Operative Note Patient Name: Olga Grey : [id number] MR#: [id number] Case Date: 11/18/2016 Surgeon: Surgeon(s) and Role: [...] SURGERY: 11/18/16 ATTENDING: Dr. Nas Tabor DIRECTOR OF SEARCH ENGINE MARKETING: Sulma Lopez INDICATION FOR SURGERY: The patient [...] Operative Note Patient Name: Olga Grey : [id number] MR#: [id number] Case Date: 11/18/2016 Surgeon: Surgeon(s) and Role: [...] Report (11/18/2016 8:35 AM EDT) Final Diagnosis [id number] ?Location: [facility] The signing pathologist has (i) [...] MD PATHOLOGY/CYTOLOGY O WILTON Performing Organization Address [facility] [place] [address] * Specimen to Pathology (surgical or derm) (11/18/2016 8:35 AM EDT) AP Specimen 11/18/2016 8:35 AM EDT 11/18/2016 8:35 AM EDT Narrative [facility] - 11/18/2016 8:35 AM EDT Specimen requisition ordered. ??Separate Pathology report to follow Nas Tabor MD PATHOLOGY/CYTOLOGY O [place] Performing Organization Address [facility] [place] [address] * Specimen to Pathology (surgical or derm) (11/18/2016 8:35 AM EDT) AP Specimen 11/18/2016 8:35 AM EDT 11/18/2016 8:35 AM EDT Narrative [facility] - 11/18/2016 8:35 AM EDT Specimen requisition ordered. ??Separate Pathology report to follow Authorizing Provider Result Eddy Tabor MD PATHOLOGY/CYTOLOGY O [place] Performing Organization Address [facility] [place] [address] documented in this encounter Visit Diagnoses Not [...] Routine documented in this encounter Care Teams Broadcast Journalist Relationship Specialty Start Date End Date Camilla Peres APRN [address] [place] [address] [address] [place] [address] PCP - General Family Medicine 10/02/16 07/18/21 documented as of this encounter
--- OUTSIDE RECORDS SUMMARY | 2024-05-17 15:36 | XMS_ITS | Encounter Summary ---
Author Organization [facility] Address [facility] [place] [address] Care Team Providers Care Ground Equipment Mechanic Name Role Phone Camilla Peres FRANCES Primary Care Provider [phone] Encounter Details Date Type Department Care Team (Latest Contact Info) Description 08/25/2017 - 08/25/2017 11:59 PM EST Hospital Encounter Radiology Library at [facility] [place] [address] Nas Herrera MD [facility] [place] [address] Discharge Disposition: Home Social History Tobacco Use [...] Herrera MD IMG FILM LIBRARY O RDERABLES [place], [place] documented in this encounter Visit Diagnoses Not on filedocumented in this encounter Care Teams Ground Equipment Mechanic Relationship Specialty Start Date End Date Camilla Peres APRN [address] [place] [address] PCP - General Family Medicine 10/02/16 07/18/21 documented as of this encounter
--- OUTSIDE RECORDS SUMMARY | 2024-05-17 15:36 | XMS_ITS | Encounter Summary ---
Author Organization [facility] Address [facility] [place] [address] Care Team Providers Care Modular Set Crew Member Name Role Phone Kong Pereseen Sheri DANIELS Primary Care Provider [phone] Reason for Visit * Consultation (Routine) - Closed Specialty Diagnoses / Procedures Referred By Jones nogueira Referred To Contact Otolaryngology Diagnoses mass of parotid gland Benoit Hyde, DO [address] [place] [address] Nas Herrera MD [facility] [place] [address] Referral ID Status Reason Start Date Expiration Date Visits Re quested Visits Authorized [id number] Closed 09/17/2017 09/17/2018 1 1 Encounter Details Date Type Department Care Team (Late st Contact Info) Description 09/18/2017 10:00 AM EST Office [place] [address] Nas Herrera MD [facility] [place] [address] Parotid mass; Cigarette smoker Social History Tobacco [...] Herrera MD - 09/18/2017 10:00 AM EST [facility] OTOLARYNGOLOGY HEAD AND NECK TUMOR CLINIC NEW [...] Attending note: Patient seen with the physician studio assistant. In summary, this patient presents with [...] disorder documented in this encounter Care Teams Modular Set Crew Member Relationship Specialty Start Date End Date Camilla Peres APRN [address] [place] [address] PCP - General Family Medicine 10/02/16 07/18/21 documented as of this encounter
--- OUTSIDE RECORDS SUMMARY | 2024-05-17 15:36 | XMS_ITS | Encounter Summary ---
Author Organization [facility] Address [address] [place] [address] Care Team Providers Care Gas Station Manager Name Role Phone Unavailable Primary Care Provider Unavailabl e Encounter Details Date Type Department Care Team (Late st Contact Info) Description 02/25/2003 Results Only [facility] - Maple conversion [address] [place] [address] Ig[address]ia Knox [address] [place], [place] [id number] Social History Tobacco Use Types Packs/Day Years [...] ? RENZOLUCY COTTER ? Accession #: ? [id number] : ? 1980 (Age: 22) ??F ?Collect [...] Knox CNM PATHOLOGY ORDERABLES TONY SANABRIA [address] [place] [address] documented in this encounter Visit Diagnoses Not on filedocumented in this encounter
--- OUTSIDE RECORDS SUMMARY | 2024-05-17 15:36 | XMS_ITS | Encounter Summary ---
[place] [address] Care Team Providers Care Coordinate Measuring Machine Operator Name Role Phone None Primary Care Provider Unavailabl e Encounter Details Date Type Department Care Team (Late st Contact Info) Description 05/25/2014 Orders [place] [address] Wesley Cortes MD [facility] [place] [address] Social History Tobacco Use Types Packs/Day Years [...] is a Non-reportable exam Wesley Cortes MD [facility] FILM LIBRARY ORD ERABLES documented in this encounter Visit Diagnoses Not on filedocumented in this encounter Care Teams Coordinate Measuring Machine Operator Relationship Specialty Start Date End Date None None PCP - General 05/05/13 10/01/16 documented as of this encounter
[2024-05-18 23:34] LABS: Campylobacter PCR Negative (Negative); Salmonella PCR Negative (Negative); Shiga Toxin PCR Negative (Negative); Shigella/Enteroinvasive Ecoli Negative (Negative)
[2024-05-21 17:29] LABS: Pancreatic Elastase, F >500 mcg/g
== END 2024-05-17 15:24 | disposition home or self-care (01) ==
LOC: LBN 15:23
PROVIDERS: PCP Student in an Organized Health Care Education/Training Program; Visit Provider Surgery
DX: R10.9 Unspecified abdominal pain (principal); F17.200 Nicotine dependence, unspecified, uncomplicated; G93.2 Benign intracranial hypertension; R10.30 Lower abdominal pain, unspecified
CPT/HCPCS: 87493; 87505; 82656; 83993

== ENCOUNTER 2024-05-18 13:30 | Outpatient (REF) | payer OTHER, SELFPAY ==
--- OUTSIDE RECORDS SUMMARY | 2024-05-18 13:32 | XMS_ITS | Encounter Summary ---
[place] [address] Care Team Providers Care Adhesive Bandage Machine Operator Name Role Phone Lias Martin Primary Care Provider [phone]- [phone] Encounter Details Date Type Department Care Team (Late st Contact Info) Description 04/19/2022 10:00 AM EDT - 04/19/2022 11:59 PM EDT Hospital [place] [address] Diana Ordoñez, ENTERPRISE SYSTEMS ADMINISTRATOR [address] [place] [address] Mastodynia Discharge Disposition: Home Social History Tobacco [...] who have questions please contact the health medicare specialist that requested your imaging first. ? Diana Ordoñez APRN IMG MAMMO ORDERAB LES documented in this encounter Visit Diagnoses Diagnosis Mastodynia documented in this encounter Care Teams Adhesive Bandage Machine Operator Relationship Specialty Start Date End Date Lisa Martin DO [address] [place] [address] PCP - General Family Medicine 07/19/21 documented as of this encounter
--- OUTSIDE RECORDS SUMMARY | 2024-05-18 13:32 | XMS_ITS | Encounter Summary ---
Author Organization [facility] [place] [address] Care Team Providers Care Incendiary Powder Mixer Name Role Phone Lisa Martin DO Primary Care Provider [phone]- [phone] Reason for Visit * Reason Comments Neck [...] n&t/ MRI 07/17/22 in eDH/ EMG 01/2022 [facility]/ no relief w/PT Lisa Martin, DO [address] [place] [address] [facility] [place] [address] Referral ID Status Reason Start Date Expiration Date V isits Requested Visits Authorized [id number] Closed Consult, Test & Treat PCP Updated and/or Approved 07/23/2022 07/23/2023 6 6 Encounter Details Date Type Department Care Team (Latest Contact Info) Description 07/30/2022 8:00 AM EST Office Visit [place] [address] Mckenna Jolley APRN [facility] [place] [address] Neck pain; Left cervical radiculopathy Social History [...] this encounter Progress Notes * Mckenna Jolley, BIOMASS PLANT MANAGER - 07/30/2022 8:00 AM EST Center for [...] no improvement. She has been evaluated by [facility] neurosurgery who did not find [...] left. 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 reports that she has been smoking. She has never used smokeless tobacco. Conservative Treatment: Physical Therapy: None Home Exercise Program: Independent as tolerated Medications: Ibuprofen, Biofreeze, [place] balm Other: Chiropractic manipulation Injections: 1. None [...] DO Referring Provider: Lisa Jolley APRN 07/30/2022 [facility] Center for Pain and Spine documented in this encounter Plan of Treatment Not on file documented as of this encounter Visit Diagnoses Diagnosis Neck pain Cervicalgia Left cervical radiculopathy Brachial neuritis or radiculitis nos documented in this encounter Care Teams Incendiary Powder Mixer Relationship Specialty Start Date End Date Lisa Martin DO [address] [place] [address] PCP - General Family Medicine 07/19/21 documented as of this encounter
--- OUTSIDE RECORDS SUMMARY | 2024-05-18 13:32 | XMS_ITS | Encounter Summary ---
[place] [address] Care Team Providers Care Maintenance Planner Name Role Phone Camilla Peres FRANCES Primary Care Provider [phone] Encounter Details Date Type Department Care Team (Late st Contact Info) Description 09/26/2017 12:24 PM EST Anesthesia Event [place] [address] Augustine Manuel MD [facility] [place] [address] Blanche Gilbert CRNA [facility] [place] [address] Anesthesia Record Procedure Summary Procedure Name Responsible [...] Time: 1403 09/26/17 1235 by Blanche Gilbert, RESIDENTIAL AIDE 09/26/17 1403 by Blanche Gilbert CRNA Incision [...] 10.62) performed by Nas Tabor MD at [facility] ??? PRO REMOVAL OF BREAST IMPLANT Bilateral 11/18/2016 REMOVAL OF INTACT MAMMARY IMPLANT-SHERRY (WRVU 6.48) performed by Nas Tabor MD at [facility] Social History Substance Use Topics [...] mg documented in this encounter Care Teams Maintenance Planner Relationship Specialty Start Date End Date Camilla Peres, INTAKE CLINICIAN [address] [place] [place] [address] [address] [place] [address] PCP - General Family Medicine 10/02/16 07/18/21 documented as of this encounter
--- OUTSIDE RECORDS SUMMARY | 2024-05-18 13:32 | XMS_ITS | Encounter Summary ---
Author Organization [facility] [place] [address] Care Team Providers Care Balance Wheel Hand Filer Name Role Phone Lisa Martin DO Primary Care Provider [phone]- [phone] Encounter Details Date Type Department Care Team (Late st Contact Info) Description 07/17/2022 Ancillary Procedure Radiology Library at [facility] [place] [id number] Lisa Martin, DO [address] [place], [place] [id number] Social History Tobacco Use Types Packs/Day Years [...] 12:00 AM EST) Narrative [facility] - 07/25/2022 11:33 AM EST This exam is auto-finalizing. It's purpose is for storage only. Lisa Martin DO [facility] FILM LIBRARY O RDERABLES DH [place], [place] documented in this encounter Visit Diagnoses Not on filedocumented in this encounter Care Teams Balance Wheel Hand Filer Relationship Specialty Start Date End Date Lisa Martin DO [address] [facility] [place] [address] PCP - General Family Medicine 07/19/21 documented as of this encounter
--- OUTSIDE RECORDS SUMMARY | 2024-05-18 13:32 | XMS_ITS | Clinical Summary ---
Author Organization [facility] Address [facility] [place] [address] Care Team Providers Care Cloth Neutralizer Name Role Phone Lisa Martin Primary Care Provider [phone]- [phone] Allergies No known active allergies Medications Medication [...] who have questions please contact the health critical care registered nurse that requested your imaging first. ? Electronically signed by: Michelle Birmingham MD, [facility] ([phone]), at 04/19/2022 11:38 AM Diana Ordoñez APRN [...] capacity to make decision: Yes Care Teams Cloth Neutralizer Relationship Specialty Start Date End Date Lisa Martin DO [address] [place] [address] PCP - General Family Medicine 07/19/21
--- OUTSIDE RECORDS SUMMARY | 2024-05-18 13:32 | XMS_ITS | Encounter Summary ---
Author Organization [facility] [place] [address] Care Team Providers Care Frequency Checker Name Role Phone Lisa Martin DO Primary Care Provider [phone]- [phone] Encounter Details Date Type Department Care Team (Late st Contact Info) Description 10/17/2021 Ancillary Procedure Radiology Library at [facility] [place] [phone] Lisa Martin, DO [address] [place], [place] [id number] Social History Tobacco Use Types Packs/Day Years [...] Spine (10/17/2021 12:00 AM EST) Narrative [facility] - 11/01/2021 11:41 AM EDT This exam is auto-finalizing. It's purpose is for storage only. Lisa Martin DO [facility] FILM LIBRARY O RDERABLES DH [place], [place] documented in this encounter Visit Diagnoses Not on filedocumented in this encounter Care Teams Frequency Checker Relationship Specialty Start Date End Date Lisa Martin DO [address] [place] [address] PCP - General Family Medicine 07/19/21 documented as of this encounter
--- OUTSIDE RECORDS SUMMARY | 2024-05-18 13:32 | XMS_ITS | Encounter Summary ---
Author Organization [facility] Address [facility] [place] [address] Care Team Providers Care Repair Service Dispatcher Name Role Phone Lisa Martin DO Primary Care Provider [phone]- [phone] Encounter Details Date Type Department Care Team [...] on filedocumented in this encounter Care Teams Repair Service Dispatcher Relationship Specialty Start Date End Date Lisa Martin DO [address] [place] [address] PCP - General Family Medicine 07/19/21 documented as of this encounter
--- OUTSIDE RECORDS SUMMARY | 2024-05-18 13:32 | XMS_ITS | Encounter Summary ---
Author Organization [facility] [place] [address] Care Team Providers Care Electronic Engineering Technician Name Role Phone Camilla Peres FRANCES Primary Care Provider [phone] Encounter Details Date Type Department Care Team (Late st Contact Info) Description 09/29/2017 Telephone [place] [phone] Savi Camejo RN Social History Tobacco Use [...] be ruled out by her PCP or alarm mechanism adjuster. I also explained that any neck stiffness [...] on filedocumented in this encounter Care Teams Electronic Engineering Technician Relationship Specialty Start Date End Date Camilla Peres APRN [address] [place] [address] PCP - General Family Medicine 10/02/16 07/18/21 documented as of this encounter
--- OUTSIDE RECORDS SUMMARY | 2024-05-18 13:32 | XMS_ITS | Encounter Summary ---
Author Organization [facility] Address [facility] [place] [address] Care Team Providers Care Vacuum Bottle Assembler Name Role Phone Kong Pereseen Sheri DANIELS Primary Care Provider [phone] Reason for Visit * Consultation (Routine) - Closed Specialty Diagnoses / Procedures Referred By Jones nogueira Referred To Contact Otolaryngology Diagnoses mass of parotid gland Benoit Hyde, DO [address] [place] [address] Nas Herrera MD [facility] [place] [address] Referral ID Status Reason Start Date Expiration Date Visits Re quested Visits Authorized [id number] Closed 09/17/2017 09/17/2018 1 1 Encounter Details Date Type Department Care Team (Late st Contact Info) Description 09/18/2017 10:00 AM EST Office [place] [address] Nas Herrera MD [facility] [place] [address] Parotid mass; Cigarette smoker Social History Tobacco [...] Herrera MD - 09/18/2017 10:00 AM EST [facility] OTOL[facility]OLOGY HEAD AND NECK TUMOR CLINIC NEW [...] Attending note: Patient seen with the physician sales assistant institutional sales. In summary, this patient presents with a [...] disorder documented in this encounter Care Teams Vacuum Bottle Assembler Relationship Specialty Start Date End Date Camilla Peres APRN [address] [place] [address] PCP - General Family Medicine 10/02/16 07/18/21 documented as of this encounter
--- OUTSIDE RECORDS SUMMARY | 2024-05-18 13:32 | XMS_ITS | Encounter Summary ---
Author Organization [facility] Address [facility] [place] [address] Care Team Providers Care Airline Captain Name Role Phone Camilla Peres FRANCES Primary Care Provider [phone] Encounter Details Date Type Department Care Team (Late st Contact Info) Description 09/26/2017 12:51 PM EST - 09/26/2017 3:50 PM EST [place] [address] Nas Herrera MD [facility] [address] EXC.PAROTID TUMOR OR GLAND, LATERAL LOBE, W [...] -You can reach the ENT clinic at [phone] for appointment questions. -The ENT triage nurse is available at [phone] -For urgent issues during evenings and weekends the ENT resident information systems supervisor can be reached through [facility] box closing machine operator at [phone] Follow Up: You will need to follow [...] date: 09/26/2017 Attending Physician: Nas Herrera MD lOga Grey is an 37 y.o. female. This [...] Herrera MD - 09/26/2017 2:00 PM EST [facility] Operative Note Patient Name: Olga Grey : [id number] MR#: [id number] Case Date: 09/26/2017 Surgeon: Surgeon(s) and Role: [...] Info Order Time SPECIMEN TO PATHOLOGY OR#2 Ex:[id number]. parotid mass RIGHT parotid mass Excision 09/26/2017 [...] The incision was injected with 1% xylocaine 1:819706 epinephrine and the made with a 15 [...] PM EST 09/26/2017 2:15 PM EST Narrative [facility] - 09/26/2017 2:15 PM EST Specimen requisition ordered. ??Separate Pathology report to follow Resulting Agency Comment Spec In Lab Nas Herrera MD PATHOLOGY/CYTOLOGY ORDERABLES Performing Organization Address City/State/[facility] Co de Phone Number [facility] [place] [address] * Surgical Pathology Report (09/26/2017 1:32 PM EST) Final Diagnosis [id number] ? Location: [facility]; The signing pathologist has (i) examined the relevant preparation(s) for the specimen(s) and (ii) rendered or confirmed the diagnosis(es). . 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 Electronically signed by: ??Leti Travis DO Verified: ??10/01/2017 ?Pathologist Performed at: ??-[facility] Dept. of Pathology, [place], [place] CLINICAL INFORMATION Specimen Submitted: A - Right parotid mass Clinical History: Parotid mass Clinical Diagnosis: Parotid mass SPECIMEN PROCESSING A - Labeled/Fixativ e: Right parotid mass, fresh. Quantity/Size: Single, 1.0 x 0.7 x 0.6 cm. Tissue Description: Ovoid, buckley-white cystic structure, on section with pale white fluid. Sections/Proces sing: Inked and trisected. (T1) ??pps 10/01/2017 10:10 AM EST [facility] PAROTID GLAND STRUCTURE / Unknown 09/26/2017 1:32 PM EST 09/26/2017 1:32 PM EST Nas Herrera MD PATHOLOGY/CYTOLOGY ORDERABLES [facility] [place] [address] documented in this encounter Visit Diagnoses Diagnosis [...] MD) documented in this encounter Care Teams Airline Captain Relationship Specialty Start Date End Date Camilla Peres, GAS MAIN FITTER HELPER [address] [place] [address] [address] [place] [address] PCP - General Family Medicine 10/02/16 07/18/21 documented as of this encounter
--- OUTSIDE RECORDS SUMMARY | 2024-05-18 13:32 | XMS_ITS | Encounter Summary ---
[place] [address] Care Team Providers Care Touch Up Carver Name Role Phone Lisa Martin DO Primary Care Provider [phone] Reason for Referral * Consultation (Routine) - Closed Specialty Diagnoses / Procedures Referred By Contac t Referred To Contact Pain and Spine Center Diagnoses Anesthesia of skin Cervicalgia Other cervical disc displacement, unspecified cervical region Spine- Neck pain radiates down L arm w/ n&t/ MRI 07/17/22 in eDH/ EMG 01/2022 @[facility]/ no relief w/PT Lisa Martin DO [address] [place] [address] [facility] [place] [address] Referral ID Status Reason Start Date Expiration Date V isits Requested Visits Authorized [id number] Closed Consult, Test & Treat PCP Updated and/or Approved 07/23/2022 07/23/2023 6 6 Encounter Details Date Type Department Care Team (Latest Contact Info) Description 07/23/2022 Transcribe Orders eDH Incoming Referrals [phone] Lisa Martin DO [address] [place], [place] [address] Anesthesia of skin; Cervicalgia; Other cervical disc [...] region documented in this encounter Care Teams Touch Up Carver Relationship Specialty Start Date End Date Lisa Martin DO [address] [place] [address] PCP - General Family Medicine 07/19/21 documented as of this encounter
--- OUTSIDE RECORDS SUMMARY | 2024-05-18 13:32 | XMS_ITS | Encounter Summary ---
Author Organization [facility] [place] [address] Care Team Providers Care Alteration Manager Name Role Phone Camilla Peres FRANCES Primary Care Provider [phone] Encounter Details Date Type Department Care Team (Latest Contact Info) Description 09/26/2017 10:45 AM EST - 09/26/2017 3:15 PM EST Hospital Encounter [place] [address] Nas Herrera MD [facility] [place] [address] Parotid mass Discharge Disposition: Home Social History [...] -You can reach the ENT clinic at [phone] for appointment questions. -The ENT triage nurse is available at [phone] -For urgent issues during evenings and weekends the ENT resident manager presentation can be reached through [facility] at [phone] Follow Up: You will need to follow [...] Herrera MD - 09/26/2017 2:00 PM EST [facility] Operative Note Patient Name: Olga Grey : [id number] MR#: [id number] Case Date: 09/26/2017 Surgeon: Surgeon(s) and Role: [...] Info Order Time SPECIMEN TO PATHOLOGY OR#2 Ex:[id number]. parotid mass RIGHT parotid mass Excision 09/26/2017 [...] The incision was injected with 1% xylocaine 1:086340 epinephrine and the made with a 15 [...] PM EST 09/26/2017 2:15 PM EST Narrative [facility] - 09/26/2017 2:15 PM EST Specimen requisition ordered. ??Separate Pathology report to follow Resulting Agency Comment Spec In Lab Nas Herrera MD PATHOLOGY/CYTOLOGY ORDERABLES [facility] [place] [address] * Surgical Pathology Report (09/26/2017 1:32 PM EST) Final Diagnosis [id number] ? Location: [facility]; The signing pathologist has (i) examined the relevant preparation(s) for the specimen(s) and (ii) rendered or confirmed the diagnosis(es). . 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 Electronically signed by: ??Leti Travis DO Verified: ??10/01/2017 ?Pathologist Performed at: ??-[facility] Dept. of Pathology, [place], [place] CLINICAL INFORMATION Specimen Submitted: A - Right parotid mass Clinical History: Parotid mass Clinical Diagnosis: Parotid mass SPECIMEN PROCESSING A - Labeled/Fixativ e: Right parotid mass, fresh. Quantity/Size: Single, 1.0 x 0.7 x 0.6 cm. Tissue Description: Ovoid, buckley-white cystic structure, on section with pale white fluid. Sections/Proces sing: Inked and trisected. (T1) ??pps 10/01/2017 10:10 AM EST [facility] PAROTID GLAND STRUCTURE / Unknown 09/26/2017 1:32 PM EST 09/26/2017 1:32 PM EST Nas Herrera MD PATHOLOGY/CYTOLOGY ORDERABLES [facility] [place] [address] documented in this encounter Visit Diagnoses Diagnosis [...] MD) documented in this encounter Care Teams Alteration Manager Relationship Specialty Start Date End Date Camilla Peres APRN [address] [place] [address] PCP - General Family Medicine 10/02/16 07/18/21 documented as of this encounter
--- OUTSIDE RECORDS SUMMARY | 2024-05-18 13:32 | XMS_ITS | Encounter Summary ---
Author Organization [facility] Address [facility] [address] Care Team Providers Care Blending Machine Operator Name Role Phone Camilla Peres FRANCES Primary Care Provider [phone] Encounter Details Date Type Department Care Team (Latest Contact Info) Description 08/25/2017 - 08/25/2017 11:59 PM EST Hospital Encounter Radiology Library at [facility] [place] [address] Nas Herrera MD [facility] [place] [address] Discharge Disposition: Home Social History Tobacco Use [...] Herrera MD IMG FILM LIBRARY O RDERABLES [place], [place] documented in this encounter Visit Diagnoses Not on filedocumented in this encounter Care Teams Blending Machine Operator Relationship Specialty Start Date End Date Camilla Peres APRN [address] [place] [address] PCP - General Family Medicine 10/02/16 07/18/21 documented as of this encounter
--- OUTSIDE RECORDS SUMMARY | 2024-05-18 13:32 | XMS_ITS | Encounter Summary ---
[place] [address] Care Team Providers Care Tearoom Host Name Role Phone Camilla Peres APRN Primary Care Provider [phone] Encounter Details Date Type Department Care Team (Late st Contact Info) Description 09/15/2017 Telephone [place] [phone] Raya Santiago Social History Tobacco Use Types [...] on filedocumented in this encounter Care Teams Tearoom Host Relationship Specialty Start Date End Date Camilla Peres APRN [address] [place] [address] PCP - General Family Medicine 10/02/16 07/18/21 documented as of this encounter
--- OUTSIDE RECORDS SUMMARY | 2024-05-18 13:32 | XMS_ITS | Encounter Summary ---
Author Organization [facility] Address [facility] [place] [address] Care Team Providers Care Forklift Mechanic Name Role Phone Camilla Peres FRANCES Primary Care Provider [phone] Encounter Details Date Type Department Care Team (Late st Contact Info) Description 10/02/2017 9:00 AM EST Office Visit [place] [address] Sergio Banegas PA [facility] [place] [address] Parotid mass Social History Tobacco Use Types [...] Banegas PA - 10/02/2017 9:00 AM EST [facility] Otolaryngology - Head and Neck Surgery Sergio Banegas PA-C 10/02/17 [place] [address] Office Patient Name: Olga Grey Date of [...] regarding their treatment. Sergio Banegas PA-C 10/02/2017 [place], [place] [address] Office documented in this encounter Plan of Treatment Not on file documented as of this encounter Visit Diagnoses Diagnosis Parotid mass Swelling, mass, or lump in head and neck documented in this encounter Care Teams Forklift Mechanic Relationship Specialty Start Date End Date Camilla Peres APRN [address] [place] [address] PCP - General Family Medicine 10/02/16 07/18/21 documented as of this encounter
--- OUTSIDE RECORDS SUMMARY | 2024-05-18 13:33 | XMS_ITS | Encounter Summary ---
Author Organization [facility] Address [address] [place] [address] Care Team Providers Care Molding Line Assistant Name Role Phone Unknown, Provider Primary Care Provider Encounter Details Date Type Department Care Team (Late st Contact Info) Description 12/12/2021 Lab Requisition [facility] Pathology & Laboratory Medicine - [facility] [address] [place] [address] Haleigh Amaro, [address] [place] [address] Encounter for other general examination [...] types, PCR Negative Negative 12/14/2021 22:39 EDT [facility] Comment:No E6 or E7 mRNA is detected from HPV types 16,18,31,33,35,39,45,51,52,56,58,59,66, and 68 by posting machine operator mediated amplification. Papanicolaou smear specimen (specimen) CERVIX UTERI STRUCTURE / Unknown 12/11/2021 14:15 EDT 12/14/2021 10:39 EDT Haleigh Amaro IT TEACHER MICROBIOLOGY - GENER AL ORDERABLES [facility] [address] [place] [address] * PAP TEST (12/11/2021 14:15 EDT) Specimens A. Cervix and/or Endocervix , ThinPrep Imaging System with Manual Evaluation 12/14/2021 22:40 EDT [facility] Specimen Adequacy Satisfactory for Evaluation - transformation zone component present 12/14/2021 22:40 EDT [facility] General Categorization Negative for intraepithelial lesion or malignancy 12/14/2021 22:40 T [facility] Attestation . 12/14/2021 22:40 T [facility] at 2239 Clinical History See below 12/15/19 22:40 T [facility] HPV The result for the Human Papillomavirus (HPV) Detection-High Risk Types is Negative. No E6 or E7 mRNA is detected from HPV types 16,18,31,33,35,39 ,45,51,52,56,58,5 9,66, and 68 by posting machine operator mediated amplification.Kyara ting was performed on specimen [id number] and was resulted on 12/14/2021 2235 EDT by ABE, LAB INSTRUMENT RESULTS IN 12/14/2021 22:40 EDT [facility] Performing Lab [facility] 12/14/2021 22:40 EDT [facility] Scanned Images 12/14/2021 22:40 EDT [facility] Papanicolaou smear specimen (specimen) CERVIX UTERI STRUCTURE / Unknown 12/11/2021 14:15 EDT 12/12/2021 8:59 EDT Haleigh Amaro IT TEACHER PATHOLOGY ORDERABLES [facility] [address] [place] [address] documented in this encounter Visit Diagnoses Diagnosis Encounter for other general examination documented in this encounter Care Teams Molding Line Assistant Relationship Specialty Start Date End Date Unknown, Provider, PCP - General 07/01/15 documented as of this encounter
--- OUTSIDE RECORDS SUMMARY | 2024-05-18 13:33 | XMS_ITS | Encounter Summary ---
Author Organization [facility] Address [address] [place] [address] Care Team Providers Care Metallurgical Lab Technician Name Role Phone Unknown, Provider Primary Care Provider [phone] Encounter Details Date Type Department Care Team (Late st Contact Info) Description 11/05/2019 Lab Requisition [facility] Pathology & Laboratory Medicine - [facility] [address] [place] [address] Beto Mendez MD [address] [place] [phone] Encounter for other general examination Social [...] examination documented in this encounter Care Teams Metallurgical Lab Technician Relationship Specialty Start Date End Date Unknown, Provider, PCP - General 07/01/15 documented as of this encounter
--- OUTSIDE RECORDS SUMMARY | 2024-05-18 13:33 | XMS_ITS | Encounter Summary ---
Author Organization [facility] Address [address] [place] [address] Care Team Providers Care Chemical Blender Name Role Phone Unknown, Provider Primary Care Provider Encounter Details Date Type Department Care Team (Late st Contact Info) Description 05/27/2023 Lab Requisition [facility] Pathology & Laboratory Medicine - [address] [address] Outr Resulting Lab, Provider Social History Tobacco [...] gonorrhoeae Result Negative Negative 05/28/2023 13:27 EDT [facility] Chlamydia trachomatis Result Negative Negative 05/28/2023 13:27 EDT [facility] Swab VAGINAL STRUCTURE / Unknown 05/26/2023 13:40 EDT 05/27/2023 18:07 EDT Provider Outr Resulting Lab MICROBIOLOGY - GENERAL ORDERABLES [facility] [address] [place] [address] documented in this encounter Visit Diagnoses Not on filedocumented in this encounter Care Teams Chemical Blender Relationship Specialty Start Date End Date Unknown, Provider, PCP - General 07/01/15 documented as of this encounter
--- OUTSIDE RECORDS SUMMARY | 2024-05-18 13:33 | XMS_ITS | Encounter Summary ---
Author Organization [facility] Address [address] [place] [address] Care Team Providers Care Blocking Machine Operator Second Name Role Phone Unknown, Provider Primary Care Provider [phone] Encounter Details Date Type Department Care Team (Late st Contact Info) Description 05/18/[address] [facility] Pathology & Laboratory Medicine - [facility] [address] [place] [address] Outr Resulting Lab, Provider Social History Tobacco Use Types Packs/Day Years Used Date Smoking Tobacco: Never Assessed Sex and Gender Information Value Date Recorded Sex Assigned at Not on file Gender Identity Not on file Sexual Orientation Not on file documented as of this encounter Plan of Treatment Scheduled Orders Name Type Priority Associated Diagnoses Orde r Schedule FECAL BACTERIAL PATHOGENS BY PCR Microbiology Routine Ordered: 2023 documented as of this encounter Visit Diagnoses Not on filedocumented in this encounter Care Teams Blocking Machine Operator Second Relationship Specialty Start Date End Date Unknown, Provider, PCP - General 07/01/15 documented as of this encounter
--- OUTSIDE RECORDS SUMMARY | 2024-05-18 13:33 | XMS_ITS | Encounter Summary ---
[place] [address] Care Team Providers Care Machine Stamper Name Role Phone TerellCamilla yang Sheri DANIELS Primary Care Provider [phone] Reason for Visit * Auth/Cert Specialty Diagnoses / Procedures Referred By Jones nogueira Referred To Contact Diagnoses Capsular contracture of breast implant, initial encounter Bilateral capsular contracture Procedures PRO REMOVAL OF BREAST IMPLANT REMOVAL OF INTACT MAMMARY IMPLANT-SHERRY (WRVU 6.48) Referral ID Status Reason Start Date Expiration Date Visits Re quested Visits Authorized [id number] 1 1 Encounter Details Date Type Department Care Team (Latest Contact Info) Description 11/18/2016 7:13 AM EDT - 11/18/2016 10:37 AM EDT Hospital Encounter [place] [address] Nas Tabor MD [facility] [place] [address] Discharge Disposition: Home Social History Tobacco Use [...] closest emergency room or call the hospital coin wrapping machine operator at [phone] and ask for physician relationship associate covering for your physician. Questions or problems after 5pm or on a weekend: Call the [facility] coin wrapping machine operator at and ask for the physician relationship associate covering for your doctor. SAME DAY SURGERY [...] hours) * Patient Instructions* John Sulma Vlad, MALE IMPERSONATOR - 11/18/2016 7:50 AM EDT Post-Op Instructions [...] your surgical site. ??? Do not use nsna-xap-xtegbiw lotions, solutions, or herbal preparations on your [...] about scheduling, please contact our administrative officesat [phone] For clinical questions, please call our nurses at [phone] Both offices are open Friday thru Friday 8a - 5p. With emergencies after hours, call the hospital coin wrapping machine operator at [phone] and ask for the Plastic Surgery Resident relationship associate. documented in this encounter Medications at Time [...] Tabor MD - 11/18/2016 9:32 AM EDT [facility] Operative Note Patient Name: Olga Grey : [id number] MR#: [id number] Case Date: 11/18/2016 Surgeon: Surgeon(s) and Role: [...] OF SURGERY: 11/18/16 ATTENDING: Dr. Nas Tabor LEAD BURNER HELPER: Sulma Lopez INDICATION FOR SURGERY: The patient [...] Operative Note Patient Name: Olga Grey : [id number] MR#: [id number] Case Date: 11/18/2016 Surgeon: Surgeon(s) and Role: [...] Report (11/18/2016 8:35 AM EDT) Final Diagnosis [id number] ?Location: [facility] The signing pathologist has (i) [...] ng: ??(R1) ??sns 11/20/2016 12:54 PM EDT [facility] BREAST STRUCTURE / Unknown 11/18/2016 8:35 AM EDT 11/18/2016 8:35 AM EDT BREAST STRUCTURE / Unknown 11/18/2016 8:35 AM EDT 11/18/2016 8:35 AM EDT Narrative Authorizing Provider Result Eddy Tabor MD PATHOLOGY/CYTOLOGY O [place] Performing Organization Address [facility] [place] [address] * Specimen to Pathology (surgical or derm) (11/18/2016 8:35 AM EDT) AP Specimen 11/18/2016 8:35 AM EDT 11/18/2016 8:35 AM EDT Narrative [facility] - 11/18/2016 8:35 AM EDT Specimen requisition ordered. ??Separate Pathology report to follow Nas Tabor MD PATHOLOGY/CYTOLOGY [place] Performing Organization Address [facility] [place] [address] * Specimen to Pathology (surgical or derm) (11/18/2016 8:35 AM EDT) AP Specimen 11/18/2016 8:35 AM EDT 11/18/2016 8:35 AM EDT Narrative [facility] - 11/18/2016 8:35 AM EDT Specimen requisition ordered. ??Separate Pathology report to follow Authorizing Provider Result Eddy Tabor MD PATHOLOGY/CYTOLOGY O [place] Performing Organization Address [facility] [place] [address] documented in this encounter Visit Diagnoses Not [...] Routine documented in this encounter Care Teams Machine Stamper Relationship Specialty Start Date End Date Camilla Peres APRN [address] [place] [address] PCP - General Family Medicine 10/02/16 07/18/21 documented as of this encounter
--- OUTSIDE RECORDS SUMMARY | 2024-05-18 13:33 | XMS_ITS | Encounter Summary ---
Author Organization [facility] Address [facility] [facility] [place] [address] Care Team Providers Care Community Arts Centre Manager Name Role Phone Camilla Peres FRANCES Primary Care Provider [phone] Reason for Visit * Reason Comments Advice Only implant removal cons ult, ? leaking, pain Encounter Details Date Type Department Care Team (Late st Contact Info) Description 10/02/2016 4:00 PM EST Office [place] [address] Nas Tabor MD [facility] [place] [address] Breast implant capsular contracture Social History Tobacco [...] she got them. 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 At this point [...] Timeframe: elective Procedure: Bilateral implant removal CPT: 17334, [address] Surgical site: breasts Side: bilateral Anesthesia: General [...] implant documented in this encounter Care Teams Community Arts Centre Manager Relationship Specialty Start Date End Date Camilla Peres APRN [address] [place] [address] PCP - General Family Medicine 10/02/16 07/18/21 documented as of this encounter
--- OUTSIDE RECORDS SUMMARY | 2024-05-18 13:33 | XMS_ITS | Encounter Summary ---
Author Organization [facility] Address [address] [place] [address] Care Team Providers Care Director Data Processing Name Role Phone Unknown, Provider Primary Care Provider Encounter Details Date Type Department Care Team (Late st Contact Info) Description 11/10/2019 Lab Requisition [facility] Pathology & Laboratory Medicine - [facility] [address] [place], [place] [address] Beto Mendez MD [address] [place] [phone] Encounter for other general examination Social [...] Not Detected Not Detected 11/15/2019 7:59 EDT [facility] Comment:Assayed by [email or web address] Swab ENTIRE NASOPHARYNX / Unknown 11/04/2019 11:18 EDT 11/10/2019 10:45 EDT Beto Mendez MD MICROBIOLOGY - GENE RAL ORDERABLES [facility] [address] [place] [address] documented in this encounter Visit Diagnoses Diagnosis Encounter for other general examination documented in this encounter Care Teams Director Data Processing Relationship Specialty Start Date End Date Unknown, Provider, PCP - General 07/01/15 documented as of this encounter
--- OUTSIDE RECORDS SUMMARY | 2024-05-18 13:33 | XMS_ITS | Encounter Summary ---
Author Organization [facility] Address [address] [place] [address] Care Team Providers Care Space Scheduler Name Role Phone Unavailable Primary Care Provider Unavailabl e Encounter Details Date Type Department Care Team (Late st Contact Info) Description 01/30/2009 Orders Only [facility] Laboratory Services - [facility] [address] [place], [place] [id number] Ana Patel PA Social History Tobacco Use [...] ? SOPHIA LUCY ? Accession #: ? [id number] ? : ? 1980 (Age: 28) ??F [...] Ana OSBORNE PATHOLOGY ORDERABLES Performing Organization Address City/State/[facility] Co de Phone Number TONY SANABRIA [address] [place] [address] documented in this encounter Visit Diagnoses Not on filedocumented in this encounter
--- OUTSIDE RECORDS SUMMARY | 2024-05-18 13:33 | XMS_ITS | Encounter Summary ---
[place] [address] Care Team Providers Care Science Job Titles Name Role Phone LarisaCamilla Sheri DANIELS Primary Care Provider [phone] Reason for Visit * Auth/Cert Specialty Diagnoses / Procedures Referred By Jones nogueira Referred To Contact Diagnoses Capsular contracture of breast implant, initial encounter Bilateral capsular contracture Procedures PRO REMOVAL OF BREAST IMPLANT REMOVAL OF INTACT MAMMARY IMPLANT-SHERRY (WRVU 6.48) Referral ID Status Reason Start Date Expiration Date Visits Re quested Visits Authorized [id number] 1 1 Encounter Details Date Type Department Care Team (Late st Contact Info) Description 11/18/2016 7:58 AM EDT Anesthesia Event [place] [place] [address] Tra Mathews [facility] [place] [address] Anesthesia Record Procedure Summary Procedure Name Responsible [...] 0745; median cubital vein (antecubital fossa), right; dxbe-sak-pzifdf catheter system; 20 gauge, 1 in length; [...] - 11/18/2016 12:53 PM EDT [facility] Department of Anesthesiology Post-procedure Note Patient: Olga Grey Procedure Summary Date Anesthesia Start Anesthesia Stop Room / Location 11/18/16 0758 0916 [facility] OR [address] [place] [address] [facility] Procedure Diagnosis Surgeon Responsible Provider REMOVAL OF INTACT MAMMARY IMPLANT-SHERRY (WRVU 6.48) (Bilateral Breast); BREAST, PERIPROSTHETIC CAPSULECTOMY, SHERRY (WRVU 10.62) (Bilateral Breast) (Bilateral capsular contracture) Nas Tabor MD Walker, Tacee E, DO All Anesthesia Providers: Anesthesiologist: Tra Mathews DO ADVISOR TO COMMAND IN COMBAT: Damaris Castellanos CRNA Last (1hr) Vitals: BP [...] risks discussed with patient. Plan discussed with ADVISOR TO COMMAND IN COMBAT. PAT Staff Note documented in this encounter [...] mL/hr documented in this encounter Care Teams Science Job Titles Relationship Specialty Start Date End Date Camilla Peres, NETWORK CONTROLLER [address] [place] [address] [address] [place] [address] PCP - General Family Medicine 10/02/16 07/18/21 documented as of this encounter
--- OUTSIDE RECORDS SUMMARY | 2024-05-18 13:33 | XMS_ITS | Encounter Summary ---
[place] [address] Care Team Providers Care Mold Holder Name Role Phone Camilla Peres FRANCES Primary Care Provider [phone] Reason for Visit * Reason Comments Follow Up Surgery drain removal Encounter Details Date Type Department Care Team (Latest Contact Info) Description 11/22/2016 9:00 AM EDT Clinical [place] [address] Surgery follow-up Social History Tobacco Use Types [...] encounter Patient Instructions * Patient Instructions* Jamilah Yonugblood RN - 11/22/2016 9:00 AM EDT Signs [...] symptoms please call our nurse's line at [phone] M - F 8 - 5 documented [...] surgery documented in this encounter Care Teams Mold Holder Relationship Specialty Start Date End Date Camilla Peres APRN [address] [place] [address] PCP - General Family Medicine 10/02/16 07/18/21 documented as of this encounter
--- OUTSIDE RECORDS SUMMARY | 2024-05-18 13:33 | XMS_ITS | Encounter Summary ---
Author Organization [facility] Address [facility] [place] [address] Care Team Providers Care Regional Operations Director Name Role Phone Camilla Peres FRANCES Primary Care Provider [phone] Encounter Details Date Type Department Care Team (Latest Contact Info) Description 08/13/2017 - 08/13/2017 11:59 PM EST Hospital Encounter Radiology Library at [facility] [place] [address] Nas Herrera MD [facility] [place] [address] Discharge Disposition: Home Social History Tobacco Use [...] Herrera MD IMG FILM LIBRARY O RDERABLES [place], [place] documented in this encounter Visit Diagnoses Not on filedocumented in this encounter Care Teams Regional Operations Director Relationship Specialty Start Date End Date Camilla Peres APRN [address] [place] [address] PCP - General Family Medicine 10/02/16 07/18/21 documented as of this encounter
--- OUTSIDE RECORDS SUMMARY | 2024-05-18 13:33 | XMS_ITS | Encounter Summary ---
Author Organization [facility] Address [address] [place] [address] Care Team Providers Care Housekeeping Lead Name Role Phone Unknown, Provider Primary Care Provider [phone] Encounter Details Date Type Department Care Team (Late st Contact Info) Description 01/30/2021 Lab Requisition [facility] Pathology & Laboratory Medicine - [facility] [address] [place] [address] Outr Resulting Lab, Provider Social History Tobacco [...] Lyme Ab Negative Negative 01/31/2021 11:00 EDT [facility] Comment:New 3rd generation a ssay in use 01/26/2020 Blood VENOUS BLOOD / Unknown 01/30/2021 12:06 EDT 01/30/2021 16:12 EDT Provider Outr Resulting Lab IMMUNOLOGY A ND SEROLOGY ORDERABLES [facility] [address] [place] [address] documented in this encounter Visit Diagnoses Not on filedocumented in this encounter Care Teams Housekeeping Lead Relationship Specialty Start Date End Date Unknown, Provider, PCP - General 07/01/15 documented as of this encounter
--- OUTSIDE RECORDS SUMMARY | 2024-05-18 13:33 | XMS_ITS | Encounter Summary ---
Author Organization [facility] Address [address] [place] [address] Care Team Providers Care Mill Turner Name Role Phone Unknown, Provider Primary Care Provider [phone] Encounter Details Date Type Department Care Team (Late st Contact Info) Description 03/31/[address] [facility] [phone] Carole Amaro, [facility] [address] [place] [address] [place] [address] Social History Tobacco Use Types [...] when reading/interpreti ng unformatted reports. Name: ? SOPHIALUCY ? Accession #: ? [id number] ? : ? 1980 (Age: 36) ??F ?Collect Date: ? 03/31/2017 ? Location: ? [facility] ? Receive Date: ? 04/01/2017 ? Provider: CAROLE AMARO DUST OPERATOR Copy to: DL DÍAZ MD ? Final [...] types 16,18,31,33,35, 39,45,51,52,56,58, 59,66, and 68 by solder sprayer mediated amplification. Comments Document reviewed and electronically signed by: ? System Interface ? Report date: 04/09/2017 By the signature above, the attending physician certifies that he/she has personally conducted a gross and/or microscopic examination of the described specimens and rendered or confirmed the above diagnosis. End of Report [facility] 03/31/2017 04/01/2017 Carole Amaro DUST OPERATOR PATHOLOGY ORDERABLES [facility] [address] [place] [address] documented in this encounter Visit Diagnoses Not on filedocumented in this encounter Care Teams Mill Turner Relationship Specialty Start Date End Date Unknown, Provider, PCP - General 07/01/15 documented as of this encounter
--- OUTSIDE RECORDS SUMMARY | 2024-05-18 13:33 | XMS_ITS | Encounter Summary ---
Author Organization [facility] [place] [address] Care Team Providers Care Balance Weigher Name Role Phone None Primary Care Provider Unavailabl e Reason for Visit * Reason Comments Dizziness Encounter Details Date Type Department Care Team (Late st Contact Info) Description 05/05/2013 2:14 PM EDT - 05/05/2013 9:34 PM EDT Emergency [place] [address] Bere Lynch MD [facility] [place] [address] Yamile Reina MD [facility] [place] [address] Chronic headache; Dizziness; Weight loss; Ptosis; RUQ [...] a dedicated primary care physician, preferably an piano accompanist, to help you find the cause of [...] weeks). Her care is primarily delivered at [place], where she sees a neurologist, Dr. Woo. Relevant to her present complaint was an ER ER note from [facility] dated 03/12/13 reveals a CCof dizziness, [...] seizures, tingling or paraesthesias. OSH Labs (05/03/13, [facility]) CBC WBC 5.3, Hb 16.1, Plt [...] and place. Normal, fluid speech. Mood euthymic. medical review coordinator II-XII fully tested, see ENT exam for ophthalmic medical review coordinator, otherwise no deficits 2+ and symmetric DTRs. Scattered sensory differences, largely left lower extremity. Abnormal Romberg, difficulty with tandem gait. FTN and rapid alternating movements intact. Otherwise normal gait. Labs: Recent Results (from the past 24 hour(s)) POCT URINE Component Value Range POC Urine HCG Negative Negative - Negative POC Control Internal Controls Acceptable POCT URINE DIPSTICK Component Value Range POC Sp [place] 1.020 1.002 - 1.030 POC pH, UA [...] visits to both her neurologist and her hull molder, the latter feeling this was not an IIH flare and that she may benefit from MANAGER MECHANICAL imaging. Exam reveals positive Romberg (present in [...] with a primary care doctor, preferably an piano accompanist, to take over management of her care. Currently she will follow with her neurologist to review the results of her MRI and indications for further neurologic workup and treatment. That said, Ms. Grey will be seeking new primary care in her area concomitant with this. -Jamison Grewal, Resident Dept of Internal Medicine Pgr [phone] This case supervised by Dr. Yamile Reina, [facility] Jamison Grewal Jr., MD Resident 05/05/13 1850 ED ATTENDING ADDENDUM: The patient was seen [...] by a neurologist and eye physician (out [facility]). Was told this week that she needs [...] process. BUN 6/Cr 0.83 on 05/03/13 [address] [place] With and without gadolinium contrast if at [...] process. BUN 6/Cr 0.83 on 05/03/13 [place] With andwithout gadolinium contrast if at all [...] dipstick (05/05/2013 2:42 PM EDT) POC Sp [place] 1.020 1.002 - 1.030 POC pH, UA [...] Jr.) documented in this encounter Care Teams Balance Weigher Relationship Specialty Start Date End Date None None PCP - General 05/05/13 10/01/16 documented as of this encounter
--- OUTSIDE RECORDS SUMMARY | 2024-05-18 13:33 | XMS_ITS | Encounter Summary ---
Author Organization [facility] Address [address] [place] [address] Care Team Providers Care Recruitment Consultant Name Role Phone Unknown, Provider Primary Care Provider [phone] Encounter Details Date Type Department Care Team (Late st Contact Info) Description 01/08/2021 Lab Requisition [facility] Pathology & Laboratory Medicine - [facility] [address] [place] [address] Outr Resulting Lab, Provider Social History Tobacco [...] Priority Date/Time Associated Diagnosis Comments ZZCOVID-19 TEST [facility] PCR Today 01/08/2021 11:25 EDT COVID-19 TESTING Routine 01/08/2021 11:2 5 EDT documented in this encounter Results * COVID-19 TEST [facility] PCR (01/08/2021 11:25 EDT) Swab ENTIRE NASOPHARYNX / Unknown 01/08/2021 11:25 EDT 01/08/2021 16:13 EDT Provider Outr Resulting Lab MICROBIOLOGY - GENERAL ORDERABLES [facility] [address] [place] [address] * COVID-19 TESTING (01/08/2021 11:25 EDT) COVID-19 rt-PCR Result Negative Negative 01/09/2021 1:28 EDT [facility] Comment: This test [...] history, and epidemiological information. Performed on the [employer]her Fusion instrument Performing Lab [place] [facility] Lab 01/09/2021 1:28 EDT [facility] Swab 01/08/2021 11:2 5 EDT 01/08/2021 16:13 EDT Provider Outr Resulting Lab MICROBIOLOGY - GENERAL ORDERABLES [facility] [address] [place] [address] documented in this encounter Visit Diagnoses Not on filedocumented in this encounter Care Teams Recruitment Consultant Relationship Specialty Start Date End Date Unknown, Provider, PCP - General 07/01/15 documented as of this encounter
--- OUTSIDE RECORDS SUMMARY | 2024-05-18 13:33 | XMS_ITS | Encounter Summary ---
Author Organization [facility] Address [address] [place] [address] Care Team Providers Care Certified Low Vision Therapist Name Role Phone Unavailable Primary Care Provider Unavailabl e Encounter Details Date Type Department Care Team (Late st Contact Info) Description 02/25/2003 Results Only [facility] [address] [place] [address] Iglesia Knox [address] [place], [place] [id number] Social History Tobacco Use Types Packs/Day Years [...] ? RENZOLUCY COTTER ? Accession #: ? [id number] : ? 1980 (Age: 22) ??F ?Collect [...] Knox CNM PATHOLOGY ORDERABLES [facility] [address] [place] [address] documented in this encounter Visit Diagnoses Not on filedocumented in this encounter
--- OUTSIDE RECORDS SUMMARY | 2024-05-18 13:33 | XMS_ITS | Encounter Summary ---
[place] [address] Care Team Providers Care Supervisor Machining Name Role Phone None Primary Care Provider Unavailabl e Encounter Details Date Type Department Care Team (Late st Contact Info) Description 05/25/2014 Orders [place] [address] Wesley Cortes MD [facility] [address] Social History Tobacco Use Types Packs/Day Years [...] is a Non-reportable exam Wesley Cortes MD [facility] FILM LIBRARY ORD ERABLES documented in this encounter Visit Diagnoses Not on filedocumented in this encounter Care Teams Supervisor Machining Relationship Specialty Start Date End Date None None PCP - General 05/05/13 10/01/16 documented as of this encounter
--- OUTSIDE RECORDS SUMMARY | 2024-05-18 13:33 | XMS_ITS | Clinical Summary ---
Author Organization [facility] Address [address] [place] [address] Care Team Providers Care [place] Coiling Machine Setter Name Role Phone Unknown, Provider Primary Care Provider Encounters Date Type Department Care Team Description 05/18/2024 Lab Requisition [facility] Pathology & Laboratory Medicine - [facility] [address] [place] [address] Outr Resulting Lab, Provider from Last 3 Months Social History Tobacco Use Types Packs/Day Years [...] 3-dose series) 08/11 COVID-19 Vaccine ( season) 2024 Care Teams [place] Coiling Machine Setter Relationship Specialty Start Date End Date Unknown, Provider, PCP - General 07/01/15
--- OUTSIDE RECORDS SUMMARY | 2024-05-18 13:33 | XMS_ITS | Encounter Summary ---
Author Organization [facility] Address [address] [place] [address] Care Team Providers Care Gauge Maker Name Role Phone Unavailable Primary Care Provider Unavailabl e Encounter Details Date Type Department Care Team (Late st Contact Info) Description 01/18/2000 Results Only [facility] [address] [place] [address] Wesley Randhawa MD [address] [place], [place] [id number] Social History Tobacco Use Types Packs/Day Years [...] ? LUCY GREY ? Accession #: ? [id number] ? : ? 1980 (Age: 19) ??F [...] the endometrial tissue, suggesting chronic endometritis. ??(Dr. Goncalves)/[facility] Document reviewed and electronically signed by: Genesis Goncalves MD Report ??Date: 01/23/2000 16:01 By the signature above, the attending physician certifies that he/she has personally conducted a gross and/or microscopic examination of the described specimens and rendered or confirmed the above diagnosis. Specimen(s) Received: ? [facility] Clinical History: ? Pelvic pain Gross Description: ? Received in formalin labelled [facility] and #1 E[facility] are multiple red-brown irregular soft tissue fragments aggregating 5.0 x 5.0 x 1.0 cm. ??The specimen is entirely submitted as (A1) through (A6). ??(Sourav Alegria)/loly End of Report [facility]Y SANABRIA 01/18/2000 01/22/2000 9:3 2 EDT Wesley Randhawa MD PATHOLOGY ORDERABLES [facility] [address] [place] [address] documented in this encounter Visit Diagnoses Not on filedocumented in this encounter
--- OUTSIDE RECORDS SUMMARY | 2024-05-18 13:33 | XMS_ITS | Encounter Summary ---
[place] [address] Care Team Providers Care Chemist Biological Name Role Phone TerellCamilla yang Sheri DANIELS Primary Care Provider [phone] Reason for Visit * Auth/Cert Specialty Diagnoses / Procedures Referred By Jones nogueira Referred To Contact Diagnoses Capsular contracture of breast implant, initial encounter Bilateral capsular contracture Procedures PRO REMOVAL OF BREAST IMPLANT REMOVAL OF INTACT MAMMARY IMPLANT-SHERRY (WRVU 6.48) Referral ID Status Reason Start Date Expiration Date Visits Re quested Visits Authorized [id number] 1 1 Encounter Details Date Type Department Care Team (Late st Contact Info) Description 11/18/2016 8:15 AM EDT - 11/18/2016 9:30 AM EDT Surgery [facility] [place] [address] Nas Tabor MD [facility] [place] [address] REMOVAL OF INTACT MAMMARY IMPLANT-SHERRY (WRVU 7.44) [...] closest emergency room or call the hospital asphalt still operator at [phone] and ask for physician recreation teacher covering for your physician. Questions or problems after 5pm or on a weekend: Call the [facility] asphalt still operator at and ask for the physician recreation teacher covering for your doctor. SAME DAY [...] 24 hours) * Patient Instructions* Sulma Lopez, BLOCKER AND POLISHER - 11/18/2016 7:50 AM EDT Post-Op Instructions [...] your surgical site. ??? Do not use kanr-mnn-yklztzg lotions, solutions, or herbal preparations on your [...] about scheduling, please contact our administrative officesat [phone] For clinical questions, please call our nurses at [phone] Both offices are open Friday thru Friday 8a - 5p. With emergencies after hours, call the hospital asphalt still operator at [phone] and ask for the Plastic Surgery Resident recreation teacher. documented in this encounter Medications at [...] Tabor MD - 11/18/2016 9:32 AM EDT [facility] Oper[place] Note Patient Name: Olga Grey : [id number] MR#: [id number] Case Date: 11/18/2016 Surgeon: Surgeon(s) and Role: [...] OF SURGERY: 11/18/16 ATTENDING: Dr. Nas Tabor ORE FEEDER: Sulma Lopez INDICATION FOR SURGERY: The patient [...] Operative Note Patient Name: Olga Grey : [id number] MR#: [id number] Case Date: 11/18/2016 Surgeon: Surgeon(s) and Role: [...] Report (11/18/2016 8:35 AM EDT) Final Diagnosis [id number] ?Location: [facility] The signing pathologist has (i) [...] ng: ??(R1) ??sns 11/20/2016 12:54 PM EDT [facility] BREAST STRUCTURE / Unknown 11/18/2016 8:35 AM EDT 11/18/2016 8:35 AM EDT BREAST STRUCTURE / Unknown 11/18/2016 8:35 AM EDT 11/18/2016 8:35 AM EDT Nas Tabor MD PATHOLOGY/CYTOLOGY [facility] [place] Performing Organization Address [facility] [place] [facility] Co [place] [address] * Specimen to Pathology (surgical or derm) (11/18/2016 8:35 AM EDT) AP Specimen 11/18/2016 8:35 AM EDT 11/18/2016 8:35 AM EDT Narrative [facility] - 11/18/2016 8:35 AM EDT Specimen requisition ordered. ??Separate Pathology report to follow Nas Tabor MD PATHOLOGY/CYTOLOGY [facility] [place] Performing Organization Address [facility] [place] [facility] de [place] [address] * Specimen to Pathology (surgical or derm) (11/18/2016 8:35 AM EDT) AP Specimen 11/18/2016 8:35 AM EDT 11/18/2016 8:35 AM EDT Narrative [facility] - 11/18/2016 8:35 AM EDT Specimen requisition ordered. ??Separate Pathology report to follow Authorizing Provider Result Eddy Tabor MD PATHOLOGY/CYTOLOGY [facility] [place] Performing Organization Address [facility] [place] [facility] de [place] [address] documented in this encounter Visit Diagnoses Not [...] Routine documented in this encounter Care Teams Chemist Biological Relationship Specialty Start Date End Date Camilla Peres APRN [address] [place] [address] [address] [place] [address] PCP - General Family Medicine 10/02/16 07/18/21 documented as of this encounter
--- OUTSIDE RECORDS SUMMARY | 2024-05-18 13:33 | XMS_ITS | Encounter Summary ---
Author Organization [facility] Address [address] [place] [address] Care Team Providers Care Family Worker Name Role Phone Unknown, Provider Primary Care Provider [phone] Encounter Details Date Type Department Care Team (Late st Contact Info) Description 11/09/2019 Lab Requisition [facility] Pathology & Laboratory Medicine - [facility] [address] [place], [place] [address] Beto Mendez MD [address] [place] [phone] Encounter for other general examination Social [...] 11:06 EDT) COVID-19 Result 0 8:33 EDT [facility] Comment:Specimen quantity no t sufficient for analysis. Testing not performed. Swab ENTIRE NASOPHARYNX / Unknown Not Given / Unknown 11/09/2019 11:06 EDT 11/09/2019 15:56 EDT Beto Mendez MD MICROBIOLOGY - [facility] ORDERABLES [facility] [address] [place] [address] documented in this encounter Visit Diagnoses Diagnosis Encounter for other general examination documented in this encounter Care Teams Family Worker Relationship Specialty Start Date End Date Unknown, Provider, PCP - General 07/01/15 documented as of this encounter
--- OUTSIDE RECORDS SUMMARY | 2024-05-18 13:33 | XMS_ITS | Encounter Summary ---
Author Organization [facility] Address [address] [place] [address] Care Team Providers Care Tooling Inspector Name Role Phone Unknown, Provider Primary Care Provider [phone] Encounter Details Date Type Department Care Team (Late st Contact Info) Description 10/17/2020 Lab Requisition [facility] Pathology & Laboratory Medicine - [facility] [address] [place] [address] Outr Resulting Lab, Provider Social History Tobacco [...] gonorrhoeae Result Negative Negative 10/18/2020 13:59 EST [facility] Chlamydia trachomatis Result Negative Negative 10/18/2020 13:59 EST [facility] Swab ENTIRE ENDOCERVIX / Unknown 10/17/2020 10:15 EST 10/17/2020 17:17 EST Provider Outr Resulting Lab MICROBIOLOGY - GENERAL ORDERABLES [facility] [address] [place] [address] documented in this encounter Visit Diagnoses Not on filedocumented in this encounter Care Teams Tooling Inspector Relationship Specialty Start Date End Date Unknown, Provider, PCP - General 07/01/15 documented as of this encounter
--- OUTSIDE RECORDS SUMMARY | 2024-05-18 13:33 | XMS_ITS | Encounter Summary ---
Author Organization [facility] Address [address] [place] [address] Care Team Providers Care Activity Aid Name Role Phone Unavailable Primary Care Provider Unavailabl e Encounter Details Date Type Department Care Team (Late st Contact Info) Description 08/27/2007 Results Only [facility] [address] [place] [address] Ana Patel PA Social History Tobacco Use [...] when reading/interpreti ng unformatted reports. Name: ? SOPHIA LUCY ? Accession #: ? [id number] : ? 1980 (Age: 27) ??F ?Collect Date: ? 08/27/2007 Location: ? [facility] ? Receive Date: ? 08/28/2007 Provider: ?ANA OSBORNE Copy to: ? Specimen/Source: ?ThinPrep Pap Test, Endocervix, processed on [employer] ThinPrep Imaging System, with manual evaluation Last [...] Ana OSBORNE PATHOLOGY ORDERABLES [facility]ON[facility] SANABRIA [address] [place] [address] documented in this encounter Visit Diagnoses Not on filedocumented in this encounter
--- OUTSIDE RECORDS SUMMARY | 2024-05-18 13:33 | XMS_ITS | Encounter Summary ---
[place] [address] Care Team Providers Care Can Piler Name Role Phone None Primary Care Provider Unavailabl e Reason for Visit * Reason Comments Neck Pain Encounter Details Date Type Department Care Team (Latest Contact Info) Description 05/26/2014 8:15 AM EDT Office Visit [place] [phone] Wesley Cortes MD [facility] [place] [address] Herniation of cervical intervertebral disc with radiculopathy [...] would like you to sign up for [facility], which will give you secure online access to your electronic medical record at [facility] and the ability to communicate with [...] the instructions. Here is your activation code: [email or web address] Expires: 07/10/2014 8:51 AM Remember, myD-H is [...] Nothing has made her symptoms better including summer child caregiver, oral steroids, or gabapentin. She has had [...] MEDICATION ALLERGIES. 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 Family history includes hypertension, diabetes, and also [...] maneuver. DIAGNOSTIC DATA: MRI dated 05/25/2014 from [facility] demonstrates cervical spondylosis at C5-C6, cervical disk [...] myelopathy documented in this encounter Care Teams Can Piler Relationship Specialty Start Date End Date None None PCP - General 05/05/13 10/01/16 documented as of this encounter
--- OUTSIDE RECORDS SUMMARY | 2024-05-18 13:33 | XMS_ITS | Encounter Summary ---
Author Organization [facility] Address [facility] [place] [address] Care Team Providers Care Civil Engineering Assistant Name Role Phone None Primary Care Provider Unavailabl e Encounter Details Date Type Department Care Team (Latest Contact Info) Description 06/16/2014 9:13 AM EDT - 06/16/2014 11:59 PM EDT Hospital Encounter XRay at [address] [place] [address] Herniation of cervical intervertebral disc with radiculopathy [...] myelopathy documented in this encounter Care Teams Civil Engineering Assistant Relationship Specialty Start Date End Date None None PCP - General 05/05/13 10/01/16 documented as of this encounter
--- OUTSIDE RECORDS SUMMARY | 2024-05-18 13:33 | XMS_ITS | Encounter Summary ---
Author Organization [facility] Address [address] [place] [address] Care Team Providers Care Phone Technician Name Role Phone Unavailable Primary Care Provider Unavailabl e Encounter Details Date Type Department Care Team (Late st Contact Info) Description 09/17/2012 Results Only [facility] [phone] Bry Posada MD [address] [facility] [place] [phone] Social History Tobacco Use Types Packs/Day Years [...] ? LUCY GREY ? Accession #: ? [id number] ? : ? 1980 (Age: 32) ??F [...] types 16,18,31,33,35, 39,45,51,52,56,58, 59,66, and 68 by public health administrator mediated amplification. Comments Document reviewed and electronically signed by: ? System Interface ? Report date: 09/30/2012 By the signature above, the attending physician certifies that he/she has personally conducted a gross and/or microscopic examination of the described specimens and rendered or confirmed the above diagnosis. End of Report [facility] 09/17/2012 09/21/2012 Bry Posada MD PATHOLOGY ORDERABLES [facility] [address] [place] [address] documented in this encounter Visit Diagnoses Not on filedocumented in this encounter
--- OUTSIDE RECORDS SUMMARY | 2024-05-18 13:33 | XMS_ITS | Encounter Summary ---
[place] [address] Care Team Providers Care Book Reviewer Name Role Phone None Primary Care Provider Unavailabl e Reason for Visit * Reason Comments Neck And Shoulder Pain numbness all the way to fingers LeFT side Encounter Details Date Type Department Care Team (Latest Contact Info) Description 06/16/2014 9:20 AM EDT Office [place] [address] Wesley Cortes MD [facility] [place] [address] Herniation of cervical intervertebral disc with radiculopathy [...] myelopathy documented in this encounter Care Teams Book Reviewer Relationship Specialty Start Date End Date None None PCP - General 05/05/13 10/01/16 documented as of this encounter
--- OUTSIDE RECORDS SUMMARY | 2024-05-18 13:33 | XMS_ITS | Encounter Summary ---
Author Organization [facility] Address [address] [place] [address] Care Team Providers Care Combat Systems Operator Name Role Phone Unknown, Provider Primary Care Provider Encounter Details Date Type Department Care Team (Late st Contact Info) Description 12/11/2021 Lab Requisition [facility] Pathology & Laboratory Medicine - [facility] [address] [place], [place] [address] Outr Resulting Lab, Provider Social History Tobacco [...] gonorrhoeae Result Negative Negative 12/13/2021 14:42 EDT [facility] Chlamydia trachomatis Result Negative Negative 12/13/2021 14:42 EDT [facility] Swab ENTIRE ENDOCERVIX / Unknown 12/11/2021 14:15 EDT 12/12/2021 16:59 EDT Provider Outr Resulting Lab MICROBIOLOGY - GENERAL ORDERABLES [facility] [address] [place] [address] documented in this encounter Visit Diagnoses Not on filedocumented in this encounter Care Teams Combat Systems Operator Relationship Specialty Start Date End Date Unknown, Provider, PCP - General 07/01/15 documented as of this encounter
--- OUTSIDE RECORDS SUMMARY | 2024-05-18 13:33 | XMS_ITS | Referral Summary ---
Author Organization [facility] Address [address] [place] [address] Care Team Providers Care Electrician Shop Name Role Phone Unknown, Provider Primary Care Provider Encounters Date Type Department Care Team Description 05/18/2024 Lab Requisition [facility] Pathology & Laboratory Medicine - [address] [address] Outr Resulting Lab, Provider from Last 3 Months Social History Tobacco Use Types Packs/Day Years Used Date Smoking Tobacco: Never Assessed Sex and Gender Information Value Date Recorded Sex Assigned at Not on file Gender Identity Not on file Sexual Orientation Not on file Plan of Treatment Not on file Care Teams Electrician Shop Relationship Specialty Start Date End Date Unknown, Provider, PCP - General 07/01/15
--- OUTSIDE RECORDS SUMMARY | 2024-05-18 13:33 | XMS_ITS | Encounter Summary ---
Author Organization [facility] Address [address] [place] [address] Care Team Providers Care Conventional Mortgage Underwriter Name Role Phone Unknown, Provider Primary Care Provider Encounter Details Date Type Department Care Team (Late st Contact Info) Description 09/13/2021 Lab Requisition [facility] Pathology & Laboratory Medicine - [facility] [address] [place] [address] Outr Resulting Lab, Provider Social History Tobacco [...] [facility] [address] [place] [address] * COVID-19 TESTING (09/12/2021 11:00 EST) COVID-19 rt-PCR Result Negative Negative 09/13/2021 19:16 EST [facility] Comment: [...] history, and epidemiological information. Performed on the [employer] Fusion instrument Performing Lab [facility] Lab 09/13/2021 19:16 EST [facility] Swab 09/12/2021 11:0 0 EST 09/13/2021 16:25 EST Provider Outr Resulting Lab MICROBIOLOGY - GENERAL ORDERABLES [facility] [address] [place] [address] documented in this encounter Visit Diagnoses Not on filedocumented in this encounter Care Teams Conventional Mortgage Underwriter Relationship Specialty Start Date End Date Unknown, Provider, PCP - General 07/01/15 documented as of this encounter
--- OUTSIDE RECORDS SUMMARY | 2024-05-18 13:33 | XMS_ITS | Encounter Summary ---
Author Organization [facility] Address [address] [place] [address] Care Team Providers Care Marble Cutter Operator Name Role Phone Unavailable Primary Care Provider Unavailabl e Encounter Details Date Type Department Care Team (Late st Contact Info) Description 04/23/2013 Results Only [facility] Laboratory Services - [facility] [address] [place], [place] [id number] Karishma Dean MD [address] [place] [address] [place] [address] Social History Tobacco Use Types Packs/Day Years [...] ? SOPHIA LUCY ? Accession #: ? [id number] ? : ? 1980 (Age: 32) ??F ?Collect Date: ? 04/23/2013 ? Location: ? [facility] ? Receive Date: ? 04/27/2013 ? Provider: KAIRSHMA DEAN MD Copy to: DL DÍAZ MD ? [...] types 16,18,31,33,35, 39,45,51,52,56,58, 59,66, and 68 by insurance sales assistant mediated amplification. Comments Document reviewed and electronically signed by: ? System Interface ? Report date: 04/30/2013 By the signature above, the attending physician certifies that he/she has personally conducted a gross and/or microscopic examination of the described specimens and rendered or confirmed the above diagnosis. End of Report [facility] 04/23/2013 04/27/2013 Karishma Dean MD PATHOLOGY ORDERABLES Performing Organization Address City/State/[facility] Co de Phone Number [address] [address] documented in this encounter Visit Diagnoses Not on filedocumented in this encounter
--- OUTSIDE RECORDS SUMMARY | 2024-05-18 13:33 | XMS_ITS | Encounter Summary ---
Author Organization [facility] Address [address] [place] [address] Care Team Providers Care Trial Attorney Name Role Phone Unavailable Primary Care Provider Unavailabl e Encounter Details Date Type Department Care Team (Late st Contact Info) Description 01/28/2002 Results Only [facility] [address] [place] [address] Ig[address]ia Knox [address] [place], [place] [id number] Social History Tobacco Use Types Packs/Day Years [...] ? RENZOLUCY COTTER ? Accession #: ? [id number] : ? 1980 (Age: 21) ??F ?Collect [...] Knox CNM PATHOLOGY ORDERABLES [facility] SANABRIA [address] [place] [address] documented in this encounter Visit Diagnoses Not on filedocumented in this encounter
--- OUTSIDE RECORDS SUMMARY | 2024-05-18 13:33 | XMS_ITS | Encounter Summary ---
Author Organization [facility] Address [address] [place] [address] Care Team Providers Care Feed Management Advisor Name Role Phone Unknown, Provider Primary Care Provider Encounter Details Date Type Department Care Team (Late st Contact Info) Description 01/30/2022 Lab Requisition [facility] Pathology & Laboratory Medicine - [facility] [address] [place], [place] [address] Outr Resulting Lab, Provider Social History Tobacco [...] 55.8 - 66.1 % 01/31/2022 13:36 EDT [facility] Albumin g/dL 4.5 3.6 - 5.2 g/dL 01/31/2022 13:36 EDT [facility] Alpha-1 % 3.6 2.9 - 4.9 % 01/31/2022 13:36 [facility] Alpha-1 g/dL 0.30 0.15 - 0.40 g/dL 01/31/2022 13:36 [facility] Alpha-2 % 8.5 7.1 - 11.8 % 01/31/2022 13:36 [facility] Alpha-2 g/dL 0.60 0.50 - 1.00 g/dL 01/31/2022 13:36 [facility] Beta % 11.5 8.4 - 13.1 % 01/31/2022 13:36 [facility] Beta g/dL 0.80 0.60 - 1.20 g/dL 01/31/2022 13:36 [facility] Gamma % 13.8 11.1 - 18.8 % 01/31/2022 13:36 [facility] Gamma g/dL 1.00 0.60 - 1.60 g/dL 01/31/2022 13:36 [facility] SPEP Comment No apparent monoclonal protein seen on serum electrophoresis 01/31/2022 13:36 [facility] Comment:See scanned/suppleme ntary report. Total Protein 7.2 6.3 - 8.2 g/dL 01/31/2022 13:36 [facility] Blood VENOUS BLOOD / Unknown 01/30/2022 12:30 EDT 01/30/2022 22:16 EDT Provider Outr Resulting Lab CHEMISTRY & BLOOD GAS ORDERABLES [facility] [address] [place] [address] * PROTEIN, TOTAL (01/30/2022 12:30 EDT) Blood VENOUS BLOOD / Unknown 01/30/2022 12:30 EDT 01/30/2022 22:16 EDT Provider Outr Resulting Lab CHEMISTRY & BLOOD GAS ORDERABLES [facility] [address] [place] [address] documented in this encounter Visit Diagnoses Not on filedocumented in this encounter Care Teams Feed Management Advisor Relationship Specialty Start Date End Date Unknown, Provider, PCP - General 07/01/15 documented as of this encounter
--- OUTSIDE RECORDS SUMMARY | 2024-05-18 13:33 | XMS_ITS | Encounter Summary ---
Author Organization [facility] Address [address] [place] [address] Care Team Providers Care Mechanical Test Technician Name Role Phone Unknown, Provider Primary Care Provider [phone] Encounter Details Date Type Department Care Team (Late st Contact Info) Description 07/12/2020 Lab Requisition [facility] Pathology & Laboratory Medicine - [address] [address] Outr Resulting Lab, Provider Social History Tobacco [...] gonorrhoeae Result Negative Negative 08/03/2020 15:02 EST [facility] Chlamydia trachomatis Result Negative Negative 08/03/2020 15:02 EST [facility] Swab ENTIRE WALL OF CERVIX / Unknown 06/14/2020 15:40 EDT 08/02/2020 8:22 EST Provider Outr Resulting Lab MICROBIOLOGY - GENERAL ORDERABLES [facility] [address] [place] [address] documented in this encounter Visit Diagnoses Not on filedocumented in this encounter Care Teams Mechanical Test Technician Relationship Specialty Start Date End Date Unknown, Provider, PCP - General 07/01/15 documented as of this encounter
[2024-05-21 20:41] LABS: Calprotectin <50.0 mcg/g
== END 2024-05-18 13:31 | disposition home or self-care (01) ==
LOC: LBN 13:30
PROVIDERS: PCP Student in an Organized Health Care Education/Training Program; Visit Provider Surgery
DX: R10.9 Unspecified abdominal pain (principal); F17.200 Nicotine dependence, unspecified, uncomplicated; G93.2 Benign intracranial hypertension; R10.30 Lower abdominal pain, unspecified
CPT/HCPCS: 83993

== ENCOUNTER 2024-06-24 12:43 | Outpatient (CLI) | payer OTHER, SELFPAY ==
[2024-06-24 12:36] LABS: Abs Immature Grans 0.03 10^3/uL (0.0-0.06); Absolute Basophil Count 0.04 10^3/uL (0.0-0.2); Absolute Eosinophil Count 0.21 10^3/uL (0.0-0.7); Absolute Lymphocyte Count 1.86 10^3/uL (1.2-3.4); Absolute Monocyte Count 0.53 10^3/uL (0.1-0.8); Absolute Neutrophil Count 4.05 10^3/uL (1.2-6.7); Basophils % 0.6 %; Eosinophils % 3.1 %; HCT 40.1 % (36.0-46.0); Immature Grans % 0.4 %; Lymphocytes % 27.7 %; MCH 34.8 pg (27.0-33.0); MCHC 34.9 % (32.0-36.0); MCV 100 fL (80-95); MPV 8.8 fL (8.0-11.0); Monocytes % 7.9 %; Neutrophils % 60.3 %; Platelet Count 296 10^3/uL (130-400); RBC 4.02 10^6/uL (3.93-5.22); RDW 11.7 % (11.7-14.6); RDW-SD 43.3 fL; WBC 6.72 10^3/uL (4.4-10.8)
--- OUTSIDE RECORDS SUMMARY | 2024-06-24 12:54 | XMS_ITS | Encounter Summary ---
Author Organization [facility] [place] [address] Care Team Providers Care Vp Software Support Name Role Phone Lisa Martin DO Primary Care Provider [phone]- [phone] Reason for Visit * Reason Comments Neck [...] MRI 07/17/22 in eDH/ EMG 01/2022 @[facility]/ no relief w/PT Lisa Martin, DO [address] [place] [address] [facility] [place] [address] Referral ID Status Reason Start Date Expiration Date V isits Requested Visits Authorized [id number] Closed Consult, Test & Treat PCP Updated and/or Approved 07/23/2022 07/23/2023 6 6 Encounter Details Date Type Department Care Team (Latest Contact Info) Description 07/30/2022 8:00 AM EST Office Visit [place] [address] Mckenna Jolley APRN [facility] [place] [address] Neck pain; Left cervical radiculopathy Social History [...] this encounter Progress Notes * Mckenna Jolley, RETAIL SALES MERCHANDISER DEVELOPMENT - 07/30/2022 8:00 AM EST [facility] Medical Decision Making: Olga Gery is a Pleasant 41 y.o. female seen [...] left. 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 reports that she has been smoking. She has never used smokeless tobacco. Conservative Treatment: Physical Therapy: None Home Exercise Program: Independent as tolerated Medications: Ibuprofen, Biofreeze, Delmar balm Other: Chiropractic manipulation Injections: 1. None [...] DO Referring Provider: Lisa Jolley APRN 07/30/2022 [facility] documented in this encounter Plan of Treatment Not on file documented as of this encounter Visit Diagnoses Diagnosis Neck pain Cervicalgia Left cervical radiculopathy Brachial neuritis or radiculitis nos documented in this encounter Care Teams Vp Software Support Relationship Specialty Start Date End Date Lisa Martin DO [address] [place] [address] PCP - General Family Medicine 07/19/21 documented as of this encounter
--- OUTSIDE RECORDS SUMMARY | 2024-06-24 12:54 | XMS_ITS | Encounter Summary ---
Author Organization [facility] [place] [address] Care Team Providers Care Children'S Tutor Nursery Name Role Phone Camilla Peres FRANCES Primary Care Provider [phone] Encounter Details Date Type Department Care Team (Late st Contact Info) Description 09/29/2017 Telephone [place] [phone] Savi Camejo RN Social History Tobacco Use [...] be ruled out by her PCP or electronics technology instructor. I also explained that any neck stiffness [...] on filedocumented in this encounter Care Teams Children'S Tutor Nursery Relationship Specialty Start Date End Date Camilla Peres APRN [address] [place] [address] PCP - General Family Medicine 10/02/16 07/18/21 documented as of this encounter
--- OUTSIDE RECORDS SUMMARY | 2024-06-24 12:54 | XMS_ITS | Encounter Summary ---
[place] [address] Care Team Providers Care Welfare Supervisor Name Role Phone Lisa Martin Primary Care Provider [phone]- [phone] Encounter Details Date Type Department Care Team (Late st Contact Info) Description 04/19/2022 10:00 AM EDT - 04/19/2022 11:59 PM EDT Hospital [place] [address] Diana Ordoñez, DIAMOND CLEANER [address] [place] [address] Mastodynia Discharge Disposition: Home Social History Tobacco [...] who have questions please contact the health residential caregiver that requested your imaging first. ? Diana Ordoñez APRN IMG MAMMO ORDERAB LES documented in this encounter Visit Diagnoses Diagnosis Mastodynia documented in this encounter Care Teams Welfare Supervisor Relationship Specialty Start Date End Date Lisa Martin DO [address] [place] [address] PCP - General Family Medicine 07/19/21 documented as of this encounter
--- OUTSIDE RECORDS SUMMARY | 2024-06-24 12:54 | XMS_ITS | Encounter Summary ---
Author Organization [facility] [place] [address] Care Team Providers Care Computer Language Coder Name Role Phone Lisa Martin DO Primary Care Provider [phone]- [phone] Encounter Details Date Type Department Care Team (Late st Contact Info) Description 10/17/2021 Ancillary Procedure Radiology Library at [facility] E[place]quez [phone] Lisa Martin, DO [address] [place], [place] [address] Social History Tobacco Use Types Packs/Day Years [...] MR Spine (10/17/2021 12:00 AM EST) Narrative [facility] - 11/01/2021 11:41 AM EDT This exam is auto-finalizing. It's purpose is for storage only. Lisa Martin DO [facility] FILM LIBRARY O RDERABLES DH [place], [place] documented in this encounter Visit Diagnoses Not on filedocumented in this encounter Care Teams Computer Language Coder Relationship Specialty Start Date End Date Lisa Martin DO [address] [place] [address] PCP - General Family Medicine 07/19/21 documented as of this encounter
--- OUTSIDE RECORDS SUMMARY | 2024-06-24 12:54 | XMS_ITS | Encounter Summary ---
[place] [address] Care Team Providers Care Marine Engineering Consultant Name Role Phone Lisa Martin DO Primary Care Provider [phone]- [phone] Reason for Referral * Consultation (Routine) - Closed Specialty Diagnoses / Procedures Referred By Contac t Referred To Contact Pain and Spine Center Diagnoses Anesthesia of skin Cervicalgia Other cervical disc displacement, unspecified cervical region Spine- Neck pain radiates down L arm w/ n&t/ MRI 07/17/22 in eDH/ EMG 01/2022 @[facility]/ no relief w/PT Lisa Martin DO [address] [place] [address] [facility] [place] [address] Referral ID Status Reason Start Date Expiration Date V isits Requested Visits Authorized [id number] Closed Consult, Test & Treat PCP Updated and/or Approved 07/23/2022 07/23/2023 6 6 Encounter Details Date Type Department Care Team (Latest Contact Info) Description 07/23/2022 Transcribe Orders eDH Incoming Referrals [phone] Lisa Martin DO [address] [place], [place] [address] Anesthesia of skin; Cervicalgia; Other cervical disc [...] region documented in this encounter Care Teams Marine Engineering Consultant Relationship Specialty Start Date End Date Lisa Martin DO [address] [place] [address] PCP - General Family Medicine 07/19/21 documented as of this encounter
--- OUTSIDE RECORDS SUMMARY | 2024-06-24 12:54 | XMS_ITS | Encounter Summary ---
Author Organization [facility] [place] [address] Care Team Providers Care Staff Combat Information Center Officer Name Role Phone Lisa Martin DO Primary Care Provider +1- [phone] Encounter Details Date Type Department Care Team (Late st Contact Info) Description 07/17/2022 Ancillary Procedure Radiology Library at [facility] [place] [phone] Lisa Martin, DO [address] [place], [place] [id number] Social History Tobacco Use Types Packs/Day Years [...] MR Spine (07/17/2022 12:00 AM EST) Narrative [facility] - 07/25/2022 11:33 AM EST This exam is auto-finalizing. It's purpose is for storage only. Lisa Martin DO [facility] FILM LIBRARY O RDERABLES DH [place], [place] documented in this encounter Visit Diagnoses Not on filedocumented in this encounter Care Teams Staff Combat Information Center Officer Relationship Specialty Start Date End Date Lisa Martin DO [address] [facility] [place] [address] PCP - General Family Medicine 07/19/21 documented as of this encounter
--- OUTSIDE RECORDS SUMMARY | 2024-06-24 12:54 | XMS_ITS | Encounter Summary ---
Author Organization [facility] Address [facility] [place] [address] Care Team Providers Care Manager Credit Name Role Phone Camilla Peres FRANCES Primary Care Provider [phone] Encounter Details Date Type Department Care Team (Late st Contact Info) Description 09/26/2017 12:51 PM EST - 09/26/2017 3:50 PM EST Surgery [place] [address] Nas Herrera MD [facility] [place] [address] EXC.PAROTID TUMOR OR GLAND, LATERAL LOBE, W [...] -You can reach the ENT clinic at [phone] for appointment questions. -The ENT triage nurse is available at [phone] -For urgent issues during evenings and weekends the ENT resident database consultant can be reached through [facility] soldering machine operator automatic at [phone] Follow Up: You will need to follow [...] Herrera MD - 09/26/2017 2:[address] [facility] Operative Note Patient Name: Olga Grey : [id number] MR#: [id number] Case Date: 09/26/2017 Surgeon: Surgeon(s) and Role: [...] Info Order Time SPECIMEN TO PATHOLOGY OR#2 Ex:[id number]. parotid mass RIGHT parotid mass Excision 09/26/2017 [...] The incision was injected with 1% xylocaine 1:[id number] epinephrine and the made with a 15 [...] PM EST 09/26/2017 2:[address] [facility] - 09/26/2017 2:15 PM EST Specimen requisition ordered. ??Separate Pathology report to follow Resulting Agency Comment Spec In Lab Nas Herrera MD PATHOLOGY/CYTOLOGY ORDERABLES Performing Organization Address City/State/[facility] Co de Phone Number [facility] [place] [address] * Surgical Pathology Report (09/26/2017 1:32 PM EST) Final Diagnosis [id number] ? Location: [facility]; [facility]; The signing pathologist has (i) examined the relevant preparation(s) for the specimen(s) and (ii) rendered or confirmed the diagnosis(es). . 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 Electronically signed by: ??Leti Travis DO Verified: ??10/01/2017 ?Pathologist Performed at: ??-[facility] Dept. of Pathology, [place], [place] CLINICAL INFORMATION Specimen Submitted: A - Right parotid mass Clinical History: Parotid mass Clinical Diagnosis: Parotid mass SPECIMEN PROCESSING A - Labeled/Fixativ e: Right parotid mass, fresh. Quantity/Size: Single, 1.0 x 0.7 x 0.6 cm. Tissue Description: Ovoid, buckley-white cystic structure, on section with pale white fluid. Sections/Proces sing: Inked and trisected. (T1) ??pps 10/01/2017 10:[address] [facility] PAROTID GLAND STRUCTURE / Unknown 09/26/2017 1:32 PM EST 09/26/2017 1:32 PM EST Nas Herrera MD PATHOLOGY/CYTOLOGY ORDERABLES [facility] [address] documented in this encounter Visit Diagnoses Diagnosis [...] MD) documented in this encounter Care Teams Manager Credit Relationship Specialty Start Date End Date Camilla Peres, REGISTERED NURSE BONE MARROW TRANSPLANT [address] [place] [address] [address] [place] [address] PCP - General Family Medicine 10/02/16 07/18/21 documented as of this encounter
--- OUTSIDE RECORDS SUMMARY | 2024-06-24 12:54 | XMS_ITS | Encounter Summary ---
[place] [address] Care Team Providers Care Shaft Sinker Name Role Phone Camilla Peres FRANCES Primary Care Provider [phone] Encounter Details Date Type Department Care Team (Late st Contact Info) Description 09/26/2017 12:24 PM EST Anesthesia Event [place] [address] Augustine Manuel MD [facility] [place] [address] Blanche Gilbert CRNA [facility] [place] [address] Anesthesia Record Procedure Summary Procedure Name Responsible [...] Time: 1403 09/26/17 1235 by Blanche Gilbert, RETAIL WIRELESS SALES CONSULTANT 09/26/17 1403 by Blanche Gilbert CRNA Incision [...] 10.62) performed by Nas Tabor MD at [facility] ??? PRO REMOVAL OF BREAST IMPLANT Bilateral 11/18/2016 REMOVAL OF INTACT MAMMARY IMPLANT-SHERRY (WRVU 6.48) performed by Nas Tabor MD at [facility] Social History Substance Use Topics [...] mg documented in this encounter Care Teams Shaft Sinker Relationship Specialty Start Date End Date Camilla Peres, PREFABRICATOR [address] [place] [address] [address] [place] [address] PCP - General Family Medicine 10/02/16 07/18/21 documented as of this encounter
--- OUTSIDE RECORDS SUMMARY | 2024-06-24 12:54 | XMS_ITS | Clinical Summary ---
Author Organization Replaced By [facility] Address [facility] [place] [address] Care Team Providers Care Nurse Practitioner Physician Assistant Name Role Phone Lisa Martin Primary Care Provider [phone] Allergies No known active allergies Medications Medication [...] who have questions please contact the health managed care nurse that requested your imaging first. ? Electronically signed by: Michelle Birmingham MD, [facility] ([phone]), at 04/19/2022 11:38 AM Diana Ordoñez APRN [...] capacity to make decision: Yes Care Teams Nurse Practitioner Physician Assistant Relationship Specialty Start Date End Date Lisa Martin DO [address] [place] [address] PCP - General Family Medicine 07/19/21
--- OUTSIDE RECORDS SUMMARY | 2024-06-24 12:54 | XMS_ITS | Encounter Summary ---
Author Organization [facility] [place] [address] Care Team Providers Care Garage Hand Name Role Phone Camilla Peres FRANCES Primary Care Provider [phone] Encounter Details Date Type Department Care Team (Latest Contact Info) Description 09/26/2017 10:45 AM EST - 09/26/2017 3:15 PM EST Hospital Encounter [place] [address] Nas Herrera MD [facility] [place] [address] Parotid mass Discharge Disposition: Home Social History [...] -You can reach the ENT clinic at [phone] for appointment questions. -The ENT triage nurse is available at [phone] -For urgent issues during evenings and weekends the ENT resident veterinary surgeon can be reached through [facility] at [phone] Follow Up: You will need to follow [...] - 09/26/2017 2:00 PM EST [facility] [place] Patient Name: Olga Grey : [id number] MR#: [id number] Case Date: 09/26/2017 Surgeon: Surgeon(s) and Role: [...] Info Order Time SPECIMEN TO PATHOLOGY OR#2 Ex:[id number]. parotid mass RIGHT parotid mass Excision 09/26/2017 [...] The incision was injected with 1% xylocaine [id number] epinephrine and the made with a 15 [...] PM EST 09/26/2017 2:15 PM EST Narrative [facility] - 09/26/2017 2:15 PM EST Specimen requisition ordered. ??Separate Pathology report to follow Resulting Agency Comment Spec In Lab Nas Herrera MD PATHOLOGY/CYTOLOGY ORDERABLES [facility] [place] [address] * Surgical Pathology Report (09/26/2017 1:32 PM EST) Final Diagnosis [id number] ? Location: [facility]; [facility]; The signing pathologist has (i) examined the relevant preparation(s) for the specimen(s) and (ii) rendered or confirmed the diagnosis(es). . 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 Electronically signed by: ??Leti Travis DO Verified: ??10/01/2017 ?Pathologist Performed at: ??-[facility] [place], [place], [place] CLINICAL INFORMATION Specimen Submitted: A - Right parotid mass Clinical History: Parotid mass Clinical Diagnosis: Parotid mass SPECIMEN PROCESSING A - Labeled/Fixativ e: Right parotid mass, fresh. Quantity/Size: Single, 1.0 x 0.7 x 0.6 cm. Tissue Description: Ovoid, buckley-white cystic structure, on section with pale white fluid. Sections/Proces sing: Inked and trisected. (T1) ??pps 10/01/2017 10:10 AM EST [facility] PAROTID GLAND STRUCTURE / Unknown 09/26/2017 1:32 PM EST 09/26/2017 1:32 PM EST Nas Herrera MD PATHOLOGY/CYTOLOGY ORDERABLES [facility] [place] [address] documented in this encounter Visit Diagnoses Diagnosis [...] MD) documented in this encounter Care Teams Garage Hand Relationship Specialty Start Date End Date Camilla Peres APRN [address] [place] [address] PCP - General Family Medicine 10/02/16 07/18/21 documented as of this encounter
--- OUTSIDE RECORDS SUMMARY | 2024-06-24 12:54 | XMS_ITS | Encounter Summary ---
Author Organization [facility] Address [facility] [place] [address] Care Team Providers Care Machinist Linotype Name Role Phone Lisa Martin DO Primary Care Provider [phone] Encounter Details Date Type Department Care Team [...] on filedocumented in this encounter Care Teams Machinist Linotype Relationship Specialty Start Date End Date Lisa Martin DO [address] [place] [address] PCP - General Family Medicine 07/19/21 documented as of this encounter
--- OUTSIDE RECORDS SUMMARY | 2024-06-24 12:54 | XMS_ITS | Encounter Summary ---
Author Organization [facility] Address [facility] [place] [address] Care Team Providers Care Harvest Manager Name Role Phone Camilla Peres FRANCES Primary Care Provider [phone] Encounter Details Date Type Department Care Team (Late st Contact Info) Description 10/02/2017 9:00 AM EST Office [place] [address] Segrio Banegas PA [facility] [place] [address] Parotid mass Social History Tobacco Use Types [...] Banegas PA - 10/02/2017 9:00 AM EST [facility] Ot[facility] - Head and Neck Surgery Sergio Banegas PA-C 10/02/17 [place] [address] Office Patient Name: Olga Grey Date of [...] regarding their treatment. Sergio Banegas PA-C 10/02/2017 [place], [place] [address] Office documented in this encounter Plan of Treatment Not on file documented as of this encounter Visit Diagnoses Diagnosis Parotid mass Swelling, mass, or lump in head and neck documented in this encounter Care Teams Harvest Manager Relationship Specialty Start Date End Date Camilla Peres APRN [address] [place] [address] PCP - General Family Medicine 10/02/16 07/18/21 documented as of this encounter
--- OUTSIDE RECORDS SUMMARY | 2024-06-24 12:55 | XMS_ITS | Encounter Summary ---
Author Organization [facility] Address [facility] [place] [address] Care Team Providers Care Aviation Mechanic Name Role Phone Camilla Peres FRANCES Primary Care Provider [phone] Encounter Details Date Type Department Care Team (Latest Contact Info) Description 08/13/2017 - 08/13/2017 11:59 PM EST Hospital Encounter Radiology Library at [facility] [place] Vas[place] [address] Nas Herrera MD [facility] [place] [address] Discharge Disposition: Home Social History Tobacco Use [...] Herrera MD IMG FILM LIBRARY O RDERABLES [place], [place] documented in this encounter Visit Diagnoses Not on filedocumented in this encounter Care Teams Aviation Mechanic Relationship Specialty Start Date End Date Camilla Peres APRN [address] [place] [address] PCP - General Family Medicine 10/02/16 07/18/21 documented as of this encounter
--- OUTSIDE RECORDS SUMMARY | 2024-06-24 12:55 | XMS_ITS | Encounter Summary ---
[place] [address] Care Team Providers Care Car Designer Name Role Phone TerellCamilla yang Sheri DANIELS Primary Care Provider [phone] Reason for Visit * Auth/Cert Specialty Diagnoses / Procedures Referred By Jones nogueira Referred To Contact Diagnoses Capsular contracture of breast implant, initial encounter Bilateral capsular contracture Procedures PRO REMOVAL OF BREAST IMPLANT REMOVAL OF INTACT MAMMARY IMPLANT-SHERRY (WRVU 6.48) Referral ID Status Reason Start Date Expiration Date Visits Re quested Visits Authorized [id number] 1 1 Encounter Details Date Type Department Care Team (Late st Contact Info) Description 11/18/2016 8:15 AM EDT - 11/18/2016 9:30 AM EDT Surgery [place] [address] Nas Tabor MD [facility] [place] [address] REMOVAL OF INTACT MAMMARY IMPLANT-SHERRY (WRVU 7.44) [...] closest emergency room or call the hospital sueding and buffing machine operator at [phone] and ask for physician christmas tree contractor covering for your physician. Questions or problems after 5pm or on a weekend: Call the [facility] sueding and buffing machine operator at and ask for the physician christmas tree contractor covering for your doctor. SAME DAY SURGERY [...] 24 hours) * Patient Instructions* Sulma Lopez, DECORATOR CONSULTANT - 11/18/2016 7:50 AM EDT Post-Op Instructions [...] your surgical site. ??? Do not use cdgx-tsa-zvnoqwa lotions, solutions, or herbal preparations on your [...] about scheduling, please contact our administrative officesat [phone] For clinical questions, please call our nurses at [phone] Both offices are open Friday thru Friday 8a - 5p. With emergencies after hours, call the hospital sueding and buffing machine operator at [phone] and ask for the Plastic Surgery Resident christmas tree contractor. documented in this encounter Medications at Time [...] Tabor MD - 11/18/2016 9:32 AM EDT [facility] Operative Note Patient Name: Olga Grey : [id number] MR#: [id number] Case Date: 11/18/2016 Surgeon: Surgeon(s) and Role: [...] OF SURGERY: 11/18/16 ATTENDING: Dr. Nas Tabor GENERATION MANAGER: Sulma Lopez INDICATION FOR SURGERY: The patient [...] Operative Note Patient Name: Olga Grey : [id number] MR#: [id number] Case Date: 11/18/2016 Surgeon: Surgeon(s) and Role: [...] Report (11/18/2016 8:35 AM EDT) Final Diagnosis [id number] ?Location: [facility] The signing pathologist has (i) [...] ng: ??(R1) ??sns 11/20/2016 12:54 PM EDT [facility] BREAST STRUCTURE / Unknown 11/18/2016 8:35 AM EDT 11/18/2016 8:35 AM EDT BREAST STRUCTURE / Unknown 11/18/2016 8:35 AM EDT 11/18/2016 8:35 AM EDT Nas Tabor MD PATHOLOGY/CYTOLOGY [facility] [place] Performing Organization Address [facility] [place] [address] * Specimen to Pathology (surgical or derm) (11/18/2016 8:35 AM EDT) AP Specimen 11/18/2016 8:35 AM EDT 11/18/2016 8:35 AM EDT Narrative [facility] - 11/18/2016 8:35 AM EDT Specimen requisition ordered. ??Separate Pathology report to follow Nas Tabor MD PATHOLOGY/CYTOLOGY [place] Performing Organization Address [facility] [place] [address] * Specimen to Pathology (surgical or derm) (11/18/2016 8:35 AM EDT) AP Specimen 11/18/2016 8:35 AM EDT 11/18/2016 8:35 AM EDT Narrative [facility] - 11/18/2016 8:35 AM EDT Specimen requisition ordered. ??Separate Pathology report to follow Authorizing Provider Result Eddy Tabor MD PATHOLOGY/CYTOLOGY [place] Performing Organization Address [facility] [place] [address] documented in this encounter Visit Diagnoses Not [...] Routine documented in this encounter Care Teams Car Designer Relationship Specialty Start Date End Date Camilla Peres APRN [address] [place] [address] [address] [place] [address] PCP - General Family Medicine 10/02/16 07/18/21 documented as of this encounter
--- OUTSIDE RECORDS SUMMARY | 2024-06-24 12:55 | XMS_ITS | Encounter Summary ---
Author Organization [facility] Address [address] [place] [address] Care Team Providers Care Hand Buffing Wheel Former Name Role Phone Unavailable Primary Care Provider Unavailabl e Encounter Details Date Type Department Care Team (Late st Contact Info) Description 01/30/2009 Orders Only [facility] - [facility] ([facility] [address] [place], [place] [id number] Ana Patel PA Social History Tobacco Use [...] ? SOPHIA LUCY ? Accession #: ? [id number] ? : ? 1980 (Age: 28) ??F [...] Ana [place]NE PATHOLOGY ORDERABLES Performing Organization Address City/State/[facility] Co de Phone Number [facility] [address] [place] [address] documented in this encounter Visit Diagnoses Not on filedocumented in this encounter
--- OUTSIDE RECORDS SUMMARY | 2024-06-24 12:55 | XMS_ITS | Encounter Summary ---
Author Organization [facility] Address [address] [place] [address] Care Team Providers Care Seat Trimmer Name Role Phone Unavailable Primary Care Provider Unavailabl e Encounter Details Date Type Department Care Team (Late st Contact Info) Description 01/28/2002 Results Only [facility] [address] [place] [address] Iglesia Knox [address] [place], [place] [id number] Social History Tobacco Use Types Packs/Day Years [...] ? LUCY GREY ? Accession #: ? [id number] : ? 1980 (Age: 21) ??F ?Collect [...] Knox CNM PATHOLOGY ORDERABLES [facility] [address] [place] [address] documented in this encounter Visit Diagnoses Not on filedocumented in this encounter
--- OUTSIDE RECORDS SUMMARY | 2024-06-24 12:55 | XMS_ITS | Encounter Summary ---
Author Organization [facility] Address [facility] [place] [address] Care Team Providers Care Clinic Coordinator Name Role Phone Camilla Peres FRANCES Primary Care Provider [phone] Reason for Visit * Reason Comments Advice Only implant removal cons ult, ? leaking, pain Encounter Details Date Type Department Care Team (Late st Contact Info) Description 10/02/2016 4:00 PM EST Office [place] [address] Nas Tabor MD [facility] [place] [address] Breast implant capsular contracture Social History Tobacco [...] she got them. 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 At this point [...] Timeframe: elective Procedure: Bilateral implant removal CPT: 89906, [address] Surgical site: breasts Side: bilateral Anesthesia: General [...] implant documented in this encounter Care Teams Clinic Coordinator Relationship Specialty Start Date End Date Camilla Peres APRN [address] [place] [address] PCP - General Family Medicine 10/02/16 07/18/21 documented as of this encounter
--- OUTSIDE RECORDS SUMMARY | 2024-06-24 12:55 | XMS_ITS | Encounter Summary ---
Author Organization [facility] Address [address] [place] [address] Care Team Providers Care Other Sales Support Worker Name Role Phone Unknown, Provider Primary Care Provider Unava ilable Encounter Details Date Type Department Care Team (Late st Contact Info) Description 10/17/2020 Lab Requisition [facility] Pathology & Laboratory Medicine - [address] [id number] Outr Resulting Lab, Provider Social History Tobacco [...] [facility] [address] [place] [address] documented in this encounter Visit Diagnoses Not on filedocumented in this encounter Care Teams Other Sales Support Worker Relationship Specialty Start Date End Date Unknown, Provider, PCP - General 07/01/15 documented as of this encounter
--- OUTSIDE RECORDS SUMMARY | 2024-06-24 12:55 | XMS_ITS | Encounter Summary ---
Author Organization [facility] Address [address] [place] [address] Care Team Providers Care Air Export Logistics Manager Name Role Phone Unavailable Primary Care Provider Unavailabl e Encounter Details Date Type Department Care Team (Late st Contact Info) Description 09/17/2012 Results Only [facility] [phone] Bry Posada MD [address] [facility] [place] [address] Social History Tobacco Use Types Packs/Day Years [...] ? LUCY GREY ? Accession #: ? [id number] ? : ? 1980 (Age: 32) ??F [...] types 16,18,31,33,35, 39,45,51,52,56,58, 59,66, and 68 by model maker mediated amplification. Comments Document reviewed and electronically signed by: ? System Interface ? Report date: 09/30/2012 By the signature above, the attending physician certifies that he/she has personally conducted a gross and/or microscopic examination of the described specimens and rendered or confirmed the above diagnosis. End of Report [facility] 09/17/2012 09/21/2012 Bry Posada MD PATHOLOGY ORDERABLES [facility] [address] [place] [address] documented in this encounter Visit Diagnoses Not on filedocumented in this encounter
--- OUTSIDE RECORDS SUMMARY | 2024-06-24 12:55 | XMS_ITS | Encounter Summary ---
Author Organization [facility] Address [address] [place] [address] Care Team Providers Care Nurse Midwife/Clinical Instructor Name Role Phone Unknown, Provider Primary Care Provider Unava ilable Encounter Details Date Type Department Care Team (Late st Contact Info) Description 01/08/2021 Lab Requisition [facility] Pathology & Laboratory Medicine - [facility] [address] [place], [place] [address] Outr Resulting Lab, Provider Social History Tobacco [...] Outr Resulting Lab MICROBIOLOGY - GENERAL ORDERABLES [facility] [address] [place] [address] * COVID-19 TESTING (01/08/2021 11:25 EDT) COVID-19 rt-PCR Result Negative Negative 01/09/2021 1:28 EDT [facility] Comment: This test has not [...] history, and epidemiological information. Performed on the Big Box Overstocksher Fusion instrument Performing Lab [place] [facility] Lab 01/09/2021 1:28 EDT [facility] Swab 01/08/2021 11:2 5 EDT 01/08/2021 16:13 EDT Provider Outr Resulting Lab MICROBIOLOGY - GENERAL ORDERABLES [facility] [address] [place] [address] documented in this encounter Visit Diagnoses Not on filedocumented in this encounter Care Teams Nurse Midwife/Clinical Instructor Relationship Specialty Start Date End Date Unknown, Provider, PCP - General 07/01/15 documented as of this encounter
--- OUTSIDE RECORDS SUMMARY | 2024-06-24 12:55 | XMS_ITS | Encounter Summary ---
Author Organization [facility] Address [address] [place] [address] Care Team Providers Care Senior Online Marketing Manager Name Role Phone Unknown, Provider Primary Care Provider Unava ilable Encounter Details Date Type Department Care Team (Late st Contact Info) Description 07/12/2020 Lab Requisition [facility] Pathology & Laboratory Medicine - [address] [id number] Outr Resulting Lab, Provider Social History Tobacco [...] gonorrhoeae Result Negative Negative 08/03/2020 15:02 EST [facility] Chlamydia trachomatis Result Negative Negative 08/03/2020 15:02 EST [facility] Swab ENTIRE WALL OF CERVIX / Unknown 06/14/2020 15:40 EDT 08/02/2020 8:22 EST Provider Outr Resulting Lab MICROBIOLOGY - GENERAL ORDERABLES [facility] [address] [place] [address] documented in this encounter Visit Diagnoses Not on filedocumented in this encounter Care Teams Senior Online Marketing Manager Relationship Specialty Start Date End Date Unknown, Provider, PCP - General 07/01/15 documented as of this encounter
--- OUTSIDE RECORDS SUMMARY | 2024-06-24 12:55 | XMS_ITS | Encounter Summary ---
Author Organization [facility] Address [facility] [place] [address] Care Team Providers Care Security Control Assessor Name Role Phone None Primary Care Provider Unavailabl e Encounter Details Date Type Department Care Team (Latest Contact Info) Description 06/16/2014 9:13 AM EDT - 06/16/2014 11:59 PM EDT Hospital Encounter XRay at [address] [place] [address] Herniation of cervical intervertebral disc with radiculopathy [...] myelopathy documented in this encounter Care Teams Security Control Assessor Relationship Specialty Start Date End Date None None PCP - General 05/05/13 10/01/16 documented as of this encounter
--- OUTSIDE RECORDS SUMMARY | 2024-06-24 12:55 | XMS_ITS | Encounter Summary ---
Author Organization [facility] Address [address] [place] [address] Care Team Providers Care Pipe Chipper Name Role Phone Unknown, Provider Primary Care Provider Unava ilable Encounter Details Date Type Department Care Team (Late st Contact Info) Description 12/12/2021 Lab Requisition [facility] Pathology & Laboratory Medicine - [facility] [address] [place] [address] [address] [place] [address] Encounter for other general examination [...] types, PCR Negative Negative 12/14/2021 22:39 EDT [facility] Comment:No E6 or E7 mRNA is detected from HPV types 16,18,31,33,35,39,45,51,52,56,58,59,66, and 68 by v belt skiver mediated amplification. Papanicolaou smear specimen (specimen) CERVIX UTERI STRUCTURE / Unknown 12/11/2021 14:15 EDT 12/14/2021 10:39 EDT Haleigh Amaro CANE FLUME FEEDING MACHINE OPERATOR MICROBIOLOGY - GENER AL ORDERABLES [facility] [address] [place] [address] * PAP TEST (12/11/2021 14:15 EDT) Specimens A. Cervix and/or Endocervix , ThinPrep Imaging System with Manual Evaluation 12/14/2021 22:40 EDT [facility] Specimen Adequacy Satisfactory for Evaluation - transformation zone component present 12/14/2021 22:40 EDT [facility] General Categorization Negative for intraepithelial lesion or malignancy 12/14/2021 22:40 EDT [facility] Attestation . 12/14/2021 22:40 T [facility] at 2239 Clinical History See below 12/15/19 22:40 EDT [facility] HPV The result for the Human Papillomavirus (HPV) Detection-High Risk Types is Negative. No E6 or E7 mRNA is detected from HPV types 16,18,31,33,35,39 ,45,51,52,56,58,5 9,66, and 68 by v belt skiver mediated amplification.Kyara ting was performed on specimen [id number] and was resulted on 12/14/2021 2235 EDT by ABE, LAB INSTRUMENT RESULTS IN 12/14/2021 22:40 EDT [facility] Performing Lab [facility] 12/14/2021 22:40 EDT [facility] Scanned Images 12/14/2021 22:40 EDT [facility] Papanicolaou smear specimen (specimen) CERVIX UTERI STRUCTURE / Unknown 12/11/2021 14:15 EDT 12/12/2021 8:59 EDT Haleigh Amaro CANE FLUME FEEDING MACHINE OPERATOR PATHOLOGY ORDERABLES [facility] [address] [place] [address] documented in this encounter Visit Diagnoses Diagnosis Encounter for other general examination documented in this encounter Care Teams Pipe Chipper Relationship Specialty Start Date End Date Unknown, Provider, PCP - General 07/01/15 documented as of this encounter
--- OUTSIDE RECORDS SUMMARY | 2024-06-24 12:55 | XMS_ITS | Encounter Summary ---
Author Organization [facility] Address [address] [place] [address] Care Team Providers Care Public Works Laborer Name Role Phone Unknown, Provider Primary Care Provider Unava ilable Encounter Details Date Type Department Care Team (Late st Contact Info) Description 11/05/2019 Lab Requisition [facility] Pathology & Laboratory Medicine - [facility] [address] [place] [address] Beto Mendez MD [address] [place] [phone] Encounter for other general examination Social [...] examination documented in this encounter Care Teams Public Works Laborer Relationship Specialty Start Date End Date Unknown, ProviderMD PCP - General 07/01/15 documented as of this encounter
--- OUTSIDE RECORDS SUMMARY | 2024-06-24 12:55 | XMS_ITS | Encounter Summary ---
[place] [address] Care Team Providers Care Visual Education Director Name Role Phone TerellCamilla yang Sheri DANIELS Primary Care Provider [phone] Reason for Visit * Auth/Cert Specialty Diagnoses / Procedures Referred By Jones nogueira Referred To Contact Diagnoses Capsular contracture of breast implant, initial encounter Bilateral capsular contracture Procedures PRO REMOVAL OF BREAST IMPLANT REMOVAL OF INTACT MAMMARY IMPLANT-SHERRY (WRVU 6.48) Referral ID Status Reason Start Date Expiration Date Visits Re quested Visits Authorized [id number] 1 1 Encounter Details Date Type Department Care Team (Late st Contact Info) Description 11/18/2016 7:58 AM EDT Anesthesia Event [place] [address] Tra Mathews [facility] [address] [place] [address] Anesthesia Record Procedure Summary Procedure Name Responsible [...] 0745; median cubital vein (antecubital fossa), right; uelj-dnt-vetbts catheter system; 20 gauge, 1 in length; [...] Mathews DO - 11/18/2016 12:53 PM EDT [facility] Department of Anesthesiology Post-procedure Note Patient: Olga Grey Procedure Summary Date Anesthesia Start Anesthesia Stop Room / Location 11/18/16 0758 0916 [facility] OR [address] [place] [address] [facility] Procedure Diagnosis Surgeon Responsible Provider REMOVAL OF INTACT MAMMARY IMPLANT-SHERRY (WRVU 6.48) (Bilateral Breast); BREAST, PERIPROSTHETIC CAPSULECTOMY, SHERRY (WRVU 10.62) (Bilateral Breast) (Bilateral capsular contracture) Nas Tabor MD Walker, Tacee E, DO All Anesthesia Providers: Anesthesiologist: Tra Mathews DO ENGINEERING AND SCIENTIFIC PROGRAMMER: Damaris Castellanos CRNA Last (1hr) Vitals: BP Temp Pulse Resp SpO2 Patient Location: PACU/[facility] Level of Consciousness: Awake and Alert [...] risks discussed with patient. Plan discussed with ENGINEERING AND SCIENTIFIC PROGRAMMER. PAT Staff Note documented in this encounter [...] mL/hr documented in this encounter Care Teams Visual Education Director Relationship Specialty Start Date End Date Camilla Peres, BUSHLER [address] [place] [address] [address] [place] [address] PCP - General Family Medicine 10/02/16 07/18/21 documented as of this encounter
--- OUTSIDE RECORDS SUMMARY | 2024-06-24 12:55 | XMS_ITS | Encounter Summary ---
Author Organization [facility] Address [address] [place] [address] Care Team Providers Care Branch Or Department Chief Librarian Name Role Phone Unknown, Provider Primary Care Provider Unava ilable Encounter Details Date Type Department Care Team (Late st Contact Info) Description 11/09/2019 Lab Requisition [facility] Pathology & Laboratory Medicine - [facility] [address] [place] [address] Beto Mendez MD [address] [place] [phone] Encounter for other general examination Social [...] 11:06 EDT) COVID-19 Result 0 8:33 EDT [facility] Comment:Specimen quantity no t sufficient for analysis. Testing not performed. Swab ENTIRE NASOPHARYNX / Unknown Not Given / Unknown 11/09/2019 11:06 EDT 11/09/2019 15:56 EDT Beto Mendez MD MICROBIOLOGY - GENE RAL ORDERABLES [facility] [address] [place] [address] documented in this encounter Visit Diagnoses Diagnosis Encounter for other general examination documented in this encounter Care Teams Branch Or Department Chief Librarian Relationship Specialty Start Date End Date Unknown, Provider, PCP - General 07/01/15 documented as of this encounter
--- OUTSIDE RECORDS SUMMARY | 2024-06-24 12:55 | XMS_ITS | Encounter Summary ---
[place] [address] Care Team Providers Care Surgical Endoscopist Name Role Phone None Primary Care Provider Unavailabl e Encounter Details Date Type Department Care Team (Late st Contact Info) Description 05/25/2014 Orders Only [place] [address] Wesley Cortes MD [facility] [place] [address] Social History Tobacco Use Types Packs/Day Years [...] is a Non-reportable exam Wesley Cortes MD [facility] FILM LIBRARY ORD ERABLES documented in this encounter Visit Diagnoses Not on filedocumented in this encounter Care Teams Surgical Endoscopist Relationship Specialty Start Date End Date None None PCP - General 05/05/13 10/01/16 documented as of this encounter
--- OUTSIDE RECORDS SUMMARY | 2024-06-24 12:55 | XMS_ITS | Encounter Summary ---
Author Organization [facility] Address [address] [place] [address] Care Team Providers Care Marketing Business Analyst Name Role Phone Unknown, Provider Primary Care Provider Unava ilable Encounter Details Date Type Department Care Team (Late st Contact Info) Description 05/18/2024 Lab Requisition [facility] Pathology & Laboratory Medicine - [facility] [address] [place], [place] [id number] Outr Resulting Lab, Provider Social History Tobacco [...] Procedure Name Priority Date/Time Associated Diagnosis Comments FECAL BACTERIAL PATHOGENS BY PCR Routine 05/17/2024 11:45 EDT documented in this encounter Results * FECAL BACTERIAL PATHOGENS BY PCR (05/17/2024 11:45 EDT) Salmonella PCR Negative Negative 05/18/2024 23:29 EDT [facility] Shigella/Enteroin vasive E. coli Negative Negative 05/18/2024 23:29 EDT [facility] HN LAB CAMPYLOBACTER PCR Negative Negative 05/18/2024 23:29 EDT [facility] Shiga Toxin PCR Negative Negative 23:29 EDT [facility] Feces SPECIMEN FROM RECTUM / Unknown 05/17/2024 11:45 EDT 05/18/2024 18:27 EDT Provider Outr Resulting Lab MICROBIOLOGY - GENERAL ORDERABLES [facility] [address] [place] [address] documented in this encounter Visit Diagnoses Not on filedocumented in this encounter Care Teams Marketing Business Analyst Relationship Specialty Start Date End Date Unknown, Provider, PCP - General 07/01/15 documented as of this encounter
--- OUTSIDE RECORDS SUMMARY | 2024-06-24 12:55 | XMS_ITS | Encounter Summary ---
[place] [address] Care Team Providers Care Sanding Supervisor Name Role Phone None Primary Care Provider Unavailabl e Reason for Visit * Reason Comments Neck Pain Encounter Details Date Type Department Care Team (Latest Contact Info) Description 05/26/2014 8:15 AM EDT Office [place] [phone] Wesley Cortes MD [facility] [place] [address] Herniation of cervical intervertebral disc with radiculopathy [...] would like you to sign up for [facility], which will give you secure online access to your electronic medical record at [facility] and the ability to communicate with your [...] the instructions. Here is your activation code: [email or web address] Expires: 07/10/2014 8:51 AM Remember, [facility]-H is [...] has made her symptoms better including career and transition teacher, oral steroids, or gabapentin. She has [...] MEDICATION ALLERGIES. 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 Family history includes hypertension, diabetes, and also [...] maneuver. DIAGNOSTIC DATA: MRI dated 05/25/2014 from [facility] demonstrates cervical spondylosis at C5-C6, cervical disk [...] myelopathy documented in this encounter Care Teams Sanding Supervisor Relationship Specialty Start Date End Date None None PCP - General 05/05/13 10/01/16 documented as of this encounter
--- OUTSIDE RECORDS SUMMARY | 2024-06-24 12:55 | XMS_ITS | Encounter Summary ---
Author Organization [facility] Address [address] [place] [address] Care Team Providers Care Fbi Field Agent Name Role Phone Unknown, Provider Primary Care Provider Unava ilable Encounter Details Date Type Department Care Team (Late st Contact Info) Description 12/11/2021 Lab Requisition [facility] Pathology & Laboratory Medicine - [facility] [address] [place], [place] [address] Outr Resulting Lab, Provider Social History Tobacco [...] gonorrhoeae Result Negative Negative 12/13/2021 14:42 EDT [facility] Chlamydia trachomatis Result Negative Negative 12/13/2021 14:42 EDT [facility] Swab ENTIRE ENDOCERVIX / Unknown 12/11/2021 14:15 EDT 12/12/2021 16:59 EDT Provider Outr Resulting Lab MICROBIOLOGY - GENERAL ORDERABLES [facility] [address] [place] [address] documented in this encounter Visit Diagnoses Not on filedocumented in this encounter Care Teams Fbi Field Agent Relationship Specialty Start Date End Date Unknown, Provider, PCP - General 07/01/15 documented as of this encounter
--- OUTSIDE RECORDS SUMMARY | 2024-06-24 12:55 | XMS_ITS | Encounter Summary ---
Author Organization [facility] Address [facility] [place] [address] Care Team Providers Care Radio Television Announcer Name Role Phone Camilla Peres FRANCES Primary Care Provider [phone] Encounter Details Date Type Department Care Team (Latest Contact Info) Description 08/25/2017 - 08/25/2017 11:59 PM EST Hospital Encounter Radiology Library at [facility] [place] Vas[place] [address] Nas Herrera MD [facility] [place] [address] Discharge Disposition: Home Social History Tobacco Use [...] Herrera MD IMG FILM LIBRARY O RDERABLES [place], [place] documented in this encounter Visit Diagnoses Not on filedocumented in this encounter Care Teams Radio Television Announcer Relationship Specialty Start Date End Date Camilla Peres APRN [address] [place] [address] PCP - General Family Medicine 10/02/16 07/18/21 documented as of this encounter
--- OUTSIDE RECORDS SUMMARY | 2024-06-24 12:55 | XMS_ITS | Encounter Summary ---
[place] [address] Care Team Providers Care Paper Sheeter Name Role Phone TerellCamilla yang Sheri DANIELS Primary Care Provider [phone] Reason for Visit * Auth/Cert Specialty Diagnoses / Procedures Referred By Jones nogueira Referred To Contact Diagnoses Capsular contracture of breast implant, initial encounter Bilateral capsular contracture Procedures PRO REMOVAL OF BREAST IMPLANT REMOVAL OF INTACT MAMMARY IMPLANT-SHERRY (WRVU 6.48) Referral ID Status Reason Start Date Expiration Date Visits Re quested Visits Authorized [id number] 1 1 Encounter Details Date Type Department Care Team (Latest Contact Info) Description 11/18/2016 7:13 AM EDT - 11/18/2016 10:37 AM EDT Hospital Encounter [place] [address] Nas Tabor MD [facility] [place] [place] [address] Discharge Disposition: Home Social History Tobacco Use [...] closest emergency room or call the hospital grinding mill operator at [phone] and ask for physician contract engineer covering for your physician. Questions or problems after 5pm or on a weekend: Call the [facility] grinding mill operator at and ask for the physician contract engineer covering for your doctor. SAME DAY SURGERY [...] hours) * Patient Instructions* John Sulma Vlad, BEVEL POLISHER - 11/18/2016 7:50 AM EDT Post-Op [...] your surgical site. ??? Do not use fusq-sft-wyndyta lotions, solutions, or herbal preparations on your [...] about scheduling, please contact our administrative officesat [phone] For clinical questions, please call our nurses at [phone] Both offices are open Friday thru Friday 8a - 5p. With emergencies after hours, call the hospital grinding mill operator at [phone] and ask for the Plastic Surgery Resident contract engineer. documented in this encounter Medications at Time [...] Tabor MD - 11/18/2016 9:32 AM EDT [facility] Operative Note Patient Name: Olga Grey : [id number] MR#: [id number] Case Date: 11/18/2016 Surgeon: Surgeon(s) and Role: * Nas aTbor MD - Primary * Sulma Lopez APRN [...] OF SURGERY: 11/18/16 ATTENDING: Dr. Nas Tabor LOAN OFFICER: Sulma Lopez INDICATION FOR SURGERY: The patient [...] Operative Note Patient Name: Olga Grey : [id number] MR#: [id number] Case Date: 11/18/2016 Surgeon: Surgeon(s) and Role: [...] Report (11/18/2016 8:35 AM EDT) Final Diagnosis [id number] ?Location: [facility] The signing pathologist has (i) [...] ng: ??(R1) ??sns 11/20/2016 12:54 PM EDT [facility] BREAST STRUCTURE / Unknown 11/18/2016 8:35 AM EDT 11/18/2016 8:35 AM EDT BREAST STRUCTURE / Unknown 11/18/2016 8:35 AM EDT 11/18/2016 8:35 AM EDT Narrative Authorizing Provider Result Eddy Tabor MD PATHOLOGY/CYTOLOGY [facility] [place] Performing Organization Address [facility] [place] [address] * Specimen to Pathology (surgical or derm) (11/18/2016 8:35 AM EDT) AP Specimen 11/18/2016 8:35 AM EDT 11/18/2016 8:35 AM EDT Narrative [facility] - 11/18/2016 8:35 AM EDT Specimen requisition ordered. ??Separate Pathology report to follow Nas Tabor MD PATHOLOGY/CYTOLOGY [place] Performing Organization Address [facility] [place] [address] * Specimen to Pathology (surgical or derm) (11/18/2016 8:35 AM EDT) AP Specimen 11/18/2016 8:35 AM EDT 11/18/2016 8:35 AM EDT Narrative [facility] - 11/18/2016 8:35 AM EDT Specimen requisition ordered. ??Separate Pathology report to follow Authorizing Provider Result Eddy Tabor MD PATHOLOGY/CYTOLOGY [place] Performing Organization Address [facility] [place] [address] documented in this encounter Visit Diagnoses Not [...] Routine documented in this encounter Care Teams Paper Sheeter Relationship Specialty Start Date End Date Camilla Peres APRN [address] [place] [address] PCP - General Family Medicine 10/02/16 07/18/21 documented as of this encounter
--- OUTSIDE RECORDS SUMMARY | 2024-06-24 12:55 | XMS_ITS | Clinical Summary ---
Author Organization [facility] Address [address] [place] [address] Care Team Providers Care Client Support Professional Name Role Phone Unknown, Provider MD Primary Care Provider Unava ilable Encounters Date Type Department Care Team Description 05/18/2024 Lab Requisition [facility] Pathology & Laboratory Medicine - [facility] [address] [place] [address] Outr Resulting Lab, Provider from Last 3 [...] series) 08/11 COVID-19 Vaccine ( season) 2024 Procedures Procedure Name Priority Date/Time Associated Diagnosis Comments FECAL BACTERIAL PATHOGENS BY PCR Routine 05/17/2024 11:45 EDT from Last 3 Months Results * FECAL BACTERIAL PATHOGENS BY PCR (05/17/2024 11:45 EDT) Salmonella PCR Negative Negative 05/18/2024 23:29 EDT [facility] Shigella/Enteroin vasive E. coli Negative Negative 05/18/2024 23:29 EDT [facility] HN LAB CAMPYLOBACTER PCR Negative Negative 05/18/2024 23:29 EDT [facility] Shiga Toxin PCR Negative Negative 23:29 EDT [facility] Feces SPECIMEN FROM RECTUM / Unknown 05/17/2024 11:45 EDT 05/18/2024 18:27 EDT Provider Outr Resulting Lab MICROBIOLOGY - GENERAL ORDERABLES [facility] [address] [place] [address] from Last 3 Months Care Teams Client Support Professional Relationship Specialty Start Date End Date Unknown, Provider, PCP - General 07/01/15
--- OUTSIDE RECORDS SUMMARY | 2024-06-24 12:55 | XMS_ITS | Encounter Summary ---
Author Organization [facility] Address [address] [place] [address] Care Team Providers Care Records Technician Name Role Phone Unavailable Primary Care Provider Unavailabl e Encounter Details Date Type Department Care Team (Late st Contact Info) Description 02/25/2003 Results Only [facility] - [facility] [address] [place] [address] Ig[address]ia Knox [address] [place], [place] [id number] Social History Tobacco Use Types Packs/Day Years [...] ? RENZOLUCY COTTER ? Accession #: ? [id number] : ? 1980 (Age: 22) ??F ?Collect [...] Knox CNM PATHOLOGY ORDERABLES [facility] [address] [place] [address] documented in this encounter Visit Diagnoses Not on filedocumented in this encounter
--- OUTSIDE RECORDS SUMMARY | 2024-06-24 12:55 | XMS_ITS | Encounter Summary ---
Author Organization [facility] Address [address] [place] [address] Care Team Providers Care Bowling Alley Manager Name Role Phone Unavailable Primary Care Provider Unavailabl e Encounter Details Date Type Department Care Team (Late st Contact Info) Description 04/23/2013 Results Only [facility] Laboratory Services - [facility] ([facility] [address], [place] [id number] Karishma Dean MD [address] [place] [address] [place] [address] Social History Tobacco Use Types Packs/Day Years [...] ? SOPHIA LUCY ? Accession #: ? [id number] ? : ? 1980 (Age: 32) ??F ?Collect Date: ? 04/23/2013 ? Location: ? [facility] ? Receive Date: ? 04/27/2013 ? Provider: KARISHMA DEAN MD Copy to: DL DÍAZ MD [...] types 16,18,31,33,35, 39,45,51,52,56,58, 59,66, and 68 by cube machine tender mediated amplification. Comments Document reviewed and electronically signed by: ? System Interface ? Report date: 04/30/2013 By the signature above, the attending physician certifies that he/she has personally conducted a gross and/or microscopic examination of the described specimens and rendered or confirmed the above diagnosis. End of Report [facility] 04/23/2013 04/27/2013 Karishma Dean MD PATHOLOGY ORDERABLES Performing Organization Address City/State/[facility] Co de Phone Number [address] [address] documented in this encounter Visit Diagnoses Not on filedocumented in this encounter
--- OUTSIDE RECORDS SUMMARY | 2024-06-24 12:55 | XMS_ITS | Encounter Summary ---
Author Organization [facility] Address [facility] [place] [address] Care Team Providers Care Terminal Computer Operator Name Role Phone Kong Pereseen Sheri DANIELS Primary Care Provider [phone] Reason for Visit * Consultation (Routine) - Closed Specialty Diagnoses / Procedures Referred By Jones nogueira Referred To Contact Otolaryngology Diagnoses mass of parotid gland Benoit Hyde, DO [address] [place] [address] Nsa Herrera MD [facility] [place] [address] Referral ID Status Reason Start Date Expiration Date Visits Re quested Visits Authorized [id number] Closed 09/17/2017 09/17/2018 1 1 Encounter Details Date Type Department Care Team (Late st Contact Info) Description 09/18/2017 10:00 AM EST Office [place] [address] Nas Herrera MD [facility] [place] [address] Parotid mass; Cigarette smoker Social History Tobacco [...] Herrera MD - 09/18/2017 10:00 AM EST [facility] NEW [...] Attending note: Patient seen with the physician assistant chief nursing officer. In summary, this patient presents with a [...] disorder documented in this encounter Care Teams Terminal Computer Operator Relationship Specialty Start Date End Date Camilla Peres APRN [address] [place] [address] PCP - General Family Medicine 10/02/16 07/18/21 documented as of this encounter
--- OUTSIDE RECORDS SUMMARY | 2024-06-24 12:55 | XMS_ITS | Encounter Summary ---
[place] [address] Care Team Providers Care Work Environment Safety Inspector Name Role Phone Camilla Peres APRN Primary Care Provider [phone] Encounter Details Date Type Department Care Team (Late st Contact Info) Description 09/15/2017 Telephone [place] [phone] Raya Santiago Social History Tobacco Use Types [...] on filedocumented in this encounter Care Teams Work Environment Safety Inspector Relationship Specialty Start Date End Date Camilla Peres APRN [address] [place] [address] PCP - General Family Medicine 10/02/16 07/18/21 documented as of this encounter
--- OUTSIDE RECORDS SUMMARY | 2024-06-24 12:55 | XMS_ITS | Encounter Summary ---
Author Organization [facility] Address [address] [place] [address] Care Team Providers Care Drawing Machine Operator Name Role Phone Unknown, Provider Primary Care Provider Unava ilable Encounter Details Date Type Department Care Team (Late st Contact Info) Description 01/30/2021 Lab Requisition [facility] Pathology & Laboratory Medicine - [address] [address] Outr Resulting Lab, Provider Social History Tobacco [...] Lyme Ab Negative Negative 01/31/2021 11:[address] [facility] Comment:New 3rd generation a ssay in use 01/26/2020 Blood VENOUS BLOOD / Unknown 01/30/2021 12:06 EDT 01/30/2021 16:12 EDT Provider Outr Resulting Lab IMMUNOLOGY A ND SEROLOGY ORDERABLES [facility] [address] [place] [address] documented in this encounter Visit Diagnoses Not on filedocumented in this encounter Care Teams Drawing Machine Operator Relationship Specialty Start Date End Date Unknown, Provider, PCP - General 07/01/15 documented as of this encounter
--- OUTSIDE RECORDS SUMMARY | 2024-06-24 12:55 | XMS_ITS | Encounter Summary ---
Author Organization [facility] Address [address] [place] [address] Care Team Providers Care Radio Intelligence Operator Name Role Phone Unknown, Provider Primary Care Provider Unava ilable Encounter Details Date Type Department Care Team (Late st Contact Info) Description 11/10/2019 Lab Requisition [facility] Pathology & Laboratory Medicine - [facility] [address] [place] [address] Beto Mendez MD [address] [place] [phone] Encounter for other general examination Social [...] Not Detected Not Detected 11/15/2019 7:59 EDT [facility] Comment:Assayed by bttn Swab ENTIRE NASOPHARYNX / Unknown 11/04/2019 11:18 EDT 11/10/2019 10:45 EDT Beto Mendez MD MICROBIOLOGY - GENE [facility] ORDERABLES [facility] [address] [place] [address] documented in this encounter Visit Diagnoses Diagnosis Encounter for other general examination documented in this encounter Care Teams Radio Intelligence Operator Relationship Specialty Start Date End Date Unknown, Provider, PCP - General 07/01/15 documented as of this encounter
--- OUTSIDE RECORDS SUMMARY | 2024-06-24 12:55 | XMS_ITS | Referral Summary ---
Author Organization [facility] Address [address] [place] [address] Care Team Providers Care Men'S Golf Coach Name Role Phone Unknown, Provider MD Primary Care Provider Unava ilable Encounters Date Type Department Care Team Description 05/18/2024 Lab Requisition [facility] Pathology & Laboratory Medicine - [address] [address] Outr Resulting Lab, Provider from Last 3 Months Social History Tobacco Use Types Packs/Day Years Used Date Smoking Tobacco: Never Assessed Sex and Gender Information Value Date Recorded Sex Assigned at Not on file Gender Identity Not on file Sexual Orientation Not on file Plan of Treatment Not on file Procedures Procedure Name Priority Date/Time Associated Diagnosis Comments FECAL BACTERIAL PATHOGENS BY PCR Routine 05/17/2024 11:45 EDT from Last 3 Months Results * FECAL BACTERIAL PATHOGENS BY PCR (05/17/2024 11:45 EDT) Salmonella PCR Negative Negative 05/18/2024 23:29 EDT [facility] Shigella/Enteroin vasive E. coli Negative Negative 05/18/2024 23:29 EDT [facility] HN LAB CAMPYLOBACTER PCR Negative Negative 05/18/2024 23:29 EDT [facility] Shiga Toxin PCR Negative Negative 23:29 EDT [facility] Feces SPECIMEN FROM RECTUM / Unknown 05/17/2024 11:45 EDT 05/18/2024 18:27 EDT Provider Outr Resulting Lab MICROBIOLOGY - GENERAL ORDERABLES [facility] [address] [place] [address] from Last 3 Months Care Teams Men'S Golf Coach Relationship Specialty Start Date End Date Unknown, Provider, PCP - General 07/01/15
--- OUTSIDE RECORDS SUMMARY | 2024-06-24 12:55 | XMS_ITS | Encounter Summary ---
Author Organization [facility] Address [address] [place] [address] Care Team Providers Care Wood Carver Name Role Phone Unavailable Primary Care Provider Unavailabl e Encounter Details Date Type Department Care Team (Late st Contact Info) Description 08/27/2007 Results Only [facility] [place] [address] [place] [address] Ana Patel PA Social History Tobacco Use [...] ? LUCY GREY ? Accession #: ? [id number] : ? 1980 (Age: 27) ??F ?Collect Date: ? 08/27/2007 Location: ? [facility] ? Receive Date: ? 08/28/2007 Provider: ?ANA OSBORNE Copy to: ? Specimen/Source: ?ThinPrep Pap Test, Endocervix, processed on nuPSYS ThinPrep Imaging System, with manual evaluation Last [...] Ana OSBORNE PATHOLOGY ORDERABLES TONY SANABRIA [address] [place] [address] documented in this encounter Visit Diagnoses Not on filedocumented in this encounter
--- OUTSIDE RECORDS SUMMARY | 2024-06-24 12:55 | XMS_ITS | Encounter Summary ---
Author Organization [facility] Address [address] [place] [address] Care Team Providers Care Nuclear Physics Teacher Name Role Phone Unknown, Provider Primary Care Provider Unava ilable Encounter Details Date Type Department Care Team (Late st Contact Info) Description 01/30/2022 Lab Requisition [facility] Pathology & Laboratory Medicine - [facility] [address] [place], [place] [id number] Outr Resulting Lab, Provider Social History Tobacco [...] - 66.1 % 01/31/2022 13:36 EDT [facility] Albumin g/dL 4.5 3.6 - 5.2 g/dL 01/31/2022 13:36 EDT [facility] Alpha-1 % 3.6 2.9 - 4.9 % 01/31/2022 13:36 [facility] Alpha-1 g/dL 0.30 0.15 - 0.40 g/dL 01/31/2022 13:36 [facility] Alpha-2 % 8.5 7.1 - 11.8 % 01/31/2022 13:36 [facility] Alpha-2 g/dL 0.60 0.50 - 1.00 g/dL 01/31/2022 13:36 [facility] Beta % 11.5 8.4 - 13.1 % 01/31/2022 13:36 [facility] Beta g/dL 0.80 0.60 - 1.20 g/dL 01/31/2022 13:36 [facility] Gamma % 13.8 11.1 - 18.8 % 01/31/2022 13:36 [facility] Gamma g/dL 1.00 0.60 - 1.60 g/dL 01/31/2022 13:36 [facility] SPEP Comment No apparent monoclonal protein seen on serum electrophoresis 01/31/2022 13:36 [facility] Comment:See scanned/suppleme ntary report. Total Protein 7.2 6.3 - 8.2 g/dL 01/31/2022 13:36 [facility] Blood VENOUS BLOOD / Unknown 01/30/2022 12:30 EDT 01/30/2022 22:16 EDT Provider Outr Resulting Lab CHEMISTRY & BLOOD GAS ORDERABLES [facility] [address] [place] [address] * PROTEIN, TOTAL (01/30/2022 12:30 EDT) Blood VENOUS BLOOD / Unknown 01/30/2022 12:30 EDT 01/30/2022 22:16 EDT Provider Outr Resulting Lab CHEMISTRY & BLOOD GAS ORDERABLES [facility] [address] [place] [address] documented in this encounter Visit Diagnoses Not on filedocumented in this encounter Care Teams Nuclear Physics Teacher Relationship Specialty Start Date End Date Unknown, Provider, PCP - General 07/01/15 documented as of this encounter
--- OUTSIDE RECORDS SUMMARY | 2024-06-24 12:55 | XMS_ITS | Encounter Summary ---
[facility] [place] [address] Care Team Providers Care Catering Staff Member Name Role Phone None Primary Care Provider Unavailabl e Reason for Visit * Reason Comments Dizziness Encounter Details Date Type Department Care Team (Late st Contact Info) Description 05/05/2013 2:14 PM EDT - 05/05/2013 9:34 PM EDT [place] [address] Bere Lynch MD [facility] [place] [address] Yamile Reina MD [facility] [place] [address] Chronic headache; Dizziness; Weight loss; Ptosis; RUQ [...] a dedicated primary care physician, preferably an executive personal assistant, to help you find the cause of [...] weeks). Her care is primarily delivered at [facility], where she sees a neurologist, Dr. Woo. Relevant to her present complaint was an ER ER note from [facility] dated 03/12/13 reveals a CCof [...] seizures, tingling or paraesthesias. [facility] (05/03/13, [facility]) CBC WBC 5.3, Hb 16.1, Plt 255, [...] and place. Normal, fluid speech. Mood euthymic. bullard machine operator II-XII fully tested, see ENT exam for ophthalmic bullard machine operator, otherwise no deficits 2+ and symmetric DTRs. Scattered sensory differences, largely left lower extremity. Abnormal Romberg, difficulty with tandem gait. FTN and rapid alternating movements intact. Otherwise normal gait. Labs: Recent Results (from the past 24 hour(s)) POCT URINE Component Value Range POC Urine HCG Negative Negative - Negative POC Control Internal Controls Acceptable POCT URINE DIPSTICK Component Value Range POC Sp [place] 1.020 1.002 - 1.030 POC pH, UA [...] visits to both her neurologist and her belt press operator, the latter feeling this was not an IIH flare and that she may benefit from GRAIN OILSEED OR PASTURE GROWER imaging. Exam reveals positive Romberg (present in February), anisocoria, and ptosis, as well as telangiectasias and RUQ tenderness. Labs from 2 days ago/[facility] remarkable for high MCV and transaminitis. MRI [...] with a primary care doctor, preferably an executive personal assistant, to take over management of her care. Currently she will follow with her neurologist to review the results of her MRI and indications for further neurologic workup and treatment. That said, Ms. Grey will be seeking new primary care in her area concomitant with this. -Jamison Grewal, Resident Dept of Internal Medicine Pgr [phone] This case supervised by Dr. Yamile Reina, [facility] ED Jamison Grewal Jr., MD Resident 05/05/13 1892 ED ATTENDING ADDENDUM: The patient was seen [...] by a neurologist and eye physician (out [facility]). Was told this week that she [...] process. BUN 6/Cr 0.83 on 05/03/13 W [facility] With and without gadolinium contrast if at [...] process. BUN 6/Cr 0.83 on 05/03/13 W [facility] With andwithout gadolinium contrast if at all [...] dipstick (05/05/2013 2:42 PM EDT) POC Sp [place] 1.020 1.002 - 1.030 POC pH, UA [...] Jr.) documented in this encounter Care Teams Catering Staff Member Relationship Specialty Start Date End Date None None PCP - General 05/05/13 10/01/16 documented as of this encounter
--- OUTSIDE RECORDS SUMMARY | 2024-06-24 12:55 | XMS_ITS | Encounter Summary ---
Author Organization [facility] Address [address] [place] [address] Care Team Providers Care Hooker Up Name Role Phone Unknown, Provider Primary Care Provider Unava ilable Encounter Details Date Type Department Care Team (Late st Contact Info) Description 05/27/2023 Lab Requisition [facility] Pathology & Laboratory Medicine - [address] [id number] Outr Resulting Lab, Provider Social History Tobacco [...] gonorrhoeae Result Negative Negative 05/28/2023 13:27 EDT [facility] Chlamydia trachomatis Result Negative Negative 05/28/2023 13:27 EDT [facility] Swab VAGINAL STRUCTURE / Unknown 05/26/2023 13:40 EDT 05/27/2023 18:07 EDT Provider Outr Resulting Lab MICROBIOLOGY - GENERAL ORDERABLES [facility] [address] [place] [address] documented in this encounter Visit Diagnoses Not on filedocumented in this encounter Care Teams Hooker Up Relationship Specialty Start Date End Date Unknown, Provider, PCP - General 07/01/15 documented as of this encounter
--- OUTSIDE RECORDS SUMMARY | 2024-06-24 12:55 | XMS_ITS | Encounter Summary ---
Author Organization [facility] Address [address] [place] [address] Care Team Providers Care Recycling Manager Name Role Phone Unavailable Primary Care Provider Unavailabl e Encounter Details Date Type Department Care Team (Late st Contact Info) Description 01/18/2000 Results Only [facility] [address] [place] [address] Wesley Randhawa MD [address] [place], [place] [id number] Social History Tobacco Use Types Packs/Day Years [...] ? LUCY GREY ? Accession #: ? [id number] ? : ? 1980 (Age: 19) ??F [...] the endometrial tissue, suggesting chronic endometritis. ??(Dr. Goncalves)/[facility] Document reviewed and electronically signed by: Genesis Goncalves MD Report ??Date: 01/23/2000 16:01 By the signature above, the attending physician certifies that he/she has personally conducted a gross and/or microscopic examination of the described specimens and rendered or confirmed the above diagnosis. Specimen(s) Received: ? [facility] Clinical History: ? Pelvic pain Gross Description: ? Received in formalin labelled [facility] and #1 [facility] are multiple red-brown irregular soft tissue fragments aggregating 5.0 x 5.0 x 1.0 cm. ??The specimen is entirely submitted as (A1) through (A6). ??(Sourav Alegria)/loly End of Report TONY SANABRIA 01/18/2000 01/22/2000 9:3 2 EDT Wesley Randhawa MD PATHOLOGY ORDERABLES TONY SANABRIA [address] [place] [address] documented in this encounter Visit Diagnoses Not on filedocumented in this encounter
--- OUTSIDE RECORDS SUMMARY | 2024-06-24 12:55 | XMS_ITS | Encounter Summary ---
Author Organization [facility] Address [address] [place] [address] Care Team Providers Care Ammonia Solution Preparer Name Role Phone Unknown, Provider Primary Care Provider Unava ilable Encounter Details Date Type Department Care Team (Late st Contact Info) Description 09/13/2021 Lab Requisition [facility] Pathology & Laboratory Medicine - [facility] [address] [place], [place] [address] Outr Resulting Lab, Provider Social History Tobacco [...] Comments ZZCOVID-19 TEST [facility] LAB PCR Today 09/12/2021 11:00 EST COVID-19 TESTING Routine 09/12/2021 11:0 0 EST documented in this encounter Results * COVID-19 TEST [facility] LAB PCR (09/12/2021 11:00 EST) Swab 09/12/2021 11:0 0 EST 09/13/2021 16:25 EST Provider Outr Resulting Lab MICROBIOLOGY - GENERAL ORDERABLES [facility] [address] [place] [address] * COVID-19 TESTING (09/12/2021 11:00 EST) COVID-19 rt-PCR Result Negative Negative 09/13/2021 19:16 EST [facility] Comment: This test [...] history, and epidemiological information. Performed on the Solexaher Fusion instrument Performing Lab [place] [facility] Lab 09/13/2021 19:16 EST [facility] Swab 09/12/2021 11:0 0 EST 09/13/2021 16:25 EST Provider Outr Resulting Lab MICROBIOLOGY - GENERAL ORDERABLES [facility] [address] [place] [address] documented in this encounter Visit Diagnoses Not on filedocumented in this encounter Care Teams Ammonia Solution Preparer Relationship Specialty Start Date End Date Unknown, Provider, PCP - General 07/01/15 documented as of this encounter
--- OUTSIDE RECORDS SUMMARY | 2024-06-24 12:55 | XMS_ITS | Encounter Summary ---
Author Organization [facility] Address [address] [place] [address] Care Team Providers Care Administrative Office Clerk Name Role Phone Unknown, Provider Primary Care Provider Unava ilable Encounter Details Date Type Department Care Team (Late st Contact Info) Description 03/31/2017 Results Only [facility] [phone] Carole Amaro, [address] [place] [address] Social History Tobacco Use Types [...] ? SOPHIA LUCY ? Accession #: ? [id number] ? : ? 1980 (Age: 36) ??F ?Collect Date: ? 03/31/2017 ? Location: ? [facility] ? Receive Date: ? 04/01/2017 ? Provider: CAROLE GRESHAMP Copy to: DL DÍAZ MD ? Final Report SPECIMEN ADEQUACY ? Satisfactory for Evaluation - transformation zone component present GENERAL CATEGORIZATION ? Negative for Intraepithelial Lesion or Malignancy ?? Hormonal/Contracep tive status: Intrauterine device Specimen/Source: ??Pap Test, Cervix, ThinPrep Imaging System with manual evaluation Document reviewed and electronically signed by: ? NAPOLEON [facility]clean(ASCP) ? Report ??Date: 04/08/2017 12:15 HPV with Pap Test ? Date Ordered: ? 04/08/2017 ? Status: ?? Signed Out ?Date Complete: ? 04/09/2017 ? By: ??System Interface ? Date Reported: ? 04/09/2017 ? Interpretation RESULT: Negative for HPV. No E6 or E7 mRNA is detected from HPV types 16,18,31,33,35, 39,45,51,52,56,58, 59,66, and 68 by clinical services director mediated amplification. Comments Document reviewed and electronically signed by: ? System Interface ? Report date: 04/09/2017 By the signature above, the attending physician certifies that he/she has personally conducted a gross and/or microscopic examination of the described specimens and rendered or confirmed the above diagnosis. End of Report [facility] 03/31/2017 04/01/2017 Carole E Prem BLIND HANGER PATHOLOGY ORDERABLES [facility] [address] [place] [address] documented in this encounter Visit Diagnoses Not on filedocumented in this encounter Care Teams Administrative Office Clerk Relationship Specialty Start Date End Date Unknown, Provider, PCP - General 07/01/15 documented as of this encounter
--- OUTSIDE RECORDS SUMMARY | 2024-06-24 12:55 | XMS_ITS | Encounter Summary ---
[place] [address] Care Team Providers Care City Supervisor Name Role Phone None Primary Care Provider Unavailabl e Reason for Visit * Reason Comments Neck And Shoulder Pain numbness all the way to fingers LeFT side Encounter Details Date Type Department Care Team (Latest Contact Info) Description 06/16/2014 9:20 AM EDT Office [place] [address] Wesley Cortes MD [facility] [place] [address] Herniation of cervical intervertebral disc with radiculopathy [...] myelopathy documented in this encounter Care Teams City Supervisor Relationship Specialty Start Date End Date None None PCP - General 05/05/13 10/01/16 documented as of this encounter
--- OUTSIDE RECORDS SUMMARY | 2024-06-24 12:55 | XMS_ITS | Encounter Summary ---
[place] [address] Care Team Providers Care Manager Home Improvement Name Role Phone Camilla Peres FRANCES Primary Care Provider [phone] Reason for Visit * Reason Comments Follow Up Surgery drain removal Encounter Details Date Type Department Care Team (Latest Contact Info) Description 11/22/2016 9:00 AM EDT Clinical Support [place] [address] Surgery follow-up Social History Tobacco Use Types [...] symptoms please call our nurse's line at [phone] M - F 8 - 5 documented [...] surgery documented in this encounter Care Teams Manager Home Improvement Relationship Specialty Start Date End Date Camilla Peres APRN [address] [place] [address] PCP - General Family Medicine 10/02/16 07/18/21 documented as of this encounter
[2024-06-24 13:00] LABS: Hemoglobin A1C 5.4 % (<5.7)
[2024-06-24 13:38] LABS: Iron 95 ug/dL (50-170); Total Iron Binding Capacity 360 ug/dL (250-450); Transferrin Sat 26 % (15-50)
[2024-06-24 13:42] LABS: Calculated LDL 162 mg/dL (<100); Cholesterol 251 mg/dL (<200); HDL Cholesterol 69 mg/dL (40-60); TSH (W/Ref FT4) 1.62 uIU/mL (0.36-3.74); Triglyceride 102 mg/dL (<150)
== END 2024-06-24 12:44 | disposition home or self-care (01) ==
LOC: LBO 12:53
PROVIDERS: PCP Student in an Organized Health Care Education/Training Program; Visit Provider Student in an Organized Health Care Education/Training Program
DX: Z13.220 Encounter for screening for lipoid disorders (principal); F32.9 Major depressive disorder, single episode, unspecified; R53.83 Other fatigue; R63.5 Abnormal weight gain; Z91.89 Other specified personal risk factors, not elsewhere classified; R73.09 Other abnormal glucose
CPT/HCPCS: 36415; 80061; 83036; 83540; 83550; 84443; 85025

== ENCOUNTER 2024-06-25 07:09 | Day surgery (SDC) | payer OTHER, SELFPAY ==
--- NOTE | 2024-06-24 15:41 | HPE_ITS ---
Date of service: 06/25/24 Time of Service: 08:34 Assessment and Plan Assessment and plan (1) DOV (generalized anxiety disorder): Status: Acute (2) Weight gain, abnormal: Status: Acute (3) Nausea: Status: Acute Assessment and plan: Plan: EGD & Colonoscopy w/ general & natural airway. The?patient will be scheduled by my office. Informed consent is obtained for the procedural (explained in simple layman's terms that?the pt and/or family could understand) explaining risks vs benefits and alternatives to the procedure and consequences if we do not do the procedure and need/rational for the procedure. Risks include but are not limited to: bleeding, infection, perforation of colon.? This would necessitate emergency surgery to repair the damage w/ possible ostomy; and other associated complications w/ the required surgery. ? Also complications of anesthesia including aspiration, GA/CVA/, inability to complete the procedure. I discussed with the?patient would they could expect during the procedure, post procedure and recovery time and risks.? The patient understands that they need to have a ride home after the procedure.? Generally Colonoscopy does not require antibiotics prophylaxis, This document was created with voice activated software and may contain errors. 20 mins spent in direct pt care and 15 in non face to face time (4) Chronic diarrhea: Status: Acute (5) Abdominal pain, unspecified site: Status: Acute (6) Pseudotumor cerebri: Status: Acute (7) Acute dyspnea: Status: Acute (8) Smoker: Status: Chronic History of Present Illness Narrative: Patient is here today for EGD& colonoscopy for A. pain/diarrhea/rectal bleeding.??She feels this is food related, and I do want to get a bx for Celiac. ? They completed a bowel prep with just a clear yellow residual effluent.? They not having any chest pain or shortness of breath, currently.? They are not experiencing any fever or chills.? They deny any productive cough or upper respiratory tract infection signs or symptoms.? They are not having abdominal pain, or nausea and vomiting.? They have not had any changes in medications, past medical history or past surgical history since previously being seen in the office. They have not had any accidents or have been in the ER since the clinic pre-operative evaluation. ??I reviewed the procedure with the patient today, i ncluding risks and benefits of the procedure, and what they could expect at home for recovery.? All questions are answered to the patient?s satisfaction today, and they are stable to proceed with the proposed procedure. Clinic note 05/17/24 Plan: EGD &Colonoscopy w/ general & natural airway. -pt has hx of bloating/rectal bleeding/diarrhea (changes in bowels). Possible family hx of CRC. Pt not had CE. Labs done in ED were nl. The?patient will be scheduled by my office. The pt understands that they need to do a bowel prep and the importance of hydration during this.? The patient understands there is a theoretical risk of renal failure.? For healthy patients we use Gatorade/Miralax Prep.? ?For anyone with renal concerns- GoLytely will be used. Plavix and coumadin will need to be held except in unusual circumstances. ? Patients in A. Fib do not need to be bridged with Lovenox or on CVA prophylaxis.? A baby ASA can be continued but full dose ASA needs to be stopped for 10 days prior to the procedure. A complete H & P is required within 30 days of the procedure.? GETA w/natural airway is used for the colonoscopy.? Informed consent is obtained for the procedural (explained in simple layman's terms that?the pt and/or family could understand) explaining risks vs benefits and alternatives to the procedure and consequences if we do not do the procedure and need/rational for the procedure. Risks include but are not limited to: bleeding, infection, perforation of colon.? This would necessitate emergency surgery to repair the damage w/ possible ostomy; and other associated complications w/ the required surgery. ? Also complications of anesthesia including aspiration, GA/CVA/, inability to complete the procedure. I discussed with the?patient would they could expect during the procedure, post procedure and recovery time and risks.? The patient understands that they need to have a ride home after the procedure.? The patient was given all this information in writing and expressed understanding. If there are any questions or concerns please feel free to contact our office.? Generally Colonoscopy does not require antibiotics prophylaxis, RN:Pt reports moves bowels every day, but cant remember the last time she had a normal firmed bowel movement. Pt thinks she may have family history of colon cancer but was not close to either side, sure her father had colon cancer around 45, at age 64. Pt reports lower abdominal pain has subsided. Pt states still feels bloated and has had an increase in weight. Pt has never had a colonoscopy or EGD. The patient is a 43-year-old female who was seen in the ED on 05/01/2024 and diagnosed with epiploic appendage infarction. She has also been complaining of pelvic heaviness. She has noticed blood in stool today. She has had wt gain. She has no pain today. She has not been having ruq pain. The bloating and diarrhea is not associated w/ any specific foods or activity. She started Vit D last friday, otherwise not changes in meds/supplements or diet. No recent travel or changes to lifestyle. She did just finish [employer] school. She can't tell if related to foods; trying to cut carbs. The pain/bloating may be worse w/ bread- maybe. She moves her bowels daily, bristol 4/5.. no RUQ pain. abx- was on cipro and cephalxin for 10 days in apr for the epidengitis. labs were nl. She has a heavy feeling in lower abdomen pelvis. no ruq pain. Today she is having diarrhea- x3 BM today- liquid/watery. pieces/floating. For the last 6 months her bowels have been on the loose side. Today she ate: leftover potato/egg salad. +chairez. She c/o bloating and +nausea, but no abdominal pain. ? family hx of CRC on father side. She deson't know who had what/when Pt doesn't know family Hx. CT; ABDOMEN and PELVIS: Lung Bases: No acute findings. Liver: Normal density. No suspicious mass. Gallbladder and biliary tract: No radiodense calculus. No biliary dilation. Pancreas: Normal density. No abnormal calcifications or inflammatory process. No evidence of mass. Spleen: Normal. Kidneys: Normal size, contour and axis. No radiodense stones. No obstructive uropathy. No suspicious masses seen. Adrenal glands: No masses seen. Vasculature: Abdominal aorta non-dilated. Soft tissues: Unremarkable. No soft tissue hematomas. Musculature appears intact. Bladder: No gross wall thickening. No calculi.No focal mass. Bowel: No obstruction. No bowel wall thickening. Appendix normal. Peritoneal cavity: No ascites. No focal collection. There is mild stranding in the fat around the lower descending colon. Findings could represent contusion versus inflammation/epiploic appendagitis. Clinical correlation recommended. Bones: Unremarkable for age. No evidence of spine or pelvic fracture. No lower rib fractures identified. Reproductive organs: IUD in position. Small right ovarian cyst/dominant follicle. Lymph nodes: No pathologically enlarged lymph nodes. IMPRESSION:: Focal area of increased density in the fat surrounding the lower descending colon which could represent focal contusion versus inflammation or epiploic appendagitis. lpa US: PSHx laparoscopy- 1999 breast aug carpel tunnel. anesthesia- no problems + smoker Psuedotumor cerbri- last time done- 10 yrs. Review of Systems All systems reviewed & are unremarkable except as noted in HPI and below PFSH All Active Problems Panic disorder [episodic paroxysmal anxiety] (Acute) Abdominal bloating (Acute) Nausea (Acute) Chronic diarrhea (Acute) Bilateral lower abdominal discomfort (Acute) Lower abdominal pain (Acute) Pelvic pressure in female (Acute) Weight gain, abnormal (Acute) Hypovitaminosis D (Acute) Hypermetropia, bilateral (Acute) 07/29/22 [facility] note Macrocytosis (Acute) Improved, CHRONIC .. TBD, albeit borderline/improved.. w/o anemia (1 episode low RBC; HGB ok per recent labs) .. [reviewing results post OV] Stressful life event affecting family (Acute) Reaction, situational, acute, to stress (Acute) Acute dyspnea (Acute) improved, when @ rest Cervicalgia (Acute) Acute on chronic: aggravated with work and intertwined with headache & dizziness .. limited relief with PT. Hx MRI (+) disc gabe & cord compression @ C5-6,C6-7. Left cervical radiculopathy (Acute) Per [facility] pain and spine, and clinical evaluation. History of negative EMG (summer 2021), but we may need a new EMG. We may also need a new MRI, with oblique views. Numbness and tingling of left upper extremity (Acute) Acute neck pain (Acute) No new injury, acute pain with mild ROM improvement post Chiro. Possible reduced work requirements; possible FMLA? Major depression (Chronic) DOV (generalized anxiety disorder) (Acute) Isolation (social) (Acute) Diplopia (Acute ~09/03/22) Perioral numbness (Acute) Dizziness (Acute) Facial weakness (Acute) Peripheral neuropathy (Acute) Bilateral hand numbness (Acute) Hx CT release, b/l ([facility]?). Elbow impingement surgery recomm per pt report? History of nerve impingement (Acute) Per ppt and [facility] note, recommending EMG [ ] . Complicated grief (Acute) Son's Fa of possible suicide, 09/2021. Olga & friend went to his home, found him with unclear intention (did he change his mind, but unable to leave room w/ propane) .. While not together, they were friends and co- parenting. 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 Resolved on recent MRI (10/2021), although osteophyte complex (+) @ C4-5-6-7 & multilevel foraminal stenosis. Injury of upper back excluding scapular region (Acute) Acute on chronic: Central upper back injury years ago @ [employer], as if a mm was tearing (with flares of burning, central pain after heavy work day) (~2000) Vertigo (Acute 04/01/13) Acute on chronic: returned, 09/2021 .. assoc with work? topiramate taper? Vision changes (Acute) New glasses, but seems serious change in 1 year (cannot see at all w/o glasses now, vs last year). Episodes of loss of focus. Weight loss, non-intentional (Acute) Tick bites (Acute) Multiple, with > 48H and rashes noted. Hx arthralgia. Post traumatic stress disorder (PTSD) (Acute) Papilledema (Chronic) [place].. No optic nn damage per Dr RICO, 08/2021 Idiopathic intracranial hypertension (Acute) Appears improved.. History of idiopathic intracranial hypertension (Acute) Jul 2008, Sep 2019 Pseudotumor cerebri (Acute 05/03/13) Smoker (Chronic) Wellbutrin may be helping stop .. 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 will be 2 years in March 2020. ik Atelectasis of right lung UTI symptoms per webex .. on her way to lab? via CT... Return to work evaluation Pt hurt @ home, but on FMLA since end of December 2' rib Fx. Pleurisy without effusion Ribs, multiple fractures mildly displaced per CT (FU 2' pain out of proportion); per Rib XR (as initial CXR neg) Painful breasts Other disorders of pituitary gland Benign paroxysmal vertigo, bilateral Radiculopathy, cervical region Carpal tunnel syndrome b/l median neuropathy per EMG, [facility], 06/2017 (no brachial plex OR cervical radic) COVID-05 Aug 2021 Stressful life events affecting family and household Found son's father by suicide, 09/2021. Son is 19yo with life-transition & loss of Fa. New home-rough rounder, 06/2021. Recent break-up (Mar 2020); 18yo son partially moved out (workg? smkg?); daughter lives with fa. Strong support @ work. Isolation with COVID and home in [facility] .. may be buying new home, [employer] an 2020. Anxiety and depression (05/29/17) Depressive disorder (05/03/13) Spontaneous (02/05/13) Surgical History Status post carpal tunnel release RT Wrist Open CTR, Synovectomy S/P breast augmentation s/p implant and then later explant History of laparoscopy Family History Mother Depression Substance abuse Anxiety Degenerative disc disease Migraine Father Essential hypertension Depression Hyperlipidemia Substance abuse Anxiety Colon cancer Hypertension Stroke Tremor Sister Depression Substance abuse Anxiety Brother Depression Substance abuse Anxiety Brother Depression Stroke Substance abuse Degenerative disc disease Migraine Maternal Grandfather Heart disease Hyperlipidemia Stroke Degenerative disc disease Paternal Grandfather Heart disease Hyperlipidemia Stroke Diabetes Maternal Grandmother Heart disease Paternal Grandmother Diabetes Neoplasm BREAST Maternal Aunt Degenerative disc disease Maternal Uncle Degenerative disc disease Social History Smoking/Tobacco Use Status: Current every day Tobacco Type: cigarettes Smoking packs per day: 1 Smoking cigarettes per day: 20.0 Tobacco: How many years used: 20 Quit status: considering quitting Smoking risk assessment performed?: Yes Alcohol Intake: current Alcohol Intake frequency: 0-2 drinks per day Alcohol type: beer Drug use: Never Substance use type: does not use Details: 2 cigarettes this morning. Adopted: No Caregiver/Support person: No Foster care: No Household members: children and other Details: Ulises - Son, lives with her. 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 [employer] Pets and animals: Yes (2) Pets and animals: dog(s) Sexually active: No Do you think of yourself as: straight/heterosexual Current gender identity: female What is your relationship status?: never How often do you talk on the phone with friends or family?: once per week How often do you get together with friends or relatives?: never Do you belong to any clubs or organized social groups?: no Panel score (0-1 are the most socially isolated patients): 0 What type of physical activity do you participate in: walking Duration: 15-30 minutes/day Frequency: 1-2 times per week Special castillo needs: No Seatbelt use: always Helmet use: Yes Helmet use: other Details: no use Drive intox or ride w/intox starting gate driver: No Do you feel safe at home: Yes Do you feel safe in your relationship?: Yes Female Reproductive History Menstrual Duration of menses: 3-5 days control method: progestin IUCD History History 6 Para 2 Hx # Term Pregnancies 2 Multiple births Hx # Pregnancies Ectopic pregnancies AB induced Hx Number of Living Children 2 AB spontaneous Meds Allergies and Home Medications Allergies Allergy/AdvReac Type Severity Reaction Status Date / Time No Known Allergies Allergy Verified 06/25/24 07:30 Home Medications ?Medication ?Instructions ?Recorded ?Confirmed ?Type cholecalciferol (vitamin D3) 1,250 1,250 mcg PO QWEEK #10 caps 04/27/24 06/25/24 Rx mcg (50,000 unit) capsule clonazepam 0.5 mg tablet 0.5 mg PO BID anxiety or panic 04/27/24 06/25/24 Rx episode #60 tabs propranolol 10 mg tablet 20 mg (2 x 10 mg) PO BID #180 tabs 06/21/24 06/25/24 Rx Exam Narrative Exam Narrative: PHYSICAL EXAM GENERAL APPEARANCE: Alert, healthy appearance, oriented, x 3,? in no acute distress HYDRATION: Well hydrated HEAD, EYES, EARS, NECK, THROAT: Head is normocephalic, pupils equal, round, reactive to light and accommodation, ocular movement intact, sclera clear and no jaundice. ?Dentition intact. LUNGS: normal respiration/normal chest excursion. ?Clear to auscultation bilaterally. ?No wheeze. ?HEART: Regular rate and rhythm. no murmurs ABDOMEN: soft and non-tender to palpation.? Normal bowel sounds.? Time Spent Time spent with Patient: <40 minutes Time was spent: preparing to see the patient(eg.review tests), obtaining and/or reviewing separately otained hiistory, ordering medications,tests, procedures, referring, communicating with other health childcare worker, indepentently interpreting results, counseling the patient, care coordination and other
--- NOTE | 2024-06-24 15:47 | PDOC.DSDIS_ITS ---
Date of service: 06/25/24 Time of Service: 09:53 Discharge Plan Disposition Patient Disposition: Home Condition: Good Discharge Details Reason For Visit: stomach & colon scope Attending Provider: Kelly Elias Primary Care Provider: Lisa Martin Home Meds and New Rx's Prescriptions: No Action cholecalciferol (vitamin D3) 1,250 mcg (50,000 unit) capsule 1,250 mcg PO QWEEK Qty: 10 0RF clonazepam 0.5 mg tablet 0.5 mg PO BID MDD 2 Qty: 60 2RF propranolol 10 mg tablet 20 mg PO BID Qty: 180 3RF Rx Instructions: * 06/21/24 dose increase from 10 mg to 20 mg, BID * Discharge Instructions Additional Instructions: DSU Colonoscopy Post- Op Instructions Instructions for Everyone who is given Anesthesia: For your safety, please do the following for the next twenty-four (24) hours: *Do Not operate a motor vehicle (car, truck, motorcycle, etc.) *Do Not drink alcoholic beverages or use any recreational drugs for the first 24 hours or while taking pain medications. The medications in your body may have a reaction that can be dangerous. *Do Not make any important decisions or sign any important papers. Findings: mild esophagitis otherwise normal. Bx pd -mild diverticula -small polyp otherwise nl. Bx pd 1. No lifting over 20 pounds or strenuous activity for the first 24 hours after your procedure. After 24 hours there are no restrictions on your activity but you may feel fatigued for a few days. 2. After you arrive home you may have a light meal and return to your normal diet as you can tolerate it without feeling sick to your stomach. 3. You may have a bloated, gaseous feeling in your belly (abdomen) after a colonoscopy. Passing gas and belching will help. Walking or lying down on your left side with your knees flexed may relieve the discomfort. Call the office at [phone] (Office) or [phone] (Hospital) right away if you notice any of the following: a.Vomiting of blood or ?coffee ground stools?. b.Rectal bleeding 1Tbsp, blood clots or continuous bleeding. c.Severe belly (abdominal) pain. d.A hard distended belly (abdomen) and an inability to pass gas. 4. Please don?t expect to have a normal BM (bowel movement) for 2-3 days after your procedure. 5. If there are questions regarding the findings of your procedure, please contact your doctor 6. If you are unable to contact your doctor with a problem, contact the hospital at [phone]. 7. Continue all your regular medications unless directed otherwise. I understand the above instructions and have no questions. Signature of Patient or Adult Escort Name of Responsible Adult Escort Signature of Nurse Date/Time Stand Alone Forms: Anesthesia Discharge Inst., Ying Burns (DSU) Activity:: see above Diet:: see above Discharge Orders Discharge Orders: Discharge Order (Routine); Ordered 06/25/24 Ordered By: Kelly Elias DS: Diagnosis Discharge Diagnosis (1) DOV (generalized anxiety disorder): Status: Acute (2) Weight gain, abnormal: Status: Acute (3) Nausea: Status: Acute (4) Chronic diarrhea: Status: Acute Asessment and Plan: The patient is seen and examined after their colonoscopy.? The patient has been able to pass gas.? They are not having abdominal pain.? They have been able to tolerate liquids and a snack.? They do not have any nausea or vomiting.? They are not having any chest pain or shortness of breath.??? They are not having any rectal bleeding. Their vital signs have been stable-see nursing notes. We discussed findings during their colonoscopy, and any biopsies that were done/polyps that were removed. The patient will be sent a letter with any biopsy results, and when to repeat the colonoscopy.-see discharge instructions. Patient was given explicit instructions to follow-up regarding colonoscopy-refer to discharge instructions.? We reviewed resumption of medications. Patient verbalized understanding and discharged in stable and satisfactory condition- See nursing notes. (5) Abdominal pain, unspecified site: Status: Acute Asessment and Plan: Patient is seen and examined after they are endoscopy.? Patient has minimal sore throat.? They have been able to tolerate liquids.? They do not have any nausea vomiting.? They are not having any chest pain or shortness of breath.? They have been able to pass gas and are not having any abdominal pain or distention.? They have not vomited any blood.? The vital signs have been stable-see nursing notes. We discussed findings on their endoscopy. We reviewed the importance of lifestyle modification-see discharge instructions We reviewed any new medications that the patient may be prescribed-see discharge instructions Patient will either be sent a letter with the biopsy results or follow-up in the office-see discharge instructions. Patient was given explicit instructions to follow-up regarding post endoscopy- refer to discharge Patient verbalized understanding and discharged in stable and satisfactory condition.? See nursing notes. (6) Pseudotumor cerebri: Status: Acute (7) Acute dyspnea: Status: Acute (8) Smoker: Status: Chronic (9) Esophagitis: Status: Acute
--- NOTE | 2024-06-24 15:49 | W.PM.ENDDOP ---
Date of service: 06/25/24 Time of Service: 09:55 Endoscopy Report DATE OF PROCEDURE: 06/25/24 PRE-OP DIAGNOSIS: abdominal pain POST-OP DIAGNOSIS: other (mild esophagitis ) SURGEON: Kelly Elias ANESTHESIA TYPE: General:No Airway ESTIMATED BLOOD LOSS: 2 PATHOLOGY: other COMPLICATIONS: None DISPOSITION: same day PROCEDURE DESCRIPTION: Informed consent was obtained from the pt; explaining the benefits and Risks: bleeding, infections, perforations {which could require surgery or antibiotics and prolonged hospital stay}, or ostomy, and complications of anaesthesia, bi aspiration). The patient was take to the procedure room and placed in a supine position. Monitors were applied and a time out was done. The patients name, date of , procedure type, allergies to medications and metal in their body was reviewed. A bite block was placed and the patient was sedated. Once sedated and comfortable an Olympus gastroscope (see RN notes for scope #) was advanced through the oropharynx which was grossly normal, and passed into the esophagus. The proximal and mid-esophagus were normal. The distal esophagus does not show any: dilation/strictures/varices/erosions or ulcers/bleeding noted. There is some mild irritation noted at the GE junction. The scope was advanced into the stomach and through the pylorus into the proximal jejunum. A bx is taken for celiac Dx . The duodenum was noted to be normal. Biopsies were done of the duodenal bulb.. The scope was retracted back into the stomach and biopsies were taken of the antrum. There were no gastritis/gastropathy/ ulcers/masses noted. The scope was retroflexed. The cardia and fundus were noted to be normal. There is no hiatal hernia noted. The scope was retracted back into the esophagus and biopsies were done of the GE junction (in all 4 quadrants) and distal esophagus (2cm above the GE junction) to rule out Raymond's. All specimens are retrieved and no bleeding was noted. The Z line was mildly irregular. The GE junction was at 38 cm. The scope was removed and the patient was woken up and taken back to [facility] in stable condition.
--- NOTE | 2024-06-24 15:50 | COLE_ITS ---
Date of service: 06/25/24 Time of Service: 09:57 Colonoscopy Report Date of procedure: 06/25/24 Pre-op diagnosis general: diarrhea/rectal bleeding Post-op diagnosis procedure note: other (Polyps and diverticula) Surgeon: Kelly Elias Anesthesia Type: General:No Airway Estimated blood loss (mL): 1 Pathology: other Complications: None Disposition: same day Prep: Miralax/Dulcolax Procedure Description: After informed consent was obtained, explaining risks of the procedure, including but not limits to: bleeding, infections, complications of anesthesia, perforations (which may require antibiotics and /or surgery and stay in the hospital), and abdominal pain/cramping. The patient was taken to the procedure room and placed in a left decubitous position. Monitors were applied and a time out was done. The patients name, date of , procedure, allergies to medications and metal in their body was reviewed. The patient was then sedated. Once sedated and comfortable a rectal exam was done. External exam was normal. Internal exam revealed a normal sphincter tone and no palpable masses. The previously lubricated Olympus scope was then introduced (see RN notes for scope number) and retrofelexed. No internal hemorrhoids were identified. The scope was then advanced to the cecum without difficulty. The TI and appendiceal orifice were identified. The scope was then slowly retracted over minutes back into the rectum. Polyps: A flat, .5cm polyp was found at 20cm. This was removed with a cold biting forceps. All of the specimen was retrieved. This will be sent to pathology. There is no bleeding noted from the polypectomy site. Diverticula: pt had a small amount of small mouthed diverticula in the sigmoid colon. There were no signs of active bleeding or infection. The mucosa is pink and healthy w/ a normal vascular pattern. The scope was removed, and the patient was woken up and taken back to Same day surgery in stable condition. The patient tolerated the procedure well and there were no immediate complicat ions. Follow up: The patient should follow up in 7-10 years, path pd unless they develop changes in bowel habits or other new gastrointestinal complaints. [place] Bowel Prep [place] Bowel Prep Right Colon: 3 Left Colon: 3 Transverse Colon: 3 Total Score: 9
--- NOTE | 2024-06-24 16:54 | W.ANESPRE ---
General Info Date of Service Date Performed: 06/25/24 Height: 5 ft 7 in Weight: 76.657 kg Body Mass Index (BMI): 26.4 Surgical Procedure: Operation Date: 06/25/24 08:50 Proposed Procedure Side Surgeon p Colonoscopy/Gastroscopy Kelly Elias, Meds Allergies and Home Medications Allergies Allergy/AdvReac Type Severity Reaction Status Date / Time No Known Allergies Allergy Verified 06/25/24 07:30 Home Medication ?Medication ?Instructions ?Recorded cholecalciferol (vitamin D3) 1,250 1,250 mcg PO QWEEK #10 caps 04/27/24 mcg (50,000 unit) capsule clonazepam 0.5 mg tablet 0.5 mg PO BID anxiety or panic 04/27/24 episode #60 tabs propranolol 10 mg tablet 20 mg (2 x 10 mg) PO BID #180 tabs 06/21/24 Current Visit Medications: Current Medications Generic Name Dose Route Start Last Admin Trade Name Freq PRN Reason Stop Dose Admin Hyoscyamine Sulfate 0.125 mg 06/25/24 02:02 Hyoscyamine 0.125 Mg Sl/Oral/Chew SL 07/25/24 02:01 DIRECTED PRN IV Miscellaneous Supplies 1 each 06/25/24 06:00 Iv Access IV 07/24/24 23:59 DIRECTED MELVI Ondansetron HCl 4 mg 06/25/24 02:02 Ondansetron 4 Mg/2 Ml Vial IVP 07/25/24 02:01 Q4H PRN PRN Nausea / Vomiting Sodium Chloride 0 ml 06/25/24 06:00 Normal Saline Flush 10 Ml Syr IV 07/24/24 23:59 PRN PRN Sodium Chloride 0 ml 06/25/24 06:00 Normal Saline 10 Ml Vial IJ 07/24/24 23:59 DIRECTED PRN Sterile Water 0 ml 06/25/24 06:00 Water,Injection,Sterile 10 Ml Vial IJ 07/24/24 23:59 DIRECTED PRN PFSH Active Problems Active Problems: Problem Status Onset Code Panic disorder [episodic paroxysmal anxiety] Acute F41.0 Abdominal bloating Acute R14.0 Nausea Acute R11.0 Chronic diarrhea Acute K52.9 Bilateral lower abdominal discomfort Acute R10.31, R10.32 Lower abdominal pain Acute R10.30 Pelvic pressure in female Acute R10.2 Weight gain, abnormal Acute R63.5 Hypovitaminosis D Acute E55.9 Hypermetropia, bilateral Acute H52.03 Macrocytosis Acute D75.89 Stressful life event affecting family Acute Z63.79 Reaction, situational, acute, to stress Acute F43.0 Acute dyspnea Acute R06.00 Cervicalgia Acute M54.2 Left cervical radiculopathy Acute M54.12 Numbness and tingling of left upper extremity Acute R20.0, R20.2 Acute neck pain Acute M54.2 Major depression Chronic F32.9 DOV (generalized anxiety disorder) Acute F41.1 Isolation (social) Acute Z60.4 Diplopia Acute ~09/03/22 H53.2 Perioral numbness Acute R20.0 Dizziness Acute R42 Facial weakness Acute R29.810 Peripheral neuropathy Acute G62.9 Bilateral hand numbness Acute R20.0 History of nerve impingement Acute Z86.69 Complicated grief Acute F43.21 Protrusion of cervical intervertebral disc Acute M50.20 Injury of upper back excluding scapular region Acute S29.9XXA Vertigo Acute 04/01/13 R42 Vision changes Acute H53.9 Weight loss, non-intentional Acute R63.4 Tick bites Acute W57.XXXA Post traumatic stress disorder (PTSD) Acute F43.10 Papilledema Chronic Idiopathic intracranial hypertension Acute G93.2 History of idiopathic intracranial hypertension Acute Z86.69 Pseudotumor cerebri Acute 05/03/13 G93.2 Smoker Chronic F17.200 Right shoulder pain Acute 07/02/17 M25.511 Hematuria, unspecified Acute R31.9 Endometriosis Acute N80.9 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 will be 2 years in March 2020. ik Atelectasis of right lung UTI symptoms per webex .. on her way to lab? via CT... Return to work evaluation Pt hurt @ home, but on FMLA since end of December 2' rib Fx. Pleurisy without effusion Ribs, multiple fractures mildly displaced per CT (FU 2' pain out of proportion); per Rib XR (as initial CXR neg) Painful breasts Other disorders of pituitary gland Benign paroxysmal vertigo, bilateral Radiculopathy, cervical region Carpal tunnel syndrome b/l median neuropathy per EMG, [facility], 06/2017 (no brachial plex OR cervical radic) COVID-05 Aug 2021 Stressful life events affecting family and household Found son's father by suicide, 09/2021. Son is 19yo with life-transition & loss of Fa. 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 Recent break-up (Mar 2020); 18yo son partially moved out (workg? smkg?); daughter lives with fa. Strong support @ work. Isolation with COVID and home in [place] .. may be buying new home, Aug 2020. Anxiety and depression (05/29/17) Depressive disorder (05/03/13) Spontaneous (02/05/13) Surgical History Surgical History Status post carpal tunnel release RT Wrist Open CTR, Synovectomy S/P breast augmentation s/p implant and then later explant History of laparoscopy Tobacco Smoking/Tobacco Use Status: Current every day Tobacco Type: cigarettes Smoking packs per day: 1 Smoking cigarettes per day: 20.0 Passive smoking exposure: No Alcohol Alcohol Intake: current Alcohol intake frequency: 0-2 drinks per day Alcohol type: beer Substance Use Substance use: Never Substance use type: does not use Prental History History 6 Para 2 Hx # Term Pregnancies 2 Multiple births Hx # Pregnancies Ectopic pregnancies AB induced Hx Number of Living Children 2 AB spontaneous Vital Signs and Lab Results Vital Signs Most Recent Vital Signs in EMR: Temp Pulse Resp BP Pulse Ox 36.5 C 75 16 135/80 99 06/25/24 07:21 06/25/24 07:21 06/25/24 07:21 06/25/24 07:21 06/25/24 07:21 Lab Results Blood Type / Crossmatch: No Data to Display Complete Blood Count: White Blood Count 6.72 10^3/uL (4.4-10.8) 06/24/24 12:15 Red Blood Count 4.02 10^6/uL (3.93-5.22) 06/24/24 12:15 Hemoglobin 14.0 g/dL (11.2-15.7) 06/24/24 12:15 Hematocrit 40.1 % (36.0-46.0) 06/24/24 12:15 Platelet Count 296 10^3/uL (130-400) 06/24/24 12:15 Complete Metabolic Panel: Hemoglobin A1c 5.4 % (<5.7) 06/24/24 12:15 Liver Function Panel: No Data to Display Coagulation Panel: No Data to Display Cardiac Panel: No Data to Display Arterial Blood Gas: No Data to Display Venous Blood Gas: No Data to Display Pancreas Panel: No Data to Display Thyroid Panel: Thyroid Stimulating Hormone (TSH) 1.62 uIU/mL (0.36-3.74) 06/24/24 12:15 Infectious Disease: No Data to Display Blood Cultures: No Data to Display Toxicology Panel: No Data to Display Panel: No Data to Display Anesthesia Assessment and Plan Anesthesia History Personal History: No History of Anesthesia Complications Family History: Family History Unknown Exercise Tolerance Exercise Tolerance: Metabolic Equivalents>4 Cardiac & Pulmonary Exam Cardiac Exam: Normal S1/S2 Heart Sounds Pulmonary Exam: Clear Bilateral Breath Sounds Implantable Cardiac Device Does patient have a Pacemaker or an ICD?: No Airway Exam Known Difficult Airway: No Mallampati Class: 3 Mouth Opening: Narrow (< 3cm) Thyromental Distance: Less than 3 cm Neck Range of Motion: Full ROM Neck Circumference: Normal Teeth Condition: Normal Dentition ASA Classification ASA Score: ASA 3 Emergency Case?: No NPO Status NPO Status: NPO Clears >2 hours, Solids >8 hours Status Status: Negative HCG Anesthesia Plan Resuscitation Status: Full Code Anesthesia Technique: General Anesthesia Airway Planned: Natural Airway Monitors Used: Standard Monitors Preoperative Comments:: 43 yo female for EGD/colo. Sig PMHx: pseudotumor cerebri/idiopathic intracranial hypertension (history of, not currently), anxiety/depression/PTSD. EKG: sinus. CT carotid: unremarkable.
[2024-06-25 07:21] VITALS: BP 135/80; PULSE 75; RESP 16; TEMP 36.5; O2SAT 99
[2024-06-25] MEDS: Normal Saline Flush 10 ML SYR IV (07:44)
[2024-06-25 08:09] VITALS: BMI 26.4
--- NOTE | 2024-06-25 09:14 | BOWEL_PTH ---
PATIENT: Olga Grey LOC: [facility] U#:[id number] AGE/SX: 43/F ROOM: RE06/25/[address]: Kelly Elias : 1980 BED: DIS: 06/25/2024 SPEC #: [id number] RECD: 06/25/24 12:48 STATUS: ELIZABETH Shital #: [id number] VINAY: 06/25/24 09:[address]: Kelly Elias DEPT: Surgical Specimen RECD BY: Haylie Torres ENTERED: 06/25/24 12:49 SP TYPE: Bowel OTHR DR: Lisa Martin DO Tissues: 1 - BIOPSY BOWEL 2 - BIOPSY BOWEL 3 - STOMACH BIOPSY 4 - STOMACH BIOPSY 5 - ESOPHAGUS BIOPSY 6 - ESOPHAGUS BIOPSY 7 - BIOPSY BOWEL 8 - BIOPSY BOWEL 9 - BIOPSY BOWEL 10 - BIOPSY BOWEL 11 - BIOPSY BOWEL 12 - BIOPSY BOWEL 13 - BIOPSY BOWEL 14 - BIOPSY BOWEL Procedures: GROSS AND MICRO LEVEL 4 Comments: [id number]
[2024-06-25 09:47] VITALS: BP 123/94; PULSE 76; RESP 14; TEMP 36; O2SAT 99
--- NOTE | 2024-06-25 09:57 | W.ANESPOSTOP ---
Postoperative Evaluation Date, Time and Location Date Performed: 06/25/24 Time Performed: 09:57 Patient Location: Day Surgery Unit Vital Signs Most Recent Imported Vital Signs: Most Recent Vital Signs Temp Pulse Resp BP Pulse Ox 36 C L 76 14 123/94 H 99 06/25/24 09:47 06/25/24 09:47 06/25/24 09:47 06/25/24 09:47 06/25/24 09:47 Pain Score Most Recent Pain Score: Most Recent Pain Score Pain Level 0 06/25/24 07:21 Assessment Mental Status: Awake (Alert & Oriented to Patient Baseline) Airway and Respiratory Function: Patent airway with normal (patient baseline) respiratory exam Cardiovascular Function: Hemodynamically Stable Hydration Status: Adequately Hydrated Nausea & Vomiting: No Nausea or Vomiting Pain: Pt. Denies Any Pain Peripheral Nerve Block: Patient did not receive a nerve block
[2024-06-25 10:16] VITALS: BP 131/84; PULSE 71; RESP 16; TEMP 36; O2SAT 97
== END 2024-06-25 10:37 | disposition home or self-care (01) ==
LOC: SUR 07:10
PROVIDERS: PCP Student in an Organized Health Care Education/Training Program; Visit Provider Surgery
PROC: (CPT 45380; principal; 2024-06-25 08:45)
DX: K20.90 Esophagitis, unspecified without bleeding; D12.5 Benign neoplasm of sigmoid colon; K57.30 Diverticulosis of large intestine without perforation or abscess without bleeding; R19.7 Diarrhea, unspecified; K63.89 Other specified diseases of intestine; K29.70 Gastritis, unspecified, without bleeding; K22.89 Other specified disease of esophagus
CPT/HCPCS: 45380; 43239; 81025; 88305; J2250; J2405; J2704

== ENCOUNTER 2024-07-23 00:05 | Outpatient (CLI) | payer OTHER, SELFPAY ==
--- NOTE | 2024-07-23 15:29 | DI.MAMMO_ITS ---
Exam(s) MAMMO SCREENING EXAM: MAMMO SCREENING CLINICAL HISTORY: screening,Z12.39 TECHNIQUE: Mammograms were interpreted according to the usual protocol including computer analysis w TheTake CAD system, tomosynthesis and C-view imaging. COMPARISON: 2021 and 2022 FINDINGS: The breasts are composed of scattered fibroglandular densities, Breast Density category B. No suspicious masses or suspicious microcalcifications are seen. No skin thickening or abnormal axillary lymph nodes are seen. There has been no significant change from prior exams. IMPRESSION: BI-RADS Category 1, Negative mammogram Yearly screening mammography is recommended. Breast Density - Category B, scattered fibroglandular densities. A negative radiographic report should not delay biopsy if a dominant or clinically suspicious mass is present. Up to ten percent of cancers are not identified on mammography. A negative report may reinforce clinical impression. Adenosis and dense breasts may obscure an underlying neoplasm. False positive reports average 6 to 10%. Patient will receive a letter notifying them of these results.
== END 2024-07-23 00:25 ==
LOC: DI 00:05
PROVIDERS: PCP Student in an Organized Health Care Education/Training Program; Visit Provider Nurse Practitioner Adult Health
DX: Z12.31 Encounter for screening mammogram for malignant neoplasm of breast (principal); R92.323 Mammographic fibroglandular density, bilateral breasts
CPT/HCPCS: 77063; 77067

== ENCOUNTER 2024-08-05 15:22 | Outpatient (REF) | payer OTHER, SELFPAY ==
--- OUTSIDE RECORDS SUMMARY | 2024-08-05 15:24 | XMS_ITS | Clinical Summary ---
Author Organization [facility] Address [address] [facility] [place] [address] Care Team Providers Care Mobile Device Developer Name Role Phone Lisa Martin Primary Care Provider [phone]- [phone] Allergies No known active allergies Medications Medication [...] who have questions please contact the health career advisor that requested your imaging first. ? Electronically signed by: Michelle Birmingham MD, [facility] ([phone]), at 04/19/2022 11:38 AM Diana Ordoñez APRN [...] capacity to make decision: Yes Care Teams Mobile Device Developer Relationship Specialty Start Date End Date Lisa Martin DO [address] [place] [address] PCP - General Family Medicine 07/19/21
--- OUTSIDE RECORDS SUMMARY | 2024-08-05 15:24 | XMS_ITS | Encounter Summary ---
[place] [address] Care Team Providers Care Inter Com Installer Name Role Phone Lisa Martin Primary Care Provider [phone]- [phone] Encounter Details Date Type Department Care Team (Late st Contact Info) Description 04/19/2022 10:00 AM EDT - 04/19/2022 11:59 PM EDT Hospital Encounter [place] [address] Diana Ordoñez, HOT BOX CHECKER [address] [place] [address] Mastodynia Discharge Disposition: Home Social History Tobacco [...] who have questions please contact the health care technician that requested your imaging first. ? Electronically signed by: Michelle Birmingham MD, [facility] [place] ([phone]), at 04/19/2022 11:38 AM Diana Ordoñez APRN IMG MAMMO ORDERAB LES documented in this encounter Visit Diagnoses Diagnosis Mastodynia documented in this encounter Care Teams Inter Com Installer Relationship Specialty Start Date End Date Lisa Martin DO [address] [place] [address] PCP - General Family Medicine 07/19/21 documented as of this encounter
--- OUTSIDE RECORDS SUMMARY | 2024-08-05 15:24 | XMS_ITS | Encounter Summary ---
Author Organization [facility] [place] [address] Care Team Providers Care Acute Care Nurse Name Role Phone Lisa Martin DO Primary Care Provider [phone]- [phone] Encounter Details Date Type Department Care Team (Late st Contact Info) Description 07/17/2022 Ancillary Procedure Radiology Library at [facility] [place] [id number] Lisa Martin, DO [address] [place], [place] [id number] Social History Tobacco Use Types Packs/Day Years [...] MR Spine (07/17/2022 12:00 AM EST) Narrative [facility] - 07/25/2022 11:33 AM EST This exam is auto-finalizing. It's purpose is for storage only. Lisa Martin DO [facility] LIBRARY O RDERABLES DH [place], [place] documented in this encounter Visit Diagnoses Not on filedocumented in this encounter Care Teams Acute Care Nurse Relationship Specialty Start Date End Date Lisa Martin DO [address] [facility] [place] [place] [address] PCP - General Family Medicine 07/19/21 documented as of this encounter
--- OUTSIDE RECORDS SUMMARY | 2024-08-05 15:24 | XMS_ITS | Encounter Summary ---
[place] [address] Care Team Providers Care Explosive Ordnance Specialist Name Role Phone Lisa Martin DO Primary Care Provider [phone]- [phone] Reason for Referral * Consultation (Routine) - Closed Specialty Diagnoses / Procedures Referred By Contac t Referred To Contact [facility] Diagnoses Anesthesia of skin Cervicalgia Other cervical disc displacement, unspecified cervical region Spine- Neck pain radiates down L arm w/ n&t/ MRI 07/17/22 in eDH/ EMG 01/2022 @[facility]/ no relief w/PT Lisa Martin DO [address] [place] [address] [facility] [place] [address] Referral ID Status Reason Start Date Expiration Date V isits Requested Visits Authorized [id number] Closed Consult, Test & Treat PCP Updated and/or Approved 07/23/2022 07/23/2023 6 6 Encounter Details Date Type Department Care Team (Latest Contact Info) Description 07/23/2022 Transcribe Orders eDH Incoming Referrals [phone] Lisa Martin DO [address] [place], [place] [address] Anesthesia of skin; Cervicalgia; Other cervical disc [...] region documented in this encounter Care Teams Explosive Ordnance Specialist Relationship Specialty Start Date End Date Lisa Martin DO [address] [place] [address] PCP - General Family Medicine 07/19/21 documented as of this encounter
--- OUTSIDE RECORDS SUMMARY | 2024-08-05 15:24 | XMS_ITS | Encounter Summary ---
Author Organization [facility] Address [facility] [place] [address] Care Team Providers Care Granulizing Machine Operator Name Role Phone Camilla Peres FRANCES Primary Care Provider [phone] Encounter Details Date Type Department Care Team (Late st Contact Info) Description 10/02/2017 9:00 AM EST Office Visit [place] [address] Sergio Banegas PA [facility] [place] [address] Parotid mass Social History Tobacco Use Types [...] Banegas PA - 10/02/2017 9:00 AM EST [facility] Otolaryngology - Head and Neck Surgery Sergio Banegas PA-C 10/02/17 [place] [address] Office Patient Name: Olga Grey Date of [...] regarding their treatment. Sergio Banegas PA-C 10/02/2017 [place], [place] [address] Office documented in this encounter Plan of Treatment Not on file documented as of this encounter Visit Diagnoses Diagnosis Parotid mass Swelling, mass, or lump in head and neck documented in this encounter Care Teams Granulizing Machine Operator Relationship Specialty Start Date End Date Camilla Peres APRN [address] [place] [address] PCP - General Family Medicine 10/02/16 07/18/21 documented as of this encounter
--- OUTSIDE RECORDS SUMMARY | 2024-08-05 15:24 | XMS_ITS | Encounter Summary ---
Author Organization [place] [address] Care Team Providers Care Building Stonecutter Name Role Phone Camilla Peres FRANCES Primary Care Provider [phone] Encounter Details Date Type Department Care Team (Late st Contact Info) Description 09/29/2017 Telephone [place] [phone] Savi Camejo RN Social History Tobacco Use [...] be ruled out by her PCP or security compliance specialist. I also explained that any neck stiffness [...] on filedocumented in this encounter Care Teams Building Stonecutter Relationship Specialty Start Date End Date Camilla Peres APRN [address] [place] [address] PCP - General Family Medicine 10/02/16 07/18/21 documented as of this encounter
--- OUTSIDE RECORDS SUMMARY | 2024-08-05 15:24 | XMS_ITS | Encounter Summary ---
Author Organization [facility] [place] [address] Care Team Providers Care Shoe Designer Name Role Phone Lisa Martin DO Primary Care Provider [phone] Encounter Details Date Type Department Care Team (Late st Contact Info) Description 10/17/2021 Ancillary Procedure Radiology Library at [facility] [place] [phone] Lisa Martin, DO [address] [place] [address] Social History Tobacco Use Types Packs/Day Years [...] MR Spine (10/17/2021 12:00 AM EST) Narrative [facility] - 11/01/2021 11:41 AM EDT This exam is auto-finalizing. It's purpose is for storage only. Lisa Martin DO [facility] [place] [facility] [place]DER[place], [place] documented in this encounter Visit Diagnoses Not on filedocumented in this encounter Care Teams Shoe Designer Relationship Specialty Start Date End Date Lisa Martin DO [address] [place] [address] PCP - General Family Medicine 07/19/21 documented as of this encounter
--- OUTSIDE RECORDS SUMMARY | 2024-08-05 15:24 | XMS_ITS | Encounter Summary ---
Author Organization [facility] [place] [address] Care Team Providers Care Roll Out Manager Name Role Phone Lisa Martin DO Primary Care Provider [phone] Reason for Visit * Reason Comments Neck [...] n&t/ MRI 07/17/22 in eDH/ EMG 01/2022 @[facility]/ no relief w/PT Lisa Martin, DO [address] [place] [address] [facility] [place] [address] Referral ID Status Reason Start Date Expiration Date V isits Requested Visits Authorized [id number] Closed Consult, Test & Treat PCP Updated and/or Approved 07/23/2022 07/23/2023 6 6 Encounter Details Date Type Department Care Team (Latest Contact Info) Description 07/30/2022 8:00 AM EST Office Visit [place] [address] Mckenna Jolley APRN [facility] [place] [address] Neck pain; Left cervical radiculopathy Social History [...] this encounter Progress Notes * Mckenna Jolley, SAP CRM DEVELOPER - 07/30/2022 8:00 AM EST Center for [...] no improvement. She has been evaluated by [facility] neurosurgery who did not find enough [...] left. 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 reports that she has been smoking. She has never used smokeless tobacco. Conservative Treatment: Physical Therapy: None Home Exercise Program: Independent as tolerated Medications: Ibuprofen, Biofreeze, [place] balm Other: Chiropractic manipulation Injections: 1. None [...] DO Referring Provider: Lisa Jolley APRN 07/30/2022 [facility] documented in this encounter Plan of Treatment Not on file documented as of this encounter Visit Diagnoses Diagnosis Neck pain Cervicalgia Left cervical radiculopathy Brachial neuritis or radiculitis nos documented in this encounter Care Teams Roll Out Manager Relationship Specialty Start Date End Date Lisa Martin DO [address] [place] [address] PCP - General Family Medicine 07/19/21 documented as of this encounter
--- OUTSIDE RECORDS SUMMARY | 2024-08-05 15:24 | XMS_ITS | Encounter Summary ---
Author Organization [facility] Address [facility] [place] [address] Care Team Providers Care Regulated Program Manager Name Role Phone Lisa Martin DO Primary Care Provider [phone] Encounter Details Date Type Department Care Team [...] on filedocumented in this encounter Care Teams Regulated Program Manager Relationship Specialty Start Date End Date Lisa Martin DO [address] [place] [address] PCP - General Family Medicine 07/19/21 documented as of this encounter
--- OUTSIDE RECORDS SUMMARY | 2024-08-05 15:25 | XMS_ITS | Encounter Summary ---
Author Organization [facility] Address [address] [place] [address] Care Team Providers Care Hand Candle Molder Name Role Phone Unknown, Provider Primary Care Provider Unava ilable Encounter Details Date Type Department Care Team (Latest Contact Info) Description 06/25/2024 Lab Requisition [facility] Pathology & [facility] - [facility] [address] [place] [address] Kelly Elias, DO [address] [place], [place] [id number] Esophagitis, unspecified without bleeding; Unspecified abdominal pain; Noninfective gastroenteritis and colitis, unspecified; Nausea; Abnormal weight gain Social History Tobacco Use Types Packs/Day Years Used Date Smoking Tobacco: Never Assessed Comments Unknown Sex and Gender Information Value Date Recorded Sex Assigned at Not on file Legal Sex Female 18:24 EST Gender Identity Not on file Sexual Orientation Not on file documented as of this encounter Plan of Treatment Not on file documented as of this encounter Procedures Procedure Name Priority Date/Time Associated Diagnosis Comments SURGICAL PATHOLOGY Today 06/25/2024 9: 14 EST Esophagitis, unspecified without bleeding Unspecified abdominal pain Noninfective gastroenteritis and colitis, unspecified Nausea Abnormal weight gain documented in this encounter Results * SURGICAL PATHOLOGY (06/25/2024 9:14 EST) Note to Patient The following pathology results have been interpreted by your pathologist and may be available to you before your health provider has had the opportunity to review them. Please allow time for your provider to receive these results and explore management options, if applicable. 06/29/2024 9:53 [facility] Final Diagnosis A. JEJUNUM, PROXIMAL, BIOPSY: - Small intestinal mucosa with no significant histopathologic change. B. DUODENUM, BULB, BIOPSY: - Duodenal mucosa with normal villous architecture and no increase in intraepithelial lymphocytes. C. STOMACH, ANTRUM, BIOPSY: - Scant fragment of gastric antral mucosa with chronic inactive gastritis. - Negative for Helicobacter pylori-type organisms. D. STOMACH, GREATER CURVATURE, BIOPSY: - Gastric oxyntic mucosa with no significant histopathologic change. - Negative for Helicobacter pylori-type organisms. E. GASTROESOPHAGEAL JUNCTION, BIOPSY: - Columnar mucosa with mild chronic inflammation; negative for intestinal metaplasia and dysplasia. - Adjoining and separate squamous mucosa with mild reactive epithelial changes. F. ESOPHAGUS, DISTAL, BIOPSY: - Squamous epithelium with minimal reactive changes; negative for intraepithelial eosinophils. G. COLON, AT 20 CM, POLYP, BIOPSY: - Colonic mucosa with serrated polyp, favor sessile serrated adenoma. H. CECUM, BIOPSY: - Colonic mucosa with no significant histopathologic change. I. TERMINAL ILEUM, BIOPSY: - Small intestinal mucosa with no significant histopathologic change. J. COLON, AT 90 CM, POLYP, BIOPSY: - Colonic mucosa with lymphoid aggregate. K. COLON, AT 70 CM, POLYP, BIOPSY: - Polypoid fragment of colonic mucosa with no significant histopathologic change. L. COLON, AT 60 CM, POLYP, BIOPSY: - Hyperplastic polyp. M. COLON, AT 30 CM, POLYP, BIOPSY: - Hyperplastic polyp. N. RECTUM, BIOPSY: - Colorectal mucosa with no significant histopathologic change. 06/29/2024 9:53 [facility] Diagnosis Comment Multiple deeper sections were examined for Parts J and K. 06/29/2024 9:53 [facility] Attestation By the signature below, the attending physician certifies that they have 1) personally conducted a gross and/or microscopic examination of the described specimen(s), and/or personally interpreted the results of laboratory testing of the described specimen(s), and 2) personally rendered or confirmed the above diagnosis. 06/29/2024 9:53 [facility] at 0953 Clinical History Pain/rectal bleeding, diarrhea, EGD, mild esophagitis, diverticuli 06/29/2024 9:53 [facility] Gross Description A. Received in formalin labelled with proper patient identification (initials C, H) and proximal jejunum are 2 buckley tissues (0.4 x 0.2 x 0.1 cm and 0.5 x 0.1 x 0.1 cm). Entirely submitted in A1. B. Received in formalin labelled with proper patient identification (initials C, H) and duodenal bulb is a single buckley-brown tissue (0.4 x 0.3 x 0.2 cm). Submitted intact in B1. C. Received in formalin labelled with proper patient identification (initials C, H) and antrum bx is a single buckley tissue (0.3 x 0.3 x 0.1 cm). Submitted intact in C1. D. Received in formalin labelled with proper patient identification (initials C, H) and greater curve is a single buckley tissue (0.5 x 0.3 x 0.2 cm). Submitted intact in D1. E. Received in formalin labelled with proper patient identification (initials C, H) and GE junction are 3 white focally buckley tissues (0.3 x 0.1 x 0.1 cm to 0.6 x 0.2 x 0.1 cm). Entirely submitted in E1. F. Received in formalin labelled with proper patient identification (initials C, H) and distal esophagus is a single pale buckley tissue (0.4 x 0.3 x 0.1 cm). Submitted intact in F1. G. Received in formalin labelled with proper patient identification (initials C, H) and polyp at 20 cm is a single pale buckley tissue (1.0 x 0.2 x 0.1 cm). Submitted intact in G1. H. Received in formalin labelled with proper patient identification (initials C, H) and cecum bx is a single pale buckley tissue (1.1 x 0.2 x 0.1 cm). Submitted intact in H1. I. Received in formalin labelled with proper patient identification (initials C, H) and terminal ileum bx is a single pale buckley tissue (0.4 x 0.2 x 0.2 cm). Submitted intact in I1. J. Received in formalin labelled with proper patient identification (initials C, H) and polyp at 90 cm is a single pale buckley tissue (0.3 x 0.3 x 0.2 cm). Submitted intact in J1. K. Received in formalin labelled with proper patient identification (initials C, H) and polyp at 70 cm is a single buckley tissue (0.5 x 0.3 x 0.1 cm). Submitted intact in K1. L. Received in formalin labelled with proper patient identification (initials C, H) and polyp at 60 cm a single pale buckley focally buckley tissue (0.4 x 0.3 x 0.1 cm). Submitted intact in L1. M. Received in formalin labelled with proper patient identification (initials C, H) and polyp at 30 cm is a single pale buckley focally brown tissue (0.5 x 0.3 x 0.1 cm). Submitted intact in M1. N. Received in formalin labelled with proper patient identification (initials C, H) and rectal bx is a single pale buckley focally buckley tissue (0.3 x 0.3 x 0.2 cm). Submitted intact in N 1. Sumi Sagastume 06/28/2024 8:02 06/29/2024 9:53 [facility] Performing Lab [facility] 9:[address] [facility] Scanned Images 06/29/2024 9:53 [facility] Tissue SPECIMEN FROM RECTUM / Unknown 06/25/2024 9:14 EST 06/25/2024 17:41 EST Tissue specimen (specimen) STRUCTURE OF SMALL INTESTINE / Unknown 06/25/2024 9:14 EST 06/25/2024 17:41 EST Tissue specimen (specimen) STOMACH STRUCTURE / Unknown 06/25/2024 9:14 EST 06/25/2024 17:41 EST Tissue specimen (specimen) STOMACH STRUCTURE / Unknown 06/25/2024 9:14 EST 06/25/2024 17:41 EST Tissue specimen (specimen) ESOPHAGEAL STRUCTURE / Unknown 06/25/2024 9:14 EST 06/25/2024 17:41 EST Tissue specimen (specimen) ESOPHAGEAL STRUCTURE / Unknown 06/25/2024 9:14 EST 06/25/2024 17:41 EST Tissue specimen (specimen) COLON STRUCTURE / Unknown 06/25/2024 9:14 EST 06/25/2024 17:41 EST Tissue specimen (specimen) CECUM STRUCTURE / Unknown 06/25/2024 9:14 EST 06/25/2024 17:41 EST Tissue specimen (specimen) STRUCTURE OF SMALL INTESTINE / Unknown 06/25/2024 9:14 EST 06/25/2024 17:41 EST Tissue specimen (specimen) COLON STRUCTURE / Unknown 06/25/2024 9:14 EST 06/25/2024 17:41 EST Tissue specimen (specimen) COLON STRUCTURE / Unknown 06/25/2024 9:14 EST 06/25/2024 17:41 EST Tissue specimen (specimen) COLON STRUCTURE / Unknown 06/25/2024 9:14 EST 06/25/2024 17:41 EST Tissue specimen (specimen) COLON STRUCTURE / Unknown 06/25/2024 9:14 EST 06/25/2024 17:41 EST Tissue specimen (specimen) SPECIMEN FROM RECTUM / Unknown 06/25/2024 9:14 EST 06/25/2024 17:41 EST us Kelly Elias DO PATHOLOGY ORDERABLES Final Re sult [facility] [address] [place] [address] documented in this encounter Visit Diagnoses Diagnosis Esophagitis, unspecified without bleeding Unspecified abdominal pain Noninfective gastroenteritis and colitis, unspecified Nausea Nausea alone Abnormal weight gain documented in this encounter Care Teams Hand Candle Molder Relationship Specialty Start Date End Date Unknown, Provider, PCP - General 07/01/15 documented as of this encounter
--- OUTSIDE RECORDS SUMMARY | 2024-08-05 15:25 | XMS_ITS | Encounter Summary ---
Author Organization [facility] Address [address] [place] [address] Care Team Providers Care Angle Shear Set Up Operator Name Role Phone Unavailable Primary Care Provider Unavailabl e Encounter Details Date Type Department Care Team (Late st Contact Info) Description 08/27/2007 Results Only [facility] [address] [place] [address] Ana Patel PA Social History Tobacco Use [...] when reading/interpreti ng unformatted reports. Name: ? RENZOCYNDEE LUCY ? Accession #: ? [id number] : ? 1980 (Age: 27) ??F ?Collect Date: ? 08/27/2007 Location: ? [facility] ? Receive Date: ? 08/28/2007 Provider: ?ANA OSBORNE Copy to: ? Specimen/Source: ?ThinPrep Pap Test, Endocervix, processed on Lamsa ThinPrep Imaging System, with manual evaluation Last [...] End of Report TONY SANABRIA 08/27/2007 08/28/2007 us Ana OSBORNE PATHOLOGY ORDERABLES Final Resul t [facility] [address] [place] [address] documented in this encounter Visit Diagnoses Not on filedocumented in this encounter
--- OUTSIDE RECORDS SUMMARY | 2024-08-05 15:25 | XMS_ITS | Encounter Summary ---
Author Organization [facility] Address [address] [place] [address] Care Team Providers Care Negative Developer Name Role Phone Unknown, Provider Primary Care Provider Unava ilable Encounter Details Date Type Department Care Team (Late st Contact Info) Description 09/13/2021 Lab Requisition [facility] Pathology & Laboratory Medicine - [address] [address] Outr Resulting Lab, Provider Social History Tobacco [...] Priority Date/Time Associated Diagnosis Comments ZZCOVID-19 TEST [facility] PCR Today 09/12/2021 11:00 EST COVID-19 TESTING Routine 09/12/2021 11:0 0 EST documented in this encounter Results * COVID-19 TEST [facility] PCR (09/12/2021 11:00 EST) Swab 09/12/2021 11:0 0 EST 09/13/2021 16:25 EST us Provider Outr Resulting Lab MICROBIOLOGY - GENER AL ORDERABLES Final Result [facility] [address] [place] [address] * COVID-19 TESTING (09/12/2021 11:00 EST) COVID-19 rt-PCR Result Negative Negative 09/13/2021 19:16 EST [facility] Comment: This test has [...] history, and epidemiological information. Performed on the [employer] Fusion instrument Performing Lab [place] [facility] 09/13/2021 19:16 EST [facility] Swab 09/12/2021 11:0 0 EST 09/13/2021 16:25 EST us Provider Outr Resulting Lab MICROBIOLOGY - GENER AL ORDERABLES Final Result [facility] [address] [place] [address] documented in this encounter Visit Diagnoses Not on filedocumented in this encounter Care Teams Negative Developer Relationship Specialty Start Date End Date Unknown, Provider, PCP - General 07/01/15 documented as of this encounter
--- OUTSIDE RECORDS SUMMARY | 2024-08-05 15:25 | XMS_ITS | Encounter Summary ---
Author Organization [facility] Address [address] [place] [address] Care Team Providers Care Oil Expeller Name Role Phone Unknown, Provider Primary Care Provider Unava ilable Encounter Details Date Type Department Care Team (Late st Contact Info) Description 12/12/2021 Lab Requisition [facility] Pathology & Laboratory Medicine - [facility] [address] [place] [address] [address] [place] [address] Encounter for other general examination [...] types, PCR Negative Negative 12/14/2021 22:39 EDT [facility] Comment:No E6 or E7 mRNA is detected from HPV types 16,18,31,33,35,39,45,51,52,56,58,59,66, and 68 by gambling box person mediated amplification. Papanicolaou smear specimen (specimen) CERVIX UTERI STRUCTURE / Unknown 12/11/2021 14:15 EDT 12/14/2021 10:39 EDT us Haleigh Amaro FINANCIAL SALES ASSOCIATE MICROBIOLOGY - GENERAL ORDER CHOLO Final Result [facility] [address] [place] [address] * PAP TEST (12/11/2021 14:15 EDT) Specimens A. Cervix and/or Endocervix , ThinPrep Imaging System with Manual Evaluation 12/14/2021 22:40 T [facility] Specimen Adequacy Satisfactory for Evaluation - transformation zone component present 12/14/2021 22:40 [facility] General Categorization Negative for intraepithelial lesion or malignancy 12/14/2021 22:40 T [facility] Attestation . 12/14/2021 22:40 [facility] at 2239 Clinical History See below 12/15/19 22:40 [facility] HPV The result for the Human Papillomavirus (HPV) Detection-High Risk Types is Negative. No E6 or E7 mRNA is detected from HPV types 16,18,31,33,35,39 ,45,51,52,56,58,5 9,66, and 68 by gambling box person mediated amplification.Kyara ting was performed on specimen [id number] and was resulted on 12/14/2021 2235 EDT by ABE, LAB INSTRUMENT RESULTS IN 12/14/2021 22:40 T [facility] Performing Lab [facility] 12/14/2021 22:40 T [facility] Scanned Images 12/14/2021 22:40 T [facility] Papanicolaou smear specimen (specimen) CERVIX UTERI STRUCTURE / Unknown 12/11/2021 14:15 EDT 12/12/2021 8:59 EDT us Haleigh Amaro FINANCIAL SALES ASSOCIATE PATHOLOGY ORDERABLES Final R esult [facility] [address] [place] [address] documented in this encounter Visit Diagnoses Diagnosis Encounter for other general examination documented in this encounter Care Teams Oil Expeller Relationship Specialty Start Date End Date Unknown, Provider, PCP - General 07/01/15 documented as of this encounter
--- OUTSIDE RECORDS SUMMARY | 2024-08-05 15:25 | XMS_ITS | Encounter Summary ---
Author Organization [facility] Address [address] [place] [address] Care Team Providers Care Center Maker Hand Name Role Phone Unknown, Provider Primary Care Provider Unava ilable Encounter Details Date Type Department Care Team (Late st Contact Info) Description 05/18/2024 Lab Requisition [facility] Pathology & Laboratory Medicine - [facility] [address], [place] [id number] Outr Resulting Lab, Provider Social History Tobacco [...] Salmonella PCR Negative Negative 05/18/2024 23:29 EDT [facility] Shigella/Enteroin vasive E. coli Negative Negative 05/18/2024 23:29 EDT [facility] HN LAB CAMPYLOBACTER PCR Negative Negative 05/18/2024 23:29 EDT [facility] Shiga Toxin PCR Negative Negative 23:29 EDT [facility] Feces SPECIMEN FROM RECTUM / Unknown 05/17/2024 11:45 EDT 05/18/2024 18:27 EDT us Provider Outr Resulting Lab MICROBIOLOGY - GENER AL ORDERABLES Final Result [facility] [address] [place] [address] documented in this encounter Visit Diagnoses Not on filedocumented in this encounter Care Teams Center Maker Hand Relationship Specialty Start Date End Date Unknown, Provider, PCP - General 07/01/15 documented as of this encounter
--- OUTSIDE RECORDS SUMMARY | 2024-08-05 15:25 | XMS_ITS | Encounter Summary ---
[place] [address] Care Team Providers Care Corporate Quality Manager Name Role Phone TerellCamilla yang Sheri DANIELS Primary Care Provider [phone] Reason for Visit * Auth/Cert Specialty Diagnoses / Procedures Referred By Jones nogueira Referred To Contact Diagnoses Capsular contracture of breast implant, initial encounter Bilateral capsular contracture Procedures PRO REMOVAL OF BREAST IMPLANT REMOVAL OF INTACT MAMMARY IMPLANT-SHERRY (WRVU 6.48) Referral ID Status Reason Start Date Expiration Date Visits Re quested Visits Authorized [id number] 1 1 Encounter Details Date Type Department Care Team (Late st Contact Info) Description 11/18/2016 8:15 AM EDT - 11/18/2016 9:30 AM EDT Surgery [place] [address] Nas Tabor MD [facility] [place] [address] REMOVAL OF INTACT MAMMARY IMPLANT-SHERRY (WRVU 7.44) [...] closest emergency room or call the hospital gear tooth grinding machine operator at [phone] and ask for physician button maker covering for your physician. Questions or problems after 5pm or on a weekend: Call the [facility] gear tooth grinding machine operator at and ask for the physician button maker covering for your doctor. SAME DAY SURGERY [...] 24 hours) * Patient Instructions* Sulma Lopez, LOGISTICS ASSISTANT - 11/18/2016 7:50 AM EDT Post-Op Instructions [...] your surgical site. ??? Do not use [id number] lotions, solutions, or herbal preparations on your [...] about scheduling, please contact our administrative officesat [phone] For clinical questions, please call our nurses at [phone] Both offices are open Friday thru Friday 8a - 5p. With emergencies after hours, call the hospital gear tooth grinding machine operator at [phone] and ask for the Plastic Surgery Resident button maker. documented in this encounter Medications at Time [...] Tabor MD - 11/18/2016 9:32 AM EDT [facility] Operative Note Patient Name: Olga Grey : [id number] MR#: [id number] Case Date: 11/18/2016 Surgeon: Surgeon(s) and Role: [...] OF SURGERY: 11/18/16 ATTENDING: Dr. Nas Tabor MODEL AND MOLD MAKER: Sulma Lopez INDICATION FOR SURGERY: The patient [...] Operative Note Patient Name: Olga Grey : [id number] MR#: [id number] Case Date: 11/18/2016 Surgeon: Surgeon(s) and Role: [...] Report (11/18/2016 8:35 AM EDT) Final Diagnosis [id number] ?Location: [facility] The signing pathologist has (i) [...] ng: ??(R1) ??sns 11/20/2016 12:54 PM EDT [facility] BREAST STRUCTURE / Unknown 11/18/2016 8:35 AM EDT 11/18/2016 8:35 AM EDT BREAST STRUCTURE / Unknown 11/18/2016 8:35 AM EDT 11/18/2016 8:35 AM EDT Nas Tabor MD PATHOLOGY/CYTOLOGY [facility] [place] Performing Organization Address [facility] [place] [address] * Specimen to Pathology (surgical or derm) (11/18/2016 8:35 AM EDT) AP Specimen 11/18/2016 8:35 AM EDT 11/18/2016 8:35 AM EDT Narrative [facility] - 11/18/2016 8:35 AM EDT Specimen requisition ordered. ??Separate Pathology report to follow Nas Tabor MD PATHOLOGY/CYTOLOGY [facility] [place] Performing Organization Address [facility] [place] [address] * Specimen to Pathology (surgical or derm) (11/18/2016 8:35 AM EDT) AP Specimen 11/18/2016 8:35 AM EDT 11/18/2016 8:35 AM EDT Narrative [facility] - 11/18/2016 8:35 AM EDT Specimen requisition ordered. ??Separate Pathology report to follow Authorizing Provider Result Eddy Tabor MD PATHOLOGY/CYTOLOGY [facility] [place] Performing Organization Address [facility] [place] [address] documented in this encounter Visit Diagnoses Not [...] Routine documented in this encounter Care Teams Corporate Quality Manager Relationship Specialty Start Date End Date Camilla Peres APRN [address] [place] [address] [address] [place] [address] PCP - General Family Medicine 10/02/16 07/18/21 documented as of this encounter
--- OUTSIDE RECORDS SUMMARY | 2024-08-05 15:25 | XMS_ITS | Encounter Summary ---
Author Organization [facility] Address [address] [place] [address] Care Team Providers Care Yarn Weight And Strength Tester Name Role Phone Unknown, Provider Primary Care Provider Unava ilable Encounter Details Date Type Department Care Team (Late st Contact Info) Description 10/17/2020 Lab Requisition [facility] Pathology & Laboratory Medicine - [facility] [address] [place], [place] [id number] Outr Resulting Lab, Provider Social History Tobacco [...] gonorrhoeae Result Negative Negative 10/18/2020 13:59 EST [facility] Chlamydia trachomatis Result Negative Negative 10/18/2020 13:59 EST [facility] Swab ENTIRE ENDOCERVIX / Unknown 10/17/2020 10:15 EST 10/17/2020 17:17 EST us Provider Outr Resulting Lab MICROBIOLOGY - GENER AL ORDERABLES Final Result [facility] [address] [place] [address] documented in this encounter Visit Diagnoses Not on filedocumented in this encounter Care Teams Yarn Weight And Strength Tester Relationship Specialty Start Date End Date Unknown, Provider, PCP - General 07/01/15 documented as of this encounter
--- OUTSIDE RECORDS SUMMARY | 2024-08-05 15:25 | XMS_ITS | Encounter Summary ---
[place] [address] Care Team Providers Care Deputy General Counsel Name Role Phone TerellCamilla yang Sehri DANIELS Primary Care Provider [phone] Reason for Visit * Auth/Cert Specialty Diagnoses / Procedures Referred By Jones nogueira Referred To Contact Diagnoses Capsular contracture of breast implant, initial encounter Bilateral capsular contracture Procedures PRO REMOVAL OF BREAST IMPLANT REMOVAL OF INTACT MAMMARY IMPLANT-SHERRY (WRVU 6.48) Referral ID Status Reason Start Date Expiration Date Visits Re quested Visits Authorized [id number] 1 1 Encounter Details Date Type Department Care Team (Latest Contact Info) Description 11/18/2016 7:13 AM EDT - 11/18/2016 10:37 AM EDT Hospital Encounter [place] [address] Nas Tabor MD [facility] [place] [address] Discharge Disposition: Home Social History Tobacco Use [...] closest emergency room or call the hospital 411 directory assistance operator at [phone] and ask for physician business continuity planning director covering for your physician. Questions or problems after 5pm or on a weekend: Call the [facility] 411 directory assistance operator at and ask for the physician business continuity planning director covering for your doctor. SAME DAY SURGERY [...] hours) * Patient Instructions* John Sulma Vlad, LOG BUYER - 11/18/2016 7:50 AM EDT Post-Op Instructions [...] your surgical site. ??? Do not use hown-gts-rcefguj lotions, solutions, or herbal preparations on your [...] about scheduling, please contact our administrative officesat [phone] For clinical questions, please call our nurses at [phone] Both offices are open Friday thru Friday 8a - 5p. With emergencies after hours, call the hospital 411 directory assistance operator at [phone] and ask for the Plastic Surgery Resident business continuity planning director. documented in this encounter Medications at Time [...] Tabor MD - 11/18/2016 9:32 AM EDT [facility] Operative Note Patient Name: Olga Grey : [id number] MR#: [id number] Case Date: 11/18/2016 Surgeon: Surgeon(s) and Role: [...] OF SURGERY: 11/18/16 ATTENDING: Dr. Nas Tabor PHYSICIAN ASSISTANT CERTIFIED: Sulma Lopez INDICATION FOR SURGERY: The patient [...] Operative Note Patient Name: Olga Grey : [id number] MR#: [id number] Case Date: 11/18/2016 Surgeon: Surgeon(s) and Role: [...] Report (11/18/2016 8:35 AM EDT) Final Diagnosis [id number] ?Location: [facility] The signing pathologist has (i) [...] ng: ??(R1) ??sns 11/20/2016 12:[address] [facility] BREAST STRUCTURE / Unknown 11/18/2016 8:35 AM EDT 11/18/2016 8:35 AM EDT BREAST STRUCTURE / Unknown 11/18/2016 8:35 AM EDT 11/18/2016 8:35 AM EDT Narrative Authorizing Provider Result Eddy Tabor MD PATHOLOGY/CYTOLOGY O [place] Performing Organization Address [facility] [place] [place] [address] * Specimen to Pathology (surgical or derm) (11/18/2016 8:35 AM EDT) AP Specimen 11/18/2016 8:35 AM EDT 11/18/2016 8:[address] [facility] - 11/18/2016 8:35 AM EDT Specimen requisition ordered. ??Separate Pathology report to follow Nas Tabor MD PATHOLOGY/CYTOLOGY O [place] Performing Organization Address [facility] [place] [place] [address] * Specimen to Pathology (surgical or derm) (11/18/2016 8:35 AM EDT) AP Specimen 11/18/2016 8:35 AM EDT 11/18/2016 8:[address] [facility] - 11/18/2016 8:35 AM EDT Specimen requisition ordered. ??Separate Pathology report to follow Authorizing Provider Result Eddy Tabor MD PATHOLOGY/CYTOLOGY [place] Performing Organization Address [facility] [place] [place] [address] documented in this encounter Visit Diagnoses Not [...] Routine documented in this encounter Care Teams Deputy General Counsel Relationship Specialty Start Date End Date Camilla Peres APRN [address] [place] [address] PCP - General Family Medicine 10/02/16 07/18/21 documented as of this encounter
--- OUTSIDE RECORDS SUMMARY | 2024-08-05 15:25 | XMS_ITS | Encounter Summary ---
Author Organization [facility] Address [address] [place] [address] Care Team Providers Care Non Cdl Driver Name Role Phone Unavailable Primary Care Provider Unavailabl e Encounter Details Date Type Department Care Team (Late st Contact Info) Description 01/30/2009 Orders Only [facility] Laboratory Services - [facility] ([facility]) [address] [place] [address] Ana Patel PA Social History Tobacco Use [...] reading/interpreti ng unformatted reports. ? Name: ? LUCY GREY ? Accession #: ? [id number] ? : ? 1980 (Age: 28) ??F [...] reviewed and electronically signed by: ? Brown N. Salvatore, CT(ASCP) ? Report Date: ??02/06/2009 10:32 ? End of Report ? TONY SANABRIA 01/30/2009 02/01/2009 us Ana OSBORNE PATHOLOGY ORDERABLES Final Resul t TONY SANABRIA [address] [place] [address] documented in this encounter Visit Diagnoses Not on filedocumented in this encounter
--- OUTSIDE RECORDS SUMMARY | 2024-08-05 15:25 | XMS_ITS | Encounter Summary ---
Author Organization [facility] Address [facility] [place] [address] Care Team Providers Care Host/Hostess Restaurant Name Role Phone Kong Pereseen Sheri DANIELS Primary Care Provider [phone] Reason for Visit * Consultation (Routine) - Closed Specialty Diagnoses / Procedures Referred By Jones nogueira Referred To Contact Otolaryngology Diagnoses mass of parotid gland Benoit Hyde, DO [address] [place] [address] Nas Herrera MD [facility] [place] [address] Referral ID Status Reason Start Date Expiration Date Visits Re quested Visits Authorized [id number] Closed 09/17/2017 09/17/2018 1 1 Encounter Details Date Type Department Care Team (Late st Contact Info) Description 09/18/2017 10:00 AM EST Office [place] [address] Nas Herrera MD [facility] [place] [address] Parotid mass; Cigarette smoker Social History Tobacco [...] Herrera MD - 09/18/2017 10:00 AM EST [facility] NEW [...] Attending note: Patient seen with the physician orthodontic assistant. In summary, this patient presents with [...] disorder documented in this encounter Care Teams Host/Hostess Restaurant Relationship Specialty Start Date End Date Camilla Peres APRN [address] [place] [address] PCP - General Family Medicine 10/02/16 07/18/21 documented as of this encounter
--- OUTSIDE RECORDS SUMMARY | 2024-08-05 15:25 | XMS_ITS | Encounter Summary ---
Author [facility] [place] [address] Care Team Providers Care Assistant Women'S Basketball Coach Name Role Phone None Primary Care Provider Unavailabl e Reason for Visit * Reason Comments Dizziness Encounter Details Date Type Department Care Team (Late st Contact Info) Description 05/05/2013 2:14 PM EDT - 05/05/2013 9:34 PM EDT [place] [address] [facility] [place] [address] [facility] [place] [address] Chronic headache; Dizziness; Weight loss; Ptosis; RUQ [...] a dedicated primary care physician, preferably an cabin service agent, to help you find the cause of [...] weeks). Her care is primarily delivered at [facility], where she sees a neurologist, Dr. Woo. Relevant to her present complaint was an ER ER note from [facility] dated 03/12/13 reveals a CCof dizziness, [...] seizures, tingling or paraesthesias. OSH Labs (05/03/13, [facility]) CBC WBC 5.3, Hb 16.1, Plt [...] and place. Normal, fluid speech. Mood euthymic. chiseler head II-XII fully tested, see ENT exam for ophthalmic chiseler head, otherwise no deficits 2+ and symmetric DTRs. Scattered sensory differences, largely left lower extremity. Abnormal Romberg, difficulty with tandem gait. FTN and rapid alternating movements intact. Otherwise normal gait. Labs: Recent Results (from the past 24 hour(s)) POCT URINE Component Value Range POC Urine HCG Negative Negative - Negative POC Control Internal Controls Acceptable POCT URINE DIPSTICK Component Value Range POC Sp [place] 1.020 1.002 - 1.030 POC pH, UA [...] visits to both her neurologist and her leak operator paraffin plant, the latter feeling this was not an IIH flare and that she may benefit from DIVERSIFIED CROPS I FARMWORKER imaging. Exam reveals positive Romberg (present in [...] with a primary care doctor, preferably an cabin service agent, to take over management of her care. Currently she will follow with her neurologist to review the results of her MRI and indications for further neurologic workup and treatment. That said, Ms. Grey will be seeking new primary care in her area concomitant with this. -Jamison Grewal, Resident Dept of Internal Medicine Pgr [phone] This case supervised by Dr. Yamile Reina, [facility] ED Jamison Grewal Jr., MD Resident 05/05/13 8478 ED ATTENDING ADDENDUM: The patient was seen [...] by a neurologist and eye physician (out [facility]). Was told this week that she needs [...] process. BUN 6/Cr 0.83 on 05/03/13 [facility] With and without gadolinium contrast if at [...] process. BUN 6/Cr 0.83 on 05/03/13 [facility] With andwithout gadolinium contrast if at all [...] dipstick (05/05/2013 2:42 PM EDT) POC Sp [place] 1.020 1.002 - 1.030 POC pH, UA [...] Jr.) documented in this encounter Care Teams Assistant Women'S Basketball Coach Relationship Specialty Start Date End Date None None PCP - General 05/05/13 10/01/16 documented as of this encounter
--- OUTSIDE RECORDS SUMMARY | 2024-08-05 15:25 | XMS_ITS | Encounter Summary ---
Author Organization [facility] Address [address] [place] [address] Care Team Providers Care Systems Trainer Name Role Phone Unknown, Provider Primary Care Provider Unava ilable Encounter Details Date Type Department Care Team (Late st Contact Info) Description 05/27/2023 Lab Requisition [facility] Pathology & Laboratory Medicine - [facility] [address], [place] [id number] Outr Resulting Lab, Provider Social History Tobacco [...] gonorrhoeae Result Negative Negative 05/28/2023 13:27 EDT [facility] Chlamydia trachomatis Result Negative Negative 05/28/2023 13:27 EDT [facility] Swab VAGINAL STRUCTURE / Unknown 05/26/2023 13:40 EDT 05/27/2023 18:07 EDT us Provider Outr Resulting Lab MICROBIOLOGY - GENER AL ORDERABLES Final Result [facility] [address] [place] [address] documented in this encounter Visit Diagnoses Not on filedocumented in this encounter Care Teams Systems Trainer Relationship Specialty Start Date End Date Unknown, Provider, PCP - General 07/01/15 documented as of this encounter
--- OUTSIDE RECORDS SUMMARY | 2024-08-05 15:25 | XMS_ITS | Encounter Summary ---
Author Organization [facility] Address [facility] [place] [address] Care Team Providers Care Oral Surgeon Name Role Phone Camilla Peres FRANCES Primary Care Provider [phone] Encounter Details Date Type Department Care Team (Late st Contact Info) Description 09/26/2017 12:51 PM EST - 09/26/2017 3:50 PM EST Surgery [place] [address] Nas Herrera MD [facility] [place] [address] EXC.PAROTID TUMOR OR GLAND, LATERAL LOBE, W [...] -You can reach the ENT clinic at [phone] for appointment questions. -The ENT triage nurse is available at [phone] -For urgent issues during evenings and weekends the ENT resident cotton classer aide can be reached through [facility] ordering machine operator at [phone] Follow Up: You will need to follow [...] Herrera MD - 09/26/2017 2:00 PM EST [facility] Operative Note Patient Name: Olga Grey : [id number] MR#: [id number] Case Date: 09/26/2017 Surgeon: Surgeon(s) and Role: [...] Info Order Time SPECIMEN TO PATHOLOGY OR#2 Ex:[id number]. parotid mass RIGHT parotid mass Excision 09/26/2017 [...] The incision was injected with 1% xylocaine 1:082142 epinephrine and the made with a 15 [...] PM EST 09/26/2017 2:15 PM EST Narrative [facility] - 09/26/2017 2:15 PM EST Specimen requisition ordered. ??Separate Pathology report to follow Resulting Agency Comment Spec In Lab Nas Herrera MD PATHOLOGY/CYTOLOGY ORDERABLES Performing Organization Address City/State/[facility] Co de Phone Number [facility] [place] [address] * Surgical Pathology Report (09/26/2017 1:32 PM EST) Final Diagnosis [id number] ? Location: [facility]; [facility] [[email or web address]]; The signing pathologist has (i) examined the relevant preparation(s) for the specimen(s) and (ii) rendered or confirmed the diagnosis(es). . 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 Electronically signed by: ??Leti Travis DO Verified: ??10/01/2017 ?Pathologist Performed at: ??-[facility] Dept. of Pathology, [place], [place] CLINICAL INFORMATION Specimen Submitted: A - Right parotid mass Clinical History: Parotid mass Clinical Diagnosis: Parotid mass SPECIMEN PROCESSING A - Labeled/Fixativ e: Right parotid mass, fresh. Quantity/Size: Single, 1.0 x 0.7 x 0.6 cm. Tissue Description: Ovoid, buckley-white cystic structure, on section with pale white fluid. Sections/Proces sing: Inked and trisected. (T1) ??pps 10/01/2017 10:10 AM EST [facility] PAROTID GLAND STRUCTURE / Unknown 09/26/2017 1:32 PM EST 09/26/2017 1:32 PM EST Nas Herrera MD PATHOLOGY/CYTOLOGY ORDERABLES [facility] [place] [address] documented in this encounter Visit Diagnoses Diagnosis [...] MD) documented in this encounter Care Teams Oral Surgeon Relationship Specialty Start Date End Date Camilla Peres, GLUE SIZE MACHINE OPERATOR [address] [place] [address] [address] [place] [address] PCP - General Family Medicine 10/02/16 07/18/21 documented as of this encounter
--- OUTSIDE RECORDS SUMMARY | 2024-08-05 15:25 | XMS_ITS | Encounter Summary ---
Author Organization [facility] Address [address] [place] [address] Care Team Providers Care Etcher Enameling Name Role Phone Unknown, Provider Primary Care Provider Unava ilable Encounter Details Date Type Department Care Team (Late st Contact Info) Description 11/09/2019 Lab Requisition [facility] Pathology & Laboratory Medicine - [facility] [address] [place] [address] Beto Mendez MD [address] [place] [phone] Encounter for other general examination Social [...] COVID-19 Result 0 8:33 EDT [facility] Comment:Specimen quantity no t sufficient for analysis. Testing not performed. Swab ENTIRE NASOPHARYNX / Unknown Not Given / Unknown 11/09/2019 11:06 EDT 11/09/2019 15:56 EDT us Beto Mendez MD MICROBIOLOGY - GENERAL CHARLETTE MARLOW Final Result [facility] [address] [place], [place] [address] documented in this encounter Visit Diagnoses Diagnosis Encounter for other general examination documented in this encounter Care Teams Etcher Enameling Relationship Specialty Start Date End Date Unknown, Provider, PCP - General 07/01/15 documented as of this encounter
--- OUTSIDE RECORDS SUMMARY | 2024-08-05 15:25 | XMS_ITS | Encounter Summary ---
[place] [address] Care Team Providers Care Human Projectile Name Role Phone None Primary Care Provider Unavailabl e Encounter Details Date Type Department Care Team (Late st Contact Info) Description 05/25/2014 Orders [place] [phone] Wesley Cortes MD Social History Tobacco Use Types Packs/Day Years [...] is a Non-reportable exam Wesley Cortes MD IMG FILM LIBRARY ORD ERABLES documented in this encounter Visit Diagnoses Not on filedocumented in this encounter Care Teams Human Projectile Relationship Specialty Start Date End Date None None PCP - General 05/05/13 10/01/16 documented as of this encounter
--- OUTSIDE RECORDS SUMMARY | 2024-08-05 15:25 | XMS_ITS | Encounter Summary ---
Author Organization [facility] Address [address] [place] [address] Care Team Providers Care Exposure Machine Operator Name Role Phone Unknown, Provider Primary Care Provider Unava ilable Encounter Details Date Type Department Care Team (Late st Contact Info) Description 03/31/2017 Results Only [facility] [phone] Haleigh Amaro, [address] [place] [address] Social History Tobacco Use Types [...] ? LUCY GREY ? Accession #: ? [id number] ? : ? 1980 (Age: 36) ??F ?Collect Date: ? 03/31/2017 ? Location: ? [facility] ? Receive Date: ? 04/01/2017 ? Provider: HALEIGH AMARO ADULT EDUCATION PROFESSIONAL Copy to: DL DÍAZ MD ? Final [...] types 16,18,31,33,35, 39,45,51,52,56,58, 59,66, and 68 by cordwood cutter mediated amplification. Comments Document reviewed and electronically signed by: ? System Interface ? Report date: 04/09/2017 By the signature above, the attending physician certifies that he/she has personally conducted a gross and/or microscopic examination of the described specimens and rendered or confirmed the above diagnosis. End of Report [facility] 03/31/2017 04/01/2017 us Haleigh Amaro ADULT EDUCATION PROFESSIONAL PATHOLOGY ORDERABLES Final R esult [facility] [address] [place] [address] documented in this encounter Visit Diagnoses Not on filedocumented in this encounter Care Teams Exposure Machine Operator Relationship Specialty Start Date End Date Unknown, Provider, PCP - General 07/01/15 documented as of this encounter
--- OUTSIDE RECORDS SUMMARY | 2024-08-05 15:25 | XMS_ITS | Encounter Summary ---
Author Organization [facility] Address [address] [place] [address] Care Team Providers Care Asphalt Machine Operator Name Role Phone Unknown, Provider Primary Care Provider Unava ilable Encounter Details Date Type Department Care Team (Late st Contact Info) Description 01/30/2021 Lab Requisition [facility] Pathology & Laboratory Medicine - [address] [address] Outr Resulting Lab, Provider Social History Tobacco [...] Ab Negative Negative 01/31/2021 11:00 EDT [facility] Comment:New 3rd generation a ssay in use 01/26/2020 Blood VENOUS BLOOD / Unknown 01/30/2021 12:06 EDT 01/30/2021 16:12 EDT us Provider Outr Resulting Lab IMMUNOLOGY AND SEROL OGY ORDERABLES Final Result [facility] [address] [place] [address] documented in this encounter Visit Diagnoses Not on filedocumented in this encounter Care Teams Asphalt Machine Operator Relationship Specialty Start Date End Date Unknown, Provider, PCP - General 07/01/15 documented as of this encounter
--- OUTSIDE RECORDS SUMMARY | 2024-08-05 15:25 | XMS_ITS | Encounter Summary ---
Author Organization [facility] Address [address] [place] [address] Care Team Providers Care Bacteriology Teacher Name Role Phone Unavailable Primary Care Provider Unavailabl e Encounter Details Date Type Department Care Team (Late st Contact Info) Description 01/18/2000 Results Only [facility] [address] [place] [address] Wesley Randhawa MD [address] [place], [place] [id number] Social History Tobacco Use Types Packs/Day Years [...] ? SOPHIA LUCY ? Accession #: ? [id number] ? : ? 1980 (Age: 19) ??F [...] the endometrial tissue, suggesting chronic endometritis. ??(Dr. Goncalves)/[facility] Document reviewed and electronically signed by: Genesis Goncalves MD Report ??Date: 01/23/2000 16:01 By the signature above, the attending physician certifies that he/she has personally conducted a gross and/or microscopic examination of the described specimens and rendered or confirmed the above diagnosis. Specimen(s) Received: ? [facility] Clinical History: ? Pelvic pain Gross Description: ? Received in formalin labelled [facility] and #[facility] are multiple red-brown irregular soft tissue fragments aggregating 5.0 x 5.0 x 1.0 cm. ??The specimen is entirely submitted as (A1) through (A6). ??(Sourav Harris/loly End of Report TONY SANABRIA 01/18/2000 01/22/2000 9:3 2 EDT us Wesley Randhawa MD PATHOLOGY ORDERABLES Final Resul t [facility] [address] [place] [address] documented in this encounter Visit Diagnoses Not on filedocumented in this encounter
--- OUTSIDE RECORDS SUMMARY | 2024-08-05 15:25 | XMS_ITS | Encounter Summary ---
[place] [address] Care Team Providers Care Airfreight Loading Supervisor Name Role Phone Larisa Camilla Sheri DANIELS Primary Care Provider [phone] Reason for Visit * Auth/Cert Specialty Diagnoses / Procedures Referred By Jonse nogueira Referred To Contact Diagnoses Capsular contracture of breast implant, initial encounter Bilateral capsular contracture Procedures PRO REMOVAL OF BREAST IMPLANT REMOVAL OF INTACT MAMMARY IMPLANT-SHERRY (WRVU 6.48) Referral ID Status Reason Start Date Expiration Date Visits Re quested Visits Authorized [id number] 1 1 Encounter Details Date Type Department Care Team (Late st Contact Info) Description 11/18/2016 7:58 AM EDT Anesthesia Event [facility] [place] [address] Tra Mathews DO Anesthesia Record Procedure Summary Procedure Name Responsible [...] by Bret Adkins Jr. 12/01/17 0921 by Ramon, Js Incision 11/18/16; breast; 04/15/22 (LDA cleanup utility RA#[id number]); 1715 (LDA cleanup utility RA#[id number]) 11/18/16 0000 by Haleigh Payan RN 04/15/22 1715 by Lamberto Capellan Incision 11/18/16; breast; 04/15/22 (LDA cleanup utility RA#[id number]); 1715 (LDA cleanup utility RA#[id number]) 11/18/16 0000 by Haleigh Payan RN 04/15/22 1715 by Lamberto Capellan (RETIRED) Peripheral IV Line - Single Lumen 11/18/16; 0745; median cubital vein (antecubital fossa), right; hlyr-tuz-cenpmi catheter system; 20 gauge, 1 in length; Bozena barnett RN; intradermal injection, distraction, tolerated well, appears comfortable; 0; 11/18/16; 1010 11/18/16 0745 by Joanie Barnett RN 11/18/16 1010 by Rose Lora RN Supraglottic Mask Ventilation: No t Attempted (0); LMA Type: iGel; LMA Size: 3; Inserted by: Emanuel KURTZ; Removal Date: 11/18/16; Removal Time: 90711/18/16 0807 by Damaris Castellanos CRNA 11/18/16 0908 by [...] Notes * Anesthesia Postprocedure Evaluation - Tra Mahtews DO - 11/18/2016 12:53 PM EDT [facility] Department of Anesthesiology Post-procedure Note Patient: Olga Grey Procedure Summary Date Anesthesia Start Anesthesia Stop Room / Location 11/18/16 0758 0916 [facility] [place] [address] [place] [address] [facility] Procedure Diagnosis Surgeon Responsible Provider REMOVAL OF INTACT MAMMARY IMPLANT-SHERRY (WRVU 6.48) (Bilateral Breast); BREAST, PERIPROSTHETIC CAPSULECTOMY, SHERRY (WRVU 10.62) (Bilateral Breast) (Bilateral capsular contracture) Nas Tabor MD Walker, Tacee E, DO All Anesthesia Providers: Anesthesiologist: Tra Mathews DO CAN CLEANER: Damaris Castellanos CRNA Last (1hr) Vitals: BP Temp Pulse Resp SpO2 Patient Location: PACU/SD Level of Consciousness: Awake and Alert Pain [...] risks discussed with patient. Plan discussed with CAN CLEANER. PAT Staff Note documented in this encounter [...] mL/hr documented in this encounter Care Teams Airfreight Loading Supervisor Relationship Specialty Start Date End Date Camilla Peres APRN [address] [place] [address] PCP - General Family Medicine 10/02/16 07/18/21 documented as of this encounter
--- OUTSIDE RECORDS SUMMARY | 2024-08-05 15:25 | XMS_ITS | Encounter Summary ---
Author Organization [facility] Address [address] [place] [address] Care Team Providers Care Manager Supply Name Role Phone Unknown, Provider Primary Care Provider Unava ilable Encounter Details Date Type Department Care Team (Late st Contact Info) Description 07/12/2020 Lab Requisition [facility] Pathology & Laboratory Medicine - [facility] [address], [place] [id number] Outr Resulting Lab, Provider Social History Tobacco [...] gonorrhoeae Result Negative Negative 08/03/2020 15:02 EST [facility] Chlamydia trachomatis Result Negative Negative 08/03/2020 15:02 EST [facility] Swab ENTIRE WALL OF CERVIX / Unknown 06/14/2020 15:40 EDT 08/02/2020 8:22 EST us Provider Outr Resulting Lab MICROBIOLOGY - GENER AL ORDERABLES Final Result [facility] [address] [place] [address] documented in this encounter Visit Diagnoses Not on filedocumented in this encounter Care Teams Manager Supply Relationship Specialty Start Date End Date Unknown, Provider, PCP - General 07/01/15 documented as of this encounter
--- OUTSIDE RECORDS SUMMARY | 2024-08-05 15:25 | XMS_ITS | Encounter Summary ---
Author Organization [facility] Address [address] [place] [address] Care Team Providers Care Wire Inspector Name Role Phone Unknown, Provider Primary Care Provider Unava ilable Encounter Details Date Type Department Care Team (Late st Contact Info) Description 12/11/2021 [facility]quisition [facility] - [facility] [address], [place] [phone] Outr Resulting Lab, Provider Social History Tobacco [...] gonorrhoeae Result Negative Negative 12/13/2021 14:42 EDT [facility] Chlamydia trachomatis Result Negative Negative 12/13/2021 14:42 EDT [facility] Swab ENTIRE ENDOCERVIX / Unknown 12/11/2021 14:15 EDT 12/12/2021 16:59 EDT us Provider Outr Resulting Lab MICROBIOLOGY - GENER AL ORDERABLES Final Result [facility] [address] [place] [address] documented in this encounter Visit Diagnoses Not on filedocumented in this encounter Care Teams Wire Inspector Relationship Specialty Start Date End Date Unknown, Provider, PCP - General 07/01/15 documented as of this encounter
--- OUTSIDE RECORDS SUMMARY | 2024-08-05 15:25 | XMS_ITS | Encounter Summary ---
[place] [address] Care Team Providers Care Lead Javascript Developer Name Role Phone Camilla Peres FRANCES Primary Care Provider [phone] Reason for Visit * Reason Comments Follow Up Surgery drain removal Encounter Details Date Type Department Care Team (Latest Contact Info) Description 11/22/2016 9:00 AM EDT Clinical [place] [address] Surgery follow-up Social History Tobacco Use Types [...] symptoms please call our nurse's line at [phone] M - F 8 - 5 documented [...] surgery documented in this encounter Care Teams Lead Javascript Developer Relationship Specialty Start Date End Date Camilla Peres APRN [address] [place] [address] PCP - General Family Medicine 10/02/16 07/18/21 documented as of this encounter
--- OUTSIDE RECORDS SUMMARY | 2024-08-05 15:25 | XMS_ITS | Encounter Summary ---
Author Organization [facility] Address [facility] [place] [address] Care Team Providers Care Welder Railcar Mechanic Name Role Phone Camilla Peres FRANCES Primary Care Provider [phone] Encounter Details Date Type Department Care Team (Latest Contact Info) Description 08/25/2017 - 08/25/2017 11:59 PM EST Hospital Encounter Radiology Library at [facility] [place] [address] Nas Herrera MD [facility] [place] [address] Discharge Disposition: Home Social History Tobacco Use [...] Herrera MD IMG FILM LIBRARY O RDERABLES [place], [place] documented in this encounter Visit Diagnoses Not on filedocumented in this encounter Care Teams Welder Railcar Mechanic Relationship Specialty Start Date End Date Camilla Peres APRN [address] [place] [address] PCP - General Family Medicine 10/02/16 07/18/21 documented as of this encounter
--- OUTSIDE RECORDS SUMMARY | 2024-08-05 15:25 | XMS_ITS | Encounter Summary ---
Author Organization [facility] Address [facility] [place] [address] Care Team Providers Care Director Manufacturing Engineering Name Role Phone Camilla Peres FRANCES Primary Care Provider [phone] Encounter Details Date Type Department Care Team (Latest Contact Info) Description 08/13/2017 - 08/13/2017 11:59 PM EST Hospital Encounter Radiology Library at [facility] [place] [address] Nas Herrera MD [facility] [place] [address] Discharge Disposition: Home Social History Tobacco Use [...] Herrera MD IMG FILM LIBRARY O RDERABLES [place], [place] documented in this encounter Visit Diagnoses Not on filedocumented in this encounter Care Teams Director Manufacturing Engineering Relationship Specialty Start Date End Date Camilla Peres APRN [address] [place] [address] PCP - General Family Medicine 10/02/16 07/18/21 documented as of this encounter
--- OUTSIDE RECORDS SUMMARY | 2024-08-05 15:25 | XMS_ITS | Encounter Summary ---
Author Organization [facility] Address [address] [place] [address] Care Team Providers Care Hardware Technician Name Role Phone Unavailable Primary Care Provider Unavailabl e Encounter Details Date Type Department Care Team (Late st Contact Info) Description 09/17/2012 Results Only [facility]- [facility] [phone] Bry Posada MD [address] [facility] [place] [address] Social History Tobacco Use Types Packs/Day Years [...] ? LUCY GREY ? Accession #: ? [id number] ? : ? 1980 (Age: 32) ??F [...] Document reviewed and electronically signed by: ? Paras Nam, NAPOLEON(ASCP) ? Report ??Date: 09/28/2012 13:23 HPV with Pap Test ? Date Ordered: ? 09/28/2012 ? Status: ?? Signed Out ?Date Complete: ? 09/30/2012 ? By: ??System Interface ? Date Reported: ? 09/30/2012 ? Interpretation RESULT: Negative for HPV. No E6 or E7 mRNA is detected from HPV types 16,18,31,33,35, 39,45,51,52,56,58, 59,66, and 68 by project analyst mediated amplification. Comments Document reviewed and electronically signed by: ? System Interface ? Report date: 09/30/2012 By the signature above, the attending physician certifies that he/she has personally conducted a gross and/or microscopic examination of the described specimens and rendered or confirmed the above diagnosis. End of Report [facility] 09/17/2012 09/21/2012 us Bry Posada MD PATHOLOGY ORDERABLES Final Resul t Performing Organization Address City/State/[facility] Co de Phone Number [facility] [address] [place] [address] documented in this encounter Visit Diagnoses Not on filedocumented in this encounter
--- OUTSIDE RECORDS SUMMARY | 2024-08-05 15:25 | XMS_ITS | Encounter Summary ---
[place] [address] Care Team Providers Care Cardiology Associate Name Role Phone None Primary Care Provider Unavailabl e Reason for Visit * Reason Comments Neck And Shoulder Pain numbness all the way to fingers LeFT side Encounter Details Date Type Department Care Team (Latest Contact Info) Description 06/16/2014 9:20 AM EDT Office [place] [address] eWsley Cortes MD Herniation of cervical intervertebral disc with radiculopathy [...] myelopathy documented in this encounter Care Teams Cardiology Associate Relationship Specialty Start Date End Date None None PCP - General 05/05/13 10/01/16 documented as of this encounter
--- OUTSIDE RECORDS SUMMARY | 2024-08-05 15:25 | XMS_ITS | Encounter Summary ---
Author Organization [facility] Address [address] [place] [address] Care Team Providers Care Journeyman Millwright Name Role Phone Unavailable Primary Care Provider Unavailabl e Encounter Details Date Type Department Care Team (Late st Contact Info) Description 01/28/2002 Results Only [facility] - Maple conversion [address] [place] [address] Iglesia Knox [address] [place], [place] [phone] Social History Tobacco Use Types Packs/Day Years [...] ? SOPHIA LUCY ? Accession #: ? [id number] : ? 1980 (Age: 21) ??F ?Collect [...] End of Report [facility] 01/28/2002 02/01/2002 us Iglesia Knox CNM PATHOLOGY ORDERABLES Final Resul t [facility] [address] [place] [address] documented in this encounter Visit Diagnoses Not on filedocumented in this encounter
--- OUTSIDE RECORDS SUMMARY | 2024-08-05 15:25 | XMS_ITS | Encounter Summary ---
[place] [address] Care Team Providers Care Warehouse Operator Name Role Phone Camilla Peres APRN Primary Care Provider [phone] Encounter Details Date Type Department Care Team (Late st Contact Info) Description 09/15/2017 Telephone [place] [phone] Raya Santiago Social History Tobacco Use Types [...] on filedocumented in this encounter Care Teams Warehouse Operator Relationship Specialty Start Date End Date Camilla Peres APRN [address] [place] [address] PCP - General Family Medicine 10/02/16 07/18/21 documented as of this encounter
--- OUTSIDE RECORDS SUMMARY | 2024-08-05 15:25 | XMS_ITS | Referral Summary ---
Author Organization [facility] Address [address] [place] [address] Care Team Providers Care Harvest Contractor Name Role Phone Unknown, Provider Primary Care Provider Unava ilable Encounters Date Type Department Care Team Description 06/25/2024 Lab Requisition [facility] Pathology & Laboratory [address] [address] Kelly Elias DO Esophagitis, unspecified without bleeding; Unspecified abdominal pain; Noninfective gastroenteritis and colitis, unspecified; Nausea; Abnormal weight gain 05/18/2024 Lab Requisition [facility] Pathology & Laboratory [address] [address] Outr Resulting Lab, Provider from Last 3 [...] and colitis, unspecified Nausea Abnormal weight gain FECAL BACTERIAL PATHOGENS BY PCR Routine 05/17/2024 11:45 EDT from Last 3 Months Results * SURGICAL PATHOLOGY (06/25/2024 9:14 EST) Note to Patient The following pathology results have been interpreted by your pathologist and may be available to you before your health provider has had the opportunity to review them. Please allow time for your provider to receive these results and explore management options, if applicable. 06/29/2024 9:53 [facility] Final Diagnosis A. JEJUNUM, PROXIMAL, [...] with no significant histopathologic change. 06/29/2024 9:53 [facility] Diagnosis Comment Multiple deeper sections were examined for Parts J and K. 06/29/2024 9:53 [facility] Attestation By the signature below, the attending physician certifies that they have 1) personally conducted a gross and/or microscopic examination of the described specimen(s), and/or personally interpreted the results of laboratory testing of the described specimen(s), and 2) personally rendered or confirmed the above diagnosis. 06/29/2024 9:53 [facility] at 0953 Clinical History Pain/rectal bleeding, diarrhea, EGD, mild esophagitis, diverticuli 06/29/2024 9:53 EST [facility] Gross Description A. Received in [...] 1. Sumi Sagastume 06/28/2024 8:02 06/29/2024 9:53 [facility] Performing Lab [facility] 9:53 EST [facility] Scanned Images 06/29/2024 9:53 EST [facility] Tissue SPECIMEN FROM RECTUM / [...] Elias DO PATHOLOGY ORDERABLES Final Re sult Performing Organization Address City/[facility]/ZIP Co de Phone Number [facility] [address] [place] [address] * FECAL BACTERIAL PATHOGENS BY PCR (05/17/2024 11:45 EDT) Salmonella PCR Negative Negative 05/18/2024 23:29 EDT [facility] Shigella/Enteroin vasive E. coli Negative Negative 05/18/2024 23:29 EDT [facility] HN LAB CAMPYLOBACTER PCR Negative Negative 05/18/2024 23:29 EDT [facility] Shiga Toxin PCR Negative Negative 23:29 EDT [facility] Feces SPECIMEN FROM RECTUM / Unknown 05/17/2024 11:45 EDT 05/18/2024 18:27 EDT us Provider Outr Resulting Lab MICROBIOLOGY - GENER AL ORDERABLES Final Result Performing Organization Address City/[facility]/ZIP Co de Phone Number [facility] [address] [place] [address] from Last 3 Months Insurance [employer] Care Teams Harvest Contractor Relationship Specialty Start Date End Date Unknown, Provider, PCP - General 07/01/15
--- OUTSIDE RECORDS SUMMARY | 2024-08-05 15:25 | XMS_ITS | Encounter Summary ---
Author Organization [facility] Address [address] [place] [address] Care Team Providers Care Certified Medical Technician Assistant Name Role Phone Unknown, Provider Primary Care Provider Unava ilable Encounter Details Date Type Department Care Team (Late st Contact Info) Description 01/30/2022 Lab Requisition [facility] Pathology & Laboratory Medicine - [facility] [address] [place], [place] [phone] Outr Resulting Lab, Provider Social History Tobacco [...] 55.8 - 66.1 % 01/31/2022 13:36 EDT [facility] Albumin g/dL 4.5 3.6 - 5.2 g/dL 01/31/2022 13:36 EDT [facility] Alpha-1 % 3.6 2.9 - 4.9 % 01/31/2022 13:36 [facility] Alpha-1 g/dL 0.30 0.15 - 0.40 g/dL 01/31/2022 13:36 [facility] Alpha-2 % 8.5 7.1 - 11.8 % 01/31/2022 13:36 [facility] Alpha-2 g/dL 0.60 0.50 - 1.00 g/dL 01/31/2022 13:36 [facility] Beta % 11.5 8.4 - 13.1 % 01/31/2022 13:36 [facility] Beta g/dL 0.80 0.60 - 1.20 g/dL 01/31/2022 13:36 [facility] Gamma % 13.8 11.1 - 18.8 % 01/31/2022 13:36 [facility] Gamma g/dL 1.00 0.60 - 1.60 g/dL 01/31/2022 13:36 [facility] SPEP Comment No apparent monoclonal protein seen on serum electrophoresis 01/31/2022 13:36 [facility] Comment:See scanned/suppleme ntary report. Total Protein 7.2 6.3 - 8.2 g/dL 01/31/2022 13:36 [facility] Blood VENOUS BLOOD / Unknown 01/30/2022 12:30 EDT 01/30/2022 22:16 EDT us Provider Outr Resulting Lab CHEMISTRY & BLOOD GA S ORDERABLES Final Result [facility] [address] [place] [address] * PROTEIN, TOTAL (01/30/2022 12:30 EDT) Blood VENOUS BLOOD / Unknown 01/30/2022 12:30 EDT 01/30/2022 22:16 EDT us Provider Outr Resulting Lab CHEMISTRY & BLOOD GA S ORDERABLES Final Result [facility] [address] [place] [address] documented in this encounter Visit Diagnoses Not on filedocumented in this encounter Care Teams Certified Medical Technician Assistant Relationship Specialty Start Date End Date Unknown, Provider, PCP - General 07/01/15 documented as of this encounter
--- OUTSIDE RECORDS SUMMARY | 2024-08-05 15:25 | XMS_ITS | Clinical Summary ---
Author Organization [facility] Address [address] [place] [address] Care Team Providers Care Eyewear Manufacturing Tech Name Role Phone Unknown, Provider MD Primary Care Provider Unava ilable Encounters Date Type Department Care Team Description 06/25/2024 Lab Requisition [facility] Pathology & Laboratory [address] [address] Kelly Elias DO Esophagitis, unspecified without bleeding; Unspecified abdominal pain; Noninfective gastroenteritis and colitis, unspecified; Nausea; Abnormal weight gain 05/18/2024 Lab Requisition [facility] Pathology & Laboratory [address] [address] Outr Resulting Lab, Provider from Last 3 [...] explore management options, if applicable. 06/29/2024 9:53 [facility] Final Diagnosis A. JEJUNUM, PROXIMAL, [...] with no significant histopathologic change. 06/29/2024 9:53 [facility] Diagnosis Comment Multiple deeper sections were examined for Parts J and K. 06/29/2024 9:53 [facility] Attestation By the signature below, the attending physician certifies that they have 1) personally conducted a gross and/or microscopic examination of the described specimen(s), and/or personally interpreted the results of laboratory testing of the described specimen(s), and 2) personally rendered or confirmed the above diagnosis. 06/29/2024 9:53 [facility] at 0953 Clinical History Pain/rectal bleeding, diarrhea, EGD, mild esophagitis, diverticuli 06/29/2024 9:53 [facility] Gross Description A. Received [...] cm). Submitted intact in N 1. Sumi Mitesh 06/28/2024 8:02 06/29/2024 9:53 [facility] Performing Lab [facility] 9:53 [facility] Scanned Images 06/29/2024 9:53 [facility] Tissue SPECIMEN FROM RECTUM [...] ORDERABLES Final Re sult Performing Organization Address City/State/[facility] Co de Phone Number [facility] [address] [place] [address] * FECAL BACTERIAL PATHOGENS BY PCR (05/17/2024 11:45 EDT) Salmonella PCR Negative Negative 05/18/2024 23:[address] [facility] Shigella/Enteroin vasive E. coli Negative Negative 05/18/2024 23:[address] [facility] HN LAB CAMPYLOBACTER PCR Negative Negative 05/18/2024 23:[address] [facility] Shiga Toxin PCR Negative Negative 23:[address] [facility] Feces SPECIMEN FROM RECTUM / Unknown 05/17/2024 11:45 EDT 05/18/2024 18:27 EDT us Provider Outr Resulting Lab MICROBIOLOGY - GENER AL ORDERABLES Final Result [facility] [address] [place] [address] from Last 3 Months Insurance [employer] Care Teams Eyewear Manufacturing Tech Relationship Specialty Start Date End Date Unknown, ProviderMD PCP - General 07/01/15
--- OUTSIDE RECORDS SUMMARY | 2024-08-05 15:25 | XMS_ITS | Encounter Summary ---
Author Organization [facility] Address [address] [place] [address] Care Team Providers Care It Security Consulting Director Name Role Phone Unavailable Primary Care Provider Unavailabl e Encounter Details Date Type Department Care Team (Late st Contact Info) Description 04/23/2013 Results Only [facility] Laboratory Services - [facility] ([facility]) [address] [place], [place] [phone] Karishma Dean MD [address] [place] [address] [place] [address] Social History Tobacco Use Types Packs/Day Years [...] reading/interpreti ng unformatted reports. Name: ? LUCY CORTES ? Accession #: ? [id number] ? : ? 1980 (Age: 32) ??F [...] types 16,18,31,33,35, 39,45,51,52,56,58, 59,66, and 68 by environmental change analyst mediated amplification. Comments Document reviewed and electronically signed by: ? System Interface ? Report date: 04/30/2013 By the signature above, the attending physician certifies that he/she has personally conducted a gross and/or microscopic examination of the described specimens and rendered or confirmed the above diagnosis. End of Report [facility] 04/23/2013 04/27/2013 us Karishma Dean MD PATHOLOGY ORDERABLES Final Resu lt [facility] [address] [place] [address] documented in this encounter Visit Diagnoses Not on filedocumented in this encounter
--- OUTSIDE RECORDS SUMMARY | 2024-08-05 15:25 | XMS_ITS | Encounter Summary ---
Author Organization [facility] Address [facility] [place] [address] Care Team Providers Care Transportation Aide Name Role Phone None Primary Care Provider Unavailabl e Encounter Details Date Type Department Care Team (Latest Contact Info) Description 06/16/2014 9:13 AM EDT - 06/16/2014 11:59 PM EDT Hospital Encounter XRay at [address] [place] [address] Herniation of cervical intervertebral disc with radiculopathy [...] myelopathy documented in this encounter Care Teams Transportation Aide Relationship Specialty Start Date End Date None None PCP - General 05/05/13 10/01/16 documented as of this encounter
--- OUTSIDE RECORDS SUMMARY | 2024-08-05 15:25 | XMS_ITS | Encounter Summary ---
Author Organization [facility] Address [address] [place] [address] Care Team Providers Care Factory Machine Computer Operator Name Role Phone Unknown, Provider MD Primary Care Provider Unava ilable Encounter Details Date Type Department Care Team (Late st Contact Info) Description 11/10/2019 Lab Requisition [facility] Pathology & Laboratory Medicine - [facility] [address] [place] [address] Beto Mendez MD [address] [place] [phone] Encounter for other general examination Social [...] Not Detected Not Detected 11/15/2019 7:59 EDT [facility] Comment:Assayed by [employer] Swab ENTIRE NASOPHARYNX / Unknown 11/04/2019 11:18 EDT 11/10/2019 10:45 EDT Beto Mendez MD MICROBIOLOGY - GENERAL CHARLETTE MARLOW Final Result [facility] [address] [place] [address] documented in this encounter Visit Diagnoses Diagnosis Encounter for other general examination documented in this encounter Care Teams Factory Machine Computer Operator Relationship Specialty Start Date End Date Unknown, Provider, PCP - General 07/01/15 documented as of this encounter
--- OUTSIDE RECORDS SUMMARY | 2024-08-05 15:25 | XMS_ITS | Encounter Summary ---
[place] [address] Care Team Providers Care Flour Inspector Name Role Phone None Primary Care Provider Unavailabl e Reason for Visit * Reason Comments Neck Pain Encounter Details Date Type Department Care Team (Latest Contact Info) Description 05/26/2014 8:15 AM EDT Office [place] [phone] Wesley Cortes MD Herniation of cervical intervertebral disc [...] would like you to sign up for myD-H, which will give you secure online access [...] the instructions. Here is your activation code: [email or web address] Expires: 07/10/2014 8:51 AM Remember, myD-H is [...] Nothing has made her symptoms better including healthcare translator, oral steroids, or gabapentin. She has had [...] MEDICATION ALLERGIES. 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 Family history includes hypertension, diabetes, and also [...] maneuver. DIAGNOSTIC DATA: MRI dated 05/25/2014 from [facility] demonstrates cervical spondylosis at C5-C6, cervical [...] myelopathy documented in this encounter Care Teams Flour Inspector Relationship Specialty Start Date End Date None None PCP - General 05/05/13 10/01/16 documented as of this encounter
--- OUTSIDE RECORDS SUMMARY | 2024-08-05 15:25 | XMS_ITS | Encounter Summary ---
Author Organization [facility] [place] [address] Care Team Providers Care Neon Sign Servicer Name Role Phone Camilla Peres FRANCES Primary Care Provider [phone] Encounter Details Date Type Department Care Team (Latest Contact Info) Description 09/26/2017 10:45 AM EST - 09/26/2017 3:15 PM EST Hospital Encounter [place] [address] Nas Herrera MD [facility] [place] [address] Parotid mass Discharge Disposition: Home Social History [...] -You can reach the ENT clinic at [phone] for appointment questions. -The ENT triage nurse is available at [phone] -For urgent issues during evenings and weekends the ENT resident vocational rehabilitation teacher can be reached through [facility] at [phone] Follow Up: You will need to follow [...] Herrera MD - 09/26/2017 2:00 PM EST [facility] [place] Patient Name: Olga Grey : [id number] MR#: [id number] Case Date: 09/26/2017 Surgeon: Surgeon(s) and Role: [...] Info Order Time SPECIMEN TO PATHOLOGY OR#2 Ex:[id number]. parotid mass RIGHT parotid mass Excision 09/26/2017 [...] The incision was injected with 1% xylocaine [id number] epinephrine and the made with a 15 [...] PM EST 09/26/2017 2:15 PM EST Narrative [facility] - 09/26/2017 2:15 PM EST Specimen requisition ordered. ??Separate Pathology report to follow Resulting Agency Comment Spec In Lab Nas Herrera MD PATHOLOGY/CYTOLOGY ORDERABLES [facility] [place] [address] * Surgical Pathology Report (09/26/2017 1:32 PM EST) Final Diagnosis [id number] ? Location: [facility]; [facility]; The signing pathologist has (i) examined the relevant preparation(s) for the specimen(s) and (ii) rendered or confirmed the diagnosis(es). . 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 Electronically signed by: ??Leti Travis DO Verified: ??10/01/2017 ?Pathologist Performed at: ??-[facility] Dept. [place]ology, [place], [place] CLINICAL INFORMATION Specimen Submitted: A - Right parotid mass Clinical History: Parotid mass Clinical Diagnosis: Parotid mass SPECIMEN PROCESSING A - Labeled/Fixativ e: Right parotid mass, fresh. Quantity/Size: Single, 1.0 x 0.7 x 0.6 cm. Tissue Description: Ovoid, buckley-white cystic structure, on section with pale white fluid. Sections/Proces sing: Inked and trisected. (T1) ??pps 10/01/2017 10:10 AM EST [facility] PAROTID GLAND STRUCTURE / Unknown 09/26/2017 1:32 PM EST 09/26/2017 1:32 PM EST Nas Herrera MD PATHOLOGY/CYTOLOGY ORDERABLES [facility] [place] [address] documented in this encounter Visit Diagnoses Diagnosis [...] MD) documented in this encounter Care Teams Neon Sign Servicer Relationship Specialty Start Date End Date Camilla Peres APRN [address] [place] [address] PCP - General Family Medicine 10/02/16 07/18/21 documented as of this encounter
--- OUTSIDE RECORDS SUMMARY | 2024-08-05 15:25 | XMS_ITS | Encounter Summary ---
Author Organization [facility] Address [address] [place] [address] Care Team Providers Care Chain Mortiser Operator Name Role Phone Unknown, Provider Primary Care Provider Unava ilable Encounter Details Date Type Department Care Team (Late st Contact Info) Description 01/08/2021 Lab Requisition [facility] Pathology & Laboratory Medicine - [address] [id number] Outr Resulting Lab, Provider Social History Tobacco [...] in this encounter Results * COVID-19 TEST [facility] PCR (01/08/2021 11:25 EDT) Swab ENTIRE NASOPHARYNX / Unknown 01/08/2021 11:25 EDT 01/08/2021 16:13 EDT us Provider Outr Resulting Lab MICROBIOLOGY - GENER AL ORDERABLES Final Result [facility] [address] [place] [address] * COVID-19 TESTING (01/08/2021 11:25 EDT) COVID-19 rt-PCR Result Negative Negative 01/09/2021 1:28 EDT [facility] Comment: This test has not [...] history, and epidemiological information. Performed on the [employer] Fusion instrument Performing Lab [facility] 01/09/2021 1:28 EDT [facility] Swab 01/08/2021 11:2 5 EDT 01/08/2021 16:13 EDT us Provider Outr Resulting Lab MICROBIOLOGY - GENER AL ORDERABLES Final Result [facility] [address] [place] [address] documented in this encounter Visit Diagnoses Not on filedocumented in this encounter Care Teams Chain Mortiser Operator Relationship Specialty Start Date End Date Unknown, Provider, PCP - General 07/01/15 documented as of this encounter
--- OUTSIDE RECORDS SUMMARY | 2024-08-05 15:25 | XMS_ITS | Encounter Summary ---
Author Organization [facility] Address [facility] [place] [address] Care Team Providers Care Museum Exhibit Designer Name Role Phone Camilla Peres FRANCES Primary Care Provider [phone] Reason for Visit * Reason Comments Advice Only implant removal cons ult, ? leaking, pain Encounter Details Date Type Department Care Team (Late st Contact Info) Description 10/02/2016 4:00 PM EST Office [place] [address] Nas Tabor MD [facility] [place] [address] Breast implant capsular contracture Social History Tobacco [...] she got them. 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 At this point [...] Timeframe: elective Procedure: Bilateral implant removal CPT: 23831, 06780 Surgical site: breasts Side: bilateral Anesthesia: General [...] implant documented in this encounter Care Teams Museum Exhibit Designer Relationship Specialty Start Date End Date Camilla Peres APRN [address] [place] [address] PCP - General Family Medicine 10/02/16 07/18/21 documented as of this encounter
--- OUTSIDE RECORDS SUMMARY | 2024-08-05 15:25 | XMS_ITS | Encounter Summary ---
Author Organization [facility] Address [address] [place] [address] Care Team Providers Care Ruling Machine Operator Name Role Phone Unavailable Primary Care Provider Unavailabl e Encounter Details Date Type Department Care Team (Late st Contact Info) Description 02/25/2003 Results Only [facility] - Maple conversion [address] [place] [address] Iglesia Knox [address] [place], [place] [id number] Social History Tobacco Use Types Packs/Day Years [...] ? LUCY GREY ? Accession #: ? [id number] : ? 1980 (Age: 22) ??F ?Collect [...] and electronically signed by: ? Severino Mathews, [place](ASCP) ? Report Date: ??03/02/2003 15:43 End of Report [facility] SANABRIA 02/25/2003 03/01/2003 us Iglesia Knox CNM PATHOLOGY ORDERABLES Final Resul t [facility] [address] [place] [address] documented in this encounter Visit Diagnoses Not on filedocumented in this encounter
--- OUTSIDE RECORDS SUMMARY | 2024-08-05 15:25 | XMS_ITS | Encounter Summary ---
[place] [address] Care Team Providers Care Retail Associate Manager Bilingual Name Role Phone Camilla Peres FRANCES Primary Care Provider [phone] Encounter Details Date Type Department Care Team (Late st Contact Info) Description 09/26/2017 12:24 PM EST Anesthesia Event [place] [address] Augustine Manuel MD [facility] [place] [address] Blanche Gilbert CRNA [facility] [place] [address] Anesthesia Record Procedure Summary Procedure Name Responsible [...] Rochelle Quesada RN 09/26/17 1516 by Frieda Plamer RN ETT Mask Ventilation: Ea sy (1); ETT Type: Cuffed, Oral; ETT Size: 7 mm; Mac Blade: 3; Notes: Asleep, Pre-O2, Cricoid Pressure, Stylette; Attempts: 1; Laryngoscopy Grade: 2; ETT Placement Verified By: Capnometry, Auscultation, Visual; Secured at Teeth: 22 cm; Inserted by: Vladimir KURTZ; Removal Date: 09/26/17; Removal Time: 1403 09/26/17 1235 by Blanche Gilbert, AERODYNAMIC CONSULTANT 09/26/17 1403 by Blanche Gilbert CRNA [...] 10.62) performed by Nas Tabor MD at [facility] ??? PRO REMOVAL OF BREAST IMPLANT Bilateral 11/18/2016 REMOVAL OF INTACT MAMMARY IMPLANT-SHERRY (WRVU 6.48) performed by Nas Tabor MD at [facility] Social History Substance Use [...] mg documented in this encounter Care Teams Retail Associate Manager Bilingual Relationship Specialty Start Date End Date Camilla Peres, TANYARD WORKER [address] [place] [address] [address] [place] [address] PCP - General Family Medicine 10/02/16 07/18/21 documented as of this encounter
--- OUTSIDE RECORDS SUMMARY | 2024-08-05 15:25 | XMS_ITS | Encounter Summary ---
Author Organization [facility] Address [address] [place] [address] Care Team Providers Care Rail Transportation Tabeler Name Role Phone Unknown, Provider Primary Care Provider Unava ilable Encounter Details Date Type Department Care Team (Late st Contact Info) Description 11/05/2019 Lab Requisition [facility] Pathology & Laboratory Medicine - [facility] [address] [place] [address] Beto Mendez MD [address] [place] [phone] Encounter for other general examination Social [...] examination documented in this encounter Care Teams Rail Transportation Tabeler Relationship Specialty Start Date End Date Unknown, Provider, PCP - General 07/01/15 documented as of this encounter
== END 2024-08-05 15:23 | disposition home or self-care (01) ==
LOC: LBN 15:22
PROVIDERS: PCP Student in an Organized Health Care Education/Training Program; Visit Provider Physician Assistant
DX: J02.9 Acute pharyngitis, unspecified (principal); R68.89 Other general symptoms and signs; B34.9 Viral infection, unspecified
CPT/HCPCS: 87070

== ENCOUNTER 2024-10-15 16:46 | Outpatient (CLI) | payer OTHER, SELFPAY ==
[2024-10-15 15:45] LABS: TSH 2.08 uIU/mL (0.36-3.74)
[2024-10-15 22:58] LABS: T3,Free 3.1 pg/mL (2.8-5.3)
[2024-10-18 16:15] LABS: IgA 276 mg/dL (85-499); Interpretation (See Note); Tissue Transglutaminase IgA <4.0 CU (<20.0)
== END 2024-10-15 16:47 | disposition home or self-care (01) ==
LOC: LBO 16:48
PROVIDERS: PCP Nurse Practitioner; Visit Provider Nurse Practitioner
DX: R63.5 Abnormal weight gain (principal); R14.0 Abdominal distension (gaseous); R42 Dizziness and giddiness; F41.9 Anxiety disorder, unspecified; Z72.0 Tobacco use
CPT/HCPCS: 36415; 82784; 83516; 84443; 84481

== ENCOUNTER 2025-01-16 15:43 | Emergency (ER) | payer OTHER, SELFPAY ==
[2025-01-16 15:48] VITALS: BP 123/88; PULSE 89; RESP 20; TEMP 36.7; O2SAT 98
--- NOTE | 2025-01-16 15:58 | W.ED.GENAD ---
Discharge Plan Disposition Patient Disposition: Home Discharge Details Clinical Impression: Acute serous otitis media of both ears Primary Care Provider: Chantell Lang ED Provider: Aretha Melgoza Home Meds and New Rx's Prescriptions: No Action clonazepam 0.5 mg tablet 0.5 mg PO BID PRN (Reason: anxiety or panic episode) Qty: 60 2RF nicotine (polacrilex) 4 mg gum 4 mg buccal Q1H Qty: 200 6RF propranolol 10 mg tablet 10 mg PO BID Qty: 60 3RF cholecalciferol (vitamin D3) 1,250 mcg (50,000 unit) capsule 1,250 mcg PO QWEEK Qty: 10 1RF Rx Instructions: Continue over winter Discharge Instructions Instructions: Serous Otitis Media (DC) Additional Instructions: Please call your primary care provider if your ears continue to feel clogged/pressure over the next week. For discomfort I recommend that you try Flonase which can help reduce swelling in your sinuses. You may use Claritin for any allergy symptoms. Afrin may also be used on a short-term basis to help with sinus congestion. Do not use this for more than 2 days. Warm or cool compresses on your ears may relieve discomfort. A humidifier may also be helpful. Return to emergency care if you develop high fevers associate with ear pain, protrusion of your ear, drainage from your ear, difficulty swallowing or difficulty breathing, episodes of dizziness, or if you are very worried you need to be rechecked again immediately. Referrals: [facility] [Provider Group] Discharge Data Discharge Date/Time-TO BE ENTERED AT DEPARTURE: 01/16/25 16:05 HPI General Date/Time Provider Initiated Documentation: 01/16/25 15:58. HPI Narrative: Olga is a 44-year-old female who presents to the emergency department today for evaluation of intermittent bilateral ear plugging for 1 week, fluctuating severity and alternating sides, and associated pressure sensation. Intermittent headaches throughout the week. Denies associated postnasal drip, ear drainage, fever/chills, sore throat, cough. Denies history of seasonal allergies, cardiac or pulmonary issues, diabetes, or previous ear-related problems or surgeries. Self-treatment with peroxide and Benadryl ineffective. Similar episode resolved with ear irrigation and wax removal several years ago. Related Data Home Medications ?Medication ?Instructions ?Recorded ?Confirmed cholecalciferol (vitamin D3) 1,250 1,250 mcg PO QWEEK #10 caps 07/14/24 01/16/25 mcg (50,000 unit) capsule clonazepam 0.5 mg tablet 0.5 mg PO BID PRN anxiety or panic 09/13/24 01/16/25 episode #60 tabs nicotine (polacrilex) 4 mg gum 4 mg buccal Q1H #200 ea 09/13/24 01/16/25 propranolol 10 mg tablet 10 mg PO BID #60 tabs 11/15/24 01/16/25 Previous Rx's ?Medication ?Instructions ?Recorded cholecalciferol (vitamin D3) 1,250 1,250 mcg PO QWEEK #10 caps 07/14/24 mcg (50,000 unit) capsule clonazepam 0.5 mg tablet 0.5 mg PO BID PRN anxiety or panic 09/13/24 episode #60 tabs nicotine (polacrilex) 4 mg gum 4 mg buccal Q1H #200 ea 09/13/24 propranolol 10 mg tablet 10 mg PO BID #60 tabs 11/15/24 Allergies Allergy/AdvReac Type Severity Reaction Status Date / Time No Known Allergies Allergy Verified 01/16/25 15:54 General Stated Complaint: EarProblem NICKI: 4 Exam Narrative Exam Narrative: General Appearance: Normal. Patient alert and oriented, no acute distress Vital signs: Within normal limits. HEENT: Normal facial strength. Clear voice. Mucous membranes. Normal oropharynx. No obvious postnasal drip. Ears clear with TMs pearly lorenzana, translucent. Fluid noted behind one eardrum, not infected. No pain with manipulation of pinna. No protrusion of ear. Lymphatic: Lymph nodes palpated, no cervical submandibular lymphadenopathy. Neck is supple. Skin: Warm and dry, no rash. Psychiatric: Normal. Course Vital Signs Vital signs: Vital Signs Temperature 36.7 C 01/16/25 15:48 Pulse 89 01/16/25 15:48 Respiratory Rate 01/16/25 15:48 Blood Pressure 123/88 01/16/25 15:48 Pulse Oximetry 98 01/16/25 15:48 Temperature 36.7 C 01/16/25 15:48 Temperature Source Oral 01/16/25 15:48 Pulse 89 01/16/25 15:48 Respiratory Rate 01/16/25 15:48 Blood Pressure 123/88 01/16/25 15:48 Blood Pressure Position Sitting 01/16/25 15:48 Pulse Oximetry 98 01/16/25 15:48 Oxygen Delivery Method Room Air 01/16/25 15:48 Oxygen Flow Rate 0 01/16/25 15:48 Pain Level 2 01/16/25 15:48 Medical Decision Making Initial Assessment: Olga, a 44-year-old female, presents with ear pain and a plugged sensation in both ears for about a week. No signs of infection or drainage noted. No red flags concerning for AOM, mastoiditis, or other serious infectious process/serious etiology requiring diagnostic imaging or blood work at this time ED Course: - Examination revealed clear eardrums with fluid behind them, no infection. - Recommended warm/cool compresses for relief. - Suggested Flonase to reduce sinus inflammation, expected improvement in 2-3 weeks. - Advised Afrin for up to 2 days for quicker relief of swelling. - May use Claritin as needed Final Assessment: Symptoms suggest serous otitis media, likely due to sinus congestion affecting the eustachian tube. Examination revealed no infection but fluid behind the eardrum. Treatment includes warm compresses, Flonase, and Afrin. Clinical Impression: - Serous otitis media Disposition: - Follow-Up: If symptoms persist, follow-up with PCP or ENT specialist. Patient consented to the use of ADAL Quality:SDOH Health Related Social Needs: No Data to Display PFSH All Active Problems (Updated 01/16/25 @ 16:01 by Aretha Guzman) Acute serous otitis media of both ears (Acute) Serrated adenoma of colon (Acute ~2023) Repeat colonoscopy in 2026 GERD with esophagitis (Acute) Esophagitis (Acute) mild Panic disorder [episodic paroxysmal anxiety] (Acute) Abdominal bloating (Acute) Chronic diarrhea (Acute) Bilateral lower abdominal discomfort (Acute) Lower abdominal pain (Acute) Pelvic pressure in female (Acute) Weight gain, abnormal (Acute) Hypovitaminosis D (Acute) Hypermetropia, bilateral (Acute) 07/29/22 [facility] note Macrocytosis (Acute) Improved, CHRONIC .. TBD, albeit borderline/improved.. w/o anemia (1 episode low RBC; HGB ok per recent labs) .. [reviewing results post OV] Stressful life event affecting family (Acute) Reaction, situational, acute, to stress (Acute) Acute dyspnea (Acute) improved, when @ rest Cervicalgia (Acute) Acute on chronic: aggravated with work and intertwined with headache & dizziness .. limited relief with PT. Hx MRI (+) disc gabe & cord compression @ C5-6,C6-7. Left cervical radiculopathy (Acute) Per [facility] pain and spine, and clinical evaluation. History of negative EMG (summer 2021), but we may need a new EMG. We may also need a new MRI, with oblique views. Numbness and tingling of left upper extremity (Acute) Acute neck pain (Acute) No new injury, acute pain with mild ROM improvement post Chiro. Possible reduced work requirements; possible FMLA? Major depression (Chronic) DOV (generalized anxiety disorder) (Acute) Isolation (social) (Acute) Diplopia (Acute ~09/03/22) Perioral numbness (Acute) Dizziness (Acute) Facial weakness (Acute) Peripheral neuropathy (Acute) Bilateral hand numbness (Acute) Hx CT release, b/l ([facility]?). Elbow impingement surgery recomm per pt report? History of nerve impingement (Acute) Per ppt and [facility] note, recommending EMG [ ] . Complicated grief (Acute) Son's Fa of possible suicide, 09/2021. Olga & friend went to his home, found him with unclear intention (did he change his mind, but unable to leave room w/ propane) .. While not together, they were friends and co-parenting. 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 Resolved on recent MRI (10/2021), although osteophyte complex (+) @ C4-5-6-7 & multilevel foraminal stenosis. Injury of upper back excluding scapular region (Acute) Acute on chronic: Central upper back injury years ago @ [employer], as if a mm was tearing (with flares of burning, central pain after heavy work day) (~1999) Vertigo (Acute 04/01/13) Acute on chronic: returned, 09/2021 .. assoc with work? topiramate taper? Vision changes (Acute) New glasses, but seems serious change in 1 year (cannot see at all w/o glasses now, vs last year). Episodes of loss of focus. Weight loss, non-intentional (Acute) Tick bites (Acute) Multiple, with > 48H and rashes noted. Hx arthralgia. Post traumatic stress disorder (PTSD) (Acute) Papilledema (Chronic) [place].. No optic nn damage per Dr RICO, 08/2021 Idiopathic intracranial hypertension (Acute) Appears improved.. History of idiopathic intracranial hypertension (Acute) Jul 2008, Sep 2019 Pseudotumor cerebri (Acute 05/03/13) Smoker (Chronic) Wellbutrin may be helping stop .. 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 will be 2 years in March 2020. [place] Atelectasis of right lung UTI symptoms per webex .. on her way to lab? via CT... Return to work evaluation Pt hurt @ home, but on FMLA since end of December 2' rib Fx. Pleurisy without effusion Ribs, multiple fractures mildly displaced per CT (FU 2' pain out of proportion); per Rib XR (as initial CXR neg) Painful breasts Other disorders of pituitary gland Benign paroxysmal vertigo, bilateral Radiculopathy, cervical region Carpal tunnel syndrome b/l median neuropathy per EMG, [facility], 06/2017 (no brachial plex OR cervical radic) COVID-05 Aug 2021 Stressful life events affecting family and household Found son's father by suicide, 09/2021. Son is 19yo with life-transition & loss of Fa. 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 Recent break-up (Mar 2020); 18yo son partially moved out (workg? smkg?); daughter lives with fa. Strong support @ work. Isolation with COVID and home in [place] .. may be buying new home, Aug 2020. Anxiety and depression (05/29/17) Depressive disorder (05/03/13) Spontaneous (02/05/13) Surgical History (Updated 06/28/24 @ 09:31 by Charlette Verma) History of esophagogastroduodenoscopy (~06/2024) History of colonoscopy (~06/2024) Status post carpal tunnel release RT Wrist Open CTR, Synovectomy S/P breast augmentation s/p implant and then later explant History of laparoscopy Family History Mother Depression Substance abuse Anxiety Degenerative disc disease Migraine Father Essential hypertension Depression Hyperlipidemia Substance abuse Anxiety Colon cancer Hypertension Stroke Tremor Sister Depression Substance abuse Anxiety Brother Depression Substance abuse Anxiety Brother Depression Stroke Substance abuse Degenerative disc disease Migraine Maternal Grandfather Heart disease Hyperlipidemia Stroke Degenerative disc disease Paternal Grandfather Heart disease Hyperlipidemia Stroke Diabetes Maternal Grandmother Heart disease Paternal Grandmother Diabetes Neoplasm BREAST Maternal Aunt Degenerative disc disease Maternal Uncle Degenerative disc disease Social History (Updated 09/13/24 @ 18:07 by Gisela Lynch LPN) Smoking/Tobacco Use Status: Current every day Tobacco Type: cigarettes Smoking packs per day: 1 Smoking cigarettes per day: 20.0 Tobacco: How many years used: 20 Quit status: considering quitting Smoking risk assessment performed?: Yes Alcohol Intake: current Alcohol Intake frequency: 0-2 drinks per day Alcohol type: beer Drug use: Never Substance use type: does not use Details: 2 cigarettes this morning. Adopted: No Caregiver/Support person: No Foster care: No Household members: children and other Details: Ulises - Son, lives with her. 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 [employer] Pets and animals: Yes (2) Pets and animals: dog(s) Sexually active: No Do you think of yourself as: straight/heterosexual Current gender identity: female What is your relationship status?: never How often do you talk on the phone with friends or family?: once per week How often do you get together with friends or relatives?: never Do you belong to any clubs or organized social groups?: no Panel score (0-1 are the most socially isolated patients): 0 What type of physical activity do you participate in: walking Duration: 15-30 minutes/day Frequency: 1-2 times per week Special castillo needs: No Seatbelt use: always Helmet use: Yes Helmet use: other Details: no use Drive intox or ride w/intox service car driver: No Do you feel safe at home: Yes Do you feel safe in your relationship?: Yes Female Reproductive History Menstrual Duration of menses: 3-5 days control method: progestin IUCD History History 6 Para 2 Hx # Term Pregnancies 2 Multiple births Hx # Pregnancies Ectopic pregnancies AB induced Hx Number of Living Children 2 AB spontaneous
== END 2025-01-16 16:05 | disposition home or self-care (01) ==
PROVIDERS: Emergency Provider Nurse Practitioner Family; PCP Nurse Practitioner
DX: H65.03 Acute serous otitis media, bilateral (principal)
CPT/HCPCS: 99283 ×2

== ENCOUNTER 2025-02-28 11:15 | Outpatient (CLI) | payer OTHER, SELFPAY ==
[2025-02-28 12:20] LABS: Abs Immature Grans 0.02 10^3/uL (0.0-0.06); HCT 38.9 % (36.0-46.0); HGB 13.8 g/dL (11.2-15.7); Immature Grans % 0.3 %; MCH 35.6 pg (27.0-33.0); MCHC 35.5 % (32.0-36.0); MCV 100 fL (80-95); MPV 9.0 fL (8.0-11.0); Platelet Count 374 10^3/uL (130-400); RBC 3.88 10^6/uL (3.93-5.22); RDW 12.1 % (11.7-14.6); RDW-SD 44.5 fL; WBC 6.00 10^3/uL (4.4-10.8)
[2025-02-28 13:03] LABS: ALT 59 U/L (14-59); AST 36 U/L (15-37); Albumin 4.2 g/dL (3.4-5.0); Alkaline Phosphatase 78 U/L (46-116); Anion Gap 10.7 mmol/L (3-11); BUN 13 mg/dL (7-18); Bilirubin, Total 0.5 mg/dL (0.2-1.0); CO2 25.3 mmol/L (21.0-32.0); Calcium 9.6 mg/dL (8.5-10.1); Chloride 101 mmol/L (98-107); Estimated GFR 93.12 (mL/min/1.73m2); Glucose 94 mg/dL (74-106); Lipase 17 U/L (<78); Potassium 3.7 mmol/L (3.5-5.1); Sodium 137 mmol/L (136-145); Total Protein 8.2 g/dL (6.4-8.2)
[2025-03-01 10:09] LABS: Lyme Ab w Rflx to Lyme Confirm Negative (Negative)
[2025-03-03 00:19] LABS: B. miyamotoi PCR Negative (Negative); Babesia divergens/MO-1 Negative (Negative); Ehrlichia muris eauclairensis Negative (Negative)
== END 2025-02-28 11:16 | disposition home or self-care (01) ==
PROVIDERS: PCP Nurse Practitioner; Referring Provider Physician Assistant; Visit Provider Physician Assistant
DX: R19.7 Diarrhea, unspecified (principal); R53.83 Other fatigue
CPT/HCPCS: 36415; 80053; 83690; 87015; 87269; 87272; 87505; 87798; 85025; 86618

== ENCOUNTER 2025-04-19 17:49 | Outpatient (REF) | payer OTHER, SELFPAY | END 2025-04-19 17:50 | disposition home or self-care (01) | LOC: LBN 17:49 | PROVIDERS: PCP Nurse Practitioner; Visit Provider Obstetrics & Gynecology | DX: N94.9 Unspecified condition associated with female genital organs and menstrual cycle (principal) | CPT/HCPCS: 87480; 87510; 87660 ==